=== PATIENT | male | born 1940 | race Caucasian/White ===

== ENCOUNTER 2017-01-16 16:33 | Inpatient (IN) | payer MEDICARE ==
[~2017-01-16] VITALS: Ht 182.9 cm; Wt 123.0 kg
[~2017-01-16 16:33] MED LIST: AMIO200T PO; ATOR20TA PO; Aspirin PO; CLOP75TA57 PO; DRON400T PO; GABA-586 PO; GABA800T2 PO; HYDR12.58 PO; HYDR25TA9 PO; LISI5TAB PO; METF-620 PO; Metoprolol Tartrate PO; NITR0.4T SL; RAMI10CA PO; RAMI5CAP PO; TICA90TA PO; TRAM-48 PO
[2017-01-16] MEDS ORDERED: IV NORMAL SALINE 500ML BAG 500 ML IV PRN (17:00)
[2017-01-16] MEDS ORDERED: IV NORMAL SALINE 1000ML BAG 1,000 ML IV SCH (17:00)
--- NOTE | 2017-01-16 17:25 | RAD ---
INDICATION: soa COMPARISON: 02/08/2016 FINDINGS: Single view of chest obtained. Enlarged cardiac silhouette with calcific atherosclerosis. Pacemaker is seen. Degenerative changes of left shoulder. No definite edema. Mild linear opacity left lung base. IMPRESSION: Mild linear opacity left lung base could be atelectasis. No definite lobar infiltrate. Enlarged cardiac silhouette.
[2017-01-16 17:55] LABS: HEMATOCRIT 27.8 % (39.0-53.0); HEMOGLOBIN 8.8 g/dL (13.0-17.5); MEAN CORPUSCULAR HEMOGLOBIN 29 pg (25-35); MEAN CORPUSCULAR HGB CONC 32 g/dL (31-37); MEAN CORPUSCULAR VOLUME 91 fL (79-100); PLATELET COUNT 784 x10^3/uL (140-400); RED BLOOD COUNT 3.05 x10^6/uL (4.30-5.70); RED CELL DISTRIBUTION WIDTH 17.6 % (11.5-14.5)
[2017-01-16 18:00] LABS: INR 1.2 (0.8-1.1)
[2017-01-16 18:02] LABS: WHITE BLOOD COUNT 308.5 x10^3/uL (4.0-11.0)
[2017-01-16 18:07] LABS: CALCIUM 9.3 mg/dL (8.5-10.1); CREATININE 1.5 mg/dL (0.7-1.3); GFR 45.6; POTASSIUM 4.3 mmol/L (3.5-5.1)
[2017-01-16 18:12] LABS: ALBUMIN 3.6 g/dL (3.4-5.0); TOTAL BILIRUBIN 0.3 mg/dL (0.2-1.0); TOTAL PROTEIN 7.3 g/dL (6.4-8.2)
[2017-01-16 18:33] LABS: ANISOCYTOSIS SLIGHT; PLT ESTIMATE INCREASED (ADEQUATE)
[2017-01-16 18:36] LABS: % BASOS 3 % (0-3); % EOS 2 % (0-5); POLYCHROMASIA SLIGHT
[2017-01-16 18:46] LABS: % BLASTS 2 % (0-0)
[2017-01-16] MEDS ORDERED: NITROGLYCERIN SUBLINGUAL 0.4 MG BOTTLE OF 25. SL PRN (19:00)
[2017-01-16] MEDS ORDERED: DEXTROSE 50% 25 GM / 50ML DISP.SYRIN. IV PRN ×2 (19:00→21:00)
[2017-01-16] MEDS ORDERED: PROCHLORPERAZINE 10 MG/2 ML VIAL. IV PRN (19:00)
[2017-01-16] MEDS ORDERED: traMADol 50 MG TABLET PO PRN (19:00)
[2017-01-16] MEDS ORDERED: ACETAMINOPHEN 325 MG TABLET. PO PRN (19:00)
[2017-01-16] MEDS ORDERED: PROCHLORPERAZINE 25 MG SUPP.RECT. PR PRN (19:00)
[2017-01-16] MEDS ORDERED: MAGNESIUM HYDROXIDE 2,400 MG/30 ML ORAL.SUSP. PO PRN (19:00)
[2017-01-16] MEDS ORDERED: IBUPROFEN 400 MG TABLET. PO PRN (19:00)
[2017-01-16] MEDS ORDERED: ONDANSETRON PF 4 MG/2 ML VIAL. IV PRN ×2 (19:00→19:45)
[2017-01-16] MEDS ORDERED: BISACODYL 10 MG SUPP.RECT. PR PRN (19:00)
--- NOTE | 2017-01-16 19:00 | PDOC1 ---
History and Physical Date of Admission Date of Admission DATE: 01/16/17 TIME: 18:53 Identification/Chief Complaint Chief Complaint sent by PCP Dr. Negrete bec of AbN labs (high WBC) Problems: Source Source: Caregiver, Chart review, Patient History of Present Illness History of Present Illness Very pleasant and very compliant 76 y.o male, sent by HIs PCP of 15 yrs bec of abN WBC. LAst labs was 3 mos ago (regularly monitoring) and was all normal,. Today, routine labs, routine check up, denies any sxs of weakness, fatigability, NONE of that, WBC high. At ER, recheck WBC 308,500, platelets 784 , hgb 8.8. NEWS to pt. All his past medical hx is mostly cardiac follows good with Demetris Thayer and includes HTN, arrhythmia, CHF, CAD, indwelling defibrillator and is in Plavix and ASA. JUst actually saw Shweta of cards in the office and ramipirl was stopped to transition to ENTRESTO - which is a new valsartan/diuretic? drug, Due echo this at 1.:45 pM. Past Medical History Cardiovascular: CAD, CHF, HTN Musculoskeletal: low back pain Renal/: Other Endocrine: Diabetes Past Surgical History Past Surgical History: Other Family History Family History: No Significant Social History Smoke: No ALCOHOL: none Drugs: None Current Medications Current Medications Current Medications Sodium Chloride 1,000 ml @ 3,780 mls/hr Q16M IV Last administered on t 17:47; Start 01/16/17 at 17:00; Stop 01/16/17 at 18:00; Status Cancel Sodium Chloride 500 ml @ 1,000 mls/hr PRN Q30MIN PRN IV SEE COMMENTS; Start at 17:00; Status Cancel Active Scripts Active Ultram (Tramadol Hcl) 50 Mg Tablet 1 Tab PO Q6HRS PRN Nitrostat (Nitroglycerin) 0.4 Mg Tab.subl 0.4 Mg SL PRN Q5MIN PRN [Metoprolol Tartrate] 25 MG Tablet 12.5 Mg PO BID [Aspirin] 81 MG Tablet. 81 Mg PO DAILYWBKFT Reported Multaq (Dronedarone Hcl) 400 Mg Tablet 400 Mg PO DAILY16 Plavix (Clopidogrel Bisulfate) 75 Mg Tablet 75 Mg PO DAILY Gabapentin 800 Mg Tablet 800 Mg PO QID Ramipril 10 Mg Capsule 10 Mg PO DAILY Hydrochlorothiazide Tablet (Hydrochlorothiazide) 25 Mg Tablet 25 Mg PO DAILY Metformin Hcl 1,000 Mg Tablet 1 Tab PO BID Do not resume until 10/07/15 evening dose Allergies Allergies: Coded Allergies: hydrocodone (Verified Allergy, Intermediate, altered mental status, hallucinations, 02/07/16) ROS Review of System denies ALL, 14 pt reviewed Physical Exam General: Alert, Oriented X3, Cooperative, No acute distress HEENT: Atraumatic, PERRLA, EOMI, Mucous membr. moist/pink Lungs: Clear to auscultation Heart: S1S2, RRR, no thrills, no rubs, no gallops, no murmurs Cardiovascular: S1, S2 Abdomen: Normal bowel sounds, Soft, No tenderness, No hepatosplenomegaly, No masses Male Genitals Exam: normal genitalia, normal prostate Extremities: No clubbing, No cyanosis, No edema, Normal pulses, No tenderness/ swelling Skin: No rashes, No breakdown, No significant lesion Neuro: Normal gait, Normal speech, Strength at 5/5 X4 ext, Normal tone, Sensation intact, Cranial nerves 3-12 NL, Reflexes 2+ Psych/Mental Status: Mental status NL, Mood NL Vitals Vitals Vital Signs Date Time Temp Pulse Resp B/P (MAP) Pulse Ox O2 Delivery O2 Flow Rate FiO2 01/16/17 16:46 99.1 77 22 161/74 (103) 94 Room Air 99.1 Labs Labs Laboratory Tests Test 01/16/17 17:35 White Blood Count 308.5 x10^3/uL (4.0-11.0) Red Blood Count 3.05 x10^6/uL (4.30-5.70) Hemoglobin 8.8 g/dL (13.0-17.5) Hematocrit 27.8 % (39.0-53.0) Mean Corpuscular Volume 91 fL (79-100) Mean Corpuscular Hemoglobin 29 pg (25-35) Mean Corpuscular Hemoglobin Concent 32 g/dL (31-37) Red Cell Distribution Width 17.6 % (11.5-14.5) Platelet Count 784 x10^3/uL (140-400) Neutrophils (%) (Auto) % (31-73) Lymphocytes (%) (Auto) % (24-48) Monocytes (%) (Auto) % (0-9) Eosinophils (%) (Auto) % (0-3) Basophils (%) (Auto) % (0-3) Neutrophils # (Auto) x10^3uL (1.8-7.7) Lymphocytes # (Auto) x10^3/uL (1.0-4.8) Monocytes # (Auto) x10^3/uL (0.0-1.1) Eosinophils # (Auto) x10^3/uL (0.0-0.7) Basophils # (Auto) x10^3/uL (0.0-0.2) Segmented Neutrophils % 33 % (35-66) Band Neutrophils % 26 % (0-9) Lymphocytes % 3 % (24-48) Monocytes % 1 % (0-10) Eosinophils % 2 % (0-5) Basophils % 3 % (0-3) Metamyelocytes % 6 % (0-0) Myelocytes % 20 % (0-0) Promyelocytes % 4 % (0-0) Blast Cells % (Manual) 2 % (0-0) Platelet Estimate Increased (ADEQUATE) Polychromasia Slight Anisocytosis Slight Prothrombin Time 14.0 SEC (11.7-14.0) Prothromb Time International Ratio 1.2 (0.8-1.1) Activated Partial Thromboplast Time 33 SEC (24-38) Sodium Level 139 mmol/L (136-145) Potassium Level 4.3 mmol/L (3.5-5.1) Chloride Level 103 mmol/L (98-107) Carbon Dioxide Level 26 mmol/L (21-32) Anion Gap 10 (6-14) Blood Urea Nitrogen 23 mg/dL (8-26) Creatinine 1.5 mg/dL (0.7-1.3) Estimated GFR (Cockcroft-Gault) 45.6 BUN/Creatinine Ratio 15 (6-20) Glucose Level 155 mg/dL (70-99) Lactic Acid Level 1.5 mmol/L (0.4-2.0) Calcium Level 9.3 mg/dL (8.5-10.1) Total Bilirubin 0.3 mg/dL (0.2-1.0) Aspartate Amino Transf (AST/SGOT) 37 U/L (15-37) Alanine Aminotransferase (ALT/SGPT) 20 U/L (16-63) Alkaline Phosphatase 128 U/L (46-116) Troponin I Quantitative < 0.017 ng/mL (0.000-0.055) RQ-Jpe-G-Type Natriuretic Peptide 1195 pg/mL (0-449) Total Protein 7.3 g/dL (6.4-8.2) Albumin 3.6 g/dL (3.4-5.0) Albumin/Globulin Ratio 1.0 (1.0-1.7) Lipase 138 U/L (73-393) Laboratory Tests Test 01/16/17 17:35 White Blood Count 308.5 x10^3/uL (4.0-11.0) Red Blood Count 3.05 x10^6/uL (4.30-5.70) Hemoglobin 8.8 g/dL (13.0-17.5) Hematocrit 27.8 % (39.0-53.0) Mean Corpuscular Volume 91 fL (79-100) Mean Corpuscular Hemoglobin 29 pg (25-35) Mean Corpuscular Hemoglobin Concent 32 g/dL (31-37) Red Cell Distribution Width 17.6 % (11.5-14.5) Platelet Count 784 x10^3/uL (140-400) Neutrophils (%) (Auto) % (31-73) Lymphocytes (%) (Auto) % (24-48) Monocytes (%) (Auto) % (0-9) Eosinophils (%) (Auto) % (0-3) Basophils (%) (Auto) % (0-3) Neutrophils # (Auto) x10^3uL (1.8-7.7) Lymphocytes # (Auto) x10^3/uL (1.0-4.8) Monocytes # (Auto) x10^3/uL (0.0-1.1) Eosinophils # (Auto) x10^3/uL (0.0-0.7) Basophils # (Auto) x10^3/uL (0.0-0.2) Segmented Neutrophils % 33 % (35-66) Band Neutrophils % 26 % (0-9) Lymphocytes % 3 % (24-48) Monocytes % 1 % (0-10) Eosinophils % 2 % (0-5) Basophils % 3 % (0-3) Metamyelocytes % 6 % (0-0) Myelocytes % 20 % (0-0) Promyelocytes % 4 % (0-0) Blast Cells % (Manual) 2 % (0-0) Platelet Estimate Increased (ADEQUATE) Polychromasia Slight Anisocytosis Slight Prothrombin Time 14.0 SEC (11.7-14.0) Prothromb Time International Ratio 1.2 (0.8-1.1) Activated Partial Thromboplast Time 33 SEC (24-38) Sodium Level 139 mmol/L (136-145) Potassium Level 4.3 mmol/L (3.5-5.1) Chloride Level 103 mmol/L (98-107) Carbon Dioxide Level 26 mmol/L (21-32) Anion Gap 10 (6-14) Blood Urea Nitrogen 23 mg/dL (8-26) Creatinine 1.5 mg/dL (0.7-1.3) Estimated GFR (Cockcroft-Gault) 45.6 BUN/Creatinine Ratio 15 (6-20) Glucose Level 155 mg/dL (70-99) Lactic Acid Level 1.5 mmol/L (0.4-2.0) Calcium Level 9.3 mg/dL (8.5-10.1) Total Bilirubin 0.3 mg/dL (0.2-1.0) Aspartate Amino Transf (AST/SGOT) 37 U/L (15-37) Alanine Aminotransferase (ALT/SGPT) 20 U/L (16-63) Alkaline Phosphatase 128 U/L (46-116) Troponin I Quantitative < 0.017 ng/mL (0.000-0.055) HW-Vje-K-Type Natriuretic Peptide 1195 pg/mL (0-449) Total Protein 7.3 g/dL (6.4-8.2) Albumin 3.6 g/dL (3.4-5.0) Albumin/Globulin Ratio 1.0 (1.0-1.7) Lipase 138 U/L (73-393) VTE Prophylaxis Ordered VTE Prophylaxis Devices: Yes VTE Pharmacological Prophylaxi: Yes Assessment/Plan Assessment/Plan 1. MARKD leukocytosis, in my opinion leukemia until proven otherwise 2. CAD, CHF, HTN, Indwelling defibrillator - all chronic stable 3. Obesity BMI 37 4. DM 2, good control PLAN: Admit, ADA now but NPO post MN for BM biopsy SSI HEme onc consult Cards consult as shweta stopped ramipril yesterday and claims was going to start entresto? on , pt wanted to ff up on that Also due echo , will do while here if ok with cards Seen at ER Labs and plan of care discussed in detail with pt and Agreeable. Dw Midlevel ER provider MAMTA Lomas MD Jan 16, 2017 19:00
[2017-01-16] MEDS ORDERED: fentaNYL PF VIAL 100 MCG/2 ML VIAL IV PRN (19:45)
--- NOTE | 2017-01-16 19:57 | PHYS DOC ---
Past Medical History Past Medical History: CAD, Diabetes-Type II, Hypertension, Kidney Stone, SC, Other Additional Past Medical Histor: NEUROPATHY Past Surgical History: Pacemaker, Other Additional Past Surgical Histo: lap band, cardiac stents,PACEMAKER/DEFIB Alcohol Use: None Drug Use: None Adult General Chief Complaint Chief Complaint: ABNORMAL LABS HPI HPI Patient is a 76 year old male with history of hypertension, CAD, SC, CHF, diabetes type 2, who presents today stating he was seen by the PCP and they tita routine labs his white count was extremely elevated "at Leukemia levels" and the PCP sent him to the ED to have his labs redrawn. Patient states he has had intermittent episodes of shortness of breath for the last 1 month. Patient denies any chest pain or fever or nausea vomiting. Denies any history of alcohol or drug abuse or smoking. PCP Dr. Obdulio Craroll Cardiology Dr. Murdock Review of Systems Review of Systems Constitutional: Elevated WBC Eyes: Denies change in visual acuity, redness, or eye pain [] HENT: Denies nasal congestion or sore throat [] Respiratory: shortness of breath [] Cardiovascular: No additional information not addressed in HPI [] GI: Denies abdominal pain, nausea, vomiting, bloody stools or diarrhea [] : Denies dysuria or hematuria [] Musculoskeletal: Denies back pain or joint pain [] Integument: Denies rash or skin lesions [] Neurologic: Denies headache, focal weakness or sensory changes [] Endocrine: Denies polyuria or polydipsia [] Current Medications Current Medications Current Medications Medications (Trade) Dose Ordered Sig/Rose Start Time Stop Time Status Last Admin Dose Admin Acetaminophen (Tylenol) 650 mg PRN Q6HRS PRN 01/16/17 19:00 Bisacodyl (Dulcolax Supp) 10 mg PRN DAILY PRN 01/16/17 19:00 Dextrose (Dextrose 50%-Water Syringe) 12.5 gm PRN Q15MIN PRN 01/16/17 19:00 Ibuprofen (Motrin) 400 mg PRN Q6HRS PRN 01/16/17 19:00 Magnesium Hydroxide (Milk Of Magnesia) 2,400 mg PRN Q12HR PRN 01/16/17 19:00 Nitroglycerin (Nitrostat) 0.4 mg PRN Q5MIN PRN 01/16/17 19:00 Ondansetron HCl (Zofran) 4 mg PRN Q6HRS PRN 01/16/17 19:00 Prochlorperazine (Compazine) 25 mg PRN Q12HR PRN 01/16/17 19:00 Prochlorperazine Edisylate (Compazine) 10 mg PRN Q6HRS PRN 01/16/17 19:00 Sodium Chloride 500 ml @ 1,000 mls/hr PRN Q30MIN PRN 01/16/17 17:00 Cancel Tramadol HCl (Ultram) 50 mg PRN QID PRN 01/16/17 19:00 Allergies Allergies Allergies Coded Allergies Type Severity Reaction Last Updated Verified hydrocodone Allergy Intermediate altered mental status, hallucinations 02/07/16 Yes Physical Exam Physical Exam Constitutional: Well developed, well nourished, no acute distress, non-toxic appearance. [] HENT: Normocephalic, atraumatic, bilateral external ears normal, oropharynx moist, no oral exudates, nose normal. [] Eyes: PERRLA, EOMI, conjunctiva normal, no discharge. [] Neck: Normal range of motion, no tenderness, supple, no stridor. [] Cardiovascular:Left upper chest with defibrillator with pacemaker. Heart rate regular rhythm, no murmur [] Lungs & Thorax: Bilateral breath sounds clear to auscultation [] Abdomen: Bowel sounds normal, soft, no tenderness, no masses, no pulsatile masses. [] Skin: Warm, dry, no erythema, no rash. [] Back: No tenderness, no CVA tenderness. [] Extremities: No tenderness, no cyanosis, no clubbing, ROM intact, no edema. [] Neurologic: Alert and oriented X 3, normal motor function, normal sensory function, no focal deficits noted. [] Psychologic: Affect normal, judgement normal, mood normal. [] Current Patient Data Vital Signs Vital Signs Date Time Temp Pulse Resp B/P (MAP) Pulse Ox O2 Delivery O2 Flow Rate FiO2 01/16/17 18:50 74 20 129/61 (83) 95 Room Air 01/16/17 16:46 99.1 99.1 Lab Values Laboratory Tests Test 01/16/17 17:35 White Blood Count 308.5 x10^3/uL (4.0-11.0) *H Red Blood Count 3.05 x10^6/uL (4.30-5.70) L Hemoglobin 8.8 g/dL (13.0-17.5) L Hematocrit 27.8 % (39.0-53.0) L Mean Corpuscular Volume 91 fL (79-100) Mean Corpuscular Hemoglobin 29 pg (25-35) Mean Corpuscular Hemoglobin Concent 32 g/dL (31-37) Red Cell Distribution Width 17.6 % (11.5-14.5) H Platelet Count 784 x10^3/uL (140-400) #H Neutrophils (%) (Auto) % (31-73) Lymphocytes (%) (Auto) % (24-48) Monocytes (%) (Auto) % (0-9) Eosinophils (%) (Auto) % (0-3) Basophils (%) (Auto) % (0-3) Neutrophils # (Auto) x10^3uL (1.8-7.7) Lymphocytes # (Auto) x10^3/uL (1.0-4.8) Monocytes # (Auto) x10^3/uL (0.0-1.1) Eosinophils # (Auto) x10^3/uL (0.0-0.7) Basophils # (Auto) x10^3/uL (0.0-0.2) Segmented Neutrophils % 33 % (35-66) L Band Neutrophils % 26 % (0-9) H Lymphocytes % 3 % (24-48) L Monocytes % 1 % (0-10) Eosinophils % 2 % (0-5) Basophils % 3 % (0-3) Metamyelocytes % 6 % (0-0) H Myelocytes % 20 % (0-0) H Promyelocytes % 4 % (0-0) H Blast Cells % (Manual) 2 % (0-0) H Platelet Estimate Increased (ADEQUATE) Polychromasia Slight Anisocytosis Slight Prothrombin Time 14.0 SEC (11.7-14.0) Prothrombin Time INR 1.2 (0.8-1.1) H PTT 33 SEC (24-38) Sodium Level 139 mmol/L (136-145) Potassium Level 4.3 mmol/L (3.5-5.1) Chloride Level 103 mmol/L (98-107) Carbon Dioxide Level 26 mmol/L (21-32) Anion Gap 10 (6-14) Blood Urea Nitrogen 23 mg/dL (8-26) Creatinine 1.5 mg/dL (0.7-1.3) H Estimated GFR (Cockcroft-Gault) 45.6 BUN/Creatinine Ratio 15 (6-20) Glucose Level 155 mg/dL (70-99) H Lactic Acid Level 1.5 mmol/L (0.4-2.0) Calcium Level 9.3 mg/dL (8.5-10.1) Total Bilirubin 0.3 mg/dL (0.2-1.0) Aspartate Amino Transferase (AST) 37 U/L (15-37) Alanine Aminotransferase (ALT) 20 U/L (16-63) Alkaline Phosphatase 128 U/L (46-116) H Troponin I Quantitative < 0.017 ng/mL (0.000-0.055) BK-Tjd-C-Type Natriuretic Peptide 1195 pg/mL (0-449) H Total Protein 7.3 g/dL (6.4-8.2) Albumin 3.6 g/dL (3.4-5.0) Albumin/Globulin Ratio 1.0 (1.0-1.7) Lipase 138 U/L (73-393) Procalcitonin 0.26 ng/mL (0.00-0.10) H Laboratory Tests 01/16/17 17:35 Laboratory Tests 01/16/17 17:35 EKG EKG [] Radiology/Procedures Radiology/Procedures [] Course & Med Decision Making Course & Med Decision Making Pertinent Labs and Imaging studies reviewed. (See chart for details) This is a very pleasant male patient who presents to the ED for blood draw. Patient was seen by the PCP is office and routine labs obtain. His white count was noted to be elevated suspicious of leukemia. CBC in the ED is 308.5. Hemoglobin 8.8, platelets 784. Consulted with Dr. West who accepted patient for admission Consulted with Dr. August who requested we wait for patient's labs to be completed especially bands and blasts. If labs show this is chronic leukemia he can be admitted if it is acute he needs to be transferred to Lab states it will be awhile before all the labs are ready infact they will wait until Dr. Rodriguez Pathologist look sat them before they post everything. Consulted with Dr. Johnson who stated we can admit patient and admitting doctor and Dr. August can follow up with the labs as inpatient and decide if patient will stay at [facility] or go to . Aureliano Disclaimer Dragon Disclaimer This electronic medical record was generated, in whole or in part, using a voice recognition dictation system. Departure Departure Impression: Primary Impression: Elevated WBC count Additional Impression: Leukemia Disposition: ADMITTED INPATIENT Admitting Physician: Leilani West Condition: STABLE Referrals: OBDULIO CARROLL Jr, MD (PCP) Problem Qualifiers Primary Impression: Elevated WBC count Leukocytosis type: unspecified Qualified Codes: D72.829 - Elevated white blood cell count, unspecified Additional Impression: Leukemia Leukemia type: other type Leukemia Active/Remission status: without remission Qualified Codes: C94.80 - Other specified leukemias not having achieved remission ARETHA YAO ADULT BASIC EDUCATION MANAGER Jan 16, 2017 19:57
[2017-01-16 20:36] VITALS: BP 138/44
[2017-01-16 21:24] LABS: BILIRUBIN,URINE NEGATIVE (NEG); GLUCOSE,URINE NEGATIVE (NEG); NITRITE,URINE NEGATIVE (NEG); PROTEIN,URINE NEGATIVE (NEG-TRACE); UROBILINOGEN,URINE 0.2 mg/dL (0.2 mg/dL)
[2017-01-16 21:30] LABS: BACTERIA,URINE FEW /HPF (0-FEW); RBC,URINE 0 /HPF (0-2); SQUAMOUS EPITHELIAL CELL,UR OCC /LPF
[2017-01-16] MEDS ORDERED: ALLO300T PO (21:31)
[2017-01-16] MEDS ORDERED: POTA20TA4 PO (21:31)
[2017-01-16] MEDS ORDERED: SACU1TAB7 PO (21:31)
[2017-01-16] MEDS ORDERED: FURO-69 PO (21:31)
[2017-01-16] MEDS: GABAPENTIN 400 MG CAPSULE. PO SCH (21:46)
[2017-01-16] MEDS: METOPROLOL TART IMMED RELEASE 25 MG TABLET. PO SCH (21:50)
[2017-01-16 22:43] VITALS: BP 126/61
[2017-01-17] VITALS (16 sets, daily range): BP systolic 108–136; BP diastolic 58–74
[2017-01-17] MEDS: INSULIN ASPART 300 UNITS/3 ML INSULN.PEN SQ SCH ×2 (08:00→12:00)
[2017-01-17 08:37] LABS: BASO # 8.6 x10^3/uL (0.0-0.2); BASO % 3 % (0-3); EOS % 2 % (0-3); HEMATOCRIT 26.3 % (39.0-53.0); HEMOGLOBIN 8.6 g/dL (13.0-17.5); LYMPH # 21.4 x10^3/uL (1.0-4.8); LYMPH % 7 % (24-48); MEAN CORPUSCULAR HEMOGLOBIN 29 pg (25-35); MEAN CORPUSCULAR HGB CONC 33 g/dL (31-37); MEAN CORPUSCULAR VOLUME 90 fL (79-100); MONO % 0 % (0-9); NEUT % 87 % (31-73); PLATELET COUNT 786 x10^3/uL (140-400); RED BLOOD COUNT 2.93 x10^6/uL (4.30-5.70); RED CELL DISTRIBUTION WIDTH 18.5 % (11.5-14.5)
--- NOTE | 2017-01-17 08:41 | RAD ---
INDICATION: Leukocytosis COMPARISON: 01/21/2016 TECHNIQUE: Grayscale and color ultrasound images obtained through the abdomen. FINDINGS: Aorta/IVC: Poorly seen Pancreas: Visualized portions unremarkable. Liver: Echogenic and appears enlarged. Gallbladder: Gallstones are visualized Common Bile Duct: Not dilated. Right Kidney: No hydronephrosis. Echogenic structure within, could be nonobstructive stone. 7 mm. Left Kidney: No hydronephrosis. 25 x 21 mm cyst Spleen: 17 cm IMPRESSION: Liver and spleen appear enlarged. Liver is also mildly echogenic. Nonspecific but can be seen with fatty infiltration. Gallstones. Nonobstructive right renal stone and left renal cyst.
[2017-01-17 08:42] LABS: WHITE BLOOD COUNT 289.3 x10^3/uL (4.0-11.0)
--- NOTE | 2017-01-17 08:46 | PDOC2 ---
CONSULT Date of Consult Date of Consult DATE: 01/17/17 TIME: 08:36 Reason for Consult Reason for Consult: Elevated WBC, plt Referring Physician Referring Physician: Dr. Samaria Clements PCP: Dr. Obdulio Salcido History of Present Illness Reason for Visit: Pt presented to PCP for routine labs. WBC noted to be very elevated. Review of [facility] labs show WBC ~ 30 in 2016, plt and hgb normal. Now WBC 309 with mix of increased neutrophils, bands, meta, myelo, promyelo, 20% blasts on diff. Plt elevated as well at 784. Pt with no change in sx with exception of intermittent SOB x 3 weeks. Denies fevers, chills, unintentional wt loss (trying to lose weight, 20 lb in last year), sweating, chest pain, abd pain, rashes. fatigued chronically since pacemaker 1 yr ago. Past Medical History Past Medical History CAD s/p [place] 2 yr ago, still does cardiac rehab 3x wk, DM, HTN, Neuropathy b/l feet, multiple kidney stones, JADE on CPAP Cardiovascular: CAD, CHF, HTN Musculoskeletal: low back pain Renal/: Other Endocrine: Diabetes Past Surgical History Past Surgical History PM/ defib 02/14, lab band, PCI, multiple kidney stones Past Surgical History: Other Family History Family History Mom- CAD, Dad- Lung ca (smoker), Brother- CAD age 80, Sis- obesity Family History: No Significant Social History Social History , inactive, no tob/ etoh/ drugs No ALCOHOL: none Drugs: None Current Medications Current Medications Current Medications Sodium Chloride 1,000 ml @ 3,780 mls/hr Q16M IV Last administered on t 17:47; Start 01/16/17 at 17:00; Stop 01/16/17 at 18:00; Status Cancel Sodium Chloride 500 ml @ 1,000 mls/hr PRN Q30MIN PRN IV SEE COMMENTS; Start at 17:00; Status Cancel Ondansetron HCl (Zofran) 4 mg PRN Q6HRS PRN IV NAUSEA/VOMITING; Start 01/16/17 at 19:00 Prochlorperazine Edisylate (Compazine) 10 mg PRN Q6HRS PRN IV NAUSEA/VOMITING; Start 01/16/17 at 19:00 Prochlorperazine (Compazine) 25 mg PRN Q12HR PRN NE NAUSEA/VOMITING; Start at 19:00 Acetaminophen (Tylenol) 650 mg PRN Q6HRS PRN PO Headaches, Temp > 101.5F Last administered on 01/16/17 21:53; Start 01/16/17 at 19:00 Ibuprofen (Motrin) 400 mg PRN Q6HRS PRN PO MILD PAIN; Start 01/16/17 at 19:00 Magnesium Hydroxide (Milk Of Magnesia) 2,400 mg PRN Q12HR PRN PO CONSTIPATION; Start 01/16/17 at 19:00 Bisacodyl (Dulcolax Supp) 10 mg PRN DAILY PRN NE CONSTIPATION; Start 01/16/17 at 19:00 Tramadol HCl (Ultram) 50 mg PRN QID PRN PO pain; Start 01/16/17 at 19:00 Dronedarone (Multaq) 400 mg DAILY16 PO ; Start 01/17/17 at 16:00 Hydrochlorothiazide (Hydrodiuril) 25 mg DAILY PO ; Start 01/17/17 at 09:00 Metformin HCl (Glucophage) 1,000 mg BIDWMEALS PO ; Start 01/17/17 at 08:00 Nitroglycerin (Nitrostat) 0.4 mg PRN Q5MIN PRN SL CHEST PAIN; Start 01/16/17 at 19:00 Gabapentin (Neurontin) 800 mg QID PO Last administered on 01/16/17 21:46; Start 01/16/17 at 21:00 Metoprolol Tartrate (Lopressor) 12.5 mg BID PO Last administered on 01/16/17 21:50; Start 01/16/17 at 21:00 Dextrose (Dextrose 50%-Water Syringe) 12.5 gm PRN Q15MIN PRN IV SEE COMMENTS; Start 01/16/17 at 19:00 Ondansetron HCl (Zofran) 4 mg PRN Q8HRS PRN IV NAUSEA/VOMITING; Start 01/16/17 at 19:45; Stop 01/16/17 at 19:45; Status DC Fentanyl Citrate (Fentanyl 2ml Vial) 50 mcg PRN Q2HR PRN IV PAIN; Start at 19:45; Stop 01/17/17 at 19:44 Insulin Aspart (NovoLOG) 0-7 UNITS TIDWMEALS SQ ; Start 01/17/17 at 08:00 Dextrose (Dextrose 50%-Water Syringe) 12.5 gm PRN Q15MIN PRN IV SEE COMMENTS; Start 01/16/17 at 21:00 Allopurinol (Zyloprim) 300 mg DAILY PO ; Start 01/17/17 at 09:00 Active Scripts Active Ultram (Tramadol Hcl) 50 Mg Tablet 1 Tab PO Q6HRS PRN Nitrostat (Nitroglycerin) 0.4 Mg Tab.subl 0.4 Mg SL PRN Q5MIN PRN [Metoprolol Tartrate] 25 MG Tablet 12.5 Mg PO BID [Aspirin] 81 MG Tablet.dr 81 Mg PO DAILYWBKFT Reported Klor-Con M20 (Potassium Chloride) 20 Meq Tab.er.prt 1 Tab PO DAILY Lasix (Furosemide) 20 Mg Tablet 1 Tab PO DAILY Entresto 49 mg-51 mg Tablet (Sacubitril/Valsartan) 1 Each Tablet 1 Each PO BID Allopurinol 300 Mg Tablet 1 Tab PO DAILY Multaq (Dronedarone Hcl) 400 Mg Tablet 400 Mg PO DAILY16 Plavix (Clopidogrel Bisulfate) 75 Mg Tablet 75 Mg PO DAILY Gabapentin 800 Mg Tablet 800 Mg PO QID Metformin Hcl 1,000 Mg Tablet 1 Tab PO BID Do not resume until 10/07/15 evening dose Allergies Allergies: Coded Allergies: hydrocodone (Verified Allergy, Intermediate, altered mental status, hallucinations, 02/07/16) morphine (Verified Allergy, Unknown, 01/16/17) pt states it makes him feel outbody ROS Review of System 12 point ROS completed, + only for fatigue, SOB as above Physical Exam General: Alert, Oriented X3, Cooperative, No acute distress HEENT: Other (right exotropia) Lungs: Clear to auscultation, Normal air movement Heart: Regular rate Abdomen: No tenderness, Other (obese, cannot assess for organomegaly) Extremities: No edema Skin: No rashes Neuro: Cranial nerves 3-12 NL Psych/Mental Status: Mental status NL, Mood NL Vitals VITALS Vital Signs Date Time Temp Pulse Resp B/P (MAP) Pulse Ox O2 Delivery O2 Flow Rate FiO2 01/17/17 07:00 98.1 68 18 126/60 (82) 95 Nasal Cannula 2.0 98.1 Labs Labs Laboratory Tests Test 01/16/17 17:35 01/16/17 17:45 01/16/17 20:20 White Blood Count 308.5 x10^3/uL (4.0-11.0) Red Blood Count 3.05 x10^6/uL (4.30-5.70) Hemoglobin 8.8 g/dL (13.0-17.5) Hematocrit 27.8 % (39.0-53.0) Mean Corpuscular Volume 91 fL (79-100) Mean Corpuscular Hemoglobin 29 pg (25-35) Mean Corpuscular Hemoglobin Concent 32 g/dL (31-37) Red Cell Distribution Width 17.6 % (11.5-14.5) Platelet Count 784 x10^3/uL (140-400) Neutrophils (%) (Auto) % (31-73) Lymphocytes (%) (Auto) % (24-48) Monocytes (%) (Auto) % (0-9) Eosinophils (%) (Auto) % (0-3) Basophils (%) (Auto) % (0-3) Neutrophils # (Auto) x10^3uL (1.8-7.7) Lymphocytes # (Auto) x10^3/uL (1.0-4.8) Monocytes # (Auto) x10^3/uL (0.0-1.1) Eosinophils # (Auto) x10^3/uL (0.0-0.7) Basophils # (Auto) x10^3/uL (0.0-0.2) Segmented Neutrophils % 33 % (35-66) Band Neutrophils % 26 % (0-9) Lymphocytes % 3 % (24-48) Monocytes % 1 % (0-10) Eosinophils % 2 % (0-5) Basophils % 3 % (0-3) Metamyelocytes % 6 % (0-0) Myelocytes % 20 % (0-0) Promyelocytes % 4 % (0-0) Blast Cells % (Manual) 2 % (0-0) Platelet Estimate Increased (ADEQUATE) Polychromasia Slight Anisocytosis Slight Prothrombin Time 14.0 SEC (11.7-14.0) Prothromb Time International Ratio 1.2 (0.8-1.1) Activated Partial Thromboplast Time 33 SEC (24-38) Sodium Level 139 mmol/L (136-145) Potassium Level 4.3 mmol/L (3.5-5.1) Chloride Level 103 mmol/L (98-107) Carbon Dioxide Level 26 mmol/L (21-32) Anion Gap 10 (6-14) Blood Urea Nitrogen 23 mg/dL (8-26) Creatinine 1.5 mg/dL (0.7-1.3) Estimated GFR (Cockcroft-Gault) 45.6 BUN/Creatinine Ratio 15 (6-20) Glucose Level 155 mg/dL (70-99) Lactic Acid Level 1.5 mmol/L (0.4-2.0) Calcium Level 9.3 mg/dL (8.5-10.1) Total Bilirubin 0.3 mg/dL (0.2-1.0) Aspartate Amino Transf (AST/SGOT) 37 U/L (15-37) Alanine Aminotransferase (ALT/SGPT) 20 U/L (16-63) Alkaline Phosphatase 128 U/L (46-116) Troponin I Quantitative < 0.017 ng/mL (0.000-0.055) RO-Lly-X-Type Natriuretic Peptide 1195 pg/mL (0-449) Total Protein 7.3 g/dL (6.4-8.2) Albumin 3.6 g/dL (3.4-5.0) Albumin/Globulin Ratio 1.0 (1.0-1.7) Lipase 138 U/L (73-393) Procalcitonin 0.26 ng/mL (0.00-0.10) Urine Collection Type Unknown Urine Color Yellow Urine Clarity Clear Urine pH 5.0 Urine Specific [place] 1.015 Urine Protein Negative mg/dL (NEG-TRACE) Urine Glucose (UA) Negative mg/dL (NEG) Urine Ketones (Stick) Negative mg/dL (NEG) Urine Blood Negative (NEG) Urine Nitrite Negative (NEG) Urine Bilirubin Negative (NEG) Urine Urobilinogen Dipstick 0.2 mg/dL (0.2 mg/dL) Urine Leukocyte Esterase Negative (NEG) Urine RBC 0 /HPF (0-2) Urine WBC 1-4 /HPF (0-4) Urine Squamous Epithelial Cells Occ /LPF Urine Amorphous Sediment Present /HPF Urine Bacteria Few /HPF (0-FEW) Urine Hyaline Casts Few /HPF Urine Mucus Mod /LPF Glucose (Fingerstick) 169 mg/dL (70-99) Laboratory Tests Test 01/16/17 17:35 01/16/17 17:45 01/16/17 20:20 White Blood Count 308.5 x10^3/uL (4.0-11.0) Red Blood Count 3.05 x10^6/uL (4.30-5.70) Hemoglobin 8.8 g/dL (13.0-17.5) Hematocrit 27.8 % (39.0-53.0) Mean Corpuscular Volume 91 fL (79-100) Mean Corpuscular Hemoglobin 29 pg (25-35) Mean Corpuscular Hemoglobin Concent 32 g/dL (31-37) Red Cell Distribution Width 17.6 % (11.5-14.5) Platelet Count 784 x10^3/uL (140-400) Neutrophils (%) (Auto) % (31-73) Lymphocytes (%) (Auto) % (24-48) Monocytes (%) (Auto) % (0-9) Eosinophils (%) (Auto) % (0-3) Basophils (%) (Auto) % (0-3) Neutrophils # (Auto) x10^3uL (1.8-7.7) Lymphocytes # (Auto) x10^3/uL (1.0-4.8) Monocytes # (Auto) x10^3/uL (0.0-1.1) Eosinophils # (Auto) x10^3/uL (0.0-0.7) Basophils # (Auto) x10^3/uL (0.0-0.2) Segmented Neutrophils % 33 % (35-66) Band Neutrophils % 26 % (0-9) Lymphocytes % 3 % (24-48) Monocytes % 1 % (0-10) Eosinophils % 2 % (0-5) Basophils % 3 % (0-3) Metamyelocytes % 6 % (0-0) Myelocytes % 20 % (0-0) Promyelocytes % 4 % (0-0) Blast Cells % (Manual) 2 % (0-0) Platelet Estimate Increased (ADEQUATE) Polychromasia Slight Anisocytosis Slight Prothrombin Time 14.0 SEC (11.7-14.0) Prothromb Time International Ratio 1.2 (0.8-1.1) Activated Partial Thromboplast Time 33 SEC (24-38) Sodium Level 139 mmol/L (136-145) Potassium Level 4.3 mmol/L (3.5-5.1) Chloride Level 103 mmol/L (98-107) Carbon Dioxide Level 26 mmol/L (21-32) Anion Gap 10 (6-14) Blood Urea Nitrogen 23 mg/dL (8-26) Creatinine 1.5 mg/dL (0.7-1.3) Estimated GFR (Cockcroft-Gault) 45.6 BUN/Creatinine Ratio 15 (6-20) Glucose Level 155 mg/dL (70-99) Lactic Acid Level 1.5 mmol/L (0.4-2.0) Calcium Level 9.3 mg/dL (8.5-10.1) Total Bilirubin 0.3 mg/dL (0.2-1.0) Aspartate Amino Transf (AST/SGOT) 37 U/L (15-37) Alanine Aminotransferase (ALT/SGPT) 20 U/L (16-63) Alkaline Phosphatase 128 U/L (46-116) Troponin I Quantitative < 0.017 ng/mL (0.000-0.055) XX-Ugw-W-Type Natriuretic Peptide 1195 pg/mL (0-449) Total Protein 7.3 g/dL (6.4-8.2) Albumin 3.6 g/dL (3.4-5.0) Albumin/Globulin Ratio 1.0 (1.0-1.7) Lipase 138 U/L (73-393) Procalcitonin 0.26 ng/mL (0.00-0.10) Urine Collection Type Unknown Urine Color Yellow Urine Clarity Clear Urine pH 5.0 Urine Specific [place] 1.015 Urine Protein Negative mg/dL (NEG-TRACE) Urine Glucose (UA) Negative mg/dL (NEG) Urine Ketones (Stick) Negative mg/dL (NEG) Urine Blood Negative (NEG) Urine Nitrite Negative (NEG) Urine Bilirubin Negative (NEG) Urine Urobilinogen Dipstick 0.2 mg/dL (0.2 mg/dL) Urine Leukocyte Esterase Negative (NEG) Urine RBC 0 /HPF (0-2) Urine WBC 1-4 /HPF (0-4) Urine Squamous Epithelial Cells Occ /LPF Urine Amorphous Sediment Present /HPF Urine Bacteria Few /HPF (0-FEW) Urine Hyaline Casts Few /HPF Urine Mucus Mod /LPF Glucose (Fingerstick) 169 mg/dL (70-99) Images Images CT A/O 01/14- no organomegaly Assessment/Plan Assessment/Plan 1. Progressive leukocytosis since 2016 with increased neutrophils, myelocytes, metamyelocytes, promyelocytes, thrombocytosis. Only 2 % blasts. Suggestive of CML. Clinically stable. Plan: - Bmbx ordered today, check BCR-ABL - U/S abd to eval for splenomegaly - Ordered uric acid level as baseline. Ordered allopurinol 300 mg daily until seen in clinic (was on 100 mg at home) - ok to DC from heme standpoint as seems stable. I need bmbx/ BCR-ABL back to confirm CML, then can start imatinib as outpt. My clinic will call to schedule f /u early next week. Will alert pathology as well. RENE MACKAY DO Jan 17, 2017 08:46
[2017-01-17 08:51] LABS: ALBUMIN 3.3 g/dL (3.4-5.0); ALBUMIN/GLOBULIN RATIO 0.9 (1.0-1.7); CREATININE 1.3 mg/dL (0.7-1.3); GFR 53.8; TOTAL BILIRUBIN 0.3 mg/dL (0.2-1.0); TOTAL PROTEIN 6.9 g/dL (6.4-8.2); URIC ACID 8.4 mg/dL (3.5-7.2)
[2017-01-17] MEDS ORDERED: ALLOPURINOL 300 MG TABLET. PO SCH (09:00)
[2017-01-17] MEDS ORDERED: hydroCHLOROthiazide 25 MG TABLET PO SCH (09:00)
[2017-01-17] MEDS ORDERED: MIDAZOLAM HCL/PF 5 MG/5 ML VIAL. ONE (09:01)
[2017-01-17] MEDS ORDERED: fentaNYL PF VIAL 100 MCG/2 ML VIAL IV ONE (09:15)
[2017-01-17] MEDS ORDERED: MIDAZOLAM HCL/PF 5 MG/5 ML VIAL. IV ONE (09:30)
[2017-01-17] MEDS ORDERED: LIDOCAINE 1% / SOD BICARB 8.4% 20 ML VIAL. IJ ONE (09:30)
--- NOTE | 2017-01-17 10:05 | EKG ---
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
[2017-01-17] MEDS: GABAPENTIN 400 MG CAPSULE. PO SCH (10:10)
[2017-01-17] MEDS: METOPROLOL TART IMMED RELEASE 25 MG TABLET. PO SCH (10:10)
--- NOTE | 2017-01-17 11:07 | RAD ---
Procedure: CT-guided bone marrow aspiration and biopsy 01/17/2017 Sedation: Conscious sedation was administered for 30 minutes. The patient was monitored by a qualified independent observer throughout the time of sedation. Please refer to the medical record for exact doses of medications utilized to achieve moderate sedation. Sterility: The procedure was performed in its entirety using appropriate elements of sterile technique. Consent: The procedure was explained in its entirety to the patient or the patients designated ambulatory service representative by a member of the treatment team, including a discussion of the risks, benefits and commonly accepted alternatives to the procedure, as well as the expected consequences of no therapy whatsoever. Discussion of the risks included, but was not limited to, those that are most frequent and those that are rare but possibly severe or life-threatening, as well as the possibility of unforeseen complications. Technique and Findings: Following informed consent, the patient was prepped and draped in the usual sterile fashion. 1% Lidocaine was used to achieve local anesthesia over the posterior superior iliac spine on the left. A small dermatotomy was made. Under periodic CT surveillance, a needle was advanced through the cortex, and 2 aspirate samples were obtained. A core biopsy was then obtained through the same needle. Samples were prepared by the on-site speech language pathology assistant. The needle was then removed and hemostasis was achieved with manual compression. Complications: No immediate Impression: Successful CT-guided bone marrow biopsy. PQRS Compliance Statement: One or more of the following individualized dose reduction techniques were utilized for this examination: 1. Automated exposure control 2. Adjustment of the mA and/or kV according to patient size 3. Use of iterative reconstruction technique
[2017-01-17 11:29] LABS: % BASOS 2 % (0-3); % BLASTS 3 % (0-0); % EOS 6 % (0-5)
[2017-01-17 11:30] LABS: ANISOCYTOSIS PRESENT; PLT ESTIMATE INCREASED (ADEQUATE)
[2017-01-17] MEDS ORDERED: SULFUR HEXAFLUORIDE MICROSPHR 25 MG VIAL. IVP ONE ×2 (13:15→13:23)
--- NOTE | 2017-01-17 13:45 | PDOC3 ---
Discharge Summary [facility] Date of Admission: Jan 16, 2017 Discharge Date: Jan 17, 2017 Admitting Diagnosis 1. 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 CAD, CHF, HTN, Indwelling defibrillator - all chronic stable 3. Obesity BMI 37 4. DM 2, good control Problems: CONSULTS onco Brief Hospital Course Mr. Telles is a 76 old M, h/o CAD, CHF, htn, dm2, PPM, ICD, all stable, was sent by PCP who found his WBC 300. Pt has had a chronic leukocytosis with WBC at 30s. WBC showed + blasts indicating acute leukemia. He got BM bx today. he has no fever, cough or any other infection indication. talked to onco and card, ok to dc today, fu with card tmr with new meds for CHF. dc time 35min General: Alert, Oriented X3, Cooperative, No acute distress HEENT: Atraumatic, PERRLA, EOMI, Mucous membr. moist/pink Lungs: Clear to auscultation Heart: S1S2, RRR, no thrills, no rubs, no gallops, no murmurs Cardiovascular: S1, S2 Abdomen: Normal bowel sounds, Soft, No tenderness, No hepatosplenomegaly, No masses Male Genitals Exam: normal genitalia, normal prostate Extremities: No clubbing, No cyanosis, No edema, Normal pulses, No tenderness/ swelling Skin: No rashes, No breakdown, No significant lesion Neuro: Normal gait, Normal speech, Strength at 5/5 X4 ext, Normal tone, Sensation intact, Cranial nerves 3-12 NL, Reflexes 2+ Psych/Mental Status: Mental status NL, Mood NL Patient History: FH: lung cancer 33 FATHER Patient's father is Problems: Disposition home CONDITION AT DISCHARGE: Stable Diet cardiac , ada Scheduled Allopurinol (Allopurinol), 1 TAB PO DAILY, (Reported) Clopidogrel Bisulfate (Plavix), 75 MG PO DAILY, (Reported) Dronedarone Hcl (Multaq), 400 MG PO DAILY16, (Reported) Furosemide (Lasix), 1 TAB PO DAILY, (Reported) Gabapentin (Gabapentin), 800 MG PO QID, (Reported) Metformin Hcl (Metformin Hcl), 1 TAB PO BID, (Reported) Potassium Chloride (Klor-Con M20), 1 TAB PO DAILY, (Reported) Sacubitril/Valsartan (Entresto 49 mg-51 mg Tablet), 1 EACH PO BID, (Reported) [Aspirin], 81 MG PO DAILYWBKFT [Metoprolol Tartrate], 12.5 MG PO BID Scheduled PRN Nitroglycerin (Nitrostat), 0.4 MG SL PRN Q5MIN PRN for CHEST PAIN Tramadol Hcl (Ultram), 1 TAB PO Q6HRS PRN for PAIN Follow Up onco and card in 1 week SERENA POSADAS MD Jan 17, 2017 13:45
[2017-01-17] MEDS ORDERED: DRONEDARONE HCL 400 MG TABLET PO SCH (16:00)
--- NOTE | 2017-01-18 10:15 | CARD ---
APPROVED REPORT EXAM: Two-dimensional echocardiogram with contrast. Other Information HR: 66bpm Rhythm : Pacemaker INDICATION Cardiac Disease: CAD Echo Enhancing Agent Indication: Rule out thrombus Agent/Amount Used: Lumason 5mL Surgery/Intervention ICD/Pacemaker: 2D DIMENSIONS Left Atrium(2D)4.7 (1.6-4.0cm)IVSd1.4 (0.7-1.1cm) Aortic Root(2D)3.7 (2.0-3.7cm)LVDd4.6 (3.9-5.9cm) LVOT Diameter2.3 (1.8-2.4cm)PWd0.9 (0.7-1.1cm) LVDs4.0 (2.5-4.0cm)FS (%) 9.9 % SV20.9 mlLVEF(%)35.0 (>50%) Aortic Valve AoV Peak Carlton.144.8cm/sAoV VTI27.4cm AO Peak GR.8.4mmHgLVOT VTI 22.34cm AO Mean GR.4mmHgAI P 1/2 [id number] Mitral Valve MV E Tldnawcb27.2cm/sMV DECEL [id number] MV A Kxjtaysn48.2cm/sE/A Ratio1.6 MV A [id number] TDI Lateral E' P. V7.99cm/sMedial E' P. V7.89cm/s E/Lateral E'11.7E/Medial E'11.8 Tricuspid Valve TR P. Mtepaypf675va/sRAP [id number] TR Peak Gr.29mmHg LEFT VENTRICLE The left ventricle is normal size. Proximal septal thickening is noted. Left ventricle systolic funct ion is moderately impaired. The Ejection Fraction is 30-35%. There is moderate diffuse global hypokin esis with predominance in the septum and lateral sethi. RIGHT VENTRICLE The right ventricle is normal size. There is normal right ventricular wall thickness. The right ventr icular systolic function is normal. There is a pacemaker lead in the right ventricle. ATRIA The left atrium is moderately dilated. The right atrium size is normal. The interatrial septum is int act with no evidence for an atrial septal defect or patent foramen ovale as noted on 2-D or Doppler i maging. AORTIC VALVE The aortic valve is normal in structure and function. Doppler and Color Flow revealed mild aortic reg urgitation. There is no significant aortic valvular stenosis. MITRAL VALVE The mitral valve is normal in structure and function. There is no mitral valve stenosis. Doppler and Color-flow revealed mild mitral regurgitation. TRICUSPID VALVE The tricuspid valve is normal in structure and function. Doppler and Color Flow revealed mild tricusp id regurgitation. The PA pressure was estimated at 37 mmHg. There is no tricuspid valve stenosis. PULMONIC VALVE The pulmonic valve is not well visualized. Doppler and Color Flow revealed trace to mild pulmonic omar vular regurgitation. There is no pulmonic valvular stenosis. GREAT VESSELS The aortic root is normal in size. Normal pulmonary venous flow (Doppler). The IVC is dilated and col lapses >50% with inspiration. PERICARDIAL EFFUSION There is no evidence of significant pericardial effusion. Critical Notification Critical Value: No <Conclusion> Left ventricle systolic function is moderately impaired. The Ejection Fraction is 30-35%. There is moderate diffuse global hypokinesis with predominance in the septum and lateral sethi. There is a pacemaker lead in the right ventricle.
--- NOTE | 2017-01-22 17:34 | PATHOLOGY ---
PATHOLOGY REPORT * * * * * * * * FINAL DIAGNOSIS: Peripheral smear: - Marked neutrophilic leukocytosis with myelocyte bulge, leukoerythroblastic reaction, and absolute eosinophilia and basophilia. - Normocytic normochromic anemia, moderate, with a mildly increased RDW. - Marked thrombocytosis with large and occasional giant platelets. 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 See description and comment. - Markedly decreased iron stores. COMMENT: The peripheral smear shows a marked neutrophilic leukocytosis with myelocyte bulge, leukoerythroblastic reaction and absolute eosinophilia and basophilia. There is also a normocytic normochromic anemia and marked thrombocytosis. The bone marrow is markedly hypercellular for age and shows a marked granulocytic hyperplasia with left shift and myelocyte bulge. There are less than 3% myeloblasts by morphology and flow cytometry. There is megakaryocytic hyperplasia. A reticulin stain of the biopsy shows mild to moderate reticulin fibrosis. Bone marrow submitted for FISH analysis reveals BCR/ABL1 fusion or (9;22) translocation. The morphologic, flow cytometric, and cytogenetic studies are supportive of the diagnosis of chronic myelogenous leukemia, chronic phase. (JPM:/[place]; 01/19/2017) Special Stains Performed: Iron stain (aspirate smear, B1); Reticulin stain (A1). REPORT ELECTRONICALLY SIGNED BY: Dilip Dang M.D. DATE/TIME: 01/22/2017 17:33 * * * * * * * * MICROSCOPIC DESCRIPTION: Laboratory Data: The WBC count is 308.5 K/CMM, and the WBC differential reveals 33% segmented neutrophils, 26% bands, 3% lymphs, 1% monos, 2% eos, 3% baso, 6% metamyelocytes, 20% myelocytes, 4% promyelocytes, and 2% blasts. The RBC count is 3.05 M/CMM, hemoglobin 27.8 G/DL, MCV 91 FL, MCH 29 PG, MCHC 32 G/DL, and the RDW is 17.6%. The platelet count is 784 K/CMM. The uric acid is 8.4 MG/DL. Peripheral Smear: The peripheral smear is reviewed. The WBC count is markedly increased. There is a marked neutrophilic leukocytosis with leukoerythroblastic reaction. There is a predominance of segmented and band neutrophils. There is a neutrophilic left shift with several metamyelocytes and a bulge in the proportion of myelocytes. There are a few blasts present. There are less than 3% blasts. The blasts have a high N/C ratio and possess rounded to ovoid nuclei containing one or more nucleoli. No Benjamin rods are identified. Occasional nucleated red blood cells are noted. There is a mild absolute eosinophilia and basophilia. Red blood cells predominantly appear normochromic and normocytic. Red blood cells show mild anisocytosis and no significant poikilocytosis. Platelets are markedly increased. There are a few large and occasional giant platelets noted. Aspirate Smears and Touch Imprints: Two Ovalle's-stained and one iron-stained aspirate smears, and one Ovalle's-stained touch imprint are examined. The smears contain multiple marrow particles which are obviously hypercellular for age. There is a granulocytic hyperplasia with a maturation pattern similar to that of the peripheral blood. The M/E ratio is greater than 15:1. Erythroid maturation appears normoblastic. There are no megaloblastic or overt dysplastic changes. There is a left shift of granulopoiesis with a myelocyte bulge. There are less than 3% myeloblasts. The myeloblasts have a high N/C ratio, and possess rounded to ovoid nuclei containing one or nucleoli. No Benjamin rods are identified. There is a mild increase of eosinophils and basophils. Megakaryocytes are focally increased. The megakaryocytes are of variable ploidy. Many of the megakaryocytes appear smaller than normal and have hypolobated nuclei. There is no increase of lymphocytes or plasma cells. There are no cells foreign to the marrow. The Ovalle's-stained biopsy touch imprint shows similar findings. The iron stain of the aspirate smear shows absent stainable iron. Bone Marrow Biopsy and Clot Sections: Sections of the bone marrow biopsy reveal a markedly hypercellular marrow which is between 95% and 100% cellular. The clot section contains multiple marrow particles which are essentially 100% cellular. There is a marked granulocytic hyperplasia. Granulocytes are present in all stages of maturation. Maturing granulocytes are readily demonstrated. Immature granulocytes are frequently concentrated about the bony trabeculae. There is no apparent increase of blasts. Erythroid precursors are obviously reduced. There is a modest increase of eosinophils. Megakaryocytes are focally increased in number. The megakaryocytes are of variable ploidy. Many of the megakaryocytes are smaller than normal and have hypolobated nuclei. There are no cells foreign to the marrow. The iron stain of the clot section shows markedly decreased iron stores. A reticulin stain obtained on the biopsy shows mild to moderate reticulin fibrosis. Special Studies: Bone marrow submitted for cytogenetic analysis has a viability of 98.3%. Granulocytes comprise 92.5% of total cells and show left-shifted maturation and dyssynchronous CD10/CD13/CD16 expression. Monocytes comprise 0.5% of total cells and co-express CD14 and CD64. CD45 dim, CD34 positive cells comprise 2.2% of total cells. Lymphocytes comprise 3.4% of total cells. T-cells comprise 13% of lymphoid cells and show a CD4/CD8 ratio of 2.8. NK-cells comprise 17% of lymphoid cells. Mature B-cells comprise 5% of lymphoid cells and are polyclonal with a kappa:lambda ratio of 3.2. Bone marrow submitted for FISH analysis using a tricolor, dual fusion BCR/ABL1 probe set reveals dual fusion signals in 98% of analyzed nuclei, indicative of the BCR/ABL1 fusion or (9;22) translocation. GROSS PATHOLOGY: A. Received in formalin labeled "Alex Telles," is a single needle core of mendoza bone, measuring 1.8 cm in length and 0.2 cm in diameter. The specimen is submitted entirely in cassette A1, following decalcification. B. Received in formalin labeled "Alex Telles," is blood coagulum, measuring 1.9 x 1.7 x 0.3 cm in aggregate dimensions. The specimen is submitted entirely in cassette B1. (JPM; 01/17/17) INITIAL CPT CODE(S): 30950, 08830, 33084(2), 48836, 58389(3) Professional services performed by [facility] at [address] [address] Technical services performed by [facility] at [address] [place] [address], [address], [place] [address]. SPECIMEN(S) RECEIVED: A.Bone marrow, biopsy B.Bone marrow, clot and/or particle prep C.Bone marrow, aspirate smears D.Peripheral smear CLINICAL HISTORY: Elevated white count PATIENT: ALEX TELLES /AGE: 11 1940 (Age: 76) PATIENT #: [id number] ALT CASE #: SPECIMEN COLLECTION DATE: 01/17/2017 SPECIMEN RECEIVED DATE: 01/17/2017 [facility] - [address] [place] [address] - PHONE: [phone] * * * END OF REPORT * * *
== END 2017-01-17 13:40 | disposition home or self-care (01) | DRG 836 ==
LOC: ER 16:33 → 2 SOUTH 19:00
PROVIDERS: ADMIT Internal Medicine; ATTEND Internal Medicine
PROC: 07DR3ZX Extraction of Iliac Bone Marrow, Percutaneous Approach, Diagnostic (ICD-10-PCS; principal; 2017-01-17)
DX: C95.00 Acute leukemia of unspecified cell type not having achieved remission (principal); E11.40 Type 2 diabetes mellitus with diabetic neuropathy, unspecified; E66.9 Obesity, unspecified; G47.33 Obstructive sleep apnea (adult) (pediatric); I11.0 Hypertensive heart disease with heart failure; I25.10 Atherosclerotic heart disease of native coronary artery without angina pectoris; D75.89 Other specified diseases of blood and blood-forming organs; I50.9 Heart failure, unspecified; M54.5 Low back pain; Z68.37 Body mass index [BMI] 37.0-37.9, adult; Z80.1 Family history of malignant neoplasm of trachea, bronchus and lung; Z82.49 Family history of ischemic heart disease and other diseases of the circulatory system; Z85.118 Personal history of other malignant neoplasm of bronchus and lung; Z87.442 Personal history of urinary calculi; Z95.5 Presence of coronary angioplasty implant and graft; I25.2 Old myocardial infarction; Z88.5 Allergy status to narcotic agent
CPT/HCPCS: 36415; 38221; 71010; 76700; 77012; 80053; 81001; 82962; 83605; 83690; 83880; 84145; 84484; 84550; 85007; 85027; 85610; 85730; 87040; 88184; 88185; 88237; 88305; 88311; 88313; 88374; 93005; 96360; 99152; 99153; C1887; C1892; C8929; G0364; J1815; J2250; J3010; J7030; 99285-25; Q9950

== ENCOUNTER → 2017-01-22 | Outpatient (CLI) | payer MEDICARE ==
[2017-01-17 11:45] VITALS: BP 129/61
[~2017-01-22] MED LIST changes: +ALLO300T PO; +FURO-69 PO; +POTA20TA4 PO; +SACU1TAB7 PO
--- NOTE | 2017-01-22 17:57 | RAD ---
Chest, 2 views, 01/22/2017: History: Shortness of breath, heart failure Comparison is made to a study from 01/16/2017. A left-sided transvenous pacemaker remains in place with multiple leads extending into the heart. The heart size and pulmonary vascularity are normal. There is calcific plaquing of the aorta. No pulmonary infiltrate is seen. There is no evidence of pleural fluid. Mild spurring is present in the spine. IMPRESSION: No acute cardiopulmonary abnormality is detected.
== END | disposition home or self-care (01) ==
LOC: RAD 14:10
PROVIDERS: ATTEND Nurse Practitioner
DX: I50.43 Acute on chronic combined systolic (congestive) and diastolic (congestive) heart failure (principal)
CPT/HCPCS: 71020

== ENCOUNTER → 2017-01-29 | Outpatient (CLI) | payer MEDICARE ==
[2017-01-17 11:45] VITALS: BP 129/61
[~2017-01-29] MED LIST changes: +IOHEXOL 300 MG/ML 75 ML VIAL IV ONE
--- NOTE | 2017-01-29 16:03 | RAD ---
CT angiography chest 01/29/2017 Clinical indication: Dyspnea on exertion. PE protocol. Comparison: Chest radiograph 01/22/2017. Technique: Multiple CT axial images were obtained of the chest without dilatation of the pulmonary arteries. Coronal and sagittal reformations were obtained. MIPS were obtained. PQRS Compliance Statement: One or more of the following individualized dose reduction techniques were utilized for this examination: 1. Automated exposure control 2. Adjustment of the mA and/or kV according to patient size 3. Use of iterative reconstruction technique Findings: CTA chest: Heart size is normal without significant pericardial effusion. There are three-vessel coronary artery calcifications. Left chest wall cardiac conduction device with 3 transvenous pacers. No central or major segmental pulmonary artery filling defect to suggest pulmonary embolism. The thoracic aorta is normal in caliber with mild scattered calcified atheromatous disease. There are mildly enlarged mediastinal and hilar lymph nodes with authorization representative lower right paratracheal lymph node measuring 2 cm (series 3/image 52). The central airways are patent. There is mild mosaic attenuation. There is a 4 mm subpleural noncalcified nodule in the right lower lobe (series 3/image 78). No pleural effusion or pneumothorax. There are no destructive osseous lesions. Limited images of the upper abdomen: Cholelithiasis. Partial visualization of a gastric lap band. Impression: 1. No central or major segmental pulmonary artery filling defect to suggest pulmonary embolism. 2. Mild mediastinal and hilar lymphadenopathy, indeterminate between benign reactive lymph nodes or metastatic disease from an unknown primary or lymphoma. 3. Small, 4 mm, right lower lobe noncalcified pulmonary nodule. Pulmonary nodule and thoracic lymphadenopathy should be followed in [address] chest to assess for stability.
== END | disposition home or self-care (01) ==
LOC: CT 14:36
PROVIDERS: ATTEND Nurse Practitioner
DX: R06.09 Other forms of dyspnea (principal)
CPT/HCPCS: 71275

== ENCOUNTER 2017-03-02 11:34 | Inpatient (IN) | payer MEDICARE ==
[~2017-03-02] VITALS: Ht 180.3 cm; Wt 114.4 kg
[~2017-03-02 11:34] MED LIST changes: -IOHEXOL 300 MG/ML 75 ML VIAL IV ONE
[2017-03-02] MEDS ORDERED: IPRATRPIUM/ALBUTEROL 0.5/2.5MG 3 ML NEBU. NEB ONE (12:00)
[2017-03-02 12:22] LABS: BASO % 0 % (0-3); EOS % 0 % (0-3); HEMOGLOBIN 8.2 g/dL (13.0-17.5); LYMPH # 0.5 x10^3/uL (1.0-4.8); LYMPH % 3 % (24-48); MEAN CORPUSCULAR HEMOGLOBIN 29 pg (25-35); MEAN CORPUSCULAR HGB CONC 33 g/dL (31-37); MEAN CORPUSCULAR VOLUME 89 fL (79-100); MONO % 6 % (0-9); NEUT % 91 % (31-73); PLATELET COUNT 485 x10^3/uL (140-400); RED CELL DISTRIBUTION WIDTH 17.9 % (11.5-14.5)
--- NOTE | 2017-03-02 12:24 | RAD ---
AP portable chest radiograph 03/02/2017 Clinical History: Shortness of breath. An AP portable erect digital radiograph of the chest was obtained. Comparison study is dated 01/22/2017. A pacemaker/defibrillator is unchanged position. The cardiac silhouette is mildly enlarged. The thoracic aorta is tortuous. Atherosclerotic calcification of the thoracic aorta is seen. The thoracic aorta is mildly tortuous. No acute pulmonary infiltrate is seen. No pleural effusion or pneumothorax is noted. Degenerative changes are seen involving the thoracic spine and both shoulders. Impression: No acute abnormality is seen.
[2017-03-02 12:49] LABS: CALCIUM 8.1 mg/dL (8.5-10.1); CREATININE 1.9 mg/dL (0.7-1.3); GFR 34.7; POTASSIUM 4.5 mmol/L (3.5-5.1)
[2017-03-02 12:51] LABS: % BASOS 1 % (0-3); % EOS 1 % (0-5)
[2017-03-02 12:53] LABS: ALBUMIN 3.2 g/dL (3.4-5.0); DIRECT BILIRUBIN 0.1 mg/dL (0.0-0.2); TOTAL BILIRUBIN 0.3 mg/dL (0.2-1.0); TOTAL PROTEIN 6.4 g/dL (6.4-8.2)
[2017-03-02 12:54] LABS: ANISOCYTOSIS MOD; PLT ESTIMATE INCREASED (ADEQUATE); POIKILOCYTOSIS SLIGHT
[2017-03-02] MEDS ORDERED: ONDANSETRON PF 4 MG/2 ML VIAL. IV PRN ×2 (13:15→14:15)
[2017-03-02] MEDS ORDERED: MORPHINE SULFATE 2 MG/ML DISP.SYRIN. IV PRN (14:15)
[2017-03-02] MEDS ORDERED: FUROSEMIDE 40 MG TABLET. PO ONE (14:15)
[2017-03-02] MEDS ORDERED: traMADol 50 MG TABLET PO PRN (14:15)
[2017-03-02] MEDS ORDERED: hydrALAZINE 20 MG/ML VIAL. IVP PRN (14:15)
[2017-03-02] MEDS ORDERED: DOCUSATE SODIUM 100 MG CAPSULE. PO PRN (14:15)
[2017-03-02] MEDS ORDERED: NITROGLYCERIN SUBLINGUAL 0.4 MG BOTTLE OF 25. SL PRN (14:15)
--- NOTE | 2017-03-02 14:22 | PDOC1 ---
History and Physical Date of Admission Date of Admission 03/02/17 Identification/Chief Complaint Chief Complaint sob Problems: Source Source: Chart review, Patient History of Present Illness History of Present Illness 76 yo M, CML on chemo currently with dr. Alatorre, CHF with ppm/icd,came for sob. Pt has been feeling sob for the past 5months, no home o2. Sob is exertional, worse with just moving from room to another room. mild cough with clear mucus. no fever, chills, no chest pain, N/V, diarrhea. Pt saw a pulm last week, said did some test and was told normal , also passed 6min walk. Pt saw dr. Herrera yesterday, was told to do cath next Sunday. had 2 stents 2 years ago. EF recently in 12/2016 was 30-35%, with global hypokinesis. Pt was found sat 70% oN RA, now on NC 3L. Past Medical History Cardiovascular: CAD, CHF, HTN Renal/: Other Endocrine: Diabetes Past Surgical History Past Surgical History: Other Family History Family History: No Significant Social History Smoke: No ALCOHOL: none Drugs: None Current Medications Current Medications Current Medications Medications (Trade) Dose Ordered Sig/Rose Start Time Stop Time Status Last Admin Dose Admin Albuterol/ Ipratropium (Duoneb) 3 ml RTQID 03/02/17 16:00 03/03/17 15:59 Ondansetron HCl (Zofran) 4 mg PRN Q8HRS PRN 03/02/17 13:15 03/03/17 13:14 Allergies Allergies Allergies Coded Allergies Type Severity Reaction Last Updated Verified hydrocodone Adverse Reaction Intermediate altered mental status, hallucinations 03/02/17 Yes morphine Adverse Reaction Unknown 03/02/17 Yes ROS Review of System CONSTITUTIONAL: No fever or chills EYES: No recent changes SKIN: No rash or itching CARDIOVASCULAR: No chest pain, syncope, palpitations, or edema RESPIRATORY: + SOB or cough GASTROINTESTINAL: No nausea, vomiting or abdominal pain NEUROLOGICAL: No headaches or weakness ENDOCRINE: No cold or heat intolerance GENITOURINARY: No urgency or frequency of urination MUSCULOSKELETAL: No back pain or joint pain LYMPHATICS: No enlarged lymph nodes PSYCHIATRIC: No anxiety or depression Physical Exam Physical Exam GEN.: No apparent distress. Alert and oriented. HEENT: Head is normocephalic, atraumatic NECK: Supple. LUNGS: Clear to auscultation. HEART: RRR, S1, S2 present. Peripheral pulses intact ABDOMEN: Soft, nontender. Positive bowel sounds. EXTREMITIES: Without any cyanosis. NEUROLOGIC: Normal speech, normal tone PSYCHIATRIC: Normal affect, normal mood. SKIN: No ulcerations Vitals Vitals Vital Signs Date Time Temp Pulse Resp B/P (MAP) Pulse Ox O2 Delivery O2 Flow Rate FiO2 03/02/17 12:23 96 Nasal Cannula 3.0 03/02/17 11:45 98.1 75 24 109/55 (73) 98.1 Labs Labs Laboratory Tests Test 03/02/17 12:00 03/02/17 12:26 White Blood Count 15.0 x10^3/uL (4.0-11.0) Red Blood Count 2.80 x10^6/uL (4.30-5.70) Hemoglobin 8.2 g/dL (13.0-17.5) Hematocrit 25.0 % (39.0-53.0) Mean Corpuscular Volume 89 fL (79-100) Mean Corpuscular Hemoglobin 29 pg (25-35) Mean Corpuscular Hemoglobin Concent 33 g/dL (31-37) Red Cell Distribution Width 17.9 % (11.5-14.5) Platelet Count 485 x10^3/uL (140-400) Neutrophils (%) (Auto) 91 % (31-73) Lymphocytes (%) (Auto) 3 % (24-48) Monocytes (%) (Auto) 6 % (0-9) Eosinophils (%) (Auto) 0 % (0-3) Basophils (%) (Auto) 0 % (0-3) Neutrophils # (Auto) 13.7 x10^3uL (1.8-7.7) Lymphocytes # (Auto) 0.5 x10^3/uL (1.0-4.8) Monocytes # (Auto) 0.8 x10^3/uL (0.0-1.1) Eosinophils # (Auto) 0.0 x10^3/uL (0.0-0.7) Basophils # (Auto) 0.0 x10^3/uL (0.0-0.2) Segmented Neutrophils % 89 % (35-66) Lymphocytes % 4 % (24-48) Monocytes % 5 % (0-10) Eosinophils % 1 % (0-5) Basophils % 1 % (0-3) Platelet Estimate Increased (ADEQUATE) Poikilocytosis Slight Basophilic Stippling Present Anisocytosis Mod Sodium Level 140 mmol/L (136-145) Potassium Level 4.5 mmol/L (3.5-5.1) Chloride Level 106 mmol/L (98-107) Carbon Dioxide Level 20 mmol/L (21-32) Anion Gap 14 (6-14) Blood Urea Nitrogen 35 mg/dL (8-26) Creatinine 1.9 mg/dL (0.7-1.3) Estimated GFR (Cockcroft-Gault) 34.7 Glucose Level 138 mg/dL (70-99) Calcium Level 8.1 mg/dL (8.5-10.1) Total Bilirubin 0.3 mg/dL (0.2-1.0) Direct Bilirubin 0.1 mg/dL (0.0-0.2) Aspartate Amino Transf (AST/SGOT) 25 U/L (15-37) Alanine Aminotransferase (ALT/SGPT) 19 U/L (16-63) Alkaline Phosphatase 75 U/L (46-116) Troponin I Quantitative < 0.017 ng/mL (0.000-0.055) FS-Qdh-Y-Type Natriuretic Peptide 1735 pg/mL (0-449) Total Protein 6.4 g/dL (6.4-8.2) Albumin 3.2 g/dL (3.4-5.0) Lipase 170 U/L (73-393) Glucose (Fingerstick) 119 mg/dL (70-99) Laboratory Tests Test 03/02/17 12:00 03/02/17 12:26 White Blood Count 15.0 x10^3/uL (4.0-11.0) Red Blood Count 2.80 x10^6/uL (4.30-5.70) Hemoglobin 8.2 g/dL (13.0-17.5) Hematocrit 25.0 % (39.0-53.0) Mean Corpuscular Volume 89 fL (79-100) Mean Corpuscular Hemoglobin 29 pg (25-35) Mean Corpuscular Hemoglobin Concent 33 g/dL (31-37) Red Cell Distribution Width 17.9 % (11.5-14.5) Platelet Count 485 x10^3/uL (140-400) Neutrophils (%) (Auto) 91 % (31-73) Lymphocytes (%) (Auto) 3 % (24-48) Monocytes (%) (Auto) 6 % (0-9) Eosinophils (%) (Auto) 0 % (0-3) Basophils (%) (Auto) 0 % (0-3) Neutrophils # (Auto) 13.7 x10^3uL (1.8-7.7) Lymphocytes # (Auto) 0.5 x10^3/uL (1.0-4.8) Monocytes # (Auto) 0.8 x10^3/uL (0.0-1.1) Eosinophils # (Auto) 0.0 x10^3/uL (0.0-0.7) Basophils # (Auto) 0.0 x10^3/uL (0.0-0.2) Segmented Neutrophils % 89 % (35-66) Lymphocytes % 4 % (24-48) Monocytes % 5 % (0-10) Eosinophils % 1 % (0-5) Basophils % 1 % (0-3) Platelet Estimate Increased (ADEQUATE) Poikilocytosis Slight Basophilic Stippling Present Anisocytosis Mod Sodium Level 140 mmol/L (136-145) Potassium Level 4.5 mmol/L (3.5-5.1) Chloride Level 106 mmol/L (98-107) Carbon Dioxide Level 20 mmol/L (21-32) Anion Gap 14 (6-14) Blood Urea Nitrogen 35 mg/dL (8-26) Creatinine 1.9 mg/dL (0.7-1.3) Estimated GFR (Cockcroft-Gault) 34.7 Glucose Level 138 mg/dL (70-99) Calcium Level 8.1 mg/dL (8.5-10.1) Total Bilirubin 0.3 mg/dL (0.2-1.0) Direct Bilirubin 0.1 mg/dL (0.0-0.2) Aspartate Amino Transf (AST/SGOT) 25 U/L (15-37) Alanine Aminotransferase (ALT/SGPT) 19 U/L (16-63) Alkaline Phosphatase 75 U/L (46-116) Troponin I Quantitative < 0.017 ng/mL (0.000-0.055) RF-Ugq-M-Type Natriuretic Peptide 1735 pg/mL (0-449) Total Protein 6.4 g/dL (6.4-8.2) Albumin 3.2 g/dL (3.4-5.0) Lipase 170 U/L (73-393) Glucose (Fingerstick) 119 mg/dL (70-99) VTE Prophylaxis Ordered VTE Prophylaxis Devices: Yes VTE Pharmacological Prophylaxi: Yes Assessment/Plan Assessment/Plan sob, acute hypoxic resp failure with systolic CHF exacerbation Systolic CHF EF 30% with ppm, icd h/o CAD with pci htn morbid obesity dm2 DEO on CKD3, vasomotor CML on Chemo normacytic anemia mild malnutrition plan; card, pulm consult lasix 20mg iv x1 cont lasix 40mg daily tmr cont home meds, hold metformin ,SSI dvt ppx keep NC, keep Sat >92% VQ scan pending labs tmr SERENA POSADAS MD Mar 02, 2017 14:22
[2017-03-02] MEDS ORDERED: DEXTROSE 50% 25 GM / 50ML DISP.SYRIN. IV PRN (14:30)
--- NOTE | 2017-03-02 14:44 | PHYS DOC ---
Past Medical History Past Medical History: CAD, Cancer, Diabetes-Type II, Hypertension, Kidney Stone , PA, Other Additional Past Medical Histor: NEUROPATHY, LUKEMIA Past Surgical History: Pacemaker, Other Additional Past Surgical Histo: lap band, cardiac stents,PACEMAKER/DEFIB Alcohol Use: None Drug Use: None Adult General Chief Complaint Chief Complaint: SHORTNESS OF BREATH HPI HPI 76-year-old male presenting to the emergency department today with shortness of breath. He was seen at the cancer center where they found the patient to be hypoxic. He reports having symptomatic shortness of breath for the past 5 months worse with exertion and improved with rest. He has seen a workers compensation examiner and a access control officer which have not identified the cause at this point. Location lungs. Duration intermittent. Review of systems is negative for unilateral leg swelling or hemoptysis. He denies chest pain or pressure currently but has had chest pain intermittently for the past month. He denies headache. He denies fevers or chills. All other review of systems is negative unless otherwise noted in history of present illness. ED course: 76-year-old male presenting to the emergency department today with shortness of breath found to be hypoxic in clinic. Upon arrival the patient was given a nebulizer therapy. Chest x-ray obtained which was unremarkable. Blood work obtained which shows mild leukocytosis and anemia. Chemistry panel shows mild elevation in BUN and creatinine. ProBNP mildly elevated as well. EKG shows a paced rhythm with a regular rate. ST segments congruent. Rindge is leftward. Not consistent with ACS. Patient was unable to be weaned off oxygen in the emergency department and subsequently admitted for further evaluation workup and care. Consulted Dr. Garcia our access control officer. Review of Systems Review of Systems SEE ABOVE. Current Medications Current Medications Current Medications Medications (Trade) Dose Ordered Sig/Rose Start Time Stop Time Status Last Admin Dose Admin Acetaminophen (Tylenol) 650 mg PRN Q6HRS PRN 03/02/17 14:15 UNV Albuterol/ Ipratropium (Duoneb) 3 ml RTQID 03/02/17 16:00 03/03/17 15:59 Allopurinol (Zyloprim) 300 mg DAILY 03/03/17 09:00 UNV Clopidogrel Bisulfate (Plavix) 75 mg DAILY 03/03/17 09:00 UNV Dextrose (Dextrose 50%-Water Syringe) 12.5 gm PRN Q15MIN PRN 03/02/17 14:30 UNV Docusate Sodium (Colace) 100 mg PRN DAILY PRN 03/02/17 14:15 UNV Dronedarone (Multaq) 400 mg DAILY16 03/02/17 16:00 UNV Furosemide (Lasix) 20 mg 1X ONCE 03/02/17 14:30 03/02/17 14:31 UNV Heparin Sodium (Porcine) (Heparin Sq) 5,000 unit Q8HRS 03/02/17 22:00 UNV Hydralazine HCl (Apresoline) 10 mg PRN Q4HRS PRN 03/02/17 14:15 UNV Insulin Aspart (NovoLOG) 0-9 UNITS TIDWMEALS 03/02/17 17:00 UNV Morphine Sulfate 2 mg PRN Q2HR PRN 03/02/17 14:15 UNV Nitroglycerin (Nitrostat) 0.4 mg PRN Q5MIN PRN 03/02/17 14:15 UNV Non-Formulary Medication 12.5 mg BID 03/02/17 21:00 UNV Ondansetron HCl (Zofran) 4 mg PRN Q6HRS PRN 03/02/17 14:15 UNV Potassium Chloride (Klor-Con) 20 meq DAILY 03/03/17 09:00 UNV Sacubitril/ Valsartan (Entresto 49 Mg-51 Mg) 1 tab BID 03/02/17 21:00 UNV Tramadol HCl (Ultram) 50 mg PRN Q6HRS PRN 03/02/17 14:15 UNV Allergies Allergies Allergies Coded Allergies Type Severity Reaction Last Updated Verified hydrocodone Adverse Reaction Intermediate altered mental status, hallucinations 03/02/17 Yes morphine Adverse Reaction Unknown 03/02/17 Yes Physical Exam Physical Exam SEE ABOVE Constitutional: Well developed, well nourished, no acute distress, non-toxic appearance. Pleasant elderly male currently on nasal cannula. HENT: Normocephalic, atraumatic, bilateral external ears normal, oropharynx moist, no oral exudates, nose normal. [] Eyes: PERRLA, EOMI, conjunctiva normal, no discharge. [] Neck: Normal range of motion, no tenderness, supple, no stridor. [] Cardiovascular:Heart rate regular rhythm, no murmur [] Lungs & Thorax: Minimal wheezing on the right more than left. Abdomen: Bowel sounds normal, soft, no tenderness, no masses, no pulsatile masses. [] Skin: Warm, dry, no erythema, no rash. [] Back: No tenderness, no CVA tenderness. [] Extremities: No tenderness, no cyanosis, no clubbing, ROM intact, no edema. [] Neurologic: Alert and oriented X 3, normal motor function, normal sensory function, no focal deficits noted. [] Psychologic: Affect normal, judgement normal, mood normal. [] Current Patient Data Vital Signs Vital Signs Date Time Temp Pulse Resp B/P (MAP) Pulse Ox O2 Delivery O2 Flow Rate FiO2 03/02/17 12:23 96 Nasal Cannula 3.0 03/02/17 11:45 98.1 75 24 109/55 (73) 98.1 Lab Values Laboratory Tests Test 03/02/17 12:00 03/02/17 12:26 White Blood Count 15.0 x10^3/uL (4.0-11.0) H Red Blood Count 2.80 x10^6/uL (4.30-5.70) L Hemoglobin 8.2 g/dL (13.0-17.5) L Hematocrit 25.0 % (39.0-53.0) L Mean Corpuscular Volume 89 fL (79-100) Mean Corpuscular Hemoglobin 29 pg (25-35) Mean Corpuscular Hemoglobin Concent 33 g/dL (31-37) Red Cell Distribution Width 17.9 % (11.5-14.5) H Platelet Count 485 x10^3/uL (140-400) H Neutrophils (%) (Auto) 91 % (31-73) H Lymphocytes (%) (Auto) 3 % (24-48) L Monocytes (%) (Auto) 6 % (0-9) Eosinophils (%) (Auto) 0 % (0-3) Basophils (%) (Auto) 0 % (0-3) Neutrophils # (Auto) 13.7 x10^3uL (1.8-7.7) H Lymphocytes # (Auto) 0.5 x10^3/uL (1.0-4.8) L Monocytes # (Auto) 0.8 x10^3/uL (0.0-1.1) Eosinophils # (Auto) 0.0 x10^3/uL (0.0-0.7) Basophils # (Auto) 0.0 x10^3/uL (0.0-0.2) Segmented Neutrophils % 89 % (35-66) H Lymphocytes % 4 % (24-48) L Monocytes % 5 % (0-10) Eosinophils % 1 % (0-5) Basophils % 1 % (0-3) Platelet Estimate Increased (ADEQUATE) Poikilocytosis Slight Basophilic Stippling Present Anisocytosis Mod Sodium Level 140 mmol/L (136-145) Potassium Level 4.5 mmol/L (3.5-5.1) Chloride Level 106 mmol/L (98-107) Carbon Dioxide Level 20 mmol/L (21-32) L Anion Gap 14 (6-14) Blood Urea Nitrogen 35 mg/dL (8-26) H Creatinine 1.9 mg/dL (0.7-1.3) H Estimated GFR (Cockcroft-Gault) 34.7 Glucose Level 138 mg/dL (70-99) H Calcium Level 8.1 mg/dL (8.5-10.1) L Total Bilirubin 0.3 mg/dL (0.2-1.0) Direct Bilirubin 0.1 mg/dL (0.0-0.2) Aspartate Amino Transferase (AST) 25 U/L (15-37) Alanine Aminotransferase (ALT) 19 U/L (16-63) Alkaline Phosphatase 75 U/L (46-116) Troponin I Quantitative < 0.017 ng/mL (0.000-0.055) PZ-Akm-B-Type Natriuretic Peptide 1735 pg/mL (0-449) H Total Protein 6.4 g/dL (6.4-8.2) Albumin 3.2 g/dL (3.4-5.0) L Lipase 170 U/L (73-393) Glucose (Fingerstick) 119 mg/dL (70-99) H Laboratory Tests 03/02/17 12:00 Laboratory Tests 03/02/17 12:00 EKG EKG [] Radiology/Procedures Radiology/Procedures [] Course & Med Decision Making Course & Med Decision Making Pertinent Labs and Imaging studies reviewed. (See chart for details) [] Dragon Disclaimer Dragon Disclaimer This electronic medical record was generated, in whole or in part, using a voice recognition dictation system. Departure Departure Impression: Primary Impression: Hypoxia Additional Impressions: Shortness of breath CHF (congestive heart failure) Disposition: 09 ADMITTED INPATIENT Admitting Physician: Baljit Loera Condition: IMPROVED Referrals: EKATERINA CARROLL Jr, MD (PCP) Problem Qualifiers SONJA HONEYCUTT MD Mar 02, 2017 14:44
[2017-03-02] MEDS ORDERED: FUROSEMIDE 20 MG/2 ML VIAL. IVP ONE (15:30)
--- NOTE | 2017-03-02 15:51 | RAD ---
Lung scan 03/02/2017 Clinical history: Shortness of breath and cough for one week. Technique: After the administration of 16.0 mCi of xenon-133 gas, ventilation images of both lungs were obtained using the gamma camera. After the intravenous administration of 5.5 mCi of technetium 99m MAA, perfusion images of both lungs were obtained using the gamma camera. Findings: Comparison is made to a portable chest radiograph dated 03/02/2017. This demonstrates mild cardiomegaly. No acute pulmonary infiltrate is seen. Slightly heterogeneous ventilation and perfusion of both lungs is seen. No unmatched perfusion defect is noted. These findings are consistent with a low probability study for pulmonary embolism. Impression: Low probability study.
--- NOTE | 2017-03-02 15:52 | PDOC ---
[facility] 03/02/17 1552: CARDIO Progress Notes Date and Time Date of Service 03/02/2017 Time of Evaluation 1600 Subjective Subjective: No Chest Pain, No Palpitations, No Dizziness, Other (complains of tremors but no fever) Vitals Vitals Vital Signs Date Time Temp Pulse Resp B/P (MAP) Pulse Ox O2 Delivery O2 Flow Rate FiO2 03/02/17 12:23 96 Nasal Cannula 3.0 03/02/17 11:45 98.1 75 24 109/55 (73) 98.1 Weight Weight [ ] Laboratory Labs Laboratory Tests Test 03/02/17 12:00 03/02/17 12:26 White Blood Count 15.0 x10^3/uL (4.0-11.0) Red Blood Count 2.80 x10^6/uL (4.30-5.70) Hemoglobin 8.2 g/dL (13.0-17.5) Hematocrit 25.0 % (39.0-53.0) Mean Corpuscular Volume 89 fL (79-100) Mean Corpuscular Hemoglobin 29 pg (25-35) Mean Corpuscular Hemoglobin Concent 33 g/dL (31-37) Red Cell Distribution Width 17.9 % (11.5-14.5) Platelet Count 485 x10^3/uL (140-400) Neutrophils (%) (Auto) 91 % (31-73) Lymphocytes (%) (Auto) 3 % (24-48) Monocytes (%) (Auto) 6 % (0-9) Eosinophils (%) (Auto) 0 % (0-3) Basophils (%) (Auto) 0 % (0-3) Neutrophils # (Auto) 13.7 x10^3uL (1.8-7.7) Lymphocytes # (Auto) 0.5 x10^3/uL (1.0-4.8) Monocytes # (Auto) 0.8 x10^3/uL (0.0-1.1) Eosinophils # (Auto) 0.0 x10^3/uL (0.0-0.7) Basophils # (Auto) 0.0 x10^3/uL (0.0-0.2) Segmented Neutrophils % 89 % (35-66) Lymphocytes % 4 % (24-48) Monocytes % 5 % (0-10) Eosinophils % 1 % (0-5) Basophils % 1 % (0-3) Platelet Estimate Increased (ADEQUATE) Poikilocytosis Slight Basophilic Stippling Present Anisocytosis Mod Sodium Level 140 mmol/L (136-145) Potassium Level 4.5 mmol/L (3.5-5.1) Chloride Level 106 mmol/L (98-107) Carbon Dioxide Level 20 mmol/L (21-32) Anion Gap 14 (6-14) Blood Urea Nitrogen 35 mg/dL (8-26) Creatinine 1.9 mg/dL (0.7-1.3) Estimated GFR (Cockcroft-Gault) 34.7 Glucose Level 138 mg/dL (70-99) Calcium Level 8.1 mg/dL (8.5-10.1) Total Bilirubin 0.3 mg/dL (0.2-1.0) Direct Bilirubin 0.1 mg/dL (0.0-0.2) Aspartate Amino Transf (AST/SGOT) 25 U/L (15-37) Alanine Aminotransferase (ALT/SGPT) 19 U/L (16-63) Alkaline Phosphatase 75 U/L (46-116) Troponin I Quantitative < 0.017 ng/mL (0.000-0.055) NA-Xfw-J-Type Natriuretic Peptide 1735 pg/mL (0-449) Total Protein 6.4 g/dL (6.4-8.2) Albumin 3.2 g/dL (3.4-5.0) Lipase 170 U/L (73-393) Glucose (Fingerstick) 119 mg/dL (70-99) Physical Exam HEENT: Neck Supple W Full Motion Chest: Symmetric LUNGS: Other (basilar crackles) Heart: S1S2, RRR (Biv paced) Abdomen: Soft N/T Extremities: Other (2+ bilateral LE pitting edema) Neurology: alert, oriented, follow commands Assessment Assessment Conclusion: [facility] 1. Nonobstructive coronary disease with widely patent previously placed stent in the distal segment of the right coronary artery. 50% stenosis of mid to distal segment of right coronary artery with FFR 0.90 and 50% stenosis of mid segment of left anterior descending artery with FFR 0.83. 2. 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 3. No significant mitral regurgitation or aortic stenosis. Recommendations Optimization of medical therapy. Repeat 2-D echo in 3-6 months to evaluate the need for pacemaker upgrade to AICD for primary prevention of sudden cardiac . DATE: 10/05/15 0902 CONCLUSION Successful upgrade of Biotronik permanent pacemaker to biventricular ICD/AUTOMATION QTP TESTER-D for primary prevention of sudden cardiac and cardiac resynchronization therapy. Defibrillation thresholds were measured at the time of implantation. DATE: 02/07/16 1545 <Conclusion> TTE Left ventricle systolic function is moderately impaired. The Ejection Fraction is 30-35%. There is moderate diffuse global hypokinesis with predominance in the septum and lateral sethi. There is a pacemaker lead in the right ventricle. DATE: 01/18/17 1014 Impression: CTA 1. No central or major segmental pulmonary artery filling defect to suggest pulmonary embolism. 2. Mild mediastinal and hilar lymphadenopathy, indeterminate between benign reactive lymph nodes or metastatic disease from an unknown primary or lymphoma. 3. Small, 4 mm, right lower lobe noncalcified pulmonary nodule. Pulmonary nodule and thoracic lymphadenopathy should be followed in [address] chest to assess for stability. DATE: 01/29/17 1549 HPI: This is a pleasant 76 yo male admitted for complains of SOA. He was recently seen in our office for follow up () and noted with exertional SOA. He was also seen previously by pulmonary and no clear etiology was defined in regards to his dyspnea. 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 Today he was at the cancer center and was noted to be SOA. He was noted at RA with 70% O2 sat as he reported. He uses CPAP at bedtime but does noted use any O2 supplementation otherwise. To date in the last few months this has been persistent with no consistent resolution and is gradually getting worse. Positive for orthopnea and leg swelling. Denies CP, palpitations. n/v.Attached hard copy of cardiology H & P in chart. 1. Hypoxia/Persistent dyspnea: No PE. V/Q low probability and recent CTA negative 2. Acute on chronic systolic CHF 3. Anemia of chronic disease: Hgb 8.2 4. CML: notable for chemotherapy treatment 5. AICD/BiV in situ: 100% BiV pacing recent device check 02/28/2017 with normal functioning and no treatment 6. ICM: Recent EF 30-35%. NYHA 2-3. Pt is intolerant to entresto. 7. PAFIB/SSS: was on PPM in the past and upgraded to BiV 8. CAD: PCI/CHARLI to RCA with patency from [facility] 10/2015 with noted moderate lesion to distal RCA and mid LAD 9. HTN: controlled 10. DM2/HLP/DPN Recommendations 1. Continue with IV diuretic therapy 2. Continue secondary prevention per home meds. 3. DAPT 4. TSH, lipids, Mg, ABGs 5. Will plan for RHC/LHC on . 6. O2 supplement maintain above >90% MARISSA CABRERA MD 03/03/17 1335: CARDIO Progress Notes Assessment Assessment Patient seen and examined 03/02/17. Agree with [employer]'s assessment and plan. Please see recent office notes. Agree with intravenous diuretics for acute on chronic systolic heart failure VQ scan low probability for PE Recent pulmonary evaluation negative Patient originally scheduled for right and left heart catheterization for persistent dyspnea on mild exertion, on Sunday. We will try to schedule this over the weekend. Thank you for your consultation. [facility] APRN Mar 02, 2017 15:52 MARISSA CABRERA MD Mar 03, 2017 13:35
[2017-03-02] MEDS ORDERED: DRONEDARONE HCL 400 MG TABLET PO SCH ×2 (16:00→21:00)
[2017-03-02] MEDS: IPRATRPIUM/ALBUTEROL 0.5/2.5MG 3 ML NEBU. NEB SCH ×2 (16:00→20:00)
--- NOTE | 2017-03-02 16:09 | EKG ---
[facility] [address] [place] [address] Test Date: 2017-03-02 Test Time: 11:48:04 Pat Name: ANDREW SANTOS Department: Room: 648 1 Gender: M Director Of Operations Support: : 1940 Requested By: SONJA HONEYCUTT Order Number: [id number] Reading MD: Alexy Pickering Measurements Intervals [place] Rate: 75 P: 55 AR: 134 QRS: -52 QRSD: 124 T: 103 QT: 420 QTc: 472 Interpretive Statements SINUS RHYTHM SUSPECT BI-V PACED Electronically Signed On 03-06-2017 9:50:27 CDT by Alexy Pickering
[2017-03-02 16:16] VITALS: BP 126/55
[2017-03-02] MEDS ORDERED: DRON400T PO ×2 (16:53→18:17)
[2017-03-02] MEDS ORDERED: RAMI2.5C PO (16:59)
[2017-03-02] MEDS ORDERED: GLEEVEC400 MG PO (17:00)
[2017-03-02] MEDS: INSULIN ASPART 300 UNITS/3 ML INSULN.PEN SQ SCH (17:00)
--- NOTE | 2017-03-02 17:29 | PDOC ---
PULMONARY PROGRESS NOTES Vitals Vital Signs Date Time Temp Pulse Resp B/P (MAP) Pulse Ox O2 Delivery O2 Flow Rate FiO2 03/02/17 16:16 98.2 75 20 126/55 (78) 93 Nasal Cannula 3.0 98.2 Cardiovascular: S1, S2 Labs Laboratory Tests Test 03/02/17 12:00 03/02/17 12:26 03/02/17 17:02 White Blood Count 15.0 x10^3/uL (4.0-11.0) Red Blood Count 2.80 x10^6/uL (4.30-5.70) Hemoglobin 8.2 g/dL (13.0-17.5) Hematocrit 25.0 % (39.0-53.0) Mean Corpuscular Volume 89 fL (79-100) Mean Corpuscular Hemoglobin 29 pg (25-35) Mean Corpuscular Hemoglobin Concent 33 g/dL (31-37) Red Cell Distribution Width 17.9 % (11.5-14.5) Platelet Count 485 x10^3/uL (140-400) Neutrophils (%) (Auto) 91 % (31-73) Lymphocytes (%) (Auto) 3 % (24-48) Monocytes (%) (Auto) 6 % (0-9) Eosinophils (%) (Auto) 0 % (0-3) Basophils (%) (Auto) 0 % (0-3) Neutrophils # (Auto) 13.7 x10^3uL (1.8-7.7) Lymphocytes # (Auto) 0.5 x10^3/uL (1.0-4.8) Monocytes # (Auto) 0.8 x10^3/uL (0.0-1.1) Eosinophils # (Auto) 0.0 x10^3/uL (0.0-0.7) Basophils # (Auto) 0.0 x10^3/uL (0.0-0.2) Segmented Neutrophils % 89 % (35-66) Lymphocytes % 4 % (24-48) Monocytes % 5 % (0-10) Eosinophils % 1 % (0-5) Basophils % 1 % (0-3) Platelet Estimate Increased (ADEQUATE) Poikilocytosis Slight Basophilic Stippling Present Anisocytosis Mod Sodium Level 140 mmol/L (136-145) Potassium Level 4.5 mmol/L (3.5-5.1) Chloride Level 106 mmol/L (98-107) Carbon Dioxide Level 20 mmol/L (21-32) Anion Gap 14 (6-14) Blood Urea Nitrogen 35 mg/dL (8-26) Creatinine 1.9 mg/dL (0.7-1.3) Estimated GFR (Cockcroft-Gault) 34.7 Glucose Level 138 mg/dL (70-99) Calcium Level 8.1 mg/dL (8.5-10.1) Magnesium Level 2.0 mg/dL (1.8-2.4) Total Bilirubin 0.3 mg/dL (0.2-1.0) Direct Bilirubin 0.1 mg/dL (0.0-0.2) Aspartate Amino Transf (AST/SGOT) 25 U/L (15-37) Alanine Aminotransferase (ALT/SGPT) 19 U/L (16-63) Alkaline Phosphatase 75 U/L (46-116) Troponin I Quantitative < 0.017 ng/mL (0.000-0.055) NA-Kmh-K-Type Natriuretic Peptide 1735 pg/mL (0-449) Total Protein 6.4 g/dL (6.4-8.2) Albumin 3.2 g/dL (3.4-5.0) Triglycerides Level 177 mg/dL (0-150) Cholesterol Level 175 mg/dL (0-200) LDL Cholesterol, Calculated 111 mg/dL (0-100) VLDL Cholesterol, Calculated 35 mg/dL (0-40) Non-HDL Cholesterol Calculated 146 mg/dL (0-129) HDL Cholesterol 29 mg/dL (40-60) Cholesterol/HDL Ratio 6.0 Lipase 170 U/L (73-393) Thyroid Stimulating Hormone (TSH) 2.174 uIU/mL (0.358-3.74) Glucose (Fingerstick) 119 mg/dL (70-99) 138 mg/dL (70-99) Laboratory Tests Test 03/02/17 12:00 03/02/17 12:26 03/02/17 17:02 White Blood Count 15.0 x10^3/uL (4.0-11.0) Red Blood Count 2.80 x10^6/uL (4.30-5.70) Hemoglobin 8.2 g/dL (13.0-17.5) Hematocrit 25.0 % (39.0-53.0) Mean Corpuscular Volume 89 fL (79-100) Mean Corpuscular Hemoglobin 29 pg (25-35) Mean Corpuscular Hemoglobin Concent 33 g/dL (31-37) Red Cell Distribution Width 17.9 % (11.5-14.5) Platelet Count 485 x10^3/uL (140-400) Neutrophils (%) (Auto) 91 % (31-73) Lymphocytes (%) (Auto) 3 % (24-48) Monocytes (%) (Auto) 6 % (0-9) Eosinophils (%) (Auto) 0 % (0-3) Basophils (%) (Auto) 0 % (0-3) Neutrophils # (Auto) 13.7 x10^3uL (1.8-7.7) Lymphocytes # (Auto) 0.5 x10^3/uL (1.0-4.8) Monocytes # (Auto) 0.8 x10^3/uL (0.0-1.1) Eosinophils # (Auto) 0.0 x10^3/uL (0.0-0.7) Basophils # (Auto) 0.0 x10^3/uL (0.0-0.2) Segmented Neutrophils % 89 % (35-66) Lymphocytes % 4 % (24-48) Monocytes % 5 % (0-10) Eosinophils % 1 % (0-5) Basophils % 1 % (0-3) Platelet Estimate Increased (ADEQUATE) Poikilocytosis Slight Basophilic Stippling Present Anisocytosis Mod Sodium Level 140 mmol/L (136-145) Potassium Level 4.5 mmol/L (3.5-5.1) Chloride Level 106 mmol/L (98-107) Carbon Dioxide Level 20 mmol/L (21-32) Anion Gap 14 (6-14) Blood Urea Nitrogen 35 mg/dL (8-26) Creatinine 1.9 mg/dL (0.7-1.3) Estimated GFR (Cockcroft-Gault) 34.7 Glucose Level 138 mg/dL (70-99) Calcium Level 8.1 mg/dL (8.5-10.1) Magnesium Level 2.0 mg/dL (1.8-2.4) Total Bilirubin 0.3 mg/dL (0.2-1.0) Direct Bilirubin 0.1 mg/dL (0.0-0.2) Aspartate Amino Transf (AST/SGOT) 25 U/L (15-37) Alanine Aminotransferase (ALT/SGPT) 19 U/L (16-63) Alkaline Phosphatase 75 U/L (46-116) Troponin I Quantitative < 0.017 ng/mL (0.000-0.055) XF-Hyb-D-Type Natriuretic Peptide 1735 pg/mL (0-449) Total Protein 6.4 g/dL (6.4-8.2) Albumin 3.2 g/dL (3.4-5.0) Triglycerides Level 177 mg/dL (0-150) Cholesterol Level 175 mg/dL (0-200) LDL Cholesterol, Calculated 111 mg/dL (0-100) VLDL Cholesterol, Calculated 35 mg/dL (0-40) Non-HDL Cholesterol Calculated 146 mg/dL (0-129) HDL Cholesterol 29 mg/dL (40-60) Cholesterol/HDL Ratio 6.0 Lipase 170 U/L (73-393) Thyroid Stimulating Hormone (TSH) 2.174 uIU/mL (0.358-3.74) Glucose (Fingerstick) 119 mg/dL (70-99) 138 mg/dL (70-99) Medications Active Scripts Medications Dose Route/Sig Max Daily Dose Days Date Category Dose Instructions Gleevec (Imatinib Mesylate) 400 Mg Tablet 400 Mg PO DAILY 03/02/17 Reported Ramipril 2.5 Mg Capsule 20 Mg PO DAILY 03/02/17 Reported Multaq (Dronedarone Hcl) 400 Mg Tablet 200 Mg PO BID 03/02/17 Reported Klor-Con M20 (Potassium Chloride) 20 Meq Tab.er.prt 1 Tab PO DAILY 01/16/17 Reported Lasix (Furosemide) 20 Mg Tablet 1 Tab PO DAILY 01/16/17 Reported Allopurinol 300 Mg Tablet 1 Tab PO DAILY 01/16/17 Reported Plavix (Clopidogrel Bisulfate) 75 Mg Tablet 75 Mg PO DAILY 10/05/15 Reported Gabapentin 800 Mg Tablet 800 Mg PO QID 01/19/15 Reported Nitrostat (Nitroglycerin) 0.4 Mg Tab.subl 0.4 Mg SL PRN Q5MIN PRN 09/09/14 Rx [Metoprolol Tartrate] 25 MG Tablet 12.5 Mg PO BID 09/09/14 Rx [Aspirin] 81 MG Tablet. 81 Mg PO [id number] 09/09/14 Rx Metformin Hcl 1,000 Mg Tablet 1 Tab PO BID 09/07/14 Reported Do not resume until 10/07/15 evening dose Impression . FULL NOTE DICTATED, RULE OUT PE SEE ORDERS PT SEEN IN NUCLEAR MED DEPT, UNDERGOING A V/Q/ SCAN THANKS KHRIS BAUER MD Mar 02, 2017 17:29
[2017-03-02 19:57] VITALS: BP 114/63
[2017-03-02] MEDS ORDERED: SACUBITRIL/VALSARTAN 49/51MG TABLET. PO SCH (21:00)
[2017-03-02 21:03] LABS: HCO3 ABG 19 mmol/L (21-28); PCO2 ABG 30 mmHg (35-46); PO2 ABG 57 mmHg (65-108); SAT O2 ABG 89 % (92-99)
[2017-03-02 21:04] LABS: FIO2 ABG 36; PH ABG 7.42 (7.35-7.45)
[2017-03-02] MEDS: METOPROLOL TART IMMED RELEASE 25 MG TABLET. PO SCH (22:08)
[2017-03-02] MEDS: HEPARIN PF for SUB-Q USE 5,000 UNIT/0.5 ML VIAL. SQ SCH (22:13)
[2017-03-02 23:28] VITALS: BP 108/43
--- NOTE | 2017-03-03 00:49 | CONS ---
DATE OF CONSULTATION: 03/02/2017 ATTENDING PHYSICIAN: Cheyenne Loera MD. REASON FOR CONSULTATION: The patient is seen in pulmonary consultation at the request of Dr. Loera for acute respiratory distress. HISTORY OF PRESENT ILLNESS: The patient is a 76-year-old that went to see Dr. ____ followup. He ____ was found to be hypoxic in the office with O2 saturation on room air of 70%, was placed on 3 liters. The patient was severely short of breath with minimal exertion. He was unable to tolerate activities of daily living. He was admitted. I was asked to see him in consultation. He was seen in the office last week by my associate, Dr. Woodward, we will obtain the office records. According to the patient, he did not require oxygen. Denies fever, chills or night sweats. He had an ejection fraction of 30-35% with global hypokinesis on recent echocardiogram of 12/2016. PAST MEDICAL HISTORY: Coronary artery disease, CHF, hypertension, diabetes. PAST SURGICAL HISTORY: None. ALLERGIES: MORPHINE AND HYDROCODONE. SOCIAL HISTORY: No tobacco use or alcoholism. REVIEW OF SYSTEMS: As indicated above. Otherwise, a 10-point system was reviewed and negative. CURRENT MEDICATION: List was reviewed. Please see the MRAD. PHYSICAL EXAMINATION: VITAL SIGNS: The patient was seen in the Nuclear Medicine Department undergoing the beginning of V/Q scan. He was in no respiratory distress, on 3 liters of oxygen supplementation. Since admission, he has been afebrile. HEENT: Eyes: The sclerae were nonicteric. NECK: Jugular venous distention was not elevated. No lymphadenopathy. CHEST: Full expansion. LUNGS: Adequate airway flow with no wheezes. CARDIOVASCULAR: Regular rate and rhythm with S1 and S2, no S3. ABDOMEN: Soft, nontender, nondistended. EXTREMITIES: No clubbing, cyanosis or pitting edema. NEUROLOGIC: The patient was awake, alert, following commands. A detailed neuro exam was not performed. LABORATORY DATA: Reviewed. White count was elevated. Hemoglobin and hematocrit were noted. Electrolytes were noted. BNP was elevated. BUN is elevated. Creatinine is elevated. Albumin was low. IMPRESSION: 1. Acute hypoxemic respiratory failure, etiology unclear, rule out possibility of pulmonary embolism. 2. Progressive dyspnea, suspect secondary to underlying cardiomyopathy with ejection fraction of 30-35%, possible pulmonary embolism. 3. Chronic kidney disease. 4. Elevated BNP. 5. Coronary artery disease. 6. Leukocytosis, suspect reactive, doubt infectious. Chest x-ray appears to be clear. PLAN: 1. The patient is currently scheduled to undergo V/Q scan. We will await V/Q scan results. 2. Continue oxygen supplementation. 3. Consult Cardiology already performed. 4. Repeat 6-minute walk prior to discharge. I do appreciate the privilege in sharing the patient's care. KHRIS BAUER MD DR: EVAN/mikayla JOB#: [id number] / [id number]
[2017-03-03 02:56] LABS: BASO # 0.1 x10^3/uL (0.0-0.2); BASO % 1 % (0-3); EOS % 0 % (0-3); HEMATOCRIT 25.2 % (39.0-53.0); HEMOGLOBIN 8.1 g/dL (13.0-17.5); LYMPH # 0.5 x10^3/uL (1.0-4.8); LYMPH % 3 % (24-48); MEAN CORPUSCULAR HEMOGLOBIN 29 pg (25-35); MEAN CORPUSCULAR HGB CONC 32 g/dL (31-37); MEAN CORPUSCULAR VOLUME 90 fL (79-100); MONO % 7 % (0-9); NEUT % 90 % (31-73); PLATELET COUNT 454 x10^3/uL (140-400); RED BLOOD COUNT 2.79 x10^6/uL (4.30-5.70); RED CELL DISTRIBUTION WIDTH 18.4 % (11.5-14.5); WHITE BLOOD COUNT 15.3 x10^3/uL (4.0-11.0)
[2017-03-03] MEDS: ACETAMINOPHEN 325 MG TABLET. PO PRN (03:02)
[2017-03-03 03:35] LABS: CALCIUM 8.7 mg/dL (8.5-10.1); CREATININE 1.7 mg/dL (0.7-1.3); GFR 39.5; POTASSIUM 4.4 mmol/L (3.5-5.1)
[2017-03-03 03:53] VITALS: BP 121/51
[2017-03-03] MEDS: HEPARIN PF for SUB-Q USE 5,000 UNIT/0.5 ML VIAL. SQ SCH ×3 (06:30→21:27)
[2017-03-03 07:00] VITALS: BP 114/54
[2017-03-03] MEDS: INSULIN ASPART 300 UNITS/3 ML INSULN.PEN SQ SCH ×3 (08:00→17:00)
[2017-03-03] MEDS: IPRATRPIUM/ALBUTEROL 0.5/2.5MG 3 ML NEBU. NEB SCH ×2 (08:00→13:51)
[2017-03-03] MEDS: NON FORMULARY ITEM (Imatinib Mesylate (Gleevec) 400 MG) PO SCH (08:17)
[2017-03-03] MEDS: LISINOPRIL 40 MG TABLET. PO SCH (08:19)
[2017-03-03] MEDS: ASPIRIN ENTERIC COATED 81 MG TABLET.DR. PO SCH (08:20)
[2017-03-03] MEDS: CLOPIDOGREL BISULFATE 75 MG TABLET PO SCH (08:20)
[2017-03-03] MEDS: ALLOPURINOL 300 MG TABLET. PO SCH (08:20)
[2017-03-03] MEDS: DRONEDARONE HCL 400 MG TABLET PO SCH (08:21)
[2017-03-03] MEDS: METOPROLOL TART IMMED RELEASE 25 MG TABLET. PO SCH ×2 (08:21→21:23)
[2017-03-03] MEDS: FUROSEMIDE 20 MG/2 ML VIAL. IVP SCH (08:22)
[2017-03-03] MEDS: POTASSIUM CHLORIDE 20 MEQ TABLET.ER. PO SCH (08:22)
[2017-03-03] MEDS ORDERED: FUROSEMIDE 40 MG TABLET. PO SCH (09:00)
[2017-03-03] MEDS: GABAPENTIN 400 MG CAPSULE. PO SCH ×4 (10:00→21:22)
[2017-03-03] MEDS: ACETAMINOPHEN 325 MG TABLET. PO SCH ×4 (10:01→21:22)
--- NOTE | 2017-03-03 10:51 | PDOC ---
PROGRESS NOTES Subjective Subjective Dyspnea slightly improved. Diuresing well with intravenous Lasix. Denied any chest pain. Objective Objective Vital Signs Date Time Temp Pulse Resp B/P (MAP) Pulse Ox O2 Delivery O2 Flow Rate FiO2 03/03/17 08:21 74 114/54 03/03/17 08:00 Nasal Cannula 5.0 03/03/17 07:00 98.2 18 97 98.2 Intake and Output 03/04/17 06:59 Intake Total 150 ml Output Total 550 ml Balance -400 ml Intake Oral 150 ml Output Urine Total 550 ml Physical Exam Abdomen: Soft, No tenderness Heart: Regular rate Extremities: Other (2+ pitting pedal edema) General: Alert, No acute distress HEENT: Atraumatic, PERRLA Lungs: Other (bilateral basal crepitations) Neck: Supple Psych/Mental Status: Mood NL Assessment Assessment 1. Hypoxia/Persistent dyspnea: Most probably due to acute on chronic systolic heart failure. No PE. V/Q low probability and recent CTA negative. Diuresing well with Lasix. Possible right and left heart catheterization tomorrow. 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 AICD/BiV in situ: 100% BiV pacing recent device check 02/28/2017 with normal functioning and no treatment 4. ICM: Recent EF 30-35%. NYHA 2-3. Pt is intolerant to entresto. 5. PAFIB/SSS: was on PPM in the past and upgraded to BiV 6. CAD: PCI/CHARLI to RCA with patent stent [facility] 10/2015 and moderate lesion to distal RCA and mid LAD. His dyspnea on exertion could be anginal equivalent. Plan for coronary angiography as stated above. 7. HTN: controlled 8. DM2/HLP - per IM Plan Plan of Care Problems Medical Problems: (1) CHF (congestive heart failure) Status: Acute (2) Hypoxia Status: Acute (3) Shortness of breath Status: Acute Comment Review of Relevant I have reviewed the following items ce (where applicable) has been applied. Labs Laboratory Tests Test 03/02/17 12:00 03/02/17 12:26 03/02/17 17:02 03/02/17 19:45 White Blood Count 15.0 x10^3/uL (4.0-11.0) Red Blood Count 2.80 x10^6/uL (4.30-5.70) Hemoglobin 8.2 g/dL (13.0-17.5) Hematocrit 25.0 % (39.0-53.0) Mean Corpuscular Volume 89 fL (79-100) Mean Corpuscular Hemoglobin 29 pg (25-35) Mean Corpuscular Hemoglobin Concent 33 g/dL (31-37) Red Cell Distribution Width 17.9 % (11.5-14.5) Platelet Count 485 x10^3/uL (140-400) Neutrophils (%) (Auto) 91 % (31-73) Lymphocytes (%) (Auto) 3 % (24-48) Monocytes (%) (Auto) 6 % (0-9) Eosinophils (%) (Auto) 0 % (0-3) Basophils (%) (Auto) 0 % (0-3) Neutrophils # (Auto) 13.7 x10^3uL (1.8-7.7) Lymphocytes # (Auto) 0.5 x10^3/uL (1.0-4.8) Monocytes # (Auto) 0.8 x10^3/uL (0.0-1.1) Eosinophils # (Auto) 0.0 x10^3/uL (0.0-0.7) Basophils # (Auto) 0.0 x10^3/uL (0.0-0.2) Segmented Neutrophils % 89 % (35-66) Lymphocytes % 4 % (24-48) Monocytes % 5 % (0-10) Eosinophils % 1 % (0-5) Basophils % 1 % (0-3) Platelet Estimate Increased (ADEQUATE) Poikilocytosis Slight Basophilic Stippling Present Anisocytosis Mod Sodium Level 140 mmol/L (136-145) Potassium Level 4.5 mmol/L (3.5-5.1) Chloride Level 106 mmol/L (98-107) Carbon Dioxide Level 20 mmol/L (21-32) Anion Gap 14 (6-14) Blood Urea Nitrogen 35 mg/dL (8-26) Creatinine 1.9 mg/dL (0.7-1.3) Estimated GFR (Cockcroft-Gault) 34.7 Glucose Level 138 mg/dL (70-99) Calcium Level 8.1 mg/dL (8.5-10.1) Magnesium Level 2.0 mg/dL (1.8-2.4) Total Bilirubin 0.3 mg/dL (0.2-1.0) Direct Bilirubin 0.1 mg/dL (0.0-0.2) Aspartate Amino Transf (AST/SGOT) 25 U/L (15-37) Alanine Aminotransferase (ALT/SGPT) 19 U/L (16-63) Alkaline Phosphatase 75 U/L (46-116) Troponin I Quantitative < 0.017 ng/mL (0.000-0.055) < 0.017 ng/mL (0.000-0.055) MB-Uvg-C-Type Natriuretic Peptide 1735 pg/mL (0-449) Total Protein 6.4 g/dL (6.4-8.2) Albumin 3.2 g/dL (3.4-5.0) Triglycerides Level 177 mg/dL (0-150) Cholesterol Level 175 mg/dL (0-200) LDL Cholesterol, Calculated 111 mg/dL (0-100) VLDL Cholesterol, Calculated 35 mg/dL (0-40) Non-HDL Cholesterol Calculated 146 mg/dL (0-129) HDL Cholesterol 29 mg/dL (40-60) Cholesterol/HDL Ratio 6.0 Lipase 170 U/L (73-393) Thyroid Stimulating Hormone (TSH) 2.174 uIU/mL (0.358-3.74) Glucose (Fingerstick) 119 mg/dL (70-99) 138 mg/dL (70-99) Test 03/02/17 20:32 03/02/17 20:57 03/03/17 02:00 03/03/17 07:15 Glucose (Fingerstick) 175 mg/dL (70-99) 145 mg/dL (70-99) O2 Saturation 89 % (92-99) Arterial Blood pH 7.42 (7.35-7.45) Arterial Blood pCO2 at Patient Temp 30 mmHg (35-46) Arterial Blood pO2 at Patient Temp 57 mmHg (65-108) Arterial Blood HCO3 19 mmol/L (21-28) Arterial Blood Base Excess -5 mmol/L (-3-3) FiO2 36 White Blood Count 15.3 x10^3/uL (4.0-11.0) Red Blood Count 2.79 x10^6/uL (4.30-5.70) Hemoglobin 8.1 g/dL (13.0-17.5) Hematocrit 25.2 % (39.0-53.0) Mean Corpuscular Volume 90 fL (79-100) Mean Corpuscular Hemoglobin 29 pg (25-35) Mean Corpuscular Hemoglobin Concent 32 g/dL (31-37) Red Cell Distribution Width 18.4 % (11.5-14.5) Platelet Count 454 x10^3/uL (140-400) Neutrophils (%) (Auto) 90 % (31-73) Lymphocytes (%) (Auto) 3 % (24-48) Monocytes (%) (Auto) 7 % (0-9) Eosinophils (%) (Auto) 0 % (0-3) Basophils (%) (Auto) 1 % (0-3) Neutrophils # (Auto) 13.7 x10^3uL (1.8-7.7) Lymphocytes # (Auto) 0.5 x10^3/uL (1.0-4.8) Monocytes # (Auto) 1.0 x10^3/uL (0.0-1.1) Eosinophils # (Auto) 0.0 x10^3/uL (0.0-0.7) Basophils # (Auto) 0.1 x10^3/uL (0.0-0.2) Sodium Level 141 mmol/L (136-145) Potassium Level 4.4 mmol/L (3.5-5.1) Chloride Level 105 mmol/L (98-107) Carbon Dioxide Level 24 mmol/L (21-32) Anion Gap 12 (6-14) Blood Urea Nitrogen 35 mg/dL (8-26) Creatinine 1.7 mg/dL (0.7-1.3) Estimated GFR (Cockcroft-Gault) 39.5 Glucose Level 141 mg/dL (70-99) Calcium Level 8.7 mg/dL (8.5-10.1) Troponin I Quantitative 0.027 ng/mL (0.000-0.055) Medications Current Medications Acetaminophen (Tylenol) 325 mg QID PO Last administered on 03/03/17 10:01; Start 03/03/17 at 09:45 Acetaminophen (Tylenol) 650 mg PRN Q6HRS PRN PO FEVER Last administered on 03:02; Start 03/02/17 at 14:15 Albuterol/ Ipratropium (Duoneb) 3 ml 1X ONCE NEB Last administered on 12:21; Start 03/02/17 at 12:00; Stop 03/02/17 at 12:01; Status DC Albuterol/ Ipratropium (Duoneb) 3 ml RTQID NEB ; Start 03/02/17 at 16:00; Stop at 15:59 Allopurinol (Zyloprim) 300 mg DAILY PO Last administered on 03/03/17 08:20; Start 03/03/17 at 09:00 Aspirin (Ecotrin) 81 mg DAILYWBKFT PO Last administered on 03/03/17 08:20; Start 03/03/17 at 08:00 Clopidogrel Bisulfate (Plavix) 75 mg DAILY PO Last administered on 03/03/17 08: 20; Start 03/03/17 at 09:00 Dextrose (Dextrose 50%-Water Syringe) 12.5 gm PRN Q15MIN PRN IV SEE COMMENTS; Start 03/02/17 at 14:30 Docusate Sodium (Colace) 100 mg PRN DAILY PRN PO CONSTIPATION; Start 03/02/17 at 14:15 Dronedarone (Multaq) 200 mg BID PO ; Start 03/02/17 at 21:00; Status Cancel Dronedarone (Multaq) 400 mg DAILY PO Last administered on 03/03/17 08:21; Start 03/03/17 at 09:00 Dronedarone (Multaq) 400 mg DAILY16 PO ; Start 03/02/17 at 16:00; Status Cancel Furosemide (Lasix) 20 mg 1X ONCE IVP Last administered on 03/02/17 16:43; Start 03/02/17 at 15:30; Stop 03/02/17 at 15:31; Status DC Furosemide (Lasix) 20 mg DAILY IVP Last administered on 03/03/17 08:22; Start 03/03/17 at 09:00 Furosemide (Lasix) 40 mg 1X ONCE PO ; Start 03/02/17 at 14:15; Stop 03/02/17 at 14:18; Status DC Furosemide (Lasix) 40 mg DAILY PO ; Start 03/03/17 at 09:00; Stop 03/03/17 at 09: 00; Status DC Gabapentin (Neurontin) 800 mg QID PO Last administered on 03/03/17 10:00; Start 03/03/17 at 10:00 Heparin Sodium (Porcine) (Heparin Sq) 5,000 unit Q8HRS SQ Last administered on 03/03/17 06:30; Start 03/02/17 at 22:00 Hydralazine HCl (Apresoline) 10 mg PRN Q4HRS PRN IVP ELEVATED BP, SEE COMMENTS ; Start 03/02/17 at 14:15 Insulin Aspart (NovoLOG) 0-9 UNITS TIDWMEALS SQ ; Start 03/02/17 at 17:00 Lisinopril (Prinivil) 40 mg DAILY PO ; Start 03/03/17 at 09:00 Metoprolol Tartrate (Lopressor) 12.5 mg BID PO Last administered on 03/03/17 08 :21; Start 03/02/17 at 21:00 Morphine Sulfate 2 mg PRN Q2HR PRN IV PAIN; Start 03/02/17 at 14:15; Stop at 17:04; Status DC Nitroglycerin (Nitrostat) 0.4 mg PRN Q5MIN PRN SL CHEST PAIN; Start 03/02/17 at 14:15 Non-Formulary Medication 400 mg DAILY PO ; Start 03/03/17 at 09:00; Status UNV Ondansetron HCl (Zofran) 4 mg PRN Q6HRS PRN IV NAUSEA/VOMITING; Start 03/02/17 at 14:15 Ondansetron HCl (Zofran) 4 mg PRN Q8HRS PRN IV NAUSEA/VOMITING; Start 03/02/17 at 13:15; Stop 03/03/17 at 13:14 Potassium Chloride (Klor-Con) 20 meq DAILY PO Last administered on 03/03/17 08: 22; Start 03/03/17 at 09:00 Sacubitril/ Valsartan (Entresto 49 Mg-51 Mg) 1 tab BID PO ; Start 03/02/17 at 21: 00; Stop 03/02/17 at 21:00; Status DC Tramadol HCl (Ultram) 50 mg PRN Q6HRS PRN PO PAIN; Start 03/02/17 at 14:15 Vitals/I & O Vital Sign - Last 24 Hours 03/02/17 03/02/17 03/02/17 03/02/17 11:45 12:18 12:23 12:48 Temp 98.1 98.1 Pulse 75 77 75 Resp 24 26 26 B/P (MAP) 109/55 (73) 97/51 (66) 114/55 (74) Pulse Ox 94 96 99 O2 Delivery Nasal Cannula Nasal Cannula Nasal Cannula Nasal Cannula O2 Flow Rate 88.0 3.0 3.0 3.0 03/02/17 03/02/17 03/02/17 03/02/17 13:48 14:18 14:48 16:16 Temp 98.2 98.2 Pulse 73 69 72 75 Resp 32 24 23 20 B/P (MAP) 112/53 (72) 106/53 (70) 106/53 (70) 126/55 (78) Pulse Ox 96 96 96 93 O2 Delivery Nasal Cannula Nasal Cannula Nasal Cannula Nasal Cannula O2 Flow Rate 3.0 3.0 3.0 3.0 03/02/17 03/02/17 03/02/17 03/02/17 16:16 17:25 19:57 20:00 Temp 98.2 98.6 98.2 98.6 Pulse 75 77 Resp 20 18 B/P (MAP) 126/55 (78) 114/63 (80) Pulse Ox 93 94 O2 Delivery Nasal Cannula Nasal Cannula Nasal Cannula Nasal Cannula O2 Flow Rate 3.0 3.0 3.0 5.0 03/02/17 03/02/17 03/02/17 03/03/17 20:50 22:08 23:28 03:53 Temp 98.5 98.2 98.5 98.2 Pulse 77 74 77 Resp 18 18 B/P (MAP) 114/63 108/43 (64) 121/51 (74) Pulse Ox 94 93 O2 Delivery Nasal Cannula Nasal Cannula Nasal Cannula O2 Flow Rate 4.0 5.0 5.0 03/03/17 03/03/17 03/03/17 03/03/17 07:00 08:00 08:21 08:21 Temp 98.2 98.2 Pulse 74 74 74 Resp 18 B/P (MAP) 114/54 (74) 114/54 114/54 Pulse Ox 97 O2 Delivery Room Air Nasal Cannula O2 Flow Rate 3.0 5.0 Intake and Output 03/03/17 03/03/17 03/04/17 14:59 22:59 06:59 Intake Total 150 ml Output Total 550 ml Balance -400 ml MARISSA CABRERA MD Mar 03, 2017 10:51
[2017-03-03 11:00] VITALS: BP 112/71
--- NOTE | 2017-03-03 13:19 | PDOC ---
PROGRESS NOTES Chief Complaint Chief Complaint sob, acute hypoxic resp failure with systolic CHF exacerbation Systolic CHF EF 30% with ppm, icd h/o CAD with pci htn morbid obesity dm2 DEO on CKD3, vasomotor CML on Chemo normacytic anemia mild malnutrition NEG PE plan; card, pulm consulted lasix 20mg iv daily cont home meds, hold metformin ,SSI dvt ppx keep NC, keep Sat >92% VQ scan neg labs tmr pt takes Gleevec for CML chemo, WHICH may contribute to CHF exacerbation. talked to card transfer pt to [facility] for CHF, need 6min walk when dc plan cath on Sun as per card History of Present Illness History of Present Illness ros" NO FEVER, chills, chest pain, + sob on NC 5L now hypoxia at ABG Vitals Vitals Vital Signs Date Time Temp Pulse Resp B/P (MAP) Pulse Ox O2 Delivery O2 Flow Rate FiO2 03/03/17 11:00 97.6 68 18 112/71 (85) 95 Room Air 3.0 97.6 Physical Exam General: Alert, Oriented X3, Cooperative Heart: Regular rate Lungs: Other (bl coarse BS, no wheezing or crackles) Abdomen: Normal bowel sounds, Soft Extremities: No clubbing, No cyanosis, Other (bl leg 1+ edema) Skin: No rashes Labs LABS Laboratory Tests Test 03/02/17 17:02 03/02/17 19:45 03/02/17 20:32 03/02/17 20:57 Glucose (Fingerstick) 138 mg/dL (70-99) 175 mg/dL (70-99) Troponin I Quantitative < 0.017 ng/mL (0.000-0.055) O2 Saturation 89 % (92-99) Arterial Blood pH 7.42 (7.35-7.45) Arterial Blood pCO2 at Patient Temp 30 mmHg (35-46) Arterial Blood pO2 at Patient Temp 57 mmHg (65-108) Arterial Blood HCO3 19 mmol/L (21-28) Arterial Blood Base Excess -5 mmol/L (-3-3) FiO2 36 Test 03/03/17 02:00 03/03/17 07:15 03/03/17 11:35 White Blood Count 15.3 x10^3/uL (4.0-11.0) Red Blood Count 2.79 x10^6/uL (4.30-5.70) Hemoglobin 8.1 g/dL (13.0-17.5) Hematocrit 25.2 % (39.0-53.0) Mean Corpuscular Volume 90 fL (79-100) Mean Corpuscular Hemoglobin 29 pg (25-35) Mean Corpuscular Hemoglobin Concent 32 g/dL (31-37) Red Cell Distribution Width 18.4 % (11.5-14.5) Platelet Count 454 x10^3/uL (140-400) Neutrophils (%) (Auto) 90 % (31-73) Lymphocytes (%) (Auto) 3 % (24-48) Monocytes (%) (Auto) 7 % (0-9) Eosinophils (%) (Auto) 0 % (0-3) Basophils (%) (Auto) 1 % (0-3) Neutrophils # (Auto) 13.7 x10^3uL (1.8-7.7) Lymphocytes # (Auto) 0.5 x10^3/uL (1.0-4.8) Monocytes # (Auto) 1.0 x10^3/uL (0.0-1.1) Eosinophils # (Auto) 0.0 x10^3/uL (0.0-0.7) Basophils # (Auto) 0.1 x10^3/uL (0.0-0.2) Sodium Level 141 mmol/L (136-145) Potassium Level 4.4 mmol/L (3.5-5.1) Chloride Level 105 mmol/L (98-107) Carbon Dioxide Level 24 mmol/L (21-32) Anion Gap 12 (6-14) Blood Urea Nitrogen 35 mg/dL (8-26) Creatinine 1.7 mg/dL (0.7-1.3) Estimated GFR (Cockcroft-Gault) 39.5 Glucose Level 141 mg/dL (70-99) Calcium Level 8.7 mg/dL (8.5-10.1) Troponin I Quantitative 0.027 ng/mL (0.000-0.055) Glucose (Fingerstick) 145 mg/dL (70-99) 133 mg/dL (70-99) Assessment and Plan Assessmemt and Plan Problems Medical Problems: (1) CHF (congestive heart failure) Status: Acute (2) Hypoxia Status: Acute (3) Shortness of breath Status: Acute Problems: Comment Review of Relevant I have reviewed the following items ce (where applicable) has been applied. Labs Laboratory Tests Test 03/02/17 12:00 03/02/17 12:26 03/02/17 17:02 03/02/17 19:45 White Blood Count 15.0 x10^3/uL (4.0-11.0) Red Blood Count 2.80 x10^6/uL (4.30-5.70) Hemoglobin 8.2 g/dL (13.0-17.5) Hematocrit 25.0 % (39.0-53.0) Mean Corpuscular Volume 89 fL (79-100) Mean Corpuscular Hemoglobin 29 pg (25-35) Mean Corpuscular Hemoglobin Concent 33 g/dL (31-37) Red Cell Distribution Width 17.9 % (11.5-14.5) Platelet Count 485 x10^3/uL (140-400) Neutrophils (%) (Auto) 91 % (31-73) Lymphocytes (%) (Auto) 3 % (24-48) Monocytes (%) (Auto) 6 % (0-9) Eosinophils (%) (Auto) 0 % (0-3) Basophils (%) (Auto) 0 % (0-3) Neutrophils # (Auto) 13.7 x10^3uL (1.8-7.7) Lymphocytes # (Auto) 0.5 x10^3/uL (1.0-4.8) Monocytes # (Auto) 0.8 x10^3/uL (0.0-1.1) Eosinophils # (Auto) 0.0 x10^3/uL (0.0-0.7) Basophils # (Auto) 0.0 x10^3/uL (0.0-0.2) Segmented Neutrophils % 89 % (35-66) Lymphocytes % 4 % (24-48) Monocytes % 5 % (0-10) Eosinophils % 1 % (0-5) Basophils % 1 % (0-3) Platelet Estimate Increased (ADEQUATE) Poikilocytosis Slight Basophilic Stippling Present Anisocytosis Mod Sodium Level 140 mmol/L (136-145) Potassium Level 4.5 mmol/L (3.5-5.1) Chloride Level 106 mmol/L (98-107) Carbon Dioxide Level 20 mmol/L (21-32) Anion Gap 14 (6-14) Blood Urea Nitrogen 35 mg/dL (8-26) Creatinine 1.9 mg/dL (0.7-1.3) Estimated GFR (Cockcroft-Gault) 34.7 Glucose Level 138 mg/dL (70-99) Calcium Level 8.1 mg/dL (8.5-10.1) Magnesium Level 2.0 mg/dL (1.8-2.4) Total Bilirubin 0.3 mg/dL (0.2-1.0) Direct Bilirubin 0.1 mg/dL (0.0-0.2) Aspartate Amino Transf (AST/SGOT) 25 U/L (15-37) Alanine Aminotransferase (ALT/SGPT) 19 U/L (16-63) Alkaline Phosphatase 75 U/L (46-116) Troponin I Quantitative < 0.017 ng/mL (0.000-0.055) < 0.017 ng/mL (0.000-0.055) [id number]-[id number]-Type Natriuretic Peptide 1735 pg/mL (0-449) Total Protein 6.4 g/dL (6.4-8.2) Albumin 3.2 g/dL (3.4-5.0) Triglycerides Level 177 mg/dL (0-150) Cholesterol Level 175 mg/dL (0-200) LDL Cholesterol, Calculated 111 mg/dL (0-100) VLDL Cholesterol, Calculated 35 mg/dL (0-40) Non-HDL Cholesterol Calculated 146 mg/dL (0-129) HDL Cholesterol 29 mg/dL (40-60) Cholesterol/HDL Ratio 6.0 Lipase 170 U/L (73-393) Thyroid Stimulating Hormone (TSH) 2.174 uIU/mL (0.358-3.74) Glucose (Fingerstick) 119 mg/dL (70-99) 138 mg/dL (70-99) Test 03/02/17 20:32 03/02/17 20:57 03/03/17 02:00 03/03/17 07:15 Glucose (Fingerstick) 175 mg/dL (70-99) 145 mg/dL (70-99) O2 Saturation 89 % (92-99) Arterial Blood pH 7.42 (7.35-7.45) Arterial Blood pCO2 at Patient Temp 30 mmHg (35-46) Arterial Blood pO2 at Patient Temp 57 mmHg (65-108) Arterial Blood HCO3 19 mmol/L (21-28) Arterial Blood Base Excess -5 mmol/L (-3-3) FiO2 36 White Blood Count 15.3 x10^3/uL (4.0-11.0) Red Blood Count 2.79 x10^6/uL (4.30-5.70) Hemoglobin 8.1 g/dL (13.0-17.5) Hematocrit 25.2 % (39.0-53.0) Mean Corpuscular Volume 90 fL (79-100) Mean Corpuscular Hemoglobin 29 pg (25-35) Mean Corpuscular Hemoglobin Concent 32 g/dL (31-37) Red Cell Distribution Width 18.4 % (11.5-14.5) Platelet Count 454 x10^3/uL (140-400) Neutrophils (%) (Auto) 90 % (31-73) Lymphocytes (%) (Auto) 3 % (24-48) Monocytes (%) (Auto) 7 % (0-9) Eosinophils (%) (Auto) 0 % (0-3) Basophils (%) (Auto) 1 % (0-3) Neutrophils # (Auto) 13.7 x10^3uL (1.8-7.7) Lymphocytes # (Auto) 0.5 x10^3/uL (1.0-4.8) Monocytes # (Auto) 1.0 x10^3/uL (0.0-1.1) Eosinophils # (Auto) 0.0 x10^3/uL (0.0-0.7) Basophils # (Auto) 0.1 x10^3/uL (0.0-0.2) Sodium Level 141 mmol/L (136-145) Potassium Level 4.4 mmol/L (3.5-5.1) Chloride Level 105 mmol/L (98-107) Carbon Dioxide Level 24 mmol/L (21-32) Anion Gap 12 (6-14) Blood Urea Nitrogen 35 mg/dL (8-26) Creatinine 1.7 mg/dL (0.7-1.3) Estimated GFR (Cockcroft-Gault) 39.5 Glucose Level 141 mg/dL (70-99) Calcium Level 8.7 mg/dL (8.5-10.1) Troponin I Quantitative 0.027 ng/mL (0.000-0.055) Test 03/03/17 11:35 Glucose (Fingerstick) 133 mg/dL (70-99) Laboratory Tests Test 03/02/17 17:02 03/02/17 19:45 03/02/17 20:32 03/02/17 20:57 Glucose (Fingerstick) 138 mg/dL (70-99) 175 mg/dL (70-99) Troponin I Quantitative < 0.017 ng/mL (0.000-0.055) O2 Saturation 89 % (92-99) Arterial Blood pH 7.42 (7.35-7.45) Arterial Blood pCO2 at Patient Temp 30 mmHg (35-46) Arterial Blood pO2 at Patient Temp 57 mmHg (65-108) Arterial Blood HCO3 19 mmol/L (21-28) Arterial Blood Base Excess -5 mmol/L (-3-3) FiO2 36 Test 03/03/17 02:00 03/03/17 07:15 03/03/17 11:35 White Blood Count 15.3 x10^3/uL (4.0-11.0) Red Blood Count 2.79 x10^6/uL (4.30-5.70) Hemoglobin 8.1 g/dL (13.0-17.5) Hematocrit 25.2 % (39.0-53.0) Mean Corpuscular Volume 90 fL (79-100) Mean Corpuscular Hemoglobin 29 pg (25-35) Mean Corpuscular Hemoglobin Concent 32 g/dL (31-37) Red Cell Distribution Width 18.4 % (11.5-14.5) Platelet Count 454 x10^3/uL (140-400) Neutrophils (%) (Auto) 90 % (31-73) Lymphocytes (%) (Auto) 3 % (24-48) Monocytes (%) (Auto) 7 % (0-9) Eosinophils (%) (Auto) 0 % (0-3) Basophils (%) (Auto) 1 % (0-3) Neutrophils # (Auto) 13.7 x10^3uL (1.8-7.7) Lymphocytes # (Auto) 0.5 x10^3/uL (1.0-4.8) Monocytes # (Auto) 1.0 x10^3/uL (0.0-1.1) Eosinophils # (Auto) 0.0 x10^3/uL (0.0-0.7) Basophils # (Auto) 0.1 x10^3/uL (0.0-0.2) Sodium Level 141 mmol/L (136-145) Potassium Level 4.4 mmol/L (3.5-5.1) Chloride Level 105 mmol/L (98-107) Carbon Dioxide Level 24 mmol/L (21-32) Anion Gap 12 (6-14) Blood Urea Nitrogen 35 mg/dL (8-26) Creatinine 1.7 mg/dL (0.7-1.3) Estimated GFR (Cockcroft-Gault) 39.5 Glucose Level 141 mg/dL (70-99) Calcium Level 8.7 mg/dL (8.5-10.1) Troponin I Quantitative 0.027 ng/mL (0.000-0.055) Glucose (Fingerstick) 145 mg/dL (70-99) 133 mg/dL (70-99) Medications Current Medications Albuterol/ Ipratropium (Duoneb) 3 ml 1X ONCE NEB Last administered on 12:21; Start 03/02/17 at 12:00; Stop 03/02/17 at 12:01; Status DC Ondansetron HCl (Zofran) 4 mg PRN Q8HRS PRN IV NAUSEA/VOMITING; Start 03/02/17 at 13:15; Stop 03/03/17 at 13:14; Status DC Albuterol/ Ipratropium (Duoneb) 3 ml RTQID NEB ; Start 03/02/17 at 16:00; Stop at 15:59 Acetaminophen (Tylenol) 650 mg PRN Q6HRS PRN PO FEVER Last administered on 03:02; Start 03/02/17 at 14:15 Ondansetron HCl (Zofran) 4 mg PRN Q6HRS PRN IV NAUSEA/VOMITING; Start 03/02/17 at 14:15 Morphine Sulfate 2 mg PRN Q2HR PRN IV PAIN; Start 03/02/17 at 14:15; Stop at 17:04; Status DC Tramadol HCl (Ultram) 50 mg PRN Q6HRS PRN PO PAIN; Start 03/02/17 at 14:15 Hydralazine HCl (Apresoline) 10 mg PRN Q4HRS PRN IVP ELEVATED BP, SEE COMMENTS ; Start 03/02/17 at 14:15 Docusate Sodium (Colace) 100 mg PRN DAILY PRN PO CONSTIPATION; Start 03/02/17 at 14:15 Furosemide (Lasix) 40 mg 1X ONCE PO ; Start 03/02/17 at 14:15; Stop 03/02/17 at 14:18; Status DC Allopurinol (Zyloprim) 300 mg DAILY PO Last administered on 03/03/17 08:20; Start 03/03/17 at 09:00 Clopidogrel Bisulfate (Plavix) 75 mg DAILY PO Last administered on 03/03/17 08: 20; Start 03/03/17 at 09:00 Dronedarone (Multaq) 400 mg DAILY16 PO ; Start 03/02/17 at 16:00; Status Cancel Nitroglycerin (Nitrostat) 0.4 mg PRN Q5MIN PRN SL CHEST PAIN; Start 03/02/17 at 14:15 Potassium Chloride (Klor-Con) 20 meq DAILY PO Last administered on 03/03/17 08: 22; Start 03/03/17 at 09:00 Sacubitril/ Valsartan (Entresto 49 Mg-51 Mg) 1 tab BID PO ; Start 03/02/17 at 21: 00; Stop 03/02/17 at 21:00; Status DC Metoprolol Tartrate (Lopressor) 12.5 mg BID PO Last administered on 03/03/17 08 :21; Start 03/02/17 at 21:00 Furosemide (Lasix) 40 mg DAILY PO ; Start 03/03/17 at 09:00; Stop 03/03/17 at 09: 00; Status DC Furosemide (Lasix) 20 mg 1X ONCE IVP Last administered on 03/02/17 16:43; Start 03/02/17 at 15:30; Stop 03/02/17 at 15:31; Status DC Heparin Sodium (Porcine) (Heparin Sq) 5,000 unit Q8HRS SQ Last administered on 03/03/17 06:30; Start 03/02/17 at 22:00 Insulin Aspart (NovoLOG) 0-9 UNITS TIDWMEALS SQ ; Start 03/02/17 at 17:00 Dextrose (Dextrose 50%-Water Syringe) 12.5 gm PRN Q15MIN PRN IV SEE COMMENTS; Start 03/02/17 at 14:30 Furosemide (Lasix) 20 mg DAILY IVP Last administered on 03/03/17 08:22; Start 03/03/17 at 09:00 Aspirin (Ecotrin) 81 mg DAILYWBKFT PO Last administered on 03/03/17 08:20; Start 03/03/17 at 08:00 Dronedarone (Multaq) 200 mg BID PO ; Start 03/02/17 at 21:00; Status Cancel Lisinopril (Prinivil) 40 mg DAILY PO ; Start 03/03/17 at 09:00 Non-Formulary Medication 400 mg DAILY PO ; Start 03/03/17 at 09:00; Status UNV Dronedarone (Multaq) 400 mg DAILY PO Last administered on 03/03/17 08:21; Start 03/03/17 at 09:00 Gabapentin (Neurontin) 800 mg QID PO Last administered on 03/03/17 10:00; Start 03/03/17 at 10:00 Acetaminophen (Tylenol) 325 mg QID PO Last administered on 03/03/17 10:01; Start 03/03/17 at 09:45 Active Scripts Active Nitrostat (Nitroglycerin) 0.4 Mg Tab.subl 0.4 Mg SL PRN Q5MIN PRN [Metoprolol Tartrate] 25 MG Tablet 12.5 Mg PO BID [Aspirin] 81 MG Tablet.dr 81 Mg PO DAILYWBK Reported Multaq (Dronedarone Hcl) 400 Mg Tablet 400 Mg PO Gleevec (Imatinib Mesylate) 400 Mg Tablet 400 Mg PO DAILY Ramipril 2.5 Mg Capsule 20 Mg PO DAILY Klor-Con M20 (Potassium Chloride) 20 Meq Tab.er.prt 1 Tab PO DAILY Lasix (Furosemide) 20 Mg Tablet 1 Tab PO DAILY Allopurinol 300 Mg Tablet 1 Tab PO DAILY Plavix (Clopidogrel Bisulfate) 75 Mg Tablet 75 Mg PO DAILY Gabapentin 800 Mg Tablet 800 Mg PO QID Metformin Hcl 1,000 Mg Tablet 1 Tab PO BID Do not resume until 10/07/15 evening dose Vitals/I & O Vital Sign - Last 24 Hours 03/02/17 03/02/17 03/02/17 03/02/17 13:48 14:18 14:48 16:16 Temp 98.2 98.2 Pulse 73 69 72 75 Resp 32 24 23 20 B/P (MAP) 112/53 (72) 106/53 (70) 106/53 (70) 126/55 (78) Pulse Ox 96 96 96 93 O2 Delivery Nasal Cannula Nasal Cannula Nasal Cannula Nasal Cannula O2 Flow Rate 3.0 3.0 3.0 3.0 03/02/17 03/02/17 03/02/17 03/02/17 16:16 17:25 19:57 20:00 Temp 98.2 98.6 98.2 98.6 Pulse 75 77 Resp 20 18 B/P (MAP) 126/55 (78) 114/63 (80) Pulse Ox 93 94 O2 Delivery Nasal Cannula Nasal Cannula Nasal Cannula Nasal Cannula O2 Flow Rate 3.0 3.0 3.0 5.0 03/02/17 03/02/17 03/02/17 03/03/17 20:50 22:08 23:28 03:53 Temp 98.5 98.2 98.5 98.2 Pulse 77 74 77 Resp 18 18 B/P (MAP) 114/63 108/43 (64) 121/51 (74) Pulse Ox 94 93 O2 Delivery Nasal Cannula Nasal Cannula Nasal Cannula O2 Flow Rate 4.0 5.0 5.0 03/03/17 03/03/17 03/03/17 03/03/17 07:00 08:00 08:21 08:21 Temp 98.2 98.2 Pulse 74 74 74 Resp 18 B/P (MAP) 114/54 (74) 114/54 114/54 Pulse Ox 97 O2 Delivery Room Air Nasal Cannula O2 Flow Rate 3.0 5.0 03/03/17 11:00 Temp 97.6 97.6 Pulse 68 Resp 18 B/P (MAP) 112/71 (85) Pulse Ox 95 O2 Delivery Room Air O2 Flow Rate 3.0 Intake and Output 03/03/17 03/03/17 03/04/17 15:00 23:00 07:00 Intake Total 150 ml Output Total 550 ml Balance -400 ml SERENA POSADAS MD Mar 03, 2017 13:19
[2017-03-03 15:00] VITALS: BP 113/53
--- NOTE | 2017-03-03 17:06 | PDOC ---
PULMONARY PROGRESS NOTES Subjective PT STILL SOA WITH EXERTION NO INCREASE COUGH Vitals Vital Signs Date Time Temp Pulse Resp B/P (MAP) Pulse Ox O2 Delivery O2 Flow Rate FiO2 03/03/17 16:18 96 Nasal Cannula 4.0 03/03/17 15:00 97.4 78 20 113/53 (73) 97.4 ROS: No Nausea, No Chest Pain, No Abdominal Pain, No Increase Cough Lungs: Clear Cardiovascular: S1, S2 Abdomen: Soft Neuro Exam: Alert Skin: Warm Labs Laboratory Tests Test 03/02/17 12:00 03/02/17 12:26 03/02/17 17:02 03/02/17 19:45 White Blood Count 15.0 x10^3/uL (4.0-11.0) Red Blood Count 2.80 x10^6/uL (4.30-5.70) Hemoglobin 8.2 g/dL (13.0-17.5) Hematocrit 25.0 % (39.0-53.0) Mean Corpuscular Volume 89 fL (79-100) Mean Corpuscular Hemoglobin 29 pg (25-35) Mean Corpuscular Hemoglobin Concent 33 g/dL (31-37) Red Cell Distribution Width 17.9 % (11.5-14.5) Platelet Count 485 x10^3/uL (140-400) Neutrophils (%) (Auto) 91 % (31-73) Lymphocytes (%) (Auto) 3 % (24-48) Monocytes (%) (Auto) 6 % (0-9) Eosinophils (%) (Auto) 0 % (0-3) Basophils (%) (Auto) 0 % (0-3) Neutrophils # (Auto) 13.7 x10^3uL (1.8-7.7) Lymphocytes # (Auto) 0.5 x10^3/uL (1.0-4.8) Monocytes # (Auto) 0.8 x10^3/uL (0.0-1.1) Eosinophils # (Auto) 0.0 x10^3/uL (0.0-0.7) Basophils # (Auto) 0.0 x10^3/uL (0.0-0.2) Segmented Neutrophils % 89 % (35-66) Lymphocytes % 4 % (24-48) Monocytes % 5 % (0-10) Eosinophils % 1 % (0-5) Basophils % 1 % (0-3) Platelet Estimate Increased (ADEQUATE) Poikilocytosis Slight Basophilic Stippling Present Anisocytosis Mod Sodium Level 140 mmol/L (136-145) Potassium Level 4.5 mmol/L (3.5-5.1) Chloride Level 106 mmol/L (98-107) Carbon Dioxide Level 20 mmol/L (21-32) Anion Gap 14 (6-14) Blood Urea Nitrogen 35 mg/dL (8-26) Creatinine 1.9 mg/dL (0.7-1.3) Estimated GFR (Cockcroft-Gault) 34.7 Glucose Level 138 mg/dL (70-99) Calcium Level 8.1 mg/dL (8.5-10.1) Magnesium Level 2.0 mg/dL (1.8-2.4) Total Bilirubin 0.3 mg/dL (0.2-1.0) Direct Bilirubin 0.1 mg/dL (0.0-0.2) Aspartate Amino Transf (AST/SGOT) 25 U/L (15-37) Alanine Aminotransferase (ALT/SGPT) 19 U/L (16-63) Alkaline Phosphatase 75 U/L (46-116) Troponin I Quantitative < 0.017 ng/mL (0.000-0.055) < 0.017 ng/mL (0.000-0.055) HR-Kav-F-Type Natriuretic Peptide 1735 pg/mL (0-449) Total Protein 6.4 g/dL (6.4-8.2) Albumin 3.2 g/dL (3.4-5.0) Triglycerides Level 177 mg/dL (0-150) Cholesterol Level 175 mg/dL (0-200) LDL Cholesterol, Calculated 111 mg/dL (0-100) VLDL Cholesterol, Calculated 35 mg/dL (0-40) Non-HDL Cholesterol Calculated 146 mg/dL (0-129) HDL Cholesterol 29 mg/dL (40-60) Cholesterol/HDL Ratio 6.0 Lipase 170 U/L (73-393) Thyroid Stimulating Hormone (TSH) 2.174 uIU/mL (0.358-3.74) Glucose (Fingerstick) 119 mg/dL (70-99) 138 mg/dL (70-99) Test 03/02/17 20:32 03/02/17 20:57 03/03/17 02:00 03/03/17 07:15 Glucose (Fingerstick) 175 mg/dL (70-99) 145 mg/dL (70-99) O2 Saturation 89 % (92-99) Arterial Blood pH 7.42 (7.35-7.45) Arterial Blood pCO2 at Patient Temp 30 mmHg (35-46) Arterial Blood pO2 at Patient Temp 57 mmHg (65-108) Arterial Blood HCO3 19 mmol/L (21-28) Arterial Blood Base Excess -5 mmol/L (-3-3) FiO2 36 White Blood Count 15.3 x10^3/uL (4.0-11.0) Red Blood Count 2.79 x10^6/uL (4.30-5.70) Hemoglobin 8.1 g/dL (13.0-17.5) Hematocrit 25.2 % (39.0-53.0) Mean Corpuscular Volume 90 fL (79-100) Mean Corpuscular Hemoglobin 29 pg (25-35) Mean Corpuscular Hemoglobin Concent 32 g/dL (31-37) Red Cell Distribution Width 18.4 % (11.5-14.5) Platelet Count 454 x10^3/uL (140-400) Neutrophils (%) (Auto) 90 % (31-73) Lymphocytes (%) (Auto) 3 % (24-48) Monocytes (%) (Auto) 7 % (0-9) Eosinophils (%) (Auto) 0 % (0-3) Basophils (%) (Auto) 1 % (0-3) Neutrophils # (Auto) 13.7 x10^3uL (1.8-7.7) Lymphocytes # (Auto) 0.5 x10^3/uL (1.0-4.8) Monocytes # (Auto) 1.0 x10^3/uL (0.0-1.1) Eosinophils # (Auto) 0.0 x10^3/uL (0.0-0.7) Basophils # (Auto) 0.1 x10^3/uL (0.0-0.2) Sodium Level 141 mmol/L (136-145) Potassium Level 4.4 mmol/L (3.5-5.1) Chloride Level 105 mmol/L (98-107) Carbon Dioxide Level 24 mmol/L (21-32) Anion Gap 12 (6-14) Blood Urea Nitrogen 35 mg/dL (8-26) Creatinine 1.7 mg/dL (0.7-1.3) Estimated GFR (Cockcroft-Gault) 39.5 Glucose Level 141 mg/dL (70-99) Calcium Level 8.7 mg/dL (8.5-10.1) Troponin I Quantitative 0.027 ng/mL (0.000-0.055) Test 03/03/17 11:35 Glucose (Fingerstick) 133 mg/dL (70-99) Laboratory Tests Test 03/02/17 19:45 03/02/17 20:32 03/02/17 20:57 03/03/17 02:00 Troponin I Quantitative < 0.017 ng/mL (0.000-0.055) 0.027 ng/mL (0.000-0.055) Glucose (Fingerstick) 175 mg/dL (70-99) O2 Saturation 89 % (92-99) Arterial Blood pH 7.42 (7.35-7.45) Arterial Blood pCO2 at Patient Temp 30 mmHg (35-46) Arterial Blood pO2 at Patient Temp 57 mmHg (65-108) Arterial Blood HCO3 19 mmol/L (21-28) Arterial Blood Base Excess -5 mmol/L (-3-3) FiO2 36 White Blood Count 15.3 x10^3/uL (4.0-11.0) Red Blood Count 2.79 x10^6/uL (4.30-5.70) Hemoglobin 8.1 g/dL (13.0-17.5) Hematocrit 25.2 % (39.0-53.0) Mean Corpuscular Volume 90 fL (79-100) Mean Corpuscular Hemoglobin 29 pg (25-35) Mean Corpuscular Hemoglobin Concent 32 g/dL (31-37) Red Cell Distribution Width 18.4 % (11.5-14.5) Platelet Count 454 x10^3/uL (140-400) Neutrophils (%) (Auto) 90 % (31-73) Lymphocytes (%) (Auto) 3 % (24-48) Monocytes (%) (Auto) 7 % (0-9) Eosinophils (%) (Auto) 0 % (0-3) Basophils (%) (Auto) 1 % (0-3) Neutrophils # (Auto) 13.7 x10^3uL (1.8-7.7) Lymphocytes # (Auto) 0.5 x10^3/uL (1.0-4.8) Monocytes # (Auto) 1.0 x10^3/uL (0.0-1.1) Eosinophils # (Auto) 0.0 x10^3/uL (0.0-0.7) Basophils # (Auto) 0.1 x10^3/uL (0.0-0.2) Sodium Level 141 mmol/L (136-145) Potassium Level 4.4 mmol/L (3.5-5.1) Chloride Level 105 mmol/L (98-107) Carbon Dioxide Level 24 mmol/L (21-32) Anion Gap 12 (6-14) Blood Urea Nitrogen 35 mg/dL (8-26) Creatinine 1.7 mg/dL (0.7-1.3) Estimated GFR (Cockcroft-Gault) 39.5 Glucose Level 141 mg/dL (70-99) Calcium Level 8.7 mg/dL (8.5-10.1) Test 03/03/17 07:15 03/03/17 11:35 Glucose (Fingerstick) 145 mg/dL (70-99) 133 mg/dL (70-99) Medications Active Scripts Medications Dose Route/Sig Max Daily Dose Days Date Category Dose Instructions Gleevec (Imatinib Mesylate) 400 Mg Tablet 400 Mg PO DAILY 03/02/17 Reported Ramipril 2.5 Mg Capsule 20 Mg PO DAILY 03/02/17 Reported Multaq (Dronedarone Hcl) 400 Mg Tablet 200 Mg PO BID 03/02/17 Reported Klor-Con M20 (Potassium Chloride) 20 Meq Tab.er.prt 1 Tab PO DAILY 01/16/17 Reported Lasix (Furosemide) 20 Mg Tablet 1 Tab PO DAILY 01/16/17 Reported Allopurinol 300 Mg Tablet 1 Tab PO DAILY 01/16/17 Reported Plavix (Clopidogrel Bisulfate) 75 Mg Tablet 75 Mg PO DAILY 10/05/15 Reported Gabapentin 800 Mg Tablet 800 Mg PO QID 01/19/15 Reported Nitrostat (Nitroglycerin) 0.4 Mg Tab.subl 0.4 Mg SL PRN Q5MIN PRN 09/09/14 Rx [Metoprolol Tartrate] 25 MG Tablet 12.5 Mg PO BID 09/09/14 Rx [Aspirin] 81 MG Tablet.dr 81 Mg PO [id number] 09/09/14 Rx Metformin Hcl 1,000 Mg Tablet 1 Tab PO BID 09/07/14 Reported Do not resume until 10/07/15 evening dose Impression . 1. Acute hypoxemic respiratory failure 2. Progressive dyspnea, suspect secondary to underlying cardiomyopathy with ejection fraction of 30-35%, 3. Chronic kidney disease. 4. Elevated BNP. 5. Coronary artery disease. 6. Leukocytosis, suspect reactive, doubt infectious. Chest x-ray appears to be clear. Plan . V/Q SCAN REVIEWED NO PE SUSPECT DYSPNEA RELATED TO CARDIAC CATH IN FUTURE CONTINUE 02 FOLLOW CARD INPUT 6 MIN WALK PRIOR TO D/C KHRIS BAUER MD Mar 03, 2017 17:06
[2017-03-03 19:07] VITALS: BP 125/55
[2017-03-03 22:59] VITALS: BP 105/49
[2017-03-04] VITALS (15 sets, daily range): BP systolic 102–128; BP diastolic 52–75
[2017-03-04] MEDS: ACETAMINOPHEN 325 MG TABLET. PO PRN (00:53)
[2017-03-04 05:56] LABS: BASO # 0.2 x10^3/uL (0.0-0.2); BASO % 2 % (0-3); EOS % 1 % (0-3); HEMATOCRIT 23.6 % (39.0-53.0); HEMOGLOBIN 8.1 g/dL (13.0-17.5); LYMPH # 0.5 x10^3/uL (1.0-4.8); LYMPH % 4 % (24-48); MEAN CORPUSCULAR HEMOGLOBIN 30 pg (25-35); MEAN CORPUSCULAR HGB CONC 34 g/dL (31-37); MEAN CORPUSCULAR VOLUME 87 fL (79-100); MONO % 8 % (0-9); NEUT % 85 % (31-73); PLATELET COUNT 506 x10^3/uL (140-400); RED BLOOD COUNT 2.72 x10^6/uL (4.30-5.70); RED CELL DISTRIBUTION WIDTH 17.6 % (11.5-14.5); WHITE BLOOD COUNT 11.8 x10^3/uL (4.0-11.0)
[2017-03-04 06:06] LABS: CALCIUM 8.2 mg/dL (8.5-10.1); CREATININE 1.3 mg/dL (0.7-1.3); GFR 53.8; POTASSIUM 4.5 mmol/L (3.5-5.1)
[2017-03-04] MEDS: HEPARIN PF for SUB-Q USE 5,000 UNIT/0.5 ML VIAL. SQ SCH ×3 (06:22→22:00)
[2017-03-04] MEDS: INSULIN ASPART 300 UNITS/3 ML INSULN.PEN SQ SCH ×3 (08:00→17:40)
[2017-03-04] MEDS ORDERED: ALBUTEROL SULFATE 2.5 MG/3 ML NEBU. NEB PRN (08:00)
[2017-03-04] MEDS ORDERED: ALBUTEROL SULFATE 2.5 MG/3 ML NEBU. NEB SCH (08:00)
[2017-03-04] MEDS: LISINOPRIL 40 MG TABLET. PO SCH (09:00)
[2017-03-04] MEDS: GABAPENTIN 400 MG CAPSULE. PO SCH ×4 (09:00→20:41)
[2017-03-04] MEDS: ACETAMINOPHEN 325 MG TABLET. PO SCH ×4 (09:00→20:41)
[2017-03-04] MEDS: NON FORMULARY ITEM (Imatinib Mesylate (Gleevec) 400 MG) PO SCH (09:00)
[2017-03-04] MEDS: METOPROLOL TART IMMED RELEASE 25 MG TABLET. PO SCH ×2 (09:00→20:41)
--- NOTE | 2017-03-04 09:45 | PDOC ---
MODERATE SEDATION ASSESSMENT RISKS/ALTERNATIVES Risks/Alternatives Risks and alternatives of this type of sedation and procedure discussed with: RISK/ALTERNATIVES: Patient H & P ON CHART H & P H & P on chart and reviewed for co-morbid conditions and appropriate labs. H&P ON CHART: Yes STATUS PREG STATUS ASSESSED: N/A MEDS/ALLERGIES REVIEWED Meds/Allergies Reviewed Medications and Allergies including time and route of recently administered narcotics and sedatives. MEDS/ALLERGIES REVIEWED: Yes ASA RATING ASA RATING: II AIRWAY ASSESSMENT Airway Assessment Airway patency, oral function limitations, presence of caps, crowns, dentures, partials, and ability to extend neck assessed. AIRWAY ASSESSMENT: Yes MALLAMPATI SCORE MALLAMPATI SCORE: II PRE-SEDATION ASSESSMENT PRE-SEDATION ASSESSMENT: Yes MARISSA CABRERA MD Mar 04, 2017 09:45
[2017-03-04] MEDS ORDERED: LIDOCAINE 2% 20 ML VIAL. ONE (10:05)
[2017-03-04] MEDS ORDERED: IOHEXOL 300 MG/ML 100ML VIAL. ONE (10:05)
[2017-03-04] MEDS ORDERED: IOHEXOL 300 MG/ML 100ML VIAL. IART ONE (10:45)
[2017-03-04] MEDS ORDERED: MIDAZOLAM HCL/PF 2 MG/2 ML VIAL. IV ONE (10:45)
[2017-03-04] MEDS ORDERED: fentaNYL PF VIAL 100 MCG/2 ML VIAL IV ONE (10:45)
[2017-03-04] MEDS ORDERED: LIDOCAINE 2% 20 ML VIAL. IJ ONE (10:45)
[2017-03-04] MEDS ORDERED: HEPARIN for IV BOLUS 10,000 UNIT/10 ML VIAL. IV ONE (11:14)
[2017-03-04] MEDS ORDERED: ADENOSINE 90 MG in IV NORMAL SALINE 50ML 90 ML IV ONE (11:29)
[2017-03-04] MEDS ORDERED: ADENOSINE IV ONE ×2 (12:00)
[2017-03-04] MEDS ORDERED: NORMAL SALINE IV ONE ×2 (12:00)
[2017-03-04] MEDS: IPRATRPIUM/ALBUTEROL 0.5/2.5MG 3 ML NEBU. NEB SCH ×3 (12:24→20:05)
[2017-03-04] MEDS ORDERED: NITROGLYCERIN SUBLINGUAL 0.4 MG BOTTLE OF 25. SL PRN (13:00)
[2017-03-04] MEDS: ALLOPURINOL 300 MG TABLET. PO SCH (14:38)
[2017-03-04] MEDS: CLOPIDOGREL BISULFATE 75 MG TABLET PO SCH (14:39)
[2017-03-04] MEDS: DRONEDARONE HCL 400 MG TABLET PO SCH (14:39)
[2017-03-04] MEDS: ASPIRIN ENTERIC COATED 81 MG TABLET.DR. PO SCH (14:39)
[2017-03-04] MEDS: DOXYCYCLINE HYCLATE 100 MG TABLET PO SCH ×2 (14:39→20:40)
[2017-03-04] MEDS: POTASSIUM CHLORIDE 20 MEQ TABLET.ER. PO SCH (14:39)
[2017-03-04] MEDS: FUROSEMIDE 20 MG/2 ML VIAL. IVP SCH (14:40)
--- NOTE | 2017-03-04 15:51 | CARD ---
APPROVED REPORT Procedure(s) performed: 1. Right and left heart catheterization, selective coronary angiography and left ventriculography 2. Instant wave free ratio (IFR) and Fractional flow reserve (FFR) measurement of right coronary art mac Moderate sedation: 86 minutes INDICATION The indication(s) include : Unstable angina, acute on chronic systolic heart failure. PROCEDURE NARRATIVE After explaining the risks, benefits and alternative options, informed consent was obtained from luna ent. Patient was brought to the cardiac Bead[facility] and his right groin was prepped and draped in the us ual fashion. 20 mL of 2% lidocaine was infiltrated into the skin and subcutaneous tissues for local a nesthesia. Arterial and venous accesses were obtained in the right common femoral artery and vein res pectively and 6 and 8 [place] sheaths were inserted. A 7.5 [place]-David catheter was then advanced under fluoroscopy guidance and intracardiac pressures, oxygen saturations and cardiac output by ther modilution method obtained. Subsequently, 6 [place] JL4 and 6 [place] JR4 catheters were used to perfor m selective angiography of the left and right coronary arteries. 6 [place] pigtail catheter was used t o perform left ventriculography. Since patient was found to have angiographically borderline significant stenosis involving the mid to distal segment of the right coronary artery, a decision was made to perform physiologic assessment o f this stenosis. This was then crossed with a [place] PressureWire and Instant wave free rati o (IFR) was measured that came back borderline significant at 0.89. Patient was then administered int ravenous adenosine per protocol to obtain fractional flow reserve measurement. FFR came back not sign ificant at 0.90 and hence no intervention was performed. Patient tolerated the procedure well. Hemost asis was achieved using Mynx closure device and manual compression. There were no immediate complicat ions. A. RIGHT HEART CATHETERIZATION: 1. Intracardiac pressures: Mean right atrial pressure 9 mmHg, right ventricular pressure 54/6 mmHg , primary capillary wedge pressure 15 mmHg, pulmonary artery pressure 47/15 mmHg with mean PA pressur e 31 mmHg. Mild pulmonary hypertension. 2. Oxygen saturations: Right atrium 70.8%, pulmonary artery 66.5%, femoral arterial sheath 92.6%. N o evidence of intracardiac shunt. 3. Cardiac output by thermodilution method 9.4 L/m. B. LEFT HEART CATHETERIZATION 1. Hemodynamics: Left ventricular end-diastolic pressure 17 mmHg. No pullback gradient across the a ortic valve. 2. Left ventriculography: Akinetic posterobasal and diaphragmatic sethi with ejection fraction charis mated at 40%. No significant mitral regurgitation seen. 3. Coronary angiography: a. The left main coronary artery arose from the left sinus of Valsalva, gave rise to the left anterio r descending and left circumflex arteries and did not show any significant stenosis. b. The left anterior descending artery showed 40-50% stenosis in the midsegment. c. The left circumflex artery did not show any significant stenosis. d. The right coronary arteries a large and dominant vessel arising from the right sinus of Valsalva that showed a widely patent stent in the distal segment. The mid to distal segment showed 50-60% sten osis was found to be physiologically not significant based on FFR measurement of 0.90. Conclusion 1. Nonobstructive coronary artery disease with widely patent previously placed stent in the right co ronary artery. 2. Akinetic posterobasal and diaphragmatic sethi with ejection fraction estimated at 40%. 3. Mild pulmonary hypertension. 4. No evidence of intracardiac shunt. Recommendations Medical Therapy
--- NOTE | 2017-03-04 16:03 | PDOC ---
PULMONARY PROGRESS NOTES Subjective NO NEW SYMPTOMS SOA Vitals Vital Signs Date Time Temp Pulse Resp B/P (MAP) Pulse Ox O2 Delivery O2 Flow Rate FiO2 03/04/17 15:00 98.1 93 22 112/57 (75) 100 Nasal Cannula 4.0 98.1 ROS: No Nausea, No Chest Pain, No Abdominal Pain, No Increase Cough Lungs: Crackles Cardiovascular: S1, S2 Abdomen: Soft Neuro Exam: Alert Skin: Warm Labs Laboratory Tests Test 03/02/17 17:02 03/02/17 19:45 03/02/17 20:32 03/02/17 20:57 Glucose (Fingerstick) 138 mg/dL (70-99) 175 mg/dL (70-99) Troponin I Quantitative < 0.017 ng/mL (0.000-0.055) O2 Saturation 89 % (92-99) Arterial Blood pH 7.42 (7.35-7.45) Arterial Blood pCO2 at Patient Temp 30 mmHg (35-46) Arterial Blood pO2 at Patient Temp 57 mmHg (65-108) Arterial Blood HCO3 19 mmol/L (21-28) Arterial Blood Base Excess -5 mmol/L (-3-3) FiO2 36 Test 03/03/17 02:00 03/03/17 07:15 03/03/17 11:35 03/03/17 16:38 White Blood Count 15.3 x10^3/uL (4.0-11.0) Red Blood Count 2.79 x10^6/uL (4.30-5.70) Hemoglobin 8.1 g/dL (13.0-17.5) Hematocrit 25.2 % (39.0-53.0) Mean Corpuscular Volume 90 fL (79-100) Mean Corpuscular Hemoglobin 29 pg (25-35) Mean Corpuscular Hemoglobin Concent 32 g/dL (31-37) Red Cell Distribution Width 18.4 % (11.5-14.5) Platelet Count 454 x10^3/uL (140-400) Neutrophils (%) (Auto) 90 % (31-73) Lymphocytes (%) (Auto) 3 % (24-48) Monocytes (%) (Auto) 7 % (0-9) Eosinophils (%) (Auto) 0 % (0-3) Basophils (%) (Auto) 1 % (0-3) Neutrophils # (Auto) 13.7 x10^3uL (1.8-7.7) Lymphocytes # (Auto) 0.5 x10^3/uL (1.0-4.8) Monocytes # (Auto) 1.0 x10^3/uL (0.0-1.1) Eosinophils # (Auto) 0.0 x10^3/uL (0.0-0.7) Basophils # (Auto) 0.1 x10^3/uL (0.0-0.2) Sodium Level 141 mmol/L (136-145) Potassium Level 4.4 mmol/L (3.5-5.1) Chloride Level 105 mmol/L (98-107) Carbon Dioxide Level 24 mmol/L (21-32) Anion Gap 12 (6-14) Blood Urea Nitrogen 35 mg/dL (8-26) Creatinine 1.7 mg/dL (0.7-1.3) Estimated GFR (Cockcroft-Gault) 39.5 Glucose Level 141 mg/dL (70-99) Calcium Level 8.7 mg/dL (8.5-10.1) Troponin I Quantitative 0.027 ng/mL (0.000-0.055) Glucose (Fingerstick) 145 mg/dL (70-99) 133 mg/dL (70-99) 175 mg/dL (70-99) Test 03/04/17 04:30 03/04/17 07:14 03/04/17 12:15 White Blood Count 11.8 x10^3/uL (4.0-11.0) Red Blood Count 2.72 x10^6/uL (4.30-5.70) Hemoglobin 8.1 g/dL (13.0-17.5) Hematocrit 23.6 % (39.0-53.0) Mean Corpuscular Volume 87 fL (79-100) Mean Corpuscular Hemoglobin 30 pg (25-35) Mean Corpuscular Hemoglobin Concent 34 g/dL (31-37) Red Cell Distribution Width 17.6 % (11.5-14.5) Platelet Count 506 x10^3/uL (140-400) Neutrophils (%) (Auto) 85 % (31-73) Lymphocytes (%) (Auto) 4 % (24-48) Monocytes (%) (Auto) 8 % (0-9) Eosinophils (%) (Auto) 1 % (0-3) Basophils (%) (Auto) 2 % (0-3) Neutrophils # (Auto) 10.0 x10^3uL (1.8-7.7) Lymphocytes # (Auto) 0.5 x10^3/uL (1.0-4.8) Monocytes # (Auto) 0.9 x10^3/uL (0.0-1.1) Eosinophils # (Auto) 0.1 x10^3/uL (0.0-0.7) Basophils # (Auto) 0.2 x10^3/uL (0.0-0.2) Sodium Level 138 mmol/L (136-145) Potassium Level 4.5 mmol/L (3.5-5.1) Chloride Level 104 mmol/L (98-107) Carbon Dioxide Level 24 mmol/L (21-32) Anion Gap 10 (6-14) Blood Urea Nitrogen 23 mg/dL (8-26) Creatinine 1.3 mg/dL (0.7-1.3) Estimated GFR (Cockcroft-Gault) 53.8 Glucose Level 134 mg/dL (70-99) Calcium Level 8.2 mg/dL (8.5-10.1) Glucose (Fingerstick) 133 mg/dL (70-99) 111 mg/dL (70-99) Laboratory Tests Test 03/03/17 16:38 03/04/17 04:30 03/04/17 07:14 03/04/17 12:15 Glucose (Fingerstick) 175 mg/dL (70-99) 133 mg/dL (70-99) 111 mg/dL (70-99) White Blood Count 11.8 x10^3/uL (4.0-11.0) Red Blood Count 2.72 x10^6/uL (4.30-5.70) Hemoglobin 8.1 g/dL (13.0-17.5) Hematocrit 23.6 % (39.0-53.0) Mean Corpuscular Volume 87 fL (79-100) Mean Corpuscular Hemoglobin 30 pg (25-35) Mean Corpuscular Hemoglobin Concent 34 g/dL (31-37) Red Cell Distribution Width 17.6 % (11.5-14.5) Platelet Count 506 x10^3/uL (140-400) Neutrophils (%) (Auto) 85 % (31-73) Lymphocytes (%) (Auto) 4 % (24-48) Monocytes (%) (Auto) 8 % (0-9) Eosinophils (%) (Auto) 1 % (0-3) Basophils (%) (Auto) 2 % (0-3) Neutrophils # (Auto) 10.0 x10^3uL (1.8-7.7) Lymphocytes # (Auto) 0.5 x10^3/uL (1.0-4.8) Monocytes # (Auto) 0.9 x10^3/uL (0.0-1.1) Eosinophils # (Auto) 0.1 x10^3/uL (0.0-0.7) Basophils # (Auto) 0.2 x10^3/uL (0.0-0.2) Sodium Level 138 mmol/L (136-145) Potassium Level 4.5 mmol/L (3.5-5.1) Chloride Level 104 mmol/L (98-107) Carbon Dioxide Level 24 mmol/L (21-32) Anion Gap 10 (6-14) Blood Urea Nitrogen 23 mg/dL (8-26) Creatinine 1.3 mg/dL (0.7-1.3) Estimated GFR (Cockcroft-Gault) 53.8 Glucose Level 134 mg/dL (70-99) Calcium Level 8.2 mg/dL (8.5-10.1) Medications Active Scripts Medications Dose Route/Sig Max Daily Dose Days Date Category Dose Instructions Gleevec (Imatinib Mesylate) 400 Mg Tablet 400 Mg PO DAILY 03/02/17 Reported Ramipril 2.5 Mg Capsule 20 Mg PO DAILY 03/02/17 Reported Multaq (Dronedarone Hcl) 400 Mg Tablet 200 Mg PO BID 03/02/17 Reported Klor-Con M20 (Potassium Chloride) 20 Meq Tab.er.prt 1 Tab PO DAILY 01/16/17 Reported Lasix (Furosemide) 20 Mg Tablet 1 Tab PO DAILY 01/16/17 Reported Allopurinol 300 Mg Tablet 1 Tab PO DAILY 01/16/17 Reported Plavix (Clopidogrel Bisulfate) 75 Mg Tablet 75 Mg PO DAILY 10/05/15 Reported Gabapentin 800 Mg Tablet 800 Mg PO QID 01/19/15 Reported Nitrostat (Nitroglycerin) 0.4 Mg Tab.subl 0.4 Mg SL PRN Q5MIN PRN 09/09/14 Rx [Metoprolol Tartrate] 25 MG Tablet 12.5 Mg PO BID 09/09/14 Rx [Aspirin] 81 MG Tablet. 81 Mg PO [id number] 09/09/14 Rx Metformin Hcl 1,000 Mg Tablet 1 Tab PO BID 09/07/14 Reported Do not resume until 10/07/15 evening dose Impression . 1. Acute hypoxemic respiratory failure 2. Progressive dyspnea, suspect secondary to underlying cardiomyopathy with ejection fraction of 30-35%, 3. Chronic kidney disease. 4. Elevated BNP. 5. Coronary artery disease. Recent Cath 03/04 no significant blockages 6. Leukocytosis, suspect reactive, doubt infectious. Chest x-ray appears to be clear. Plan . V/Q SCAN REVIEWED NO PE/ D/W DR ESPINOSA WILL PROCEED WITH CT OF CHEST FOR PE PROTOCOL IN AM, PT RECEIVED CONSTRAST TODAY CRACKLES ON EXAM IN BASES I WONDER IF HE HAS MILD PULMONARY FIBROSIS/ILD SUSPECT DYSPNEA MULTIFACTORIAL IN NARTURE CONTINUE 02 FOLLOW CARD INPUT 6 MIN WALK PRIOR TO D/C KHRIS BAUER MD Mar 04, 2017 16:03
--- NOTE | 2017-03-04 16:28 | PDOC ---
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 Reports can only take 5 steps. Continues to have retrosternal discomfort when he inhales EF 30-35%, V/Q scan - neg Discussed emotional health, pt denies stress, says his thinks he should be on something, he tried an antidepressant before and "sat on the sofa for 3 days " and stopped taking them. Was agreeable to try an SSRI for a couple weeks to see if helps, concerned about taking another medication as he has CML and currently undergoing treatment. Will consult Dr. August to help manage CML. Spoke with Dr. Willson, no indication of cardiac cause of dyspnea on cath, feels he may benefit from ECP in the outpatient setting; family expressed some concern about poss depression and pt's lack of motivation. Spoke with Dr. Garcia, will order LE doppler to r/o DVT, CT of chest - will wait for CT until tomorrow as pt had contrast today Spoke with RN, pt placed on NC 5l during cath, has had increased cough and green sputum Vitals Vitals Vital Signs Date Time Temp Pulse Resp B/P (MAP) Pulse Ox O2 Delivery O2 Flow Rate FiO2 03/04/17 15:00 98.1 93 22 112/57 (75) 100 Nasal Cannula 4.0 98.1 Physical Exam General: Alert, No acute distress Heart: Regular rate Lungs: Clear Abdomen: Soft, No tenderness Extremities: Other (2+ pitting pedal edema) Skin: No rashes Labs LABS Laboratory Tests Test 03/03/17 16:38 03/04/17 04:30 03/04/17 07:14 03/04/17 12:15 Glucose (Fingerstick) 175 mg/dL (70-99) 133 mg/dL (70-99) 111 mg/dL (70-99) White Blood Count 11.8 x10^3/uL (4.0-11.0) Red Blood Count 2.72 x10^6/uL (4.30-5.70) Hemoglobin 8.1 g/dL (13.0-17.5) Hematocrit 23.6 % (39.0-53.0) Mean Corpuscular Volume 87 fL (79-100) Mean Corpuscular Hemoglobin 30 pg (25-35) Mean Corpuscular Hemoglobin Concent 34 g/dL (31-37) Red Cell Distribution Width 17.6 % (11.5-14.5) Platelet Count 506 x10^3/uL (140-400) Neutrophils (%) (Auto) 85 % (31-73) Lymphocytes (%) (Auto) 4 % (24-48) Monocytes (%) (Auto) 8 % (0-9) Eosinophils (%) (Auto) 1 % (0-3) Basophils (%) (Auto) 2 % (0-3) Neutrophils # (Auto) 10.0 x10^3uL (1.8-7.7) Lymphocytes # (Auto) 0.5 x10^3/uL (1.0-4.8) Monocytes # (Auto) 0.9 x10^3/uL (0.0-1.1) Eosinophils # (Auto) 0.1 x10^3/uL (0.0-0.7) Basophils # (Auto) 0.2 x10^3/uL (0.0-0.2) Sodium Level 138 mmol/L (136-145) Potassium Level 4.5 mmol/L (3.5-5.1) Chloride Level 104 mmol/L (98-107) Carbon Dioxide Level 24 mmol/L (21-32) Anion Gap 10 (6-14) Blood Urea Nitrogen 23 mg/dL (8-26) Creatinine 1.3 mg/dL (0.7-1.3) Estimated GFR (Cockcroft-Gault) 53.8 Glucose Level 134 mg/dL (70-99) Calcium Level 8.2 mg/dL (8.5-10.1) Review of Systems Review of Systems SOB no fever Assessment and Plan Assessmemt and Plan Problems Medical Problems: (1) CHF (congestive heart failure) Status: Acute (2) Hypoxia Status: Acute (3) Shortness of breath Status: Acute Hypoxia/persistent dyspnea Acute on chronic systolic heart failure CML PAFIB/SSS: 100% BiV pacing HTN - controlled DM2 1. Duplex LE b/l to r/o DVT 2. CT chest - wait until tomorrow am, as contrast given today w/ cardiac cath 3. Consult [facility] for CML management 4. Start Fluoxetine 20 mg PO qd 5. Recheck labs in am 6. PT/OT 7. continue home meds, hold metformin, SSI 8. DVT ppx 9. keep NC, keep Sat > 92% Total time 31 minutes Problems: Comment Review of Relevant I have reviewed the following items ce (where applicable) has been applied. Labs Laboratory Tests Test 03/02/17 17:02 03/02/17 19:45 03/02/17 20:32 03/02/17 20:57 Glucose (Fingerstick) 138 mg/dL (70-99) 175 mg/dL (70-99) Troponin I Quantitative < 0.017 ng/mL (0.000-0.055) O2 Saturation 89 % (92-99) Arterial Blood pH 7.42 (7.35-7.45) Arterial Blood pCO2 at Patient Temp 30 mmHg (35-46) Arterial Blood pO2 at Patient Temp 57 mmHg (65-108) Arterial Blood HCO3 19 mmol/L (21-28) Arterial Blood Base Excess -5 mmol/L (-3-3) FiO2 36 Test 03/03/17 02:00 03/03/17 07:15 03/03/17 11:35 03/03/17 16:38 White Blood Count 15.3 x10^3/uL (4.0-11.0) Red Blood Count 2.79 x10^6/uL (4.30-5.70) Hemoglobin 8.1 g/dL (13.0-17.5) Hematocrit 25.2 % (39.0-53.0) Mean Corpuscular Volume 90 fL (79-100) Mean Corpuscular Hemoglobin 29 pg (25-35) Mean Corpuscular Hemoglobin Concent 32 g/dL (31-37) Red Cell Distribution Width 18.4 % (11.5-14.5) Platelet Count 454 x10^3/uL (140-400) Neutrophils (%) (Auto) 90 % (31-73) Lymphocytes (%) (Auto) 3 % (24-48) Monocytes (%) (Auto) 7 % (0-9) Eosinophils (%) (Auto) 0 % (0-3) Basophils (%) (Auto) 1 % (0-3) Neutrophils # (Auto) 13.7 x10^3uL (1.8-7.7) Lymphocytes # (Auto) 0.5 x10^3/uL (1.0-4.8) Monocytes # (Auto) 1.0 x10^3/uL (0.0-1.1) Eosinophils # (Auto) 0.0 x10^3/uL (0.0-0.7) Basophils # (Auto) 0.1 x10^3/uL (0.0-0.2) Sodium Level 141 mmol/L (136-145) Potassium Level 4.4 mmol/L (3.5-5.1) Chloride Level 105 mmol/L (98-107) Carbon Dioxide Level 24 mmol/L (21-32) Anion Gap 12 (6-14) Blood Urea Nitrogen 35 mg/dL (8-26) Creatinine 1.7 mg/dL (0.7-1.3) Estimated GFR (Cockcroft-Gault) 39.5 Glucose Level 141 mg/dL (70-99) Calcium Level 8.7 mg/dL (8.5-10.1) Troponin I Quantitative 0.027 ng/mL (0.000-0.055) Glucose (Fingerstick) 145 mg/dL (70-99) 133 mg/dL (70-99) 175 mg/dL (70-99) Test 03/04/17 04:30 03/04/17 07:14 03/04/17 12:15 White Blood Count 11.8 x10^3/uL (4.0-11.0) Red Blood Count 2.72 x10^6/uL (4.30-5.70) Hemoglobin 8.1 g/dL (13.0-17.5) Hematocrit 23.6 % (39.0-53.0) Mean Corpuscular Volume 87 fL (79-100) Mean Corpuscular Hemoglobin 30 pg (25-35) Mean Corpuscular Hemoglobin Concent 34 g/dL (31-37) Red Cell Distribution Width 17.6 % (11.5-14.5) Platelet Count 506 x10^3/uL (140-400) Neutrophils (%) (Auto) 85 % (31-73) Lymphocytes (%) (Auto) 4 % (24-48) Monocytes (%) (Auto) 8 % (0-9) Eosinophils (%) (Auto) 1 % (0-3) Basophils (%) (Auto) 2 % (0-3) Neutrophils # (Auto) 10.0 x10^3uL (1.8-7.7) Lymphocytes # (Auto) 0.5 x10^3/uL (1.0-4.8) Monocytes # (Auto) 0.9 x10^3/uL (0.0-1.1) Eosinophils # (Auto) 0.1 x10^3/uL (0.0-0.7) Basophils # (Auto) 0.2 x10^3/uL (0.0-0.2) Sodium Level 138 mmol/L (136-145) Potassium Level 4.5 mmol/L (3.5-5.1) Chloride Level 104 mmol/L (98-107) Carbon Dioxide Level 24 mmol/L (21-32) Anion Gap 10 (6-14) Blood Urea Nitrogen 23 mg/dL (8-26) Creatinine 1.3 mg/dL (0.7-1.3) Estimated GFR (Cockcroft-Gault) 53.8 Glucose Level 134 mg/dL (70-99) Calcium Level 8.2 mg/dL (8.5-10.1) Glucose (Fingerstick) 133 mg/dL (70-99) 111 mg/dL (70-99) Laboratory Tests Test 03/03/17 16:38 03/04/17 04:30 03/04/17 07:14 03/04/17 12:15 Glucose (Fingerstick) 175 mg/dL (70-99) 133 mg/dL (70-99) 111 mg/dL (70-99) White Blood Count 11.8 x10^3/uL (4.0-11.0) Red Blood Count 2.72 x10^6/uL (4.30-5.70) Hemoglobin 8.1 g/dL (13.0-17.5) Hematocrit 23.6 % (39.0-53.0) Mean Corpuscular Volume 87 fL (79-100) Mean Corpuscular Hemoglobin 30 pg (25-35) Mean Corpuscular Hemoglobin Concent 34 g/dL (31-37) Red Cell Distribution Width 17.6 % (11.5-14.5) Platelet Count 506 x10^3/uL (140-400) Neutrophils (%) (Auto) 85 % (31-73) Lymphocytes (%) (Auto) 4 % (24-48) Monocytes (%) (Auto) 8 % (0-9) Eosinophils (%) (Auto) 1 % (0-3) Basophils (%) (Auto) 2 % (0-3) Neutrophils # (Auto) 10.0 x10^3uL (1.8-7.7) Lymphocytes # (Auto) 0.5 x10^3/uL (1.0-4.8) Monocytes # (Auto) 0.9 x10^3/uL (0.0-1.1) Eosinophils # (Auto) 0.1 x10^3/uL (0.0-0.7) Basophils # (Auto) 0.2 x10^3/uL (0.0-0.2) Sodium Level 138 mmol/L (136-145) Potassium Level 4.5 mmol/L (3.5-5.1) Chloride Level 104 mmol/L (98-107) Carbon Dioxide Level 24 mmol/L (21-32) Anion Gap 10 (6-14) Blood Urea Nitrogen 23 mg/dL (8-26) Creatinine 1.3 mg/dL (0.7-1.3) Estimated GFR (Cockcroft-Gault) 53.8 Glucose Level 134 mg/dL (70-99) Calcium Level 8.2 mg/dL (8.5-10.1) Medications Current Medications Albuterol/ Ipratropium (Duoneb) 3 ml 1X ONCE NEB Last administered on 12:21; Start 03/02/17 at 12:00; Stop 03/02/17 at 12:01; Status DC Ondansetron HCl (Zofran) 4 mg PRN Q8HRS PRN IV NAUSEA/VOMITING; Start 03/02/17 at 13:15; Stop 03/03/17 at 13:14; Status DC Albuterol/ Ipratropium (Duoneb) 3 ml RTQID NEB Last administered on 03/03/17 13 :51; Start 03/02/17 at 16:00; Stop 03/03/17 at 15:59; Status DC Acetaminophen (Tylenol) 650 mg PRN Q6HRS PRN PO FEVER Last administered on 00:53; Start 03/02/17 at 14:15 Ondansetron HCl (Zofran) 4 mg PRN Q6HRS PRN IV NAUSEA/VOMITING; Start 03/02/17 at 14:15 Morphine Sulfate 2 mg PRN Q2HR PRN IV PAIN; Start 03/02/17 at 14:15; Stop at 17:04; Status DC Tramadol HCl (Ultram) 50 mg PRN Q6HRS PRN PO PAIN; Start 03/02/17 at 14:15 Hydralazine HCl (Apresoline) 10 mg PRN Q4HRS PRN IVP ELEVATED BP, SEE COMMENTS ; Start 03/02/17 at 14:15 Docusate Sodium (Colace) 100 mg PRN DAILY PRN PO CONSTIPATION; Start 03/02/17 at 14:15 Furosemide (Lasix) 40 mg 1X ONCE PO ; Start 03/02/17 at 14:15; Stop 03/02/17 at 14:18; Status DC Allopurinol (Zyloprim) 300 mg DAILY PO Last administered on 03/04/17 14:38; Start 03/03/17 at 09:00 Clopidogrel Bisulfate (Plavix) 75 mg DAILY PO Last administered on 03/04/17 14: 39; Start 03/03/17 at 09:00 Dronedarone (Multaq) 400 mg DAILY16 PO ; Start 03/02/17 at 16:00; Status Cancel Nitroglycerin (Nitrostat) 0.4 mg PRN Q5MIN PRN SL CHEST PAIN; Start 03/02/17 at 14:15; Stop 03/04/17 at 13:07; Status DC Potassium Chloride (Klor-Con) 20 meq DAILY PO Last administered on 03/04/17 14: 39; Start 03/03/17 at 09:00 Sacubitril/ Valsartan (Entresto 49 Mg-51 Mg) 1 tab BID PO ; Start 03/02/17 at 21: 00; Stop 03/02/17 at 21:00; Status DC Metoprolol Tartrate (Lopressor) 12.5 mg BID PO Last administered on 03/03/17 21 :23; Start 03/02/17 at 21:00 Furosemide (Lasix) 40 mg DAILY PO ; Start 03/03/17 at 09:00; Stop 03/03/17 at 09: 00; Status DC Furosemide (Lasix) 20 mg 1X ONCE IVP Last administered on 03/02/17 16:43; Start 03/02/17 at 15:30; Stop 03/02/17 at 15:31; Status DC Heparin Sodium (Porcine) (Heparin Sq) 5,000 unit Q8HRS SQ Last administered on 03/04/17 14:44; Start 03/02/17 at 22:00 Insulin Aspart (NovoLOG) 0-9 UNITS TIDWMEALS SQ ; Start 03/02/17 at 17:00 Dextrose (Dextrose 50%-Water Syringe) 12.5 gm PRN Q15MIN PRN IV SEE COMMENTS; Start 03/02/17 at 14:30 Furosemide (Lasix) 20 mg DAILY IVP Last administered on 03/04/17 14:40; Start 03/03/17 at 09:00 Aspirin (Ecotrin) 81 mg DAILYWBKFT PO Last administered on 03/04/17 14:39; Start 03/03/17 at 08:00 Dronedarone (Multaq) 200 mg BID PO ; Start 03/02/17 at 21:00; Status Cancel Lisinopril (Prinivil) 40 mg DAILY PO ; Start 03/03/17 at 09:00 Non-Formulary Medication 400 mg DAILY PO ; Start 03/03/17 at 09:00; Status UNV Dronedarone (Multaq) 400 mg DAILY PO Last administered on 03/04/17 14:39; Start 03/03/17 at 09:00 Gabapentin (Neurontin) 800 mg QID PO Last administered on 03/04/17 14:39; Start 03/03/17 at 10:00 Acetaminophen (Tylenol) 325 mg QID PO Last administered on 03/04/17 14:38; Start 03/03/17 at 09:45 Albuterol Sulfate (Ventolin Neb Soln) 2.5 mg RTQID NEB Last administered on 03/04 08:11; Start 03/04/17 at 08:00; Stop 03/04/17 at 08:24; Status DC Albuterol Sulfate (Ventolin Neb Soln) 2.5 mg PRN Q2HRS PRN NEB SHORTNESS OF BREATH; Start 03/04/17 at 08:00 Doxycycline Hyclate (Vibra-Tab) 100 mg BID PO Last administered on 03/04/17 14: 39; Start 03/04/17 at 09:00 Albuterol/ Ipratropium (Duoneb) 3 ml RTQID NEB Last administered on 03/04/17 12 :24; Start 03/04/17 at 12:00 Iohexol (Omnipaque 300 Mg/ml) 100 ml STK-MED ONCE .ROUTE ; Start 03/04/17 at 10: 05; Stop 03/04/17 at 10:06; Status DC Heparin Sodium/ Sodium Chloride 500 ml @ As Directed STK-MED ONCE .ROUTE ; Start 03/04/17 at 10:05; Stop 03/04/17 at 10:06; Status DC Lidocaine HCl 20 ml STK-MED ONCE .ROUTE ; Start 03/04/17 at 10:05; Stop 03/04/17 at 10:06; Status DC Heparin Sodium/ Sodium Chloride 1,000 unit 1X ONCE IART Last administered on 11:39; Start 03/04/17 at 10:45; Stop 03/04/17 at 10:58; Status DC Heparin Sodium/ Sodium Chloride 1,000 unit 1X ONCE IART Last administered on 11:39; Start 03/04/17 at 10:45; Stop 03/04/17 at 10:58; Status DC Midazolam HCl (Versed) 2 mg 1X ONCE IV Last administered on 03/04/17 11:40; Start 03/04/17 at 10:45; Stop 03/04/17 at 10:58; Status DC Fentanyl Citrate (Fentanyl 2ml Vial) 100 mcg 1X ONCE IV Last administered on 11:40; Start 03/04/17 at 10:45; Stop 03/04/17 at 10:58; Status DC Iohexol (Omnipaque 300 Mg/ml) 100 ml 1X ONCE IART Last administered on 11:39; Start 03/04/17 at 10:45; Stop 03/04/17 at 10:58; Status DC Lidocaine HCl 20 ml 1X ONCE IJ Last administered on 03/04/17 11:39; Start 03/04 at 10:45; Stop 03/04/17 at 10:58; Status DC Heparin Sodium (Porcine) (Heparin Sodium) 5,000 unit 1X ONCE IV Last administered on 03/04/17 11:54; Start 03/04/17 at 11:14; Stop 03/04/17 at 11:41; Status DC Adenosine 90 mg/ Sodium Chloride 120 ml @ 504 mls/hr 1X ONCE IV ; Start at 11:29; Stop 03/04/17 at 11:43; Status Cancel Adenosine 180 mg/ Sodium Chloride 90 ml @ 1,080 mls/hr 1X ONCE IV ; Start 03/04 at 12:00; Stop 03/04/17 at 12:04; Status Cancel Adenosine 180 mg/ Sodium Chloride 150 ml @ 504 mls/hr 1X ONCE IV Last administered on 03/04/17 11:53; Start 03/04/17 at 12:00; Stop 03/04/17 at 12:17; Status DC Nitroglycerin (Nitrostat) 0.4 mg PRN Q5MIN PRN SL CHEST PAIN; Start 03/04/17 at 13:00 Active Scripts Active Nitrostat (Nitroglycerin) 0.4 Mg Tab.subl 0.4 Mg SL PRN Q5MIN PRN [Metoprolol Tartrate] 25 MG Tablet 12.5 Mg PO BID [Aspirin] 81 MG Tablet.dr 81 Mg PO DAILYWBKFT Reported Multaq (Dronedarone Hcl) 400 Mg Tablet 400 Mg PO Gleevec (Imatinib Mesylate) 400 Mg Tablet 400 Mg PO DAILY Ramipril 2.5 Mg Capsule 20 Mg PO DAILY Klor-Con M20 (Potassium Chloride) 20 Meq Tab.er.prt 1 Tab PO DAILY Lasix (Furosemide) 20 Mg Tablet 1 Tab PO DAILY Allopurinol 300 Mg Tablet 1 Tab PO DAILY Plavix (Clopidogrel Bisulfate) 75 Mg Tablet 75 Mg PO DAILY Gabapentin 800 Mg Tablet 800 Mg PO QID Metformin Hcl 1,000 Mg Tablet 1 Tab PO BID Do not resume until 10/07/15 evening dose Vitals/I & O Vital Sign - Last 24 Hours 03/03/17 03/03/17 03/03/17 03/03/17 16:18 19:07 19:49 21:23 Temp 98.9 98.9 Pulse 83 83 Resp 24 B/P (MAP) 125/55 (78) 125/55 Pulse Ox 96 96 O2 Delivery Nasal Cannula Room Air Nasal Cannula O2 Flow Rate 4.0 4.0 03/03/17 03/04/17 03/04/17 03/04/17 22:59 02:41 07:00 08:00 Temp 98.7 98.6 98.0 98.7 98.6 98.0 Pulse 60 68 70 Resp 18 20 20 B/P (MAP) 105/49 (67) 113/75 (88) 114/53 (73) Pulse Ox 98 99 100 O2 Delivery Nasal Cannula Nasal Cannula Nasal Cannula Nasal Cannula O2 Flow Rate 3.0 3.0 3.0 3.0 03/04/17 03/04/17 03/04/17 03/04/17 08:11 11:40 11:51 12:24 Pulse 74 Resp 21 22 Pulse Ox 95 97 97 98 O2 Delivery Nasal Cannula Nasal Cannula Nasal Cannula Nasal Cannula O2 Flow Rate 4.0 4.0 4.0 3.0 03/04/17 03/04/17 14:39 15:00 Temp 98.1 98.1 Pulse 91 93 Resp 22 B/P (MAP) 128/69 112/57 (75) Pulse Ox 100 O2 Delivery Nasal Cannula O2 Flow Rate 4.0 Intake and Output 03/04/17 03/04/17 03/05/17 15:00 23:00 07:00 Intake Total 1000 ml Balance 1000 ml JESÚSNIAL K III DO Mar 04, 2017 16:27
[2017-03-04] MEDS: FLUoxetine HCL 20 MG CAPSULE PO SCH ×2 (17:00→18:30)
[2017-03-05 03:45] VITALS: BP 117/56
[2017-03-05 04:50] LABS: BASO # 0.2 x10^3/uL (0.0-0.2); BASO % 2 % (0-3); EOS % 1 % (0-3); HEMATOCRIT 22.2 % (39.0-53.0); HEMOGLOBIN 7.4 g/dL (13.0-17.5); LYMPH # 0.3 x10^3/uL (1.0-4.8); LYMPH % 3 % (24-48); MEAN CORPUSCULAR HEMOGLOBIN 30 pg (25-35); MEAN CORPUSCULAR HGB CONC 33 g/dL (31-37); MEAN CORPUSCULAR VOLUME 89 fL (79-100); MONO % 10 % (0-9); NEUT % 85 % (31-73); PLATELET COUNT 459 x10^3/uL (140-400); RED CELL DISTRIBUTION WIDTH 17.7 % (11.5-14.5); WHITE BLOOD COUNT 10.8 x10^3/uL (4.0-11.0)
[2017-03-05 05:10] LABS: CALCIUM 8.2 mg/dL (8.5-10.1); CREATININE 1.1 mg/dL (0.7-1.3); GFR 65.3; POTASSIUM 4.9 mmol/L (3.5-5.1)
[2017-03-05] MEDS ORDERED: CONTRAST GIVEN MC PRN (05:15)
[2017-03-05] MEDS: HEPARIN PF for SUB-Q USE 5,000 UNIT/0.5 ML VIAL. SQ SCH ×3 (05:29→21:32)
[2017-03-05] MEDS ORDERED: IOHEXOL 300 MG/ML 75 ML VIAL IV ONE (05:30)
[2017-03-05 07:50] VITALS: BP 117/55
[2017-03-05] MEDS: INSULIN ASPART 300 UNITS/3 ML INSULN.PEN SQ SCH ×3 (08:00→17:00)
[2017-03-05] MEDS: FLUoxetine HCL 20 MG CAPSULE PO SCH ×2 (09:00→10:47)
[2017-03-05] MEDS: NON FORMULARY ITEM (Imatinib Mesylate (Gleevec) 400 MG) PO SCH (09:00)
[2017-03-05] MEDS: LISINOPRIL 40 MG TABLET. PO SCH (09:00)
[2017-03-05] MEDS: ASPIRIN ENTERIC COATED 81 MG TABLET.DR. PO SCH (09:39)
[2017-03-05] MEDS: ALLOPURINOL 300 MG TABLET. PO SCH (09:39)
[2017-03-05] MEDS: ACETAMINOPHEN 325 MG TABLET. PO SCH ×4 (09:40→21:24)
[2017-03-05] MEDS: GABAPENTIN 400 MG CAPSULE. PO SCH ×4 (09:40→21:25)
[2017-03-05] MEDS: METOPROLOL TART IMMED RELEASE 25 MG TABLET. PO SCH ×2 (09:40→21:25)
[2017-03-05] MEDS: POTASSIUM CHLORIDE 20 MEQ TABLET.ER. PO SCH (09:40)
[2017-03-05] MEDS: DOXYCYCLINE HYCLATE 100 MG TABLET PO SCH ×2 (09:41→21:24)
[2017-03-05] MEDS: DRONEDARONE HCL 400 MG TABLET PO SCH (09:41)
[2017-03-05] MEDS: CLOPIDOGREL BISULFATE 75 MG TABLET PO SCH (09:41)
[2017-03-05] MEDS: FUROSEMIDE 20 MG/2 ML VIAL. IVP SCH (09:41)
--- NOTE | 2017-03-05 09:55 | RAD ---
Examination: Ultrasound bilateral lower extremity venous system History: history shortness of breath, DVT Comparison: None available Technique: Grayscale, color Doppler 2-D, spectral waveform analysis of the bilateral lower extremity venous system were performed Findings: The visualized common femoral vein, superficial femoral vein and popliteal vein demonstrate normal compression augmentation of flow. The visualized calf veins are patent. Impression: No evidence of deep venous thrombosis bilateral lower extremity venous system.
[2017-03-05 10:16] VITALS: BP 123/59
--- NOTE | 2017-03-05 10:30 | RAD ---
Examination: CT chest with IV contrast History: History of dyspnea for 3 months Comparison: 01/29/2017 Technique: Axial CT images of the chest were performed with IV contrast. Coronal and sagittal reformats are performed. PQRS Compliance Statement: One or more of the following individualized dose reduction techniques were utilized for this examination: 1. Automated exposure control 2. Adjustment of the mA and/or kV according to patient size 3. Use of iterative reconstruction technique Findings: The visualized thyroid gland grossly appears unremarkable. The central airways are patent. Mild cardiomegaly. Moderate aortic atherosclerosis. Diffuse coronary artery calcifications identified. Left-sided cardiac pacer ICD is identified. Multiple enlarged mediastinal lymph nodes are again identified with the largest measuring 2.2 cm in the pretracheal region. Few prominent bilateral hilar lymph nodes identified. Faint patchy groundglass opacities identified in the bilateral upper lobes and in the right lower lobe likely minimal infiltrates or atelectasis. There is a 4 mm nodule identified in the right lower lobe of the lung. There is an 6 mm nodule identified in the right lower lobe lung abutting the pleura. No evidence of pleural effusion or pneumothorax. Minimal bronchiectasis identified in the bilateral lungs. Gastric lap band is identified. The visualized liver, spleen grossly appears unremarkable. Multiple gallstones identified within the gallbladder. Moderate degenerative changes thoracic spine. Impression: 1. Mild mediastinal and bilateral hilar lymphadenopathy similar to prior exam. 2. Diffuse coronary artery calcifications. 3. Faint groundglass airspace opacities identified in the bilateral lungs with groundglass infiltrates or mild edema. 4. Mild bilateral bronchiectasis. 4. 6 mm pulmonary nodule identified in the right lower lobe of the lung. Follow-up CT in 3 months is recommended. 5. Few gallstones again identified.
--- NOTE | 2017-03-05 11:33 | PDOC2 ---
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 Has known baseline ischemic CM with EF 30-35% and prior stents in place. Sent in for evaluation due to hypoxemic respiratory failure noted in office. Had extensive evaluation for VTE that was negative. LHC without new coronary disease. Elevated pulmonary pressures noted on RHC. EF is similar to prior. Today feeling despondent. Has not been up much, so unclear is dyspnea improved. Not short of breath at rest. Has some chest discomfort after Gleevec administration. Heartburn like symptoms. Otherwise without nausea, vomiting or diarrhea. Past Medical History Cardiovascular: CAD, CHF, HTN Musculoskeletal: low back pain Renal/: Other Endocrine: Diabetes Past Surgical History Past Surgical History: Other Family History Family History: No Significant Social History No ALCOHOL: none Drugs: None Current Problem List Problem List Problems Medical Problems: (1) CHF (congestive heart failure) Status: Acute (2) Hypoxia Status: Acute (3) Shortness of breath Status: Acute Current Medications Current Medications Current Medications Albuterol/ Ipratropium (Duoneb) 3 ml 1X ONCE NEB Last administered on 12:21; Start 03/02/17 at 12:00; Stop 03/02/17 at 12:01; Status DC Ondansetron HCl (Zofran) 4 mg PRN Q8HRS PRN IV NAUSEA/VOMITING; Start 03/02/17 at 13:15; Stop 03/03/17 at 13:14; Status DC Albuterol/ Ipratropium (Duoneb) 3 ml RTQID NEB Last administered on 03/03/17 13 :51; Start 03/02/17 at 16:00; Stop 03/03/17 at 15:59; Status DC Acetaminophen (Tylenol) 650 mg PRN Q6HRS PRN PO FEVER Last administered on 00:53; Start 03/02/17 at 14:15 Ondansetron HCl (Zofran) 4 mg PRN Q6HRS PRN IV NAUSEA/VOMITING; Start 03/02/17 at 14:15 Morphine Sulfate 2 mg PRN Q2HR PRN IV PAIN; Start 03/02/17 at 14:15; Stop at 17:04; Status DC Tramadol HCl (Ultram) 50 mg PRN Q6HRS PRN PO PAIN; Start 03/02/17 at 14:15 Hydralazine HCl (Apresoline) 10 mg PRN Q4HRS PRN IVP ELEVATED BP, SEE COMMENTS ; Start 03/02/17 at 14:15 Docusate Sodium (Colace) 100 mg PRN DAILY PRN PO CONSTIPATION; Start 03/02/17 at 14:15 Furosemide (Lasix) 40 mg 1X ONCE PO ; Start 03/02/17 at 14:15; Stop 03/02/17 at 14:18; Status DC Allopurinol (Zyloprim) 300 mg DAILY PO Last administered on 03/05/17 09:39; Start 03/03/17 at 09:00 Clopidogrel Bisulfate (Plavix) 75 mg DAILY PO Last administered on 03/05/17 09: 41; Start 03/03/17 at 09:00 Dronedarone (Multaq) 400 mg DAILY16 PO ; Start 03/02/17 at 16:00; Status Cancel Nitroglycerin (Nitrostat) 0.4 mg PRN Q5MIN PRN SL CHEST PAIN; Start 03/02/17 at 14:15; Stop 03/04/17 at 13:07; Status DC Potassium Chloride (Klor-Con) 20 meq DAILY PO Last administered on 03/05/17 09: 40; Start 03/03/17 at 09:00 Sacubitril/ Valsartan (Entresto 49 Mg-51 Mg) 1 tab BID PO ; Start 03/02/17 at 21: 00; Stop 03/02/17 at 21:00; Status DC Metoprolol Tartrate (Lopressor) 12.5 mg BID PO Last administered on 03/05/17 09 :40; Start 03/02/17 at 21:00 Furosemide (Lasix) 40 mg DAILY PO ; Start 03/03/17 at 09:00; Stop 03/03/17 at 09: 00; Status DC Furosemide (Lasix) 20 mg 1X ONCE IVP Last administered on 03/02/17 16:43; Start 03/02/17 at 15:30; Stop 03/02/17 at 15:31; Status DC Heparin Sodium (Porcine) (Heparin Sq) 5,000 unit Q8HRS SQ Last administered on 03/05/17 05:29; Start 03/02/17 at 22:00 Insulin Aspart (NovoLOG) 0-9 UNITS TIDWMEALS SQ Last administered on 03/04/17 17:40; Start 03/02/17 at 17:00 Dextrose (Dextrose 50%-Water Syringe) 12.5 gm PRN Q15MIN PRN IV SEE COMMENTS; Start 03/02/17 at 14:30 Furosemide (Lasix) 20 mg DAILY IVP Last administered on 03/05/17 09:41; Start 03/03/17 at 09:00 Aspirin (Ecotrin) 81 mg DAILYWBKFT PO Last administered on 03/05/17 09:39; Start 03/03/17 at 08:00 Dronedarone (Multaq) 200 mg BID PO ; Start 03/02/17 at 21:00; Status Cancel Lisinopril (Prinivil) 40 mg DAILY PO ; Start 03/03/17 at 09:00 Non-Formulary Medication 400 mg DAILY PO ; Start 03/03/17 at 09:00; Status UNV Dronedarone (Multaq) 400 mg DAILY PO Last administered on 03/05/17 09:41; Start 03/03/17 at 09:00 Gabapentin (Neurontin) 800 mg QID PO Last administered on 03/05/17 09:40; Start 03/03/17 at 10:00 Acetaminophen (Tylenol) 325 mg QID PO Last administered on 03/05/17 09:40; Start 03/03/17 at 09:45 Albuterol Sulfate (Ventolin Neb Soln) 2.5 mg RTQID NEB Last administered on 03/04 08:11; Start 03/04/17 at 08:00; Stop 03/04/17 at 08:24; Status DC Albuterol Sulfate (Ventolin Neb Soln) 2.5 mg PRN Q2HRS PRN NEB SHORTNESS OF BREATH; Start 03/04/17 at 08:00 Doxycycline Hyclate (Vibra-Tab) 100 mg BID PO Last administered on 03/05/17 09: 41; Start 03/04/17 at 09:00 Albuterol/ Ipratropium (Duoneb) 3 ml RTQID NEB Last administered on 03/04/17 20 :05; Start 03/04/17 at 12:00 Iohexol (Omnipaque 300 Mg/ml) 100 ml STK-MED ONCE .ROUTE ; Start 03/04/17 at 10: 05; Stop 03/04/17 at 10:06; Status DC Heparin Sodium/ Sodium Chloride 500 ml @ As Directed STK-MED ONCE .ROUTE ; Start 03/04/17 at 10:05; Stop 03/04/17 at 10:06; Status DC Lidocaine HCl 20 ml STK-MED ONCE .ROUTE ; Start 03/04/17 at 10:05; Stop 03/04/17 at 10:06; Status DC Heparin Sodium/ Sodium Chloride 1,000 unit 1X ONCE IART Last administered on 11:39; Start 03/04/17 at 10:45; Stop 03/04/17 at 10:58; Status DC Heparin Sodium/ Sodium Chloride 1,000 unit 1X ONCE IART Last administered on 11:39; Start 03/04/17 at 10:45; Stop 03/04/17 at 10:58; Status DC Midazolam HCl (Versed) 2 mg 1X ONCE IV Last administered on 03/04/17 11:40; Start 03/04/17 at 10:45; Stop 03/04/17 at 10:58; Status DC Fentanyl Citrate (Fentanyl 2ml Vial) 100 mcg 1X ONCE IV Last administered on 11:40; Start 03/04/17 at 10:45; Stop 03/04/17 at 10:58; Status DC Iohexol (Omnipaque 300 Mg/ml) 100 ml 1X ONCE IART Last administered on 11:39; Start 03/04/17 at 10:45; Stop 03/04/17 at 10:58; Status DC Lidocaine HCl 20 ml 1X ONCE IJ Last administered on 03/04/17 11:39; Start 03/04 at 10:45; Stop 03/04/17 at 10:58; Status DC Heparin Sodium (Porcine) (Heparin Sodium) 5,000 unit 1X ONCE IV Last administered on 03/04/17 11:54; Start 03/04/17 at 11:14; Stop 03/04/17 at 11:41; Status DC Adenosine 90 mg/ Sodium Chloride 120 ml @ 504 mls/hr 1X ONCE IV ; Start at 11:29; Stop 03/04/17 at 11:43; Status Cancel Adenosine 180 mg/ Sodium Chloride 90 ml @ 1,080 mls/hr 1X ONCE IV ; Start 03/04 at 12:00; Stop 03/04/17 at 12:04; Status Cancel Adenosine 180 mg/ Sodium Chloride 150 ml @ 504 mls/hr 1X ONCE IV Last administered on 03/04/17 11:53; Start 03/04/17 at 12:00; Stop 03/04/17 at 12:17; Status DC Nitroglycerin (Nitrostat) 0.4 mg PRN Q5MIN PRN SL CHEST PAIN; Start 03/04/17 at 13:00 Fluoxetine HCl (PROzac) 20 mg DAILY PO Last administered on 03/05/17 10:47; Start 03/04/17 at 17:00 Iohexol (Omnipaque 300 Mg/ml) 60 ml 1X ONCE IV Last administered on 03/05/17 08:00; Start 03/05/17 at 05:30; Stop 03/05/17 at 05:31; Status DC Info (Do NOT chart on this entry -- for MONITORING) 1 each PRN DAILY PRN MC SEE COMMENTS; Start 03/05/17 at 05:15; Stop 03/07/17 at 05:14 Active Scripts Active Nitrostat (Nitroglycerin) 0.4 Mg Tab.subl 0.4 Mg SL PRN Q5MIN PRN [Metoprolol Tartrate] 25 MG Tablet 12.5 Mg PO BID [Aspirin] 81 MG Tablet. 81 Mg PO DAILYWBKFT Reported Multaq (Dronedarone Hcl) 400 Mg Tablet 400 Mg PO Gleevec (Imatinib Mesylate) 400 Mg Tablet 400 Mg PO DAILY Ramipril 2.5 Mg Capsule 20 Mg PO DAILY Klor-Con M20 (Potassium Chloride) 20 Meq Tab.er.prt 1 Tab PO DAILY Lasix (Furosemide) 20 Mg Tablet 1 Tab PO DAILY Allopurinol 300 Mg Tablet 1 Tab PO DAILY Plavix (Clopidogrel Bisulfate) 75 Mg Tablet 75 Mg PO DAILY Gabapentin 800 Mg Tablet 800 Mg PO QID Metformin Hcl 1,000 Mg Tablet 1 Tab PO BID Do not resume until 10/07/15 evening dose Allergies Allergies: Coded Allergies: hydrocodone (Verified Adverse Reaction, Intermediate, altered mental status, hallucinations, 03/02/17) morphine (Verified Adverse Reaction, Intermediate, 03/02/17) pt states it makes him feel out of body ROS General: No: Chills PSYCHOLOGICAL ROS: YES: Anxiety, Depression Eyes: No Blurry vision HEENT: No: Heacaches ALLERGY AND IMMUNOLOGY: No: Hives Hematological and Lymphatic: No: Bleeding Problems ENDOCRINE: No: Palpitations Respiratory: YES: Shortness of breath, SOB with excertion, No: Cough Cardiovascular: No Chest Pain Gastrointestinal: No Nausea Genitourinary: No Dysuria Musculoskeletal: No Joint Pain Neurological: No Numbness/Tingling Skin: No Rash Physical Exam General: Alert, Oriented X3 HEENT: Atraumatic Lungs: Other (Crackles at bilateral bases) Heart: Regular rate, Other (2+ bilateral pitting LE edema) Abdomen: Soft Extremities: No clubbing Skin: No rashes Neuro: Normal speech Psych/Mental Status: Mental status NL MUSCULOSKELETAL: No joint tenderness Vitals VITALS Vital Signs Date Time Temp Pulse Resp B/P (MAP) Pulse Ox O2 Delivery O2 Flow Rate FiO2 03/05/17 10:16 98.6 76 22 123/59 (80) 95 Nasal Cannula 4.0 98.6 Labs Labs Laboratory Tests Test 03/03/17 11:35 03/03/17 16:38 03/04/17 04:30 03/04/17 07:14 Glucose (Fingerstick) 133 mg/dL (70-99) 175 mg/dL (70-99) 133 mg/dL (70-99) White Blood Count 11.8 x10^3/uL (4.0-11.0) Red Blood Count 2.72 x10^6/uL (4.30-5.70) Hemoglobin 8.1 g/dL (13.0-17.5) Hematocrit 23.6 % (39.0-53.0) Mean Corpuscular Volume 87 fL (79-100) Mean Corpuscular Hemoglobin 30 pg (25-35) Mean Corpuscular Hemoglobin Concent 34 g/dL (31-37) Red Cell Distribution Width 17.6 % (11.5-14.5) Platelet Count 506 x10^3/uL (140-400) Neutrophils (%) (Auto) 85 % (31-73) Lymphocytes (%) (Auto) 4 % (24-48) Monocytes (%) (Auto) 8 % (0-9) Eosinophils (%) (Auto) 1 % (0-3) Basophils (%) (Auto) 2 % (0-3) Neutrophils # (Auto) 10.0 x10^3uL (1.8-7.7) Lymphocytes # (Auto) 0.5 x10^3/uL (1.0-4.8) Monocytes # (Auto) 0.9 x10^3/uL (0.0-1.1) Eosinophils # (Auto) 0.1 x10^3/uL (0.0-0.7) Basophils # (Auto) 0.2 x10^3/uL (0.0-0.2) Sodium Level 138 mmol/L (136-145) Potassium Level 4.5 mmol/L (3.5-5.1) Chloride Level 104 mmol/L (98-107) Carbon Dioxide Level 24 mmol/L (21-32) Anion Gap 10 (6-14) Blood Urea Nitrogen 23 mg/dL (8-26) Creatinine 1.3 mg/dL (0.7-1.3) Estimated GFR (Cockcroft-Gault) 53.8 Glucose Level 134 mg/dL (70-99) Calcium Level 8.2 mg/dL (8.5-10.1) Test 03/04/17 12:15 03/04/17 17:17 03/04/17 20:44 03/05/17 04:05 Glucose (Fingerstick) 111 mg/dL (70-99) 184 mg/dL (70-99) 132 mg/dL (70-99) White Blood Count 10.8 x10^3/uL (4.0-11.0) Red Blood Count 2.50 x10^6/uL (4.30-5.70) Hemoglobin 7.4 g/dL (13.0-17.5) Hematocrit 22.2 % (39.0-53.0) Mean Corpuscular Volume 89 fL (79-100) Mean Corpuscular Hemoglobin 30 pg (25-35) Mean Corpuscular Hemoglobin Concent 33 g/dL (31-37) Red Cell Distribution Width 17.7 % (11.5-14.5) Platelet Count 459 x10^3/uL (140-400) Neutrophils (%) (Auto) 85 % (31-73) Lymphocytes (%) (Auto) 3 % (24-48) Monocytes (%) (Auto) 10 % (0-9) Eosinophils (%) (Auto) 1 % (0-3) Basophils (%) (Auto) 2 % (0-3) Neutrophils # (Auto) 9.2 x10^3uL (1.8-7.7) Lymphocytes # (Auto) 0.3 x10^3/uL (1.0-4.8) Monocytes # (Auto) 1.1 x10^3/uL (0.0-1.1) Eosinophils # (Auto) 0.1 x10^3/uL (0.0-0.7) Basophils # (Auto) 0.2 x10^3/uL (0.0-0.2) Sodium Level 140 mmol/L (136-145) Potassium Level 4.9 mmol/L (3.5-5.1) Chloride Level 106 mmol/L (98-107) Carbon Dioxide Level 26 mmol/L (21-32) Anion Gap 8 (6-14) Blood Urea Nitrogen 21 mg/dL (8-26) Creatinine 1.1 mg/dL (0.7-1.3) Estimated GFR (Cockcroft-Gault) 65.3 Glucose Level 134 mg/dL (70-99) Calcium Level 8.2 mg/dL (8.5-10.1) Test 03/05/17 08:11 Glucose (Fingerstick) 120 mg/dL (70-99) Laboratory Tests Test 03/04/17 12:15 03/04/17 17:17 03/04/17 20:44 03/05/17 04:05 Glucose (Fingerstick) 111 mg/dL (70-99) 184 mg/dL (70-99) 132 mg/dL (70-99) White Blood Count 10.8 x10^3/uL (4.0-11.0) Red Blood Count 2.50 x10^6/uL (4.30-5.70) Hemoglobin 7.4 g/dL (13.0-17.5) Hematocrit 22.2 % (39.0-53.0) Mean Corpuscular Volume 89 fL (79-100) Mean Corpuscular Hemoglobin 30 pg (25-35) Mean Corpuscular Hemoglobin Concent 33 g/dL (31-37) Red Cell Distribution Width 17.7 % (11.5-14.5) Platelet Count 459 x10^3/uL (140-400) Neutrophils (%) (Auto) 85 % (31-73) Lymphocytes (%) (Auto) 3 % (24-48) Monocytes (%) (Auto) 10 % (0-9) Eosinophils (%) (Auto) 1 % (0-3) Basophils (%) (Auto) 2 % (0-3) Neutrophils # (Auto) 9.2 x10^3uL (1.8-7.7) Lymphocytes # (Auto) 0.3 x10^3/uL (1.0-4.8) Monocytes # (Auto) 1.1 x10^3/uL (0.0-1.1) Eosinophils # (Auto) 0.1 x10^3/uL (0.0-0.7) Basophils # (Auto) 0.2 x10^3/uL (0.0-0.2) Sodium Level 140 mmol/L (136-145) Potassium Level 4.9 mmol/L (3.5-5.1) Chloride Level 106 mmol/L (98-107) Carbon Dioxide Level 26 mmol/L (21-32) Anion Gap 8 (6-14) Blood Urea Nitrogen 21 mg/dL (8-26) Creatinine 1.1 mg/dL (0.7-1.3) Estimated GFR (Cockcroft-Gault) 65.3 Glucose Level 134 mg/dL (70-99) Calcium Level 8.2 mg/dL (8.5-10.1) Test 03/05/17 08:11 Glucose (Fingerstick) 120 mg/dL (70-99) Assessment/Plan Assessment/Plan Impression: Chronic phase CML repsonding to imatinib Multifoactorial anemia RUL pulmonary nodule Hypoxic respiratory failure Ischemic CM Plan: Imatinib is associated with increased fluid retention and this may be contributing to current process. Unfortunately, the other medications used in CML are either worse or associated with more significant cardiovascular risk and imatinib likely best choice for him. To the extent that volume overload and his elevated pulmonary pressures are contributing to his hypoxia, more aggressive diuresis may be necessary while on therapy. Transfusion may also assist with his symptoms. I do not feel strongly unless hemoglobin drops below 7, but one could consider as his anemia likely also contributing to dyspnea. Recommend: - Start PPI. - His bringing in his imatinib. I recommend re-starting at 400mg PO daily once it arrives. - Follow up CT Chest in 3 months to monitor pulmonary nodule - Agree with empiric pneumonia therapy - Remainder of hypoxia work-up per pulmonary and cardiology. Dr August to resume service tomorrow and will follow. Please call with questions or concerns. KO COLIN MD Mar 05, 2017 11:33
--- NOTE | 2017-03-05 11:56 | PDOC ---
PROGRESS NOTES Subjective Subjective Dyspnea slightly improved. Denied any chest pain. Objective Objective Vital Signs Date Time Temp Pulse Resp B/P (MAP) Pulse Ox O2 Delivery O2 Flow Rate FiO2 03/05/17 10:16 98.6 76 22 123/59 (80) 95 Nasal Cannula 4.0 98.6 Intake and Output 03/06/17 07:00 Intake Total 180 ml Balance 180 ml Intake Oral 180 ml # Voids 1 # Bowel Movements 1 Physical Exam Abdomen: Soft Heart: Regular rate, Other (2+ bilateral pitting LE edema) Extremities: No clubbing, Other (1+ pitting pedal edema) General: Alert, Oriented X3 HEENT: Atraumatic Lungs: Other (Crackles at bilateral bases) MUSCULOSKELETAL: No joint tenderness Neck: Supple Neuro: Normal speech Psych/Mental Status: Mental status NL Skin: No rashes Assessment Assessment 1. Hypoxia/Persistent dyspnea: Most probably due to mild acute on chronic systolic heart failure. No PE. V/Q low probability and recent CTA negative. Diuresing well with Lasix. Right and left heart catheterization yesterday showed orally mild pulmonary hypertension, normal pulmonary capillary wedge pressure, no evidence of intracardiac shunt, nonobstructive RCA stenosis with patent previously placed stent. Cannot rule out deconditioning and an element of depression as a cause of longstanding persistent dyspnea. Prozac initiated yesterday. We will consider outpatient referral to [facility]. 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 AICD/BiV in situ: 100% BiV pacing recent device check 02/28/2017 with normal functioning and no treatment 4. ICM: Recent EF 30-35%. NYHA 2-3. Pt is intolerant to entresto. 5. PAFIB/SSS: was on PPM in the past and upgraded to BiV 6. CAD: PCI/CHARLI to RCA with patent stent on cardiac cath yesterday 7. HTN: controlled 8. DM2/HLP - per IM Plan Plan of Care Problems Medical Problems: (1) CHF (congestive heart failure) Status: Acute (2) Hypoxia Status: Acute (3) Shortness of breath Status: Acute Comment Review of Relevant I have reviewed the following items ce (where applicable) has been applied. Labs Laboratory Tests Test 03/04/17 12:15 03/04/17 17:17 03/04/17 20:44 03/05/17 04:05 Glucose (Fingerstick) 111 mg/dL (70-99) 184 mg/dL (70-99) 132 mg/dL (70-99) White Blood Count 10.8 x10^3/uL (4.0-11.0) Red Blood Count 2.50 x10^6/uL (4.30-5.70) Hemoglobin 7.4 g/dL (13.0-17.5) Hematocrit 22.2 % (39.0-53.0) Mean Corpuscular Volume 89 fL (79-100) Mean Corpuscular Hemoglobin 30 pg (25-35) Mean Corpuscular Hemoglobin Concent 33 g/dL (31-37) Red Cell Distribution Width 17.7 % (11.5-14.5) Platelet Count 459 x10^3/uL (140-400) Neutrophils (%) (Auto) 85 % (31-73) Lymphocytes (%) (Auto) 3 % (24-48) Monocytes (%) (Auto) 10 % (0-9) Eosinophils (%) (Auto) 1 % (0-3) Basophils (%) (Auto) 2 % (0-3) Neutrophils # (Auto) 9.2 x10^3uL (1.8-7.7) Lymphocytes # (Auto) 0.3 x10^3/uL (1.0-4.8) Monocytes # (Auto) 1.1 x10^3/uL (0.0-1.1) Eosinophils # (Auto) 0.1 x10^3/uL (0.0-0.7) Basophils # (Auto) 0.2 x10^3/uL (0.0-0.2) Sodium Level 140 mmol/L (136-145) Potassium Level 4.9 mmol/L (3.5-5.1) Chloride Level 106 mmol/L (98-107) Carbon Dioxide Level 26 mmol/L (21-32) Anion Gap 8 (6-14) Blood Urea Nitrogen 21 mg/dL (8-26) Creatinine 1.1 mg/dL (0.7-1.3) Estimated GFR (Cockcroft-Gault) 65.3 Glucose Level 134 mg/dL (70-99) Calcium Level 8.2 mg/dL (8.5-10.1) Test 03/05/17 08:11 Glucose (Fingerstick) 120 mg/dL (70-99) Medications Current Medications Adenosine 180 mg/ Sodium Chloride 90 ml @ 1,080 mls/hr 1X ONCE IV ; Start 03/04 at 12:00; Stop 03/04/17 at 12:04; Status Cancel Adenosine 180 mg/ Sodium Chloride 150 ml @ 504 mls/hr 1X ONCE IV Last administered on 03/04/17 11:53; Start 03/04/17 at 12:00; Stop 03/04/17 at 12:17; Status DC Albuterol/ Ipratropium (Duoneb) 3 ml RTQID NEB Last administered on 03/04/17 20 :05; Start 03/04/17 at 12:00 Fluoxetine HCl (PROzac) 20 mg DAILY PO Last administered on 03/05/17 10:47; Start 03/04/17 at 17:00 Info (Do NOT chart on this entry -- for MONITORING) 1 each PRN DAILY PRN MC SEE COMMENTS; Start 03/05/17 at 05:15; Stop 03/07/17 at 05:14 Iohexol (Omnipaque 300 Mg/ml) 60 ml 1X ONCE IV Last administered on 03/05/17 08:00; Start 03/05/17 at 05:30; Stop 03/05/17 at 05:31; Status DC Nitroglycerin (Nitrostat) 0.4 mg PRN Q5MIN PRN SL CHEST PAIN; Start 03/04/17 at 13:00 Vitals/I & O Vital Sign - Last 24 Hours 03/04/17 03/04/17 03/04/17 03/04/17 12:15 12:24 12:30 12:45 Temp 98.0 98.0 Pulse 78 76 82 Resp 22 B/P (MAP) 117/59 (78) 107/53 (71) 102/52 (69) Pulse Ox 96 98 100 98 O2 Delivery Nasal Cannula Nasal Cannula Nasal Cannula Nasal Cannula O2 Flow Rate 3.0 3.0 3.0 3.0 03/04/17 03/04/17 03/04/17 03/04/17 13:00 13:15 13:30 14:00 Pulse 78 82 80 78 Resp 22 22 B/P (MAP) 108/55 (72) 115/57 (76) 112/55 (74) 109/54 (72) Pulse Ox 99 99 98 99 O2 Delivery Nasal Cannula Nasal Cannula Nasal Cannula Nasal Cannula O2 Flow Rate 3.0 3.0 3.0 3.0 03/04/17 03/04/17 03/04/17 03/04/17 14:30 14:39 15:00 15:30 Temp 98.1 98.1 Pulse 90 91 93 90 Resp 22 B/P (MAP) 128/69 (88) 128/69 112/57 (75) 112/57 (75) Pulse Ox 91 100 99 O2 Delivery Nasal Cannula Nasal Cannula Nasal Cannula O2 Flow Rate 3.0 4.0 3.0 03/04/17 03/04/17 03/04/17 03/04/17 16:19 19:40 20:00 20:05 Temp 97.8 97.8 Pulse 79 Resp 22 B/P (MAP) 112/53 (72) Pulse Ox 98 97 99 O2 Delivery Nasal Cannula Nasal Cannula Nasal Cannula Nasal Cannula O2 Flow Rate 3.0 4.0 4.0 3.0 03/04/17 03/04/17 03/05/17 03/05/17 20:41 23:20 03:45 07:50 Temp 97.6 97.6 97.9 97.6 97.6 97.9 Pulse 79 74 68 63 Resp 23 B/P (MAP) 112/53 121/60 (80) 117/56 (76) 117/55 (75) Pulse Ox 100 100 96 O2 Delivery Nasal Cannula Nasal Cannula Nasal Cannula O2 Flow Rate 4.0 4.0 4.0 03/05/17 03/05/17 03/05/17 03/05/17 08:00 09:40 09:41 10:16 Temp 98.6 98.6 Pulse 78 78 76 Resp 22 B/P (MAP) 117/55 117/55 123/59 (80) Pulse Ox 95 O2 Delivery Nasal Cannula Nasal Cannula O2 Flow Rate 4.0 4.0 Intake and Output 03/05/17 03/05/17 03/06/17 15:00 23:00 07:00 Intake Total 180 ml Balance 180 ml MARISSA CABRERA MD Mar 05, 2017 11:56
[2017-03-05] MEDS: IPRATRPIUM/ALBUTEROL 0.5/2.5MG 3 ML NEBU. NEB SCH ×3 (12:12→19:26)
[2017-03-05] MEDS ORDERED: PROMETH/CODEINE 6.25/10MG 5 ML SYRUP. PO SCH (13:00)
--- NOTE | 2017-03-05 13:02 | PDOC ---
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 Boss I Reviewed literature with them, Imatinib should not cause hypoxic respi fialure that often (only in 9% of the cases) Never smoker Started on doxy PO [address] scan noted - ground glass opacities VEnous doppler neg Neg PE in CTA PLAN: STart phenergan with codeine to help pleuritic CP (clear to yellowish cough) 6 MW [facility] him and Time room 30 mins alone linda Joseph Vitals Vitals Vital Signs Date Time Temp Pulse Resp B/P (MAP) Pulse Ox O2 Delivery O2 Flow Rate FiO2 03/05/17 12:13 99 Nasal Cannula 3.0 03/05/17 10:16 98.6 76 22 123/59 (80) 98.6 Physical Exam General: Alert, Oriented X3 Heart: Regular rate, Other (2+ bilateral pitting LE edema) Lungs: Crackles Abdomen: Soft Extremities: No clubbing Skin: No rashes Labs LABS Laboratory Tests Test 03/04/17 17:17 03/04/17 20:44 03/05/17 04:05 03/05/17 08:11 Glucose (Fingerstick) 184 mg/dL (70-99) 132 mg/dL (70-99) 120 mg/dL (70-99) White Blood Count 10.8 x10^3/uL (4.0-11.0) Red Blood Count 2.50 x10^6/uL (4.30-5.70) Hemoglobin 7.4 g/dL (13.0-17.5) Hematocrit 22.2 % (39.0-53.0) Mean Corpuscular Volume 89 fL (79-100) Mean Corpuscular Hemoglobin 30 pg (25-35) Mean Corpuscular Hemoglobin Concent 33 g/dL (31-37) Red Cell Distribution Width 17.7 % (11.5-14.5) Platelet Count 459 x10^3/uL (140-400) Neutrophils (%) (Auto) 85 % (31-73) Lymphocytes (%) (Auto) 3 % (24-48) Monocytes (%) (Auto) 10 % (0-9) Eosinophils (%) (Auto) 1 % (0-3) Basophils (%) (Auto) 2 % (0-3) Neutrophils # (Auto) 9.2 x10^3uL (1.8-7.7) Lymphocytes # (Auto) 0.3 x10^3/uL (1.0-4.8) Monocytes # (Auto) 1.1 x10^3/uL (0.0-1.1) Eosinophils # (Auto) 0.1 x10^3/uL (0.0-0.7) Basophils # (Auto) 0.2 x10^3/uL (0.0-0.2) Sodium Level 140 mmol/L (136-145) Potassium Level 4.9 mmol/L (3.5-5.1) Chloride Level 106 mmol/L (98-107) Carbon Dioxide Level 26 mmol/L (21-32) Anion Gap 8 (6-14) Blood Urea Nitrogen 21 mg/dL (8-26) Creatinine 1.1 mg/dL (0.7-1.3) Estimated GFR (Cockcroft-Gault) 65.3 Glucose Level 134 mg/dL (70-99) Calcium Level 8.2 mg/dL (8.5-10.1) Test 03/05/17 11:55 Glucose (Fingerstick) 116 mg/dL (70-99) Review of Systems Review of Systems pleuritic CP, shakes from albuterol [facility] Assessment and Plan Assessmemt and Plan Problems Medical Problems: (1) CHF (congestive heart failure) Status: Acute (2) Hypoxia Status: Acute (3) Shortness of breath Status: Acute Problems: Comment Review of Relevant I have reviewed the following items ce (where applicable) has been applied. Labs Laboratory Tests Test 03/03/17 16:38 03/04/17 04:30 03/04/17 07:14 03/04/17 12:15 Glucose (Fingerstick) 175 mg/dL (70-99) 133 mg/dL (70-99) 111 mg/dL (70-99) White Blood Count 11.8 x10^3/uL (4.0-11.0) Red Blood Count 2.72 x10^6/uL (4.30-5.70) Hemoglobin 8.1 g/dL (13.0-17.5) Hematocrit 23.6 % (39.0-53.0) Mean Corpuscular Volume 87 fL (79-100) Mean Corpuscular Hemoglobin 30 pg (25-35) Mean Corpuscular Hemoglobin Concent 34 g/dL (31-37) Red Cell Distribution Width 17.6 % (11.5-14.5) Platelet Count 506 x10^3/uL (140-400) Neutrophils (%) (Auto) 85 % (31-73) Lymphocytes (%) (Auto) 4 % (24-48) Monocytes (%) (Auto) 8 % (0-9) Eosinophils (%) (Auto) 1 % (0-3) Basophils (%) (Auto) 2 % (0-3) Neutrophils # (Auto) 10.0 x10^3uL (1.8-7.7) Lymphocytes # (Auto) 0.5 x10^3/uL (1.0-4.8) Monocytes # (Auto) 0.9 x10^3/uL (0.0-1.1) Eosinophils # (Auto) 0.1 x10^3/uL (0.0-0.7) Basophils # (Auto) 0.2 x10^3/uL (0.0-0.2) Sodium Level 138 mmol/L (136-145) Potassium Level 4.5 mmol/L (3.5-5.1) Chloride Level 104 mmol/L (98-107) Carbon Dioxide Level 24 mmol/L (21-32) Anion Gap 10 (6-14) Blood Urea Nitrogen 23 mg/dL (8-26) Creatinine 1.3 mg/dL (0.7-1.3) Estimated GFR (Cockcroft-Gault) 53.8 Glucose Level 134 mg/dL (70-99) Calcium Level 8.2 mg/dL (8.5-10.1) Test 03/04/17 17:17 03/04/17 20:44 03/05/17 04:05 03/05/17 08:11 Glucose (Fingerstick) 184 mg/dL (70-99) 132 mg/dL (70-99) 120 mg/dL (70-99) White Blood Count 10.8 x10^3/uL (4.0-11.0) Red Blood Count 2.50 x10^6/uL (4.30-5.70) Hemoglobin 7.4 g/dL (13.0-17.5) Hematocrit 22.2 % (39.0-53.0) Mean Corpuscular Volume 89 fL (79-100) Mean Corpuscular Hemoglobin 30 pg (25-35) Mean Corpuscular Hemoglobin Concent 33 g/dL (31-37) Red Cell Distribution Width 17.7 % (11.5-14.5) Platelet Count 459 x10^3/uL (140-400) Neutrophils (%) (Auto) 85 % (31-73) Lymphocytes (%) (Auto) 3 % (24-48) Monocytes (%) (Auto) 10 % (0-9) Eosinophils (%) (Auto) 1 % (0-3) Basophils (%) (Auto) 2 % (0-3) Neutrophils # (Auto) 9.2 x10^3uL (1.8-7.7) Lymphocytes # (Auto) 0.3 x10^3/uL (1.0-4.8) Monocytes # (Auto) 1.1 x10^3/uL (0.0-1.1) Eosinophils # (Auto) 0.1 x10^3/uL (0.0-0.7) Basophils # (Auto) 0.2 x10^3/uL (0.0-0.2) Sodium Level 140 mmol/L (136-145) Potassium Level 4.9 mmol/L (3.5-5.1) Chloride Level 106 mmol/L (98-107) Carbon Dioxide Level 26 mmol/L (21-32) Anion Gap 8 (6-14) Blood Urea Nitrogen 21 mg/dL (8-26) Creatinine 1.1 mg/dL (0.7-1.3) Estimated GFR (Cockcroft-Gault) 65.3 Glucose Level 134 mg/dL (70-99) Calcium Level 8.2 mg/dL (8.5-10.1) Test 03/05/17 11:55 Glucose (Fingerstick) 116 mg/dL (70-99) Laboratory Tests Test 03/04/17 17:17 03/04/17 20:44 03/05/17 04:05 03/05/17 08:11 Glucose (Fingerstick) 184 mg/dL (70-99) 132 mg/dL (70-99) 120 mg/dL (70-99) White Blood Count 10.8 x10^3/uL (4.0-11.0) Red Blood Count 2.50 x10^6/uL (4.30-5.70) Hemoglobin 7.4 g/dL (13.0-17.5) Hematocrit 22.2 % (39.0-53.0) Mean Corpuscular Volume 89 fL (79-100) Mean Corpuscular Hemoglobin 30 pg (25-35) Mean Corpuscular Hemoglobin Concent 33 g/dL (31-37) Red Cell Distribution Width 17.7 % (11.5-14.5) Platelet Count 459 x10^3/uL (140-400) Neutrophils (%) (Auto) 85 % (31-73) Lymphocytes (%) (Auto) 3 % (24-48) Monocytes (%) (Auto) 10 % (0-9) Eosinophils (%) (Auto) 1 % (0-3) Basophils (%) (Auto) 2 % (0-3) Neutrophils # (Auto) 9.2 x10^3uL (1.8-7.7) Lymphocytes # (Auto) 0.3 x10^3/uL (1.0-4.8) Monocytes # (Auto) 1.1 x10^3/uL (0.0-1.1) Eosinophils # (Auto) 0.1 x10^3/uL (0.0-0.7) Basophils # (Auto) 0.2 x10^3/uL (0.0-0.2) Sodium Level 140 mmol/L (136-145) Potassium Level 4.9 mmol/L (3.5-5.1) Chloride Level 106 mmol/L (98-107) Carbon Dioxide Level 26 mmol/L (21-32) Anion Gap 8 (6-14) Blood Urea Nitrogen 21 mg/dL (8-26) Creatinine 1.1 mg/dL (0.7-1.3) Estimated GFR (Cockcroft-Gault) 65.3 Glucose Level 134 mg/dL (70-99) Calcium Level 8.2 mg/dL (8.5-10.1) Test 03/05/17 11:55 Glucose (Fingerstick) 116 mg/dL (70-99) Medications Current Medications Albuterol/ Ipratropium (Duoneb) 3 ml 1X ONCE NEB Last administered on 12:21; Start 03/02/17 at 12:00; Stop 03/02/17 at 12:01; Status DC Ondansetron HCl (Zofran) 4 mg PRN Q8HRS PRN IV NAUSEA/VOMITING; Start 03/02/17 at 13:15; Stop 03/03/17 at 13:14; Status DC Albuterol/ Ipratropium (Duoneb) 3 ml RTQID NEB Last administered on 03/03/17 13 :51; Start 03/02/17 at 16:00; Stop 03/03/17 at 15:59; Status DC Acetaminophen (Tylenol) 650 mg PRN Q6HRS PRN PO FEVER Last administered on 00:53; Start 03/02/17 at 14:15 Ondansetron HCl (Zofran) 4 mg PRN Q6HRS PRN IV NAUSEA/VOMITING; Start 03/02/17 at 14:15 Morphine Sulfate 2 mg PRN Q2HR PRN IV PAIN; Start 03/02/17 at 14:15; Stop at 17:04; Status DC Tramadol HCl (Ultram) 50 mg PRN Q6HRS PRN PO PAIN; Start 03/02/17 at 14:15 Hydralazine HCl (Apresoline) 10 mg PRN Q4HRS PRN IVP ELEVATED BP, SEE COMMENTS ; Start 03/02/17 at 14:15 Docusate Sodium (Colace) 100 mg PRN DAILY PRN PO CONSTIPATION; Start 03/02/17 at 14:15 Furosemide (Lasix) 40 mg 1X ONCE PO ; Start 03/02/17 at 14:15; Stop 03/02/17 at 14:18; Status DC Allopurinol (Zyloprim) 300 mg DAILY PO Last administered on 03/05/17 09:39; Start 03/03/17 at 09:00 Clopidogrel Bisulfate (Plavix) 75 mg DAILY PO Last administered on 03/05/17 09: 41; Start 03/03/17 at 09:00 Dronedarone (Multaq) 400 mg DAILY16 PO ; Start 03/02/17 at 16:00; Status Cancel Nitroglycerin (Nitrostat) 0.4 mg PRN Q5MIN PRN SL CHEST PAIN; Start 03/02/17 at 14:15; Stop 03/04/17 at 13:07; Status DC Potassium Chloride (Klor-Con) 20 meq DAILY PO Last administered on 03/05/17 09: 40; Start 03/03/17 at 09:00 Sacubitril/ Valsartan (Entresto 49 Mg-51 Mg) 1 tab BID PO ; Start 03/02/17 at 21: 00; Stop 03/02/17 at 21:00; Status DC Metoprolol Tartrate (Lopressor) 12.5 mg BID PO Last administered on 03/05/17 09 :40; Start 03/02/17 at 21:00 Furosemide (Lasix) 40 mg DAILY PO ; Start 03/03/17 at 09:00; Stop 03/03/17 at 09: 00; Status DC Furosemide (Lasix) 20 mg 1X ONCE IVP Last administered on 03/02/17 16:43; Start 03/02/17 at 15:30; Stop 03/02/17 at 15:31; Status DC Heparin Sodium (Porcine) (Heparin Sq) 5,000 unit Q8HRS SQ Last administered on 03/05/17 05:29; Start 03/02/17 at 22:00 Insulin Aspart (NovoLOG) 0-9 UNITS TIDWMEALS SQ Last administered on 03/04/17 17:40; Start 03/02/17 at 17:00 Dextrose (Dextrose 50%-Water Syringe) 12.5 gm PRN Q15MIN PRN IV SEE COMMENTS; Start 03/02/17 at 14:30 Furosemide (Lasix) 20 mg DAILY IVP Last administered on 03/05/17 09:41; Start 03/03/17 at 09:00 Aspirin (Ecotrin) 81 mg DAILYWBKFT PO Last administered on 03/05/17 09:39; Start 03/03/17 at 08:00 Dronedarone (Multaq) 200 mg BID PO ; Start 03/02/17 at 21:00; Status Cancel Lisinopril (Prinivil) 40 mg DAILY PO ; Start 03/03/17 at 09:00 Non-Formulary Medication 400 mg DAILY PO ; Start 03/03/17 at 09:00; Status UNV Dronedarone (Multaq) 400 mg DAILY PO Last administered on 03/05/17 09:41; Start 03/03/17 at 09:00 Gabapentin (Neurontin) 800 mg QID PO Last administered on 03/05/17 09:40; Start 03/03/17 at 10:00 Acetaminophen (Tylenol) 325 mg QID PO Last administered on 03/05/17 09:40; Start 03/03/17 at 09:45 Albuterol Sulfate (Ventolin Neb Soln) 2.5 mg RTQID NEB Last administered on 03/04 08:11; Start 03/04/17 at 08:00; Stop 03/04/17 at 08:24; Status DC Albuterol Sulfate (Ventolin Neb Soln) 2.5 mg PRN Q2HRS PRN NEB SHORTNESS OF BREATH; Start 03/04/17 at 08:00 Doxycycline Hyclate (Vibra-Tab) 100 mg BID PO Last administered on 03/05/17 09: 41; Start 03/04/17 at 09:00 Albuterol/ Ipratropium (Duoneb) 3 ml RTQID NEB Last administered on 03/05/17 12 :12; Start 03/04/17 at 12:00 Iohexol (Omnipaque 300 Mg/ml) 100 ml STK-MED ONCE .ROUTE ; Start 03/04/17 at 10: 05; Stop 03/04/17 at 10:06; Status DC Heparin Sodium/ Sodium Chloride 500 ml @ As Directed STK-MED ONCE .ROUTE ; Start 03/04/17 at 10:05; Stop 03/04/17 at 10:06; Status DC Lidocaine HCl 20 ml STK-MED ONCE .ROUTE ; Start 03/04/17 at 10:05; Stop 03/04/17 at 10:06; Status DC Heparin Sodium/ Sodium Chloride 1,000 unit 1X ONCE IART Last administered on 11:39; Start 03/04/17 at 10:45; Stop 03/04/17 at 10:58; Status DC Heparin Sodium/ Sodium Chloride 1,000 unit 1X ONCE IART Last administered on 11:39; Start 03/04/17 at 10:45; Stop 03/04/17 at 10:58; Status DC Midazolam HCl (Versed) 2 mg 1X ONCE IV Last administered on 03/04/17 11:40; Start 03/04/17 at 10:45; Stop 03/04/17 at 10:58; Status DC Fentanyl Citrate (Fentanyl 2ml Vial) 100 mcg 1X ONCE IV Last administered on 11:40; Start 03/04/17 at 10:45; Stop 03/04/17 at 10:58; Status DC Iohexol (Omnipaque 300 Mg/ml) 100 ml 1X ONCE IART Last administered on 11:39; Start 03/04/17 at 10:45; Stop 03/04/17 at 10:58; Status DC Lidocaine HCl 20 ml 1X ONCE IJ Last administered on 03/04/17 11:39; Start 03/04 at 10:45; Stop 03/04/17 at 10:58; Status DC Heparin Sodium (Porcine) (Heparin Sodium) 5,000 unit 1X ONCE IV Last administered on 03/04/17 11:54; Start 03/04/17 at 11:14; Stop 03/04/17 at 11:41; Status DC Adenosine 90 mg/ Sodium Chloride 120 ml @ 504 mls/hr 1X ONCE IV ; Start at 11:29; Stop 03/04/17 at 11:43; Status Cancel Adenosine 180 mg/ Sodium Chloride 90 ml @ 1,080 mls/hr 1X ONCE IV ; Start 03/04 at 12:00; Stop 03/04/17 at 12:04; Status Cancel Adenosine 180 mg/ Sodium Chloride 150 ml @ 504 mls/hr 1X ONCE IV Last administered on 03/04/17 11:53; Start 03/04/17 at 12:00; Stop 03/04/17 at 12:17; Status DC Nitroglycerin (Nitrostat) 0.4 mg PRN Q5MIN PRN SL CHEST PAIN; Start 03/04/17 at 13:00 Fluoxetine HCl (PROzac) 20 mg DAILY PO Last administered on 03/05/17 10:47; Start 03/04/17 at 17:00 Iohexol (Omnipaque 300 Mg/ml) 60 ml 1X ONCE IV Last administered on 03/05/17 08:00; Start 03/05/17 at 05:30; Stop 03/05/17 at 05:31; Status DC Info (Do NOT chart on this entry -- for MONITORING) 1 each PRN DAILY PRN MC SEE COMMENTS; Start 03/05/17 at 05:15; Stop 03/07/17 at 05:14 Active Scripts Active Nitrostat (Nitroglycerin) 0.4 Mg Tab.subl 0.4 Mg SL PRN Q5MIN PRN [Metoprolol Tartrate] 25 MG Tablet 12.5 Mg PO BID [Aspirin] 81 MG Tablet. 81 Mg PO DAILYWBKFT Reported Multaq (Dronedarone Hcl) 400 Mg Tablet 400 Mg PO Gleevec (Imatinib Mesylate) 400 Mg Tablet 400 Mg PO DAILY Ramipril 2.5 Mg Capsule 20 Mg PO DAILY Klor-Con M20 (Potassium Chloride) 20 Meq Tab.er.prt 1 Tab PO DAILY Lasix (Furosemide) 20 Mg Tablet 1 Tab PO DAILY Allopurinol 300 Mg Tablet 1 Tab PO DAILY Plavix (Clopidogrel Bisulfate) 75 Mg Tablet 75 Mg PO DAILY Gabapentin 800 Mg Tablet 800 Mg PO QID Metformin Hcl 1,000 Mg Tablet 1 Tab PO BID Do not resume until 10/07/15 evening dose Vitals/I & O Vital Sign - Last 24 Hours 03/04/17 03/04/17 03/04/17 03/04/17 13:00 13:15 13:30 14:00 Pulse 78 82 80 78 Resp 22 22 22 B/P (MAP) 108/55 (72) 115/57 (76) 112/55 (74) 109/54 (72) Pulse Ox 99 99 98 99 O2 Delivery Nasal Cannula Nasal Cannula Nasal Cannula Nasal Cannula O2 Flow Rate 3.0 3.0 3.0 3.0 03/04/17 03/04/17 03/04/17 03/04/17 14:30 14:39 15:00 15:30 Temp 98.1 98.1 Pulse 90 91 93 90 Resp 22 22 22 B/P (MAP) 128/69 (88) 128/69 112/57 (75) 112/57 (75) Pulse Ox 91 100 99 O2 Delivery Nasal Cannula Nasal Cannula Nasal Cannula O2 Flow Rate 3.0 4.0 3.0 03/04/17 03/04/17 03/04/17 03/04/17 16:19 19:40 20:00 20:05 Temp 97.8 97.8 Pulse 79 B/P (MAP) 112/53 (72) Pulse Ox 98 97 99 O2 Delivery Nasal Cannula Nasal Cannula Nasal Cannula Nasal Cannula O2 Flow Rate 3.0 4.0 4.0 3.0 03/04/17 03/04/17 03/05/17 03/05/17 20:41 23:20 03:45 07:50 Temp 97.6 97.6 97.9 97.6 97.6 97.9 Pulse 79 74 68 63 B/P (MAP) 112/53 121/60 (80) 117/56 (76) 117/55 (75) Pulse Ox 100 100 96 O2 Delivery Nasal Cannula Nasal Cannula Nasal Cannula O2 Flow Rate 4.0 4.0 4.0 03/05/17 03/05/17 03/05/17 03/05/17 08:00 09:40 09:41 10:16 Temp 98.6 98.6 Pulse 78 78 76 B/P (MAP) 117/55 117/55 123/59 (80) Pulse Ox 95 O2 Delivery Nasal Cannula Nasal Cannula O2 Flow Rate 4.0 4.0 03/05/17 12:13 Pulse Ox 99 O2 Delivery Nasal Cannula O2 Flow Rate 3.0 Intake and Output 03/05/17 03/05/17 03/06/17 15:00 23:00 07:00 Intake Total 180 ml Output Total 400 ml Balance -220 ml MAMTA SULLIVAN MD Mar 05, 2017 13:02
[2017-03-05 14:50] VITALS: BP 102/57
--- NOTE | 2017-03-05 17:38 | PDOC ---
PULMONARY PROGRESS NOTES Subjective PT STILL [place] Vitals Vital Signs Date Time Temp Pulse Resp B/P (MAP) Pulse Ox O2 Delivery O2 Flow Rate FiO2 03/05/17 17:15 97 Nasal Cannula 3.0 03/05/17 14:50 98.3 83 22 102/57 (72) 98.3 ROS: No Nausea, No Chest Pain, No Abdominal Pain, No Increase Cough Lungs: Crackles Cardiovascular: S1, S2 Abdomen: Soft Neuro Exam: Alert Skin: Warm Labs Laboratory Tests Test 03/04/17 04:30 03/04/17 07:14 03/04/17 12:15 03/04/17 17:17 White Blood Count 11.8 x10^3/uL (4.0-11.0) Red Blood Count 2.72 x10^6/uL (4.30-5.70) Hemoglobin 8.1 g/dL (13.0-17.5) Hematocrit 23.6 % (39.0-53.0) Mean Corpuscular Volume 87 fL (79-100) Mean Corpuscular Hemoglobin 30 pg (25-35) Mean Corpuscular Hemoglobin Concent 34 g/dL (31-37) Red Cell Distribution Width 17.6 % (11.5-14.5) Platelet Count 506 x10^3/uL (140-400) Neutrophils (%) (Auto) 85 % (31-73) Lymphocytes (%) (Auto) 4 % (24-48) Monocytes (%) (Auto) 8 % (0-9) Eosinophils (%) (Auto) 1 % (0-3) Basophils (%) (Auto) 2 % (0-3) Neutrophils # (Auto) 10.0 x10^3uL (1.8-7.7) Lymphocytes # (Auto) 0.5 x10^3/uL (1.0-4.8) Monocytes # (Auto) 0.9 x10^3/uL (0.0-1.1) Eosinophils # (Auto) 0.1 x10^3/uL (0.0-0.7) Basophils # (Auto) 0.2 x10^3/uL (0.0-0.2) Sodium Level 138 mmol/L (136-145) Potassium Level 4.5 mmol/L (3.5-5.1) Chloride Level 104 mmol/L (98-107) Carbon Dioxide Level 24 mmol/L (21-32) Anion Gap 10 (6-14) Blood Urea Nitrogen 23 mg/dL (8-26) Creatinine 1.3 mg/dL (0.7-1.3) Estimated GFR (Cockcroft-Gault) 53.8 Glucose Level 134 mg/dL (70-99) Calcium Level 8.2 mg/dL (8.5-10.1) Glucose (Fingerstick) 133 mg/dL (70-99) 111 mg/dL (70-99) 184 mg/dL (70-99) Test 03/04/17 20:44 03/05/17 04:05 03/05/17 08:11 03/05/17 11:55 Glucose (Fingerstick) 132 mg/dL (70-99) 120 mg/dL (70-99) 116 mg/dL (70-99) White Blood Count 10.8 x10^3/uL (4.0-11.0) Red Blood Count 2.50 x10^6/uL (4.30-5.70) Hemoglobin 7.4 g/dL (13.0-17.5) Hematocrit 22.2 % (39.0-53.0) Mean Corpuscular Volume 89 fL (79-100) Mean Corpuscular Hemoglobin 30 pg (25-35) Mean Corpuscular Hemoglobin Concent 33 g/dL (31-37) Red Cell Distribution Width 17.7 % (11.5-14.5) Platelet Count 459 x10^3/uL (140-400) Neutrophils (%) (Auto) 85 % (31-73) Lymphocytes (%) (Auto) 3 % (24-48) Monocytes (%) (Auto) 10 % (0-9) Eosinophils (%) (Auto) 1 % (0-3) Basophils (%) (Auto) 2 % (0-3) Neutrophils # (Auto) 9.2 x10^3uL (1.8-7.7) Lymphocytes # (Auto) 0.3 x10^3/uL (1.0-4.8) Monocytes # (Auto) 1.1 x10^3/uL (0.0-1.1) Eosinophils # (Auto) 0.1 x10^3/uL (0.0-0.7) Basophils # (Auto) 0.2 x10^3/uL (0.0-0.2) Sodium Level 140 mmol/L (136-145) Potassium Level 4.9 mmol/L (3.5-5.1) Chloride Level 106 mmol/L (98-107) Carbon Dioxide Level 26 mmol/L (21-32) Anion Gap 8 (6-14) Blood Urea Nitrogen 21 mg/dL (8-26) Creatinine 1.1 mg/dL (0.7-1.3) Estimated GFR (Cockcroft-Gault) 65.3 Glucose Level 134 mg/dL (70-99) Calcium Level 8.2 mg/dL (8.5-10.1) Test 03/05/17 17:12 Glucose (Fingerstick) 121 mg/dL (70-99) Laboratory Tests Test 03/04/17 20:44 03/05/17 04:05 03/05/17 08:11 03/05/17 11:55 Glucose (Fingerstick) 132 mg/dL (70-99) 120 mg/dL (70-99) 116 mg/dL (70-99) White Blood Count 10.8 x10^3/uL (4.0-11.0) Red Blood Count 2.50 x10^6/uL (4.30-5.70) Hemoglobin 7.4 g/dL (13.0-17.5) Hematocrit 22.2 % (39.0-53.0) Mean Corpuscular Volume 89 fL (79-100) Mean Corpuscular Hemoglobin 30 pg (25-35) Mean Corpuscular Hemoglobin Concent 33 g/dL (31-37) Red Cell Distribution Width 17.7 % (11.5-14.5) Platelet Count 459 x10^3/uL (140-400) Neutrophils (%) (Auto) 85 % (31-73) Lymphocytes (%) (Auto) 3 % (24-48) Monocytes (%) (Auto) 10 % (0-9) Eosinophils (%) (Auto) 1 % (0-3) Basophils (%) (Auto) 2 % (0-3) Neutrophils # (Auto) 9.2 x10^3uL (1.8-7.7) Lymphocytes # (Auto) 0.3 x10^3/uL (1.0-4.8) Monocytes # (Auto) 1.1 x10^3/uL (0.0-1.1) Eosinophils # (Auto) 0.1 x10^3/uL (0.0-0.7) Basophils # (Auto) 0.2 x10^3/uL (0.0-0.2) Sodium Level 140 mmol/L (136-145) Potassium Level 4.9 mmol/L (3.5-5.1) Chloride Level 106 mmol/L (98-107) Carbon Dioxide Level 26 mmol/L (21-32) Anion Gap 8 (6-14) Blood Urea Nitrogen 21 mg/dL (8-26) Creatinine 1.1 mg/dL (0.7-1.3) Estimated GFR (Cockcroft-Gault) 65.3 Glucose Level 134 mg/dL (70-99) Calcium Level 8.2 mg/dL (8.5-10.1) Test 03/05/17 17:12 Glucose (Fingerstick) 121 mg/dL (70-99) Medications Active Scripts Medications Dose Route/Sig Max Daily Dose Days Date Category Dose Instructions Gleevec (Imatinib Mesylate) 400 Mg Tablet 400 Mg PO DAILY 03/02/17 Reported Ramipril 2.5 Mg Capsule 20 Mg PO DAILY 03/02/17 Reported Multaq (Dronedarone Hcl) 400 Mg Tablet 200 Mg PO BID 03/02/17 Reported Klor-Con M20 (Potassium Chloride) 20 Meq Tab.er.prt 1 Tab PO DAILY 01/16/17 Reported Lasix (Furosemide) 20 Mg Tablet 1 Tab PO DAILY 01/16/17 Reported Allopurinol 300 Mg Tablet 1 Tab PO DAILY 01/16/17 Reported Plavix (Clopidogrel Bisulfate) 75 Mg Tablet 75 Mg PO DAILY 10/05/15 Reported Gabapentin 800 Mg Tablet 800 Mg PO QID 01/19/15 Reported Nitrostat (Nitroglycerin) 0.4 Mg Tab.subl 0.4 Mg SL PRN Q5MIN PRN 09/09/14 Rx [Metoprolol Tartrate] 25 MG Tablet 12.5 Mg PO BID 09/09/14 Rx [Aspirin] 81 MG Tablet.dr 81 Mg PO DAILYWBKFT 09/09/14 Rx Metformin Hcl 1,000 Mg Tablet 1 Tab PO BID 09/07/14 Reported Do not resume until 10/07/15 evening dose Impression . 1. Acute hypoxemic respiratory failure 2. Progressive dyspnea, suspect secondary to underlying cardiomyopathy with ejection fraction of 30-35%, 3. Chronic kidney disease. 4. Elevated BNP. 5. Coronary artery disease. Recent Cath 03/04 no significant blockages 6. Leukocytosis, suspect reactive, doubt infectious. CARDIAC CATH . Right and left heart catheterization yesterday showed orally mild pulmonary hypertension, normal pulmonary capillary wedge pressure, no evidence of intracardiac shunt, nonobstructive RCA stenosis with patent previously placed stent. CT CHEST 1. Mild mediastinal and bilateral hilar lymphadenopathy similar to prior exam. 2. Diffuse coronary artery calcifications. 3. Faint groundglass airspace opacities identified in the bilateral lungs with groundglass infiltrates or mild edema. 4. Mild bilateral bronchiectasis. 4. 6 mm pulmonary nodule identified in the right lower lobe of the lung. Follow-up CT in 3 months is recommended. 5. Few gallstones again identified. Plan . V/Q SCAN REVIEWED NO PE/ CT CHEST REVIEWED NEEDS REPEAT CT IN 3-4 MONTHS CRACKLES ON EXAM SEC TO EDEMA SUSPECT DYSPNEA MULTIFACTORIAL IN NATURE CONTINUE 02 FOLLOW CARD INPUT 6 MIN WALK PRIOR TO D/C KHRIS BAUER MD Mar 05, 2017 17:38
[2017-03-05 19:25] VITALS: BP 112/56
[2017-03-05 23:00] VITALS: BP 108/52
[2017-03-06] VITALS (16 sets, daily range): BP systolic 105–149; BP diastolic 46–68
[2017-03-06 05:30] LABS: BASO # 0.2 x10^3/uL (0.0-0.2); BASO % 2 % (0-3); EOS % 1 % (0-3); HEMATOCRIT 21.4 % (39.0-53.0); HEMOGLOBIN 7.4 g/dL (13.0-17.5); LYMPH # 0.3 x10^3/uL (1.0-4.8); LYMPH % 3 % (24-48); MEAN CORPUSCULAR HEMOGLOBIN 30 pg (25-35); MEAN CORPUSCULAR HGB CONC 35 g/dL (31-37); MEAN CORPUSCULAR VOLUME 87 fL (79-100); MONO % 11 % (0-9); NEUT % 83 % (31-73); PLATELET COUNT 484 x10^3/uL (140-400); RED BLOOD COUNT 2.46 x10^6/uL (4.30-5.70); RED CELL DISTRIBUTION WIDTH 17.7 % (11.5-14.5); WHITE BLOOD COUNT 9.8 x10^3/uL (4.0-11.0)
[2017-03-06] MEDS: HEPARIN PF for SUB-Q USE 5,000 UNIT/0.5 ML VIAL. SQ SCH ×3 (06:00→23:18)
[2017-03-06 06:01] LABS: CALCIUM 8.3 mg/dL (8.5-10.1); CREATININE 1.1 mg/dL (0.7-1.3); GFR 65.3; POTASSIUM 4.5 mmol/L (3.5-5.1)
[2017-03-06] MEDS: INSULIN ASPART 300 UNITS/3 ML INSULN.PEN SQ SCH ×3 (08:00→17:00)
[2017-03-06] MEDS: IPRATRPIUM/ALBUTEROL 0.5/2.5MG 3 ML NEBU. NEB SCH ×4 (08:10→19:37)
[2017-03-06] MEDS: POTASSIUM CHLORIDE 20 MEQ TABLET.ER. PO SCH (08:44)
[2017-03-06] MEDS: DRONEDARONE HCL 400 MG TABLET PO SCH (08:44)
[2017-03-06] MEDS: ASPIRIN ENTERIC COATED 81 MG TABLET.DR. PO SCH (08:44)
[2017-03-06] MEDS: ALLOPURINOL 300 MG TABLET. PO SCH (08:44)
[2017-03-06] MEDS: METOPROLOL TART IMMED RELEASE 25 MG TABLET. PO SCH ×2 (08:45→21:31)
[2017-03-06] MEDS: FLUoxetine HCL 20 MG CAPSULE PO SCH (08:45)
[2017-03-06] MEDS: DOXYCYCLINE HYCLATE 100 MG TABLET PO SCH ×2 (08:45→21:29)
[2017-03-06] MEDS: LISINOPRIL 40 MG TABLET. PO SCH (08:47)
[2017-03-06] MEDS: FUROSEMIDE 20 MG/2 ML VIAL. IVP SCH (08:48)
[2017-03-06] MEDS: GABAPENTIN 400 MG CAPSULE. PO SCH ×5 (08:48→21:29)
[2017-03-06] MEDS: CLOPIDOGREL BISULFATE 75 MG TABLET PO SCH (08:48)
[2017-03-06] MEDS: NON FORMULARY ITEM (Imatinib Mesylate (Gleevec) 400 MG) PO SCH (09:00)
[2017-03-06] MEDS: ACETAMINOPHEN 325 MG TABLET. PO SCH ×4 (09:00→21:00)
--- NOTE | 2017-03-06 09:12 | PDOC ---
PROGRESS NOTES Subjective Subjective c/c - f/u of CML ROS - still has dyspnea Objective Objective Vital Signs Date Time Temp Pulse Resp B/P (MAP) Pulse Ox O2 Delivery O2 Flow Rate FiO2 03/06/17 08:47 77 115/52 03/06/17 08:12 96 Nasal Cannula 3.0 03/06/17 07:50 98.2 21 98.2 Intake and Output 03/07/17 07:00 Intake Total 240 ml Balance 240 ml Intake Oral 240 ml Physical Exam Heart: Normal S1, Normal S2 General: Alert, Oriented X3 Neuro: Normal speech Psych/Mental Status: Mental status NL Assessment Assessment Problems Medical Problems: (1) CHF (congestive heart failure) Status: Acute (2) Hypoxia Status: Acute (3) Shortness of breath Status: Acute Assessment/Plan Impression/Plan: 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 If needed will switch to tasigna in future if CHF continues to be an ongoing issue. Multifactorial anemia - Hb worse at 7.3, in view of CHF transfuse 1 unit PRBC and give lasix 20 mg after PRBC. RUL pulmonary nodule CHF - Hypoxic respiratory failure - appreciate cardiology input. Ischemic CM I d/w RN Comment Review of Relevant I have reviewed the following items ce (where applicable) has been applied. Labs Laboratory Tests Test 03/04/17 12:15 03/04/17 17:17 03/04/17 20:44 03/05/17 04:05 Glucose (Fingerstick) 111 mg/dL (70-99) 184 mg/dL (70-99) 132 mg/dL (70-99) White Blood Count 10.8 x10^3/uL (4.0-11.0) Red Blood Count 2.50 x10^6/uL (4.30-5.70) Hemoglobin 7.4 g/dL (13.0-17.5) Hematocrit 22.2 % (39.0-53.0) Mean Corpuscular Volume 89 fL (79-100) Mean Corpuscular Hemoglobin 30 pg (25-35) Mean Corpuscular Hemoglobin Concent 33 g/dL (31-37) Red Cell Distribution Width 17.7 % (11.5-14.5) Platelet Count 459 x10^3/uL (140-400) Neutrophils (%) (Auto) 85 % (31-73) Lymphocytes (%) (Auto) 3 % (24-48) Monocytes (%) (Auto) 10 % (0-9) Eosinophils (%) (Auto) 1 % (0-3) Basophils (%) (Auto) 2 % (0-3) Neutrophils # (Auto) 9.2 x10^3uL (1.8-7.7) Lymphocytes # (Auto) 0.3 x10^3/uL (1.0-4.8) Monocytes # (Auto) 1.1 x10^3/uL (0.0-1.1) Eosinophils # (Auto) 0.1 x10^3/uL (0.0-0.7) Basophils # (Auto) 0.2 x10^3/uL (0.0-0.2) Sodium Level 140 mmol/L (136-145) Potassium Level 4.9 mmol/L (3.5-5.1) Chloride Level 106 mmol/L (98-107) Carbon Dioxide Level 26 mmol/L (21-32) Anion Gap 8 (6-14) Blood Urea Nitrogen 21 mg/dL (8-26) Creatinine 1.1 mg/dL (0.7-1.3) Estimated GFR (Cockcroft-Gault) 65.3 Glucose Level 134 mg/dL (70-99) Calcium Level 8.2 mg/dL (8.5-10.1) Test 03/05/17 08:11 03/05/17 11:55 03/05/17 17:12 03/05/17 20:52 Glucose (Fingerstick) 120 mg/dL (70-99) 116 mg/dL (70-99) 121 mg/dL (70-99) 158 mg/dL (70-99) Test 03/06/17 04:30 03/06/17 07:50 White Blood Count 9.8 x10^3/uL (4.0-11.0) Red Blood Count 2.46 x10^6/uL (4.30-5.70) Hemoglobin 7.4 g/dL (13.0-17.5) Hematocrit 21.4 % (39.0-53.0) Mean Corpuscular Volume 87 fL (79-100) Mean Corpuscular Hemoglobin 30 pg (25-35) Mean Corpuscular Hemoglobin Concent 35 g/dL (31-37) Red Cell Distribution Width 17.7 % (11.5-14.5) Platelet Count 484 x10^3/uL (140-400) Neutrophils (%) (Auto) 83 % (31-73) Lymphocytes (%) (Auto) 3 % (24-48) Monocytes (%) (Auto) 11 % (0-9) Eosinophils (%) (Auto) 1 % (0-3) Basophils (%) (Auto) 2 % (0-3) Neutrophils # (Auto) 8.1 x10^3uL (1.8-7.7) Lymphocytes # (Auto) 0.3 x10^3/uL (1.0-4.8) Monocytes # (Auto) 1.1 x10^3/uL (0.0-1.1) Eosinophils # (Auto) 0.1 x10^3/uL (0.0-0.7) Basophils # (Auto) 0.2 x10^3/uL (0.0-0.2) Sodium Level 139 mmol/L (136-145) Potassium Level 4.5 mmol/L (3.5-5.1) Chloride Level 105 mmol/L (98-107) Carbon Dioxide Level 27 mmol/L (21-32) Anion Gap 7 (6-14) Blood Urea Nitrogen 22 mg/dL (8-26) Creatinine 1.1 mg/dL (0.7-1.3) Estimated GFR (Cockcroft-Gault) 65.3 Glucose Level 135 mg/dL (70-99) Calcium Level 8.3 mg/dL (8.5-10.1) Glucose (Fingerstick) 129 mg/dL (70-99) Laboratory Tests Test 03/05/17 11:55 03/05/17 17:12 03/05/17 20:52 03/06/17 04:30 Glucose (Fingerstick) 116 mg/dL (70-99) 121 mg/dL (70-99) 158 mg/dL (70-99) White Blood Count 9.8 x10^3/uL (4.0-11.0) Red Blood Count 2.46 x10^6/uL (4.30-5.70) Hemoglobin 7.4 g/dL (13.0-17.5) Hematocrit 21.4 % (39.0-53.0) Mean Corpuscular Volume 87 fL (79-100) Mean Corpuscular Hemoglobin 30 pg (25-35) Mean Corpuscular Hemoglobin Concent 35 g/dL (31-37) Red Cell Distribution Width 17.7 % (11.5-14.5) Platelet Count 484 x10^3/uL (140-400) Neutrophils (%) (Auto) 83 % (31-73) Lymphocytes (%) (Auto) 3 % (24-48) Monocytes (%) (Auto) 11 % (0-9) Eosinophils (%) (Auto) 1 % (0-3) Basophils (%) (Auto) 2 % (0-3) Neutrophils # (Auto) 8.1 x10^3uL (1.8-7.7) Lymphocytes # (Auto) 0.3 x10^3/uL (1.0-4.8) Monocytes # (Auto) 1.1 x10^3/uL (0.0-1.1) Eosinophils # (Auto) 0.1 x10^3/uL (0.0-0.7) Basophils # (Auto) 0.2 x10^3/uL (0.0-0.2) Sodium Level 139 mmol/L (136-145) Potassium Level 4.5 mmol/L (3.5-5.1) Chloride Level 105 mmol/L (98-107) Carbon Dioxide Level 27 mmol/L (21-32) Anion Gap 7 (6-14) Blood Urea Nitrogen 22 mg/dL (8-26) Creatinine 1.1 mg/dL (0.7-1.3) Estimated GFR (Cockcroft-Gault) 65.3 Glucose Level 135 mg/dL (70-99) Calcium Level 8.3 mg/dL (8.5-10.1) Test 03/06/17 07:50 Glucose (Fingerstick) 129 mg/dL (70-99) Medications Current Medications Albuterol/ Ipratropium (Duoneb) 3 ml 1X ONCE NEB Last administered on t 12:21; Start 03/02/17 at 12:00; Stop 03/02/17 at 12:01; Status DC Ondansetron HCl (Zofran) 4 mg PRN Q8HRS PRN IV NAUSEA/VOMITING; Start 03/02/17 at 13:15; Stop 03/03/17 at 13:14; Status DC Albuterol/ Ipratropium (Duoneb) 3 ml RTQID NEB Last administered on 03/03/17 13 :51; Start 03/02/17 at 16:00; Stop 03/03/17 at 15:59; Status DC Acetaminophen (Tylenol) 650 mg PRN Q6HRS PRN PO FEVER Last administered on 00:53; Start 03/02/17 at 14:15 Ondansetron HCl (Zofran) 4 mg PRN Q6HRS PRN IV NAUSEA/VOMITING; Start 03/02/17 at 14:15 Morphine Sulfate 2 mg PRN Q2HR PRN IV PAIN; Start 03/02/17 at 14:15; Stop at 17:04; Status DC Tramadol HCl (Ultram) 50 mg PRN Q6HRS PRN PO PAIN; Start 03/02/17 at 14:15 Hydralazine HCl (Apresoline) 10 mg PRN Q4HRS PRN IVP ELEVATED BP, SEE COMMENTS ; Start 03/02/17 at 14:15 Docusate Sodium (Colace) 100 mg PRN DAILY PRN PO CONSTIPATION; Start 03/02/17 at 14:15 Furosemide (Lasix) 40 mg 1X ONCE PO ; Start 03/02/17 at 14:15; Stop 03/02/17 at 14:18; Status DC Allopurinol (Zyloprim) 300 mg DAILY PO Last administered on 03/06/17 08:44; Start 03/03/17 at 09:00 Clopidogrel Bisulfate (Plavix) 75 mg DAILY PO Last administered on 03/06/17 08: 48; Start 03/03/17 at 09:00 Dronedarone (Multaq) 400 mg DAILY16 PO ; Start 03/02/17 at 16:00; Status Cancel Nitroglycerin (Nitrostat) 0.4 mg PRN Q5MIN PRN SL CHEST PAIN; Start 03/02/17 at 14:15; Stop 03/04/17 at 13:07; Status DC Potassium Chloride (Klor-Con) 20 meq DAILY PO Last administered on 03/06/17 08: 44; Start 03/03/17 at 09:00 Sacubitril/ Valsartan (Entresto 49 Mg-51 Mg) 1 tab BID PO ; Start 03/02/17 at 21: 00; Stop 03/02/17 at 21:00; Status DC Metoprolol Tartrate (Lopressor) 12.5 mg BID PO Last administered on 03/06/17 08 :45; Start 03/02/17 at 21:00 Furosemide (Lasix) 40 mg DAILY PO ; Start 03/03/17 at 09:00; Stop 03/03/17 at 09: 00; Status DC Furosemide (Lasix) 20 mg 1X ONCE IVP Last administered on 03/02/17 16:43; Start 03/02/17 at 15:30; Stop 03/02/17 at 15:31; Status DC Heparin Sodium (Porcine) (Heparin Sq) 5,000 unit Q8HRS SQ Last administered on 03/06/17 06:00; Start 03/02/17 at 22:00 Insulin Aspart (NovoLOG) 0-9 UNITS TIDWMEALS SQ Last administered on 03/04/17 17:40; Start 03/02/17 at 17:00 Dextrose (Dextrose 50%-Water Syringe) 12.5 gm PRN Q15MIN PRN IV SEE COMMENTS; Start 03/02/17 at 14:30 Furosemide (Lasix) 20 mg DAILY IVP Last administered on 03/06/17 08:48; Start 03/03/17 at 09:00 Aspirin (Ecotrin) 81 mg DAILYWBKFT PO Last administered on 03/06/17 08:44; Start 03/03/17 at 08:00 Dronedarone (Multaq) 200 mg BID PO ; Start 03/02/17 at 21:00; Status Cancel Lisinopril (Prinivil) 40 mg DAILY PO Last administered on 03/06/17 08:47; Start 03/03/17 at 09:00 Non-Formulary Medication 400 mg DAILY PO ; Start 03/03/17 at 09:00; Status UNV Dronedarone (Multaq) 400 mg DAILY PO Last administered on 03/06/17 08:44; Start 03/03/17 at 09:00 Gabapentin (Neurontin) 800 mg QID PO Last administered on 03/06/17 08:48; Start 03/03/17 at 10:00 Acetaminophen (Tylenol) 325 mg QID PO Last administered on 03/05/17 21:24; Start 03/03/17 at 09:45 Albuterol Sulfate (Ventolin Neb Soln) 2.5 mg RTQID NEB Last administered on 03/04 08:11; Start 03/04/17 at 08:00; Stop 03/04/17 at 08:24; Status DC Albuterol Sulfate (Ventolin Neb Soln) 2.5 mg PRN Q2HRS PRN NEB SHORTNESS OF BREATH; Start 03/04/17 at 08:00 Doxycycline Hyclate (Vibra-Tab) 100 mg BID PO Last administered on 03/06/17 08: 45; Start 03/04/17 at 09:00 Albuterol/ Ipratropium (Duoneb) 3 ml RTQID NEB Last administered on 03/06/17 08 :10; Start 03/04/17 at 12:00 Iohexol (Omnipaque 300 Mg/ml) 100 ml STK-MED ONCE .ROUTE ; Start 03/04/17 at 10: 05; Stop 03/04/17 at 10:06; Status DC Heparin Sodium/ Sodium Chloride 500 ml @ As Directed STK-MED ONCE .ROUTE ; Start 03/04/17 at 10:05; Stop 03/04/17 at 10:06; Status DC Lidocaine HCl 20 ml STK-MED ONCE .ROUTE ; Start 03/04/17 at 10:05; Stop 03/04/17 at 10:06; Status DC Heparin Sodium/ Sodium Chloride 1,000 unit 1X ONCE IART Last administered on 11:39; Start 03/04/17 at 10:45; Stop 03/04/17 at 10:58; Status DC Heparin Sodium/ Sodium Chloride 1,000 unit 1X ONCE IART Last administered on 11:39; Start 03/04/17 at 10:45; Stop 03/04/17 at 10:58; Status DC Midazolam HCl (Versed) 2 mg 1X ONCE IV Last administered on 03/04/17 11:40; Start 03/04/17 at 10:45; Stop 03/04/17 at 10:58; Status DC Fentanyl Citrate (Fentanyl 2ml Vial) 100 mcg 1X ONCE IV Last administered on 11:40; Start 03/04/17 at 10:45; Stop 03/04/17 at 10:58; Status DC Iohexol (Omnipaque 300 Mg/ml) 100 ml 1X ONCE IART Last administered on 11:39; Start 03/04/17 at 10:45; Stop 03/04/17 at 10:58; Status DC Lidocaine HCl 20 ml 1X ONCE IJ Last administered on 03/04/17 11:39; Start 03/04 at 10:45; Stop 03/04/17 at 10:58; Status DC Heparin Sodium (Porcine) (Heparin Sodium) 5,000 unit 1X ONCE IV Last administered on 03/04/17 11:54; Start 03/04/17 at 11:14; Stop 03/04/17 at 11:41; Status DC Adenosine 90 mg/ Sodium Chloride 120 ml @ 504 mls/hr 1X ONCE IV ; Start at 11:29; Stop 03/04/17 at 11:43; Status Cancel Adenosine 180 mg/ Sodium Chloride 90 ml @ 1,080 mls/hr 1X ONCE IV ; Start 03/04 at 12:00; Stop 03/04/17 at 12:04; Status Cancel Adenosine 180 mg/ Sodium Chloride 150 ml @ 504 mls/hr 1X ONCE IV Last administered on 03/04/17 11:53; Start 03/04/17 at 12:00; Stop 03/04/17 at 12:17; Status DC Nitroglycerin (Nitrostat) 0.4 mg PRN Q5MIN PRN SL CHEST PAIN; Start 03/04/17 at 13:00 Fluoxetine HCl (PROzac) 20 mg DAILY PO Last administered on 03/06/17 08:45; Start 03/04/17 at 17:00 Iohexol (Omnipaque 300 Mg/ml) 60 ml 1X ONCE IV Last administered on 03/05/17 08:00; Start 03/05/17 at 05:30; Stop 03/05/17 at 05:31; Status DC Info (Do NOT chart on this entry -- for MONITORING) 1 each PRN DAILY PRN MC SEE COMMENTS; Start 03/05/17 at 05:15; Stop 03/07/17 at 05:14 Promethazine HCl/ Codeine (Phenergan With Codeine) 10 ml QID PO Last administered on 03/05/17t 13:49; Start 03/05/17 at 13:00; Stop 03/05/17 at 16:09; Status DC Promethazine HCl/ Codeine (Phenergan With Codeine) 10 ml PRN Q8HRS PRN PO COUGH ; Start 03/06/17 at 13:00 Furosemide (Lasix) 20 mg 1X ONCE IVP ; Start 03/06/17 at 09:15; Stop 03/06/17 at 09:16; Status UNV Active Scripts Active Nitrostat (Nitroglycerin) 0.4 Mg Tab.subl 0.4 Mg SL PRN Q5MIN PRN [Metoprolol Tartrate] 25 MG Tablet 12.5 Mg PO BID [Aspirin] 81 MG Tablet.dr 81 Mg PO DAILYWBKFT Reported Multaq (Dronedarone Hcl) 400 Mg Tablet 400 Mg PO Gleevec (Imatinib Mesylate) 400 Mg Tablet 400 Mg PO DAILY Ramipril 2.5 Mg Capsule 20 Mg PO DAILY Klor-Con M20 (Potassium Chloride) 20 Meq Tab.er.prt 1 Tab PO DAILY Lasix (Furosemide) 20 Mg Tablet 1 Tab PO DAILY Allopurinol 300 Mg Tablet 1 Tab PO DAILY Plavix (Clopidogrel Bisulfate) 75 Mg Tablet 75 Mg PO DAILY Gabapentin 800 Mg Tablet 800 Mg PO QID Metformin Hcl 1,000 Mg Tablet 1 Tab PO BID Do not resume until 10/07/15 evening dose Vitals/I & O Vital Sign - Last 24 Hours 03/05/17 03/05/17 03/05/17 03/05/17 09:40 09:41 10:16 12:13 Temp 98.6 98.6 Pulse 78 78 76 Resp 22 B/P (MAP) 117/55 117/55 123/59 (80) Pulse Ox 95 99 O2 Delivery Nasal Cannula Nasal Cannula O2 Flow Rate 4.0 3.0 03/05/17 03/05/17 03/05/17 03/05/17 14:50 17:15 19:25 19:27 Temp 98.3 98.8 98.3 98.8 Pulse 83 80 Resp 22 20 B/P (MAP) 102/57 (72) 112/56 (74) Pulse Ox 98 97 95 93 O2 Delivery Nasal Cannula Nasal Cannula Nasal Cannula Nasal Cannula O2 Flow Rate 4.0 3.0 4.0 3.0 03/05/17 03/05/17 03/05/17 03/06/17 20:00 21:25 23:00 03:07 Temp 98.5 98.6 98.5 98.6 Pulse 80 73 75 Resp 20 22 B/P (MAP) 112/56 108/52 (70) 122/57 (78) Pulse Ox 20 92 O2 Delivery Nasal Cannula Room Air Nasal Cannula O2 Flow Rate 4.0 2.0 03/06/17 03/06/17 03/06/17 03/06/17 07:50 08:12 08:44 08:45 Temp 98.2 98.2 Pulse 77 77 77 Resp 21 B/P (MAP) 115/52 (73) 115/52 115/52 Pulse Ox 96 96 O2 Delivery Nasal Cannula Nasal Cannula O2 Flow Rate 3.0 3.0 03/06/17 08:47 Pulse 77 B/P (MAP) 115/52 Intake and Output 03/06/17 03/06/17 03/07/17 15:00 23:00 07:00 Intake Total 240 ml Balance 240 ml OSCAR WILKERSON MD Mar 06, 2017 09:12
[2017-03-06] MEDS ORDERED: FUROSEMIDE 20 MG/2 ML VIAL. IVP ONE (09:15)
--- NOTE | 2017-03-06 11:14 | PDOC ---
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 could be ILD ve infiltrates Ground glass opacities NO fevers NO doxy 100 PO BID NOT on steroids yet Hgb 7.4 today x 2 days from 8 plus To get blood per heme onc Was on lasix 20 IV apparently Dw pulmo diurese, see if improves. If no then possibly steroids and ILD w/up as OP PLAN: LAsix 40 IV daily x few days - can give today after 1 pRBC Transfuse 1 pRBC Rpt CBC prince See if improvement, possible interval CXR If not, steroids/ILD in contemplation Dw Dr. Lynch Vitals Vitals Vital Signs Date Time Temp Pulse Resp B/P (MAP) Pulse Ox O2 Delivery O2 Flow Rate FiO2 03/06/17 08:47 77 115/52 03/06/17 08:12 96 Nasal Cannula 3.0 03/06/17 07:50 98.2 21 98.2 Physical Exam General: Alert, Oriented X3 Heart: Normal S1, Normal S2 Lungs: Crackles Abdomen: Soft Extremities: No clubbing, Other (1+ pitting pedal edema) Skin: No rashes Labs LABS Laboratory Tests Test 03/05/17 11:55 03/05/17 17:12 03/05/17 20:52 03/06/17 04:30 Glucose (Fingerstick) 116 mg/dL (70-99) 121 mg/dL (70-99) 158 mg/dL (70-99) White Blood Count 9.8 x10^3/uL (4.0-11.0) Red Blood Count 2.46 x10^6/uL (4.30-5.70) Hemoglobin 7.4 g/dL (13.0-17.5) Hematocrit 21.4 % (39.0-53.0) Mean Corpuscular Volume 87 fL (79-100) Mean Corpuscular Hemoglobin 30 pg (25-35) Mean Corpuscular Hemoglobin Concent 35 g/dL (31-37) Red Cell Distribution Width 17.7 % (11.5-14.5) Platelet Count 484 x10^3/uL (140-400) Neutrophils (%) (Auto) 83 % (31-73) Lymphocytes (%) (Auto) 3 % (24-48) Monocytes (%) (Auto) 11 % (0-9) Eosinophils (%) (Auto) 1 % (0-3) Basophils (%) (Auto) 2 % (0-3) Neutrophils # (Auto) 8.1 x10^3uL (1.8-7.7) Lymphocytes # (Auto) 0.3 x10^3/uL (1.0-4.8) Monocytes # (Auto) 1.1 x10^3/uL (0.0-1.1) Eosinophils # (Auto) 0.1 x10^3/uL (0.0-0.7) Basophils # (Auto) 0.2 x10^3/uL (0.0-0.2) Sodium Level 139 mmol/L (136-145) Potassium Level 4.5 mmol/L (3.5-5.1) Chloride Level 105 mmol/L (98-107) Carbon Dioxide Level 27 mmol/L (21-32) Anion Gap 7 (6-14) Blood Urea Nitrogen 22 mg/dL (8-26) Creatinine 1.1 mg/dL (0.7-1.3) Estimated GFR (Cockcroft-Gault) 65.3 Glucose Level 135 mg/dL (70-99) Calcium Level 8.3 mg/dL (8.5-10.1) Test 03/06/17 07:50 Glucose (Fingerstick) 129 mg/dL (70-99) Review of Systems Review of Systems soa, pleuritic CP Assessment and Plan Assessmemt and Plan Problems Medical Problems: (1) CHF (congestive heart failure) Status: Acute (2) Hypoxia Status: Acute (3) Shortness of breath Status: Acute Problems: Comment Review of Relevant I have reviewed the following items ce (where applicable) has been applied. Labs Laboratory Tests Test 03/04/17 12:15 03/04/17 17:17 03/04/17 20:44 03/05/17 04:05 Glucose (Fingerstick) 111 mg/dL (70-99) 184 mg/dL (70-99) 132 mg/dL (70-99) White Blood Count 10.8 x10^3/uL (4.0-11.0) Red Blood Count 2.50 x10^6/uL (4.30-5.70) Hemoglobin 7.4 g/dL (13.0-17.5) Hematocrit 22.2 % (39.0-53.0) Mean Corpuscular Volume 89 fL (79-100) Mean Corpuscular Hemoglobin 30 pg (25-35) Mean Corpuscular Hemoglobin Concent 33 g/dL (31-37) Red Cell Distribution Width 17.7 % (11.5-14.5) Platelet Count 459 x10^3/uL (140-400) Neutrophils (%) (Auto) 85 % (31-73) Lymphocytes (%) (Auto) 3 % (24-48) Monocytes (%) (Auto) 10 % (0-9) Eosinophils (%) (Auto) 1 % (0-3) Basophils (%) (Auto) 2 % (0-3) Neutrophils # (Auto) 9.2 x10^3uL (1.8-7.7) Lymphocytes # (Auto) 0.3 x10^3/uL (1.0-4.8) Monocytes # (Auto) 1.1 x10^3/uL (0.0-1.1) Eosinophils # (Auto) 0.1 x10^3/uL (0.0-0.7) Basophils # (Auto) 0.2 x10^3/uL (0.0-0.2) Sodium Level 140 mmol/L (136-145) Potassium Level 4.9 mmol/L (3.5-5.1) Chloride Level 106 mmol/L (98-107) Carbon Dioxide Level 26 mmol/L (21-32) Anion Gap 8 (6-14) Blood Urea Nitrogen 21 mg/dL (8-26) Creatinine 1.1 mg/dL (0.7-1.3) Estimated GFR (Cockcroft-Gault) 65.3 Glucose Level 134 mg/dL (70-99) Calcium Level 8.2 mg/dL (8.5-10.1) Test 03/05/17 08:11 03/05/17 11:55 03/05/17 17:12 03/05/17 20:52 Glucose (Fingerstick) 120 mg/dL (70-99) 116 mg/dL (70-99) 121 mg/dL (70-99) 158 mg/dL (70-99) Test 03/06/17 04:30 03/06/17 07:50 White Blood Count 9.8 x10^3/uL (4.0-11.0) Red Blood Count 2.46 x10^6/uL (4.30-5.70) Hemoglobin 7.4 g/dL (13.0-17.5) Hematocrit 21.4 % (39.0-53.0) Mean Corpuscular Volume 87 fL (79-100) Mean Corpuscular Hemoglobin 30 pg (25-35) Mean Corpuscular Hemoglobin Concent 35 g/dL (31-37) Red Cell Distribution Width 17.7 % (11.5-14.5) Platelet Count 484 x10^3/uL (140-400) Neutrophils (%) (Auto) 83 % (31-73) Lymphocytes (%) (Auto) 3 % (24-48) Monocytes (%) (Auto) 11 % (0-9) Eosinophils (%) (Auto) 1 % (0-3) Basophils (%) (Auto) 2 % (0-3) Neutrophils # (Auto) 8.1 x10^3uL (1.8-7.7) Lymphocytes # (Auto) 0.3 x10^3/uL (1.0-4.8) Monocytes # (Auto) 1.1 x10^3/uL (0.0-1.1) Eosinophils # (Auto) 0.1 x10^3/uL (0.0-0.7) Basophils # (Auto) 0.2 x10^3/uL (0.0-0.2) Sodium Level 139 mmol/L (136-145) Potassium Level 4.5 mmol/L (3.5-5.1) Chloride Level 105 mmol/L (98-107) Carbon Dioxide Level 27 mmol/L (21-32) Anion Gap 7 (6-14) Blood Urea Nitrogen 22 mg/dL (8-26) Creatinine 1.1 mg/dL (0.7-1.3) Estimated GFR (Cockcroft-Gault) 65.3 Glucose Level 135 mg/dL (70-99) Calcium Level 8.3 mg/dL (8.5-10.1) Glucose (Fingerstick) 129 mg/dL (70-99) Laboratory Tests Test 03/05/17 11:55 03/05/17 17:12 03/05/17 20:52 03/06/17 04:30 Glucose (Fingerstick) 116 mg/dL (70-99) 121 mg/dL (70-99) 158 mg/dL (70-99) White Blood Count 9.8 x10^3/uL (4.0-11.0) Red Blood Count 2.46 x10^6/uL (4.30-5.70) Hemoglobin 7.4 g/dL (13.0-17.5) Hematocrit 21.4 % (39.0-53.0) Mean Corpuscular Volume 87 fL (79-100) Mean Corpuscular Hemoglobin 30 pg (25-35) Mean Corpuscular Hemoglobin Concent 35 g/dL (31-37) Red Cell Distribution Width 17.7 % (11.5-14.5) Platelet Count 484 x10^3/uL (140-400) Neutrophils (%) (Auto) 83 % (31-73) Lymphocytes (%) (Auto) 3 % (24-48) Monocytes (%) (Auto) 11 % (0-9) Eosinophils (%) (Auto) 1 % (0-3) Basophils (%) (Auto) 2 % (0-3) Neutrophils # (Auto) 8.1 x10^3uL (1.8-7.7) Lymphocytes # (Auto) 0.3 x10^3/uL (1.0-4.8) Monocytes # (Auto) 1.1 x10^3/uL (0.0-1.1) Eosinophils # (Auto) 0.1 x10^3/uL (0.0-0.7) Basophils # (Auto) 0.2 x10^3/uL (0.0-0.2) Sodium Level 139 mmol/L (136-145) Potassium Level 4.5 mmol/L (3.5-5.1) Chloride Level 105 mmol/L (98-107) Carbon Dioxide Level 27 mmol/L (21-32) Anion Gap 7 (6-14) Blood Urea Nitrogen 22 mg/dL (8-26) Creatinine 1.1 mg/dL (0.7-1.3) Estimated GFR (Cockcroft-Gault) 65.3 Glucose Level 135 mg/dL (70-99) Calcium Level 8.3 mg/dL (8.5-10.1) Test 03/06/17 07:50 Glucose (Fingerstick) 129 mg/dL (70-99) Medications Current Medications Albuterol/ Ipratropium (Duoneb) 3 ml 1X ONCE NEB Last administered on 12:21; Start 03/02/17 at 12:00; Stop 03/02/17 at 12:01; Status DC Ondansetron HCl (Zofran) 4 mg PRN Q8HRS PRN IV NAUSEA/VOMITING; Start 03/02/17 at 13:15; Stop 03/03/17 at 13:14; Status DC Albuterol/ Ipratropium (Duoneb) 3 ml RTQID NEB Last administered on 03/03/17 13 :51; Start 03/02/17 at 16:00; Stop 03/03/17 at 15:59; Status DC Acetaminophen (Tylenol) 650 mg PRN Q6HRS PRN PO FEVER Last administered on 00:53; Start 03/02/17 at 14:15 Ondansetron HCl (Zofran) 4 mg PRN Q6HRS PRN IV NAUSEA/VOMITING; Start 03/02/17 at 14:15 Morphine Sulfate 2 mg PRN Q2HR PRN IV PAIN; Start 03/02/17 at 14:15; Stop at 17:04; Status DC Tramadol HCl (Ultram) 50 mg PRN Q6HRS PRN PO PAIN; Start 03/02/17 at 14:15 Hydralazine HCl (Apresoline) 10 mg PRN Q4HRS PRN IVP ELEVATED BP, SEE COMMENTS ; Start 03/02/17 at 14:15 Docusate Sodium (Colace) 100 mg PRN DAILY PRN PO CONSTIPATION; Start 03/02/17 at 14:15 Furosemide (Lasix) 40 mg 1X ONCE PO ; Start 03/02/17 at 14:15; Stop 03/02/17 at 14:18; Status DC Allopurinol (Zyloprim) 300 mg DAILY PO Last administered on 03/06/17 08:44; Start 03/03/17 at 09:00 Clopidogrel Bisulfate (Plavix) 75 mg DAILY PO Last administered on 03/06/17 08: 48; Start 03/03/17 at 09:00 Dronedarone (Multaq) 400 mg DAILY16 PO ; Start 03/02/17 at 16:00; Status Cancel Nitroglycerin (Nitrostat) 0.4 mg PRN Q5MIN PRN SL CHEST PAIN; Start 03/02/17 at 14:15; Stop 03/04/17 at 13:07; Status DC Potassium Chloride (Klor-Con) 20 meq DAILY PO Last administered on 03/06/17 08: 44; Start 03/03/17 at 09:00 Sacubitril/ Valsartan (Entresto 49 Mg-51 Mg) 1 tab BID PO ; Start 03/02/17 at 21: 00; Stop 03/02/17 at 21:00; Status DC Metoprolol Tartrate (Lopressor) 12.5 mg BID PO Last administered on 03/06/17 08 :45; Start 03/02/17 at 21:00 Furosemide (Lasix) 40 mg DAILY PO ; Start 03/03/17 at 09:00; Stop 03/03/17 at 09: 00; Status DC Furosemide (Lasix) 20 mg 1X ONCE IVP Last administered on 03/02/17 16:43; Start 03/02/17 at 15:30; Stop 03/02/17 at 15:31; Status DC Heparin Sodium (Porcine) (Heparin Sq) 5,000 unit Q8HRS SQ Last administered on 03/06/17 06:00; Start 03/02/17 at 22:00 Insulin Aspart (NovoLOG) 0-9 UNITS TIDWMEALS SQ Last administered on 03/04/17 17:40; Start 03/02/17 at 17:00 Dextrose (Dextrose 50%-Water Syringe) 12.5 gm PRN Q15MIN PRN IV SEE COMMENTS; Start 03/02/17 at 14:30 Furosemide (Lasix) 20 mg DAILY IVP Last administered on 03/06/17 08:48; Start 03/03/17 at 09:00; Stop 03/06/17 at 10:54; Status DC Aspirin (Ecotrin) 81 mg DAILYWBKFT PO Last administered on 03/06/17 08:44; Start 03/03/17 at 08:00 Dronedarone (Multaq) 200 mg BID PO ; Start 03/02/17 at 21:00; Status Cancel Lisinopril (Prinivil) 40 mg DAILY PO Last administered on 03/06/17 08:47; Start 03/03/17 at 09:00 Non-Formulary Medication 400 mg DAILY PO ; Start 03/03/17 at 09:00; Status UNV Dronedarone (Multaq) 400 mg DAILY PO Last administered on 03/06/17 08:44; Start 03/03/17 at 09:00 Gabapentin (Neurontin) 800 mg QID PO Last administered on 03/06/17 08:48; Start 03/03/17 at 10:00 Acetaminophen (Tylenol) 325 mg QID PO Last administered on 03/05/17 21:24; Start 03/03/17 at 09:45 Albuterol Sulfate (Ventolin Neb Soln) 2.5 mg RTQID NEB Last administered on 03/04 08:11; Start 03/04/17 at 08:00; Stop 03/04/17 at 08:24; Status DC Albuterol Sulfate (Ventolin Neb Soln) 2.5 mg PRN Q2HRS PRN NEB SHORTNESS OF BREATH; Start 03/04/17 at 08:00 Doxycycline Hyclate (Vibra-Tab) 100 mg BID PO Last administered on 03/06/17 08: 45; Start 03/04/17 at 09:00 Albuterol/ Ipratropium (Duoneb) 3 ml RTQID NEB Last administered on 03/06/17 08 :10; Start 03/04/17 at 12:00 Iohexol (Omnipaque 300 Mg/ml) 100 ml STK-MED ONCE .ROUTE ; Start 03/04/17 at 10: 05; Stop 03/04/17 at 10:06; Status DC Heparin Sodium/ Sodium Chloride 500 ml @ As Directed STK-MED ONCE .ROUTE ; Start 03/04/17 at 10:05; Stop 03/04/17 at 10:06; Status DC Lidocaine HCl 20 ml STK-MED ONCE .ROUTE ; Start 03/04/17 at 10:05; Stop 03/04/17 at 10:06; Status DC Heparin Sodium/ Sodium Chloride 1,000 unit 1X ONCE IART Last administered on 11:39; Start 03/04/17 at 10:45; Stop 03/04/17 at 10:58; Status DC Heparin Sodium/ Sodium Chloride 1,000 unit 1X ONCE IART Last administered on 11:39; Start 03/04/17 at 10:45; Stop 03/04/17 at 10:58; Status DC Midazolam HCl (Versed) 2 mg 1X ONCE IV Last administered on 03/04/17 11:40; Start 03/04/17 at 10:45; Stop 03/04/17 at 10:58; Status DC Fentanyl Citrate (Fentanyl 2ml Vial) 100 mcg 1X ONCE IV Last administered on 11:40; Start 03/04/17 at 10:45; Stop 03/04/17 at 10:58; Status DC Iohexol (Omnipaque 300 Mg/ml) 100 ml 1X ONCE IART Last administered on 11:39; Start 03/04/17 at 10:45; Stop 03/04/17 at 10:58; Status DC Lidocaine HCl 20 ml 1X ONCE IJ Last administered on 03/04/17 11:39; Start 03/04 at 10:45; Stop 03/04/17 at 10:58; Status DC Heparin Sodium (Porcine) (Heparin Sodium) 5,000 unit 1X ONCE IV Last administered on 03/04/17 11:54; Start 03/04/17 at 11:14; Stop 03/04/17 at 11:41; Status DC Adenosine 90 mg/ Sodium Chloride 120 ml @ 504 mls/hr 1X ONCE IV ; Start at 11:29; Stop 03/04/17 at 11:43; Status Cancel Adenosine 180 mg/ Sodium Chloride 90 ml @ 1,080 mls/hr 1X ONCE IV ; Start 03/04 at 12:00; Stop 03/04/17 at 12:04; Status Cancel Adenosine 180 mg/ Sodium Chloride 150 ml @ 504 mls/hr 1X ONCE IV Last administered on 03/04/17 11:53; Start 03/04/17 at 12:00; Stop 03/04/17 at 12:17; Status DC Nitroglycerin (Nitrostat) 0.4 mg PRN Q5MIN PRN SL CHEST PAIN; Start 03/04/17 at 13:00 Fluoxetine HCl (PROzac) 20 mg DAILY PO Last administered on 03/06/17 08:45; Start 03/04/17 at 17:00 Iohexol (Omnipaque 300 Mg/ml) 60 ml 1X ONCE IV Last administered on 03/05/17 08:00; Start 03/05/17 at 05:30; Stop 03/05/17 at 05:31; Status DC Info (Do NOT chart on this entry -- for MONITORING) 1 each PRN DAILY PRN MC SEE COMMENTS; Start 03/05/17 at 05:15; Stop 03/07/17 at 05:14 Promethazine HCl/ Codeine (Phenergan With Codeine) 10 ml QID PO Last administered on 03/05/17 13:49; Start 03/05/17 at 13:00; Stop 03/05/17 at 16:09; Status DC Promethazine HCl/ Codeine (Phenergan With Codeine) 10 ml PRN Q8HRS PRN PO COUGH ; Start 03/06/17 at 13:00 Furosemide (Lasix) 20 mg 1X ONCE IVP ; Start 03/06/17 at 09:15; Stop 03/06/17 at 09:16; Status DC Furosemide (Lasix) 40 mg DAILY IVP ; Start 03/06/17 at 11:00; Stop 03/10/17 at 09: 00 Active Scripts Active Nitrostat (Nitroglycerin) 0.4 Mg Tab.subl 0.4 Mg SL PRN Q5MIN PRN [Metoprolol Tartrate] 25 MG Tablet 12.5 Mg PO BID [Aspirin] 81 MG Tablet. 81 Mg PO DAILYWBKFT Reported Multaq (Dronedarone Hcl) 400 Mg Tablet 400 Mg PO Gleevec (Imatinib Mesylate) 400 Mg Tablet 400 Mg PO DAILY Ramipril 2.5 Mg Capsule 20 Mg PO DAILY Klor-Con M20 (Potassium Chloride) 20 Meq Tab.er.prt 1 Tab PO DAILY Lasix (Furosemide) 20 Mg Tablet 1 Tab PO DAILY Allopurinol 300 Mg Tablet 1 Tab PO DAILY Plavix (Clopidogrel Bisulfate) 75 Mg Tablet 75 Mg PO DAILY Gabapentin 800 Mg Tablet 800 Mg PO QID Metformin Hcl 1,000 Mg Tablet 1 Tab PO BID Do not resume until 10/07/15 evening dose Vitals/I & O Vital Sign - Last 24 Hours 03/05/17 03/05/17 03/05/17 03/05/17 12:13 14:50 17:15 19:25 Temp 98.3 98.8 98.3 98.8 Pulse 83 80 Resp 22 20 B/P (MAP) 102/57 (72) 112/56 (74) Pulse Ox 99 98 97 95 O2 Delivery Nasal Cannula Nasal Cannula Nasal Cannula Nasal Cannula O2 Flow Rate 3.0 4.0 3.0 4.0 03/05/17 03/05/17 03/05/17 03/05/17 19:27 20:00 21:25 23:00 Temp 98.5 98.5 Pulse 80 73 Resp 20 B/P (MAP) 112/56 108/52 (70) Pulse Ox 93 20 O2 Delivery Nasal Cannula Nasal Cannula Room Air O2 Flow Rate 3.0 4.0 03/06/17 03/06/17 03/06/17 03/06/17 03:07 07:50 08:12 08:44 Temp 98.6 98.2 98.6 98.2 Pulse 75 77 77 Resp 22 21 B/P (MAP) 122/57 (78) 115/52 (73) 115/52 Pulse Ox 92 96 96 O2 Delivery Nasal Cannula Nasal Cannula Nasal Cannula O2 Flow Rate 2.0 3.0 3.0 03/06/17 03/06/17 08:45 08:47 Pulse 77 77 B/P (MAP) 115/52 115/52 Intake and Output 03/06/17 03/06/17 03/07/17 15:00 23:00 07:00 Intake Total 240 ml Balance 240 ml MAMTA SULLIVAN MD Mar 06, 2017 11:14
--- NOTE | 2017-03-06 11:16 | PDOC ---
PULMONARY PROGRESS NOTES Subjective PT HAS STILL [place] Vitals Vital Signs Date Time Temp Pulse Resp B/P (MAP) Pulse Ox O2 Delivery O2 Flow Rate FiO2 03/06/17 08:47 77 115/52 03/06/17 08:12 96 Nasal Cannula 3.0 03/06/17 07:50 98.2 21 98.2 ROS: No Nausea, No Chest Pain, No Abdominal Pain, No Increase Cough General: Alert Lungs: Crackles (bases) Cardiovascular: S1, S2 Abdomen: Soft Neuro Exam: Alert Extremities: Other (1+edema) Skin: Warm Labs Laboratory Tests Test 03/04/17 12:15 03/04/17 17:17 03/04/17 20:44 03/05/17 04:05 Glucose (Fingerstick) 111 mg/dL (70-99) 184 mg/dL (70-99) 132 mg/dL (70-99) White Blood Count 10.8 x10^3/uL (4.0-11.0) Red Blood Count 2.50 x10^6/uL (4.30-5.70) Hemoglobin 7.4 g/dL (13.0-17.5) Hematocrit 22.2 % (39.0-53.0) Mean Corpuscular Volume 89 fL (79-100) Mean Corpuscular Hemoglobin 30 pg (25-35) Mean Corpuscular Hemoglobin Concent 33 g/dL (31-37) Red Cell Distribution Width 17.7 % (11.5-14.5) Platelet Count 459 x10^3/uL (140-400) Neutrophils (%) (Auto) 85 % (31-73) Lymphocytes (%) (Auto) 3 % (24-48) Monocytes (%) (Auto) 10 % (0-9) Eosinophils (%) (Auto) 1 % (0-3) Basophils (%) (Auto) 2 % (0-3) Neutrophils # (Auto) 9.2 x10^3uL (1.8-7.7) Lymphocytes # (Auto) 0.3 x10^3/uL (1.0-4.8) Monocytes # (Auto) 1.1 x10^3/uL (0.0-1.1) Eosinophils # (Auto) 0.1 x10^3/uL (0.0-0.7) Basophils # (Auto) 0.2 x10^3/uL (0.0-0.2) Sodium Level 140 mmol/L (136-145) Potassium Level 4.9 mmol/L (3.5-5.1) Chloride Level 106 mmol/L (98-107) Carbon Dioxide Level 26 mmol/L (21-32) Anion Gap 8 (6-14) Blood Urea Nitrogen 21 mg/dL (8-26) Creatinine 1.1 mg/dL (0.7-1.3) Estimated GFR (Cockcroft-Gault) 65.3 Glucose Level 134 mg/dL (70-99) Calcium Level 8.2 mg/dL (8.5-10.1) Test 03/05/17 08:11 03/05/17 11:55 03/05/17 17:12 03/05/17 20:52 Glucose (Fingerstick) 120 mg/dL (70-99) 116 mg/dL (70-99) 121 mg/dL (70-99) 158 mg/dL (70-99) Test 03/06/17 04:30 03/06/17 07:50 White Blood Count 9.8 x10^3/uL (4.0-11.0) Red Blood Count 2.46 x10^6/uL (4.30-5.70) Hemoglobin 7.4 g/dL (13.0-17.5) Hematocrit 21.4 % (39.0-53.0) Mean Corpuscular Volume 87 fL (79-100) Mean Corpuscular Hemoglobin 30 pg (25-35) Mean Corpuscular Hemoglobin Concent 35 g/dL (31-37) Red Cell Distribution Width 17.7 % (11.5-14.5) Platelet Count 484 x10^3/uL (140-400) Neutrophils (%) (Auto) 83 % (31-73) Lymphocytes (%) (Auto) 3 % (24-48) Monocytes (%) (Auto) 11 % (0-9) Eosinophils (%) (Auto) 1 % (0-3) Basophils (%) (Auto) 2 % (0-3) Neutrophils # (Auto) 8.1 x10^3uL (1.8-7.7) Lymphocytes # (Auto) 0.3 x10^3/uL (1.0-4.8) Monocytes # (Auto) 1.1 x10^3/uL (0.0-1.1) Eosinophils # (Auto) 0.1 x10^3/uL (0.0-0.7) Basophils # (Auto) 0.2 x10^3/uL (0.0-0.2) Sodium Level 139 mmol/L (136-145) Potassium Level 4.5 mmol/L (3.5-5.1) Chloride Level 105 mmol/L (98-107) Carbon Dioxide Level 27 mmol/L (21-32) Anion Gap 7 (6-14) Blood Urea Nitrogen 22 mg/dL (8-26) Creatinine 1.1 mg/dL (0.7-1.3) Estimated GFR (Cockcroft-Gault) 65.3 Glucose Level 135 mg/dL (70-99) Calcium Level 8.3 mg/dL (8.5-10.1) Glucose (Fingerstick) 129 mg/dL (70-99) Laboratory Tests Test 03/05/17 11:55 03/05/17 17:12 03/05/17 20:52 03/06/17 04:30 Glucose (Fingerstick) 116 mg/dL (70-99) 121 mg/dL (70-99) 158 mg/dL (70-99) White Blood Count 9.8 x10^3/uL (4.0-11.0) Red Blood Count 2.46 x10^6/uL (4.30-5.70) Hemoglobin 7.4 g/dL (13.0-17.5) Hematocrit 21.4 % (39.0-53.0) Mean Corpuscular Volume 87 fL (79-100) Mean Corpuscular Hemoglobin 30 pg (25-35) Mean Corpuscular Hemoglobin Concent 35 g/dL (31-37) Red Cell Distribution Width 17.7 % (11.5-14.5) Platelet Count 484 x10^3/uL (140-400) Neutrophils (%) (Auto) 83 % (31-73) Lymphocytes (%) (Auto) 3 % (24-48) Monocytes (%) (Auto) 11 % (0-9) Eosinophils (%) (Auto) 1 % (0-3) Basophils (%) (Auto) 2 % (0-3) Neutrophils # (Auto) 8.1 x10^3uL (1.8-7.7) Lymphocytes # (Auto) 0.3 x10^3/uL (1.0-4.8) Monocytes # (Auto) 1.1 x10^3/uL (0.0-1.1) Eosinophils # (Auto) 0.1 x10^3/uL (0.0-0.7) Basophils # (Auto) 0.2 x10^3/uL (0.0-0.2) Sodium Level 139 mmol/L (136-145) Potassium Level 4.5 mmol/L (3.5-5.1) Chloride Level 105 mmol/L (98-107) Carbon Dioxide Level 27 mmol/L (21-32) Anion Gap 7 (6-14) Blood Urea Nitrogen 22 mg/dL (8-26) Creatinine 1.1 mg/dL (0.7-1.3) Estimated GFR (Cockcroft-Gault) 65.3 Glucose Level 135 mg/dL (70-99) Calcium Level 8.3 mg/dL (8.5-10.1) Test 03/06/17 07:50 Glucose (Fingerstick) 129 mg/dL (70-99) Medications Active Scripts Medications Dose Route/Sig Max Daily Dose Days Date Category Dose Instructions Gleevec (Imatinib Mesylate) 400 Mg Tablet 400 Mg PO DAILY 03/02/17 Reported Ramipril 2.5 Mg Capsule 20 Mg PO DAILY 03/02/17 Reported Multaq (Dronedarone Hcl) 400 Mg Tablet 200 Mg PO BID 03/02/17 Reported Klor-Con M20 (Potassium Chloride) 20 Meq Tab.er.prt 1 Tab PO DAILY 01/16/17 Reported Lasix (Furosemide) 20 Mg Tablet 1 Tab PO DAILY 01/16/17 Reported Allopurinol 300 Mg Tablet 1 Tab PO DAILY 01/16/17 Reported Plavix (Clopidogrel Bisulfate) 75 Mg Tablet 75 Mg PO DAILY 10/05/15 Reported Gabapentin 800 Mg Tablet 800 Mg PO QID 01/19/15 Reported Nitrostat (Nitroglycerin) 0.4 Mg Tab.subl 0.4 Mg SL PRN Q5MIN PRN 09/09/14 Rx [Metoprolol Tartrate] 25 MG Tablet 12.5 Mg PO BID 09/09/14 Rx [Aspirin] 81 MG Tablet.dr 81 Mg PO [id number] 09/09/14 Rx Metformin Hcl 1,000 Mg Tablet 1 Tab PO BID 09/07/14 Reported Do not resume until 10/07/15 evening dose Impression . 1. Acute hypoxemic respiratory failure 2. 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 Chronic kidney disease. 4. Elevated BNP. 5. Coronary artery disease. Recent Cath 03/04 no significant blockages but mildly elevated LVEDP 6. Leukocytosis, suspect reactive, doubt infectious. 7. No significant tobacco use 8. CML s/p chemo CARDIAC CATH . Right and left heart catheterization yesterday showed orally mild pulmonary hypertension, normal pulmonary capillary wedge pressure, no evidence of intracardiac shunt, nonobstructive RCA stenosis with patent previously placed stent. CT CHEST 1. Mild mediastinal and bilateral hilar lymphadenopathy similar to prior exam. 2. Diffuse coronary artery calcifications. 3. Faint ground-glass airspace opacities identified in the bilateral lungs with groundglass infiltrates or mild edema. 4. Mild bilateral bronchiectasis. 4. 6 mm pulmonary nodule identified in the right lower lobe of the lung. Follow-up CT in 3 months is recommended. 5. Few gallstones again identified. Plan . V/Q SCAN REVIEWED NO PE/ CT CHEST REVIEWED/ MILD GG INFILTRATES AND A SMALL NODULE 6MM RIGHT LUNG. NEEDS REPEAT CT IN 3-4 MONTHS CRACKLES ON EXAM SEC TO ?EDEMA VS ILD (NO SIG. INCREASE PCWP BY CATH BUT LVEDP 17) SUSPECT DYSPNEA MULTIFACTORIAL IN NATURE/ RX FOR GLEEVEC INDUCED CHF FIRST CONTINUE 02 FOLLOW CARD INPUT 6 MIN WALK PRIOR TO D/C WILL ADD TRIAL OF STEROIDS/ CHECK SED RATE D/W MUKUL ORTIZ MD Mar 06, 2017 11:16
--- NOTE | 2017-03-06 12:55 | PDOC ---
MONY WADE ASSISTANT FITNESS MANAGER 03/06/17 1255: CARDIO Progress Notes Date and Time Date of Service 03/06/17 Time of Evaluation 1115 Subjective Subjective: No Chest Pain, No Palpitations, No Dizziness, Other ([place]) Vitals Vitals Vital Signs Date Time Temp Pulse Resp B/P (MAP) Pulse Ox O2 Delivery O2 Flow Rate FiO2 03/06/17 12:02 96 Nasal Cannula 3.0 03/06/17 11:26 98.9 76 16 105/46 (65) 98.9 Weight Weight [ ] Input and Output Intake and Output Intake and Output 03/07/17 07:00 Intake Total 240 ml Balance 240 ml Intake Oral 240 ml Laboratory Labs Laboratory Tests Test 03/05/17 17:12 03/05/17 20:52 03/06/17 04:30 03/06/17 07:50 Glucose (Fingerstick) 121 mg/dL (70-99) 158 mg/dL (70-99) 129 mg/dL (70-99) White Blood Count 9.8 x10^3/uL (4.0-11.0) Red Blood Count 2.46 x10^6/uL (4.30-5.70) Hemoglobin 7.4 g/dL (13.0-17.5) Hematocrit 21.4 % (39.0-53.0) Mean Corpuscular Volume 87 fL (79-100) Mean Corpuscular Hemoglobin 30 pg (25-35) Mean Corpuscular Hemoglobin Concent 35 g/dL (31-37) Red Cell Distribution Width 17.7 % (11.5-14.5) Platelet Count 484 x10^3/uL (140-400) Neutrophils (%) (Auto) 83 % (31-73) Lymphocytes (%) (Auto) 3 % (24-48) Monocytes (%) (Auto) 11 % (0-9) Eosinophils (%) (Auto) 1 % (0-3) Basophils (%) (Auto) 2 % (0-3) Neutrophils # (Auto) 8.1 x10^3uL (1.8-7.7) Lymphocytes # (Auto) 0.3 x10^3/uL (1.0-4.8) Monocytes # (Auto) 1.1 x10^3/uL (0.0-1.1) Eosinophils # (Auto) 0.1 x10^3/uL (0.0-0.7) Basophils # (Auto) 0.2 x10^3/uL (0.0-0.2) Sodium Level 139 mmol/L (136-145) Potassium Level 4.5 mmol/L (3.5-5.1) Chloride Level 105 mmol/L (98-107) Carbon Dioxide Level 27 mmol/L (21-32) Anion Gap 7 (6-14) Blood Urea Nitrogen 22 mg/dL (8-26) Creatinine 1.1 mg/dL (0.7-1.3) Estimated GFR (Cockcroft-Gault) 65.3 Glucose Level 135 mg/dL (70-99) Calcium Level 8.3 mg/dL (8.5-10.1) Test 03/06/17 10:00 03/06/17 11:07 Erythrocyte Sedimentation Rate 38 (0-15) Glucose (Fingerstick) 150 mg/dL (70-99) Physical Exam HEENT: Neck Supple W Full Motion Chest: Symmetric LUNGS: Other (diminished bases) Heart: S1S2, RRR (intermittent paced) Abdomen: Soft N/T Extremities: Other (trace LLE and 1+ RLE pitting edema) Neurology: alert, oriented, follow commands Assessment Assessment 1. Hypoxia/Persistent dyspnea: Multifactorial. No PE. V/Q low probability and recent CTA negative. Cath without obstructive disease. Consider outpatient referral to [facility]. 2. Mild acute on chronic systolic heart failure with ICM; LVEF 30-35%. LVEDP 17 per cath. Continue diuresis. 3. CML: Continue chemotherapy per oncology team 4. AICD/BiV in situ: 100% BiV pacing recent device check 02/28/2017 with normal functioning and no treatment 5. PAFIB/SSS: was on PPM in the past and upgraded to BiV 6. CAD: PCI/CHARLI to RCA - stent patent per cardiac cath yesterday. Continue secondary prevention measures. 7. HTN: controlled 8. DM2/HLP - per MARISSA UNDERWOOD MD 03/06/172038: CARDIO Progress Notes Assessment Assessment Patient seen and examined. Agree with DENTAL APPLIANCE REPAIRER's assessment and plan. Acute on chronic systolic heart failure improving slowly Being transfused for anemia - will give extra Lasix between PRBC units We will try metolazone if diuresis inadequate CAD status stable - patent RCA stent cardiac cath We will consider outpatient referral for MONY SIMPSON APRN Mar 06, 2017 12:55 MARISSA CABRERA MD Mar 06, 2017 20:39
[2017-03-06] MEDS ORDERED: PROMETH/CODEINE 6.25/10MG 5 ML SYRUP. PO PRN (13:00)
[2017-03-06] MEDS: FUROSEMIDE 40 MG/4 ML VIAL. IVP SCH (16:41)
[2017-03-06] MEDS: predniSONE 10 MG TABLET PO SCH (17:34)
[2017-03-06] MEDS ORDERED: metOLazone 2.5 MG TABLET PO ONE (19:30)
[2017-03-06] MEDS ORDERED: FUROSEMIDE 40 MG/4 ML VIAL. IVP ONE (19:30)
--- NOTE | 2017-03-07 01:50 | ACF ---
Admission Forms Criteria HEART FAILURE: COMMON COMPLICATIONS (Place 'X' for any and all applicable criteria): Ongoing inpatient care may be indicated for heart failure with 1 or more of the following (1)(2)(3)(4)(5)(6)(7)(8): [ ]I. New-onset heart failure [ ]II. Acute cardiac ischemia causing or associated with failure [ ]III. Ongoing need for care for primary condition requiring frequent therapy adjustments because of changes in cardiac function (eg, drug dosage changes for drugs that are renally metabolized) [X ]IV. Complications of heart failure, including 1 or more of the following: [ ]a) Hemodynamic instability [ ]b) Pericardial effusion [ ]c) Symptomatic pleural effusion [ ]d) Hypoxemia [ ]e) Tachypnea [X ]f) Dyspnea [ ]g) Syncope [ ]h) Altered mental status [ ]i) Acute renal insufficiency that is severe (reduction of more than 50% in estimated glomerular filtration rate from baseline) or progressive reduction of more than 25% in estimated glomerular filtration rate from baseline, with creatinine continuing to rise) [ ]j) Debilitating anasarca (eg tissue breakdown with infection, inability to void due to edema) (E) [ ]k) Clinically significant metabolic abnormalities due to heart failure (eg, new-onset metabolic acidosis) Extended stay may be needed until ALL of the following are present (1)(3)(18)(41 )(55) [ ]a) Hemodynamic stability [ ]b) Stable and effective diuretic regimen established (or patient on stable dialysis regimen if in chronic renal failure) [ ]c) Volume status acceptable on oral medication [ ]d) Breathing comfortably at rest [ ]e) Saturation of arterial oxygen greater than 90% or at acceptable baseline [ ]f) Pulmonary edema absent or improved [ ]g) Peripheral or sacral edema absent or improved [ ]h) Renal function stable and manageable at a lower level of care [ ]i) Complications (eg, pleural effusion) resolved or manageable at a lower level of care [ ]g) Patient or caregiver has received written discharge instructions or educational material addressing activity level, diet, discharge medications, follow-up appointment, weight monitoring, and what to do if symptoms worsen.(25)(26) The original [facility] [employer] content created by [employer] has been revised. The portions of the content which have been revised are identified through the use of italic text, and [facility] has neither reviewed nor approved the modified material.All other unmodified content is copyright [facility]. Please see references footnoted in the original [facility] edition 2015 Admission Criteria Met?: Yes SUSAN PARKS Mar 07, 2017 01:50
[2017-03-07 04:12] VITALS: BP 121/65
[2017-03-07 05:06] LABS: BASO % 1 % (0-3); EOS % 0 % (0-3); HEMATOCRIT 25.5 % (39.0-53.0); HEMOGLOBIN 8.7 g/dL (13.0-17.5); LYMPH # 0.3 x10^3/uL (1.0-4.8); LYMPH % 3 % (24-48); MEAN CORPUSCULAR HEMOGLOBIN 30 pg (25-35); MEAN CORPUSCULAR HGB CONC 34 g/dL (31-37); MEAN CORPUSCULAR VOLUME 88 fL (79-100); MONO % 2 % (0-9); NEUT % 94 % (31-73); PLATELET COUNT 474 x10^3/uL (140-400); RED BLOOD COUNT 2.89 x10^6/uL (4.30-5.70); RED CELL DISTRIBUTION WIDTH 16.5 % (11.5-14.5); WHITE BLOOD COUNT 8.8 x10^3/uL (4.0-11.0)
[2017-03-07 05:42] LABS: CALCIUM 8.4 mg/dL (8.5-10.1); CREATININE 1.3 mg/dL (0.7-1.3); GFR 53.8
[2017-03-07 05:45] LABS: POTASSIUM 5.3 mmol/L (3.5-5.1)
[2017-03-07] MEDS: HEPARIN PF for SUB-Q USE 5,000 UNIT/0.5 ML VIAL. SQ SCH ×3 (06:36→21:35)
[2017-03-07 07:00] VITALS: BP 118/59
[2017-03-07] MEDS: INSULIN ASPART 300 UNITS/3 ML INSULN.PEN SQ SCH ×3 (08:00→17:00)
--- NOTE | 2017-03-07 08:13 | PDOC ---
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 If needed will switch to tasigna in future if CHF continues to be an ongoing issue. Multifactorial anemia - Hb worse at 7.3 on 03/06/17 s/p 1 unit PRBC and Hb improved to 8.7 on 03/07/17. RUL pulmonary nodule CHF - Hypoxic respiratory failure - appreciate cardiology input. Ischemic CM Comment Review of Relevant I have reviewed the following items ce (where applicable) has been applied. Labs Laboratory Tests Test 03/05/17 11:55 03/05/17 17:12 03/05/17 20:52 03/06/17 04:30 Glucose (Fingerstick) 116 mg/dL (70-99) 121 mg/dL (70-99) 158 mg/dL (70-99) White Blood Count 9.8 x10^3/uL (4.0-11.0) Red Blood Count 2.46 x10^6/uL (4.30-5.70) Hemoglobin 7.4 g/dL (13.0-17.5) Hematocrit 21.4 % (39.0-53.0) Mean Corpuscular Volume 87 fL (79-100) Mean Corpuscular Hemoglobin 30 pg (25-35) Mean Corpuscular Hemoglobin Concent 35 g/dL (31-37) Red Cell Distribution Width 17.7 % (11.5-14.5) Platelet Count 484 x10^3/uL (140-400) Neutrophils (%) (Auto) 83 % (31-73) Lymphocytes (%) (Auto) 3 % (24-48) Monocytes (%) (Auto) 11 % (0-9) Eosinophils (%) (Auto) 1 % (0-3) Basophils (%) (Auto) 2 % (0-3) Neutrophils # (Auto) 8.1 x10^3uL (1.8-7.7) Lymphocytes # (Auto) 0.3 x10^3/uL (1.0-4.8) Monocytes # (Auto) 1.1 x10^3/uL (0.0-1.1) Eosinophils # (Auto) 0.1 x10^3/uL (0.0-0.7) Basophils # (Auto) 0.2 x10^3/uL (0.0-0.2) Sodium Level 139 mmol/L (136-145) Potassium Level 4.5 mmol/L (3.5-5.1) Chloride Level 105 mmol/L (98-107) Carbon Dioxide Level 27 mmol/L (21-32) Anion Gap 7 (6-14) Blood Urea Nitrogen 22 mg/dL (8-26) Creatinine 1.1 mg/dL (0.7-1.3) Estimated GFR (Cockcroft-Gault) 65.3 Glucose Level 135 mg/dL (70-99) Calcium Level 8.3 mg/dL (8.5-10.1) Test 03/06/17 07:50 03/06/17 10:00 03/06/17 11:07 03/06/17 16:37 Glucose (Fingerstick) 129 mg/dL (70-99) 150 mg/dL (70-99) 117 mg/dL (70-99) Erythrocyte Sedimentation Rate 38 (0-15) Test 03/06/17 20:37 03/07/17 03:50 03/07/17 08:01 Glucose (Fingerstick) 200 mg/dL (70-99) 153 mg/dL (70-99) White Blood Count 8.8 x10^3/uL (4.0-11.0) Red Blood Count 2.89 x10^6/uL (4.30-5.70) Hemoglobin 8.7 g/dL (13.0-17.5) Hematocrit 25.5 % (39.0-53.0) Mean Corpuscular Volume 88 fL (79-100) Mean Corpuscular Hemoglobin 30 pg (25-35) Mean Corpuscular Hemoglobin Concent 34 g/dL (31-37) Red Cell Distribution Width 16.5 % (11.5-14.5) Platelet Count 474 x10^3/uL (140-400) Neutrophils (%) (Auto) 94 % (31-73) Lymphocytes (%) (Auto) 3 % (24-48) Monocytes (%) (Auto) 2 % (0-9) Eosinophils (%) (Auto) 0 % (0-3) Basophils (%) (Auto) 1 % (0-3) Neutrophils # (Auto) 8.3 x10^3uL (1.8-7.7) Lymphocytes # (Auto) 0.3 x10^3/uL (1.0-4.8) Monocytes # (Auto) 0.2 x10^3/uL (0.0-1.1) Eosinophils # (Auto) 0.0 x10^3/uL (0.0-0.7) Basophils # (Auto) 0.0 x10^3/uL (0.0-0.2) Sodium Level 138 mmol/L (136-145) Potassium Level 5.3 mmol/L (3.5-5.1) Chloride Level 103 mmol/L (98-107) Carbon Dioxide Level 27 mmol/L (21-32) Anion Gap 8 (6-14) Blood Urea Nitrogen 24 mg/dL (8-26) Creatinine 1.3 mg/dL (0.7-1.3) Estimated GFR (Cockcroft-Gault) 53.8 Glucose Level 187 mg/dL (70-99) Calcium Level 8.4 mg/dL (8.5-10.1) Laboratory Tests Test 03/06/17 10:00 03/06/17 11:07 03/06/17 16:37 03/06/17 20:37 Erythrocyte Sedimentation Rate 38 (0-15) Glucose (Fingerstick) 150 mg/dL (70-99) 117 mg/dL (70-99) 200 mg/dL (70-99) Test 03/07/17 03:50 03/07/17 08:01 White Blood Count 8.8 x10^3/uL (4.0-11.0) Red Blood Count 2.89 x10^6/uL (4.30-5.70) Hemoglobin 8.7 g/dL (13.0-17.5) Hematocrit 25.5 % (39.0-53.0) Mean Corpuscular Volume 88 fL (79-100) Mean Corpuscular Hemoglobin 30 pg (25-35) Mean Corpuscular Hemoglobin Concent 34 g/dL (31-37) Red Cell Distribution Width 16.5 % (11.5-14.5) Platelet Count 474 x10^3/uL (140-400) Neutrophils (%) (Auto) 94 % (31-73) Lymphocytes (%) (Auto) 3 % (24-48) Monocytes (%) (Auto) 2 % (0-9) Eosinophils (%) (Auto) 0 % (0-3) Basophils (%) (Auto) 1 % (0-3) Neutrophils # (Auto) 8.3 x10^3uL (1.8-7.7) Lymphocytes # (Auto) 0.3 x10^3/uL (1.0-4.8) Monocytes # (Auto) 0.2 x10^3/uL (0.0-1.1) Eosinophils # (Auto) 0.0 x10^3/uL (0.0-0.7) Basophils # (Auto) 0.0 x10^3/uL (0.0-0.2) Sodium Level 138 mmol/L (136-145) Potassium Level 5.3 mmol/L (3.5-5.1) Chloride Level 103 mmol/L (98-107) Carbon Dioxide Level 27 mmol/L (21-32) Anion Gap 8 (6-14) Blood Urea Nitrogen 24 mg/dL (8-26) Creatinine 1.3 mg/dL (0.7-1.3) Estimated GFR (Cockcroft-Gault) 53.8 Glucose Level 187 mg/dL (70-99) Calcium Level 8.4 mg/dL (8.5-10.1) Glucose (Fingerstick) 153 mg/dL (70-99) Medications Current Medications Albuterol/ Ipratropium (Duoneb) 3 ml 1X ONCE NEB Last administered on t 12:21; Start 03/02/17 at 12:00; Stop 03/02/17 at 12:01; Status DC Ondansetron HCl (Zofran) 4 mg PRN Q8HRS PRN IV NAUSEA/VOMITING; Start 03/02/17 at 13:15; Stop 03/03/17 at 13:14; Status DC Albuterol/ Ipratropium (Duoneb) 3 ml RTQID NEB Last administered on 03/03/17 13 :51; Start 03/02/17 at 16:00; Stop 03/03/17 at 15:59; Status DC Acetaminophen (Tylenol) 650 mg PRN Q6HRS PRN PO FEVER Last administered on 00:53; Start 03/02/17 at 14:15 Ondansetron HCl (Zofran) 4 mg PRN Q6HRS PRN IV NAUSEA/VOMITING; Start 03/02/17 at 14:15 Morphine Sulfate 2 mg PRN Q2HR PRN IV PAIN; Start 03/02/17 at 14:15; Stop at 17:04; Status DC Tramadol HCl (Ultram) 50 mg PRN Q6HRS PRN PO PAIN; Start 03/02/17 at 14:15 Hydralazine HCl (Apresoline) 10 mg PRN Q4HRS PRN IVP ELEVATED BP, SEE COMMENTS ; Start 03/02/17 at 14:15 Docusate Sodium (Colace) 100 mg PRN DAILY PRN PO CONSTIPATION; Start 03/02/17 at 14:15 Furosemide (Lasix) 40 mg 1X ONCE PO ; Start 03/02/17 at 14:15; Stop 03/02/17 at 14:18; Status DC Allopurinol (Zyloprim) 300 mg DAILY PO Last administered on 03/06/17 08:44; Start 03/03/17 at 09:00 Clopidogrel Bisulfate (Plavix) 75 mg DAILY PO Last administered on 03/06/17 08: 48; Start 03/03/17 at 09:00 Dronedarone (Multaq) 400 mg DAILY16 PO ; Start 03/02/17 at 16:00; Status Cancel Nitroglycerin (Nitrostat) 0.4 mg PRN Q5MIN PRN SL CHEST PAIN; Start 03/02/17 at 14:15; Stop 03/04/17 at 13:07; Status DC Potassium Chloride (Klor-Con) 20 meq DAILY PO Last administered on 03/06/17 08: 44; Start 03/03/17 at 09:00; Stop 03/07/17 at 07:25; Status DC Sacubitril/ Valsartan (Entresto 49 Mg-51 Mg) 1 tab BID PO ; Start 03/02/17 at 21: 00; Stop 03/02/17 at 21:00; Status DC Metoprolol Tartrate (Lopressor) 12.5 mg BID PO Last administered on 03/06/17 21 :31; Start 03/02/17 at 21:00 Furosemide (Lasix) 40 mg DAILY PO ; Start 03/03/17 at 09:00; Stop 03/03/17 at 09: 00; Status DC Furosemide (Lasix) 20 mg 1X ONCE IVP Last administered on 03/02/17 16:43; Start 03/02/17 at 15:30; Stop 03/02/17 at 15:31; Status DC Heparin Sodium (Porcine) (Heparin Sq) 5,000 unit Q8HRS SQ Last administered on 03/07/17 06:36; Start 03/02/17 at 22:00 Insulin Aspart (NovoLOG) 0-9 UNITS TIDWMEALS SQ Last administered on 03/04/17 17:40; Start 03/02/17 at 17:00 Dextrose (Dextrose 50%-Water Syringe) 12.5 gm PRN Q15MIN PRN IV SEE COMMENTS; Start 03/02/17 at 14:30 Furosemide (Lasix) 20 mg DAILY IVP Last administered on 03/06/17 08:48; Start 03/03/17 at 09:00; Stop 03/06/17 at 10:54; Status DC Aspirin (Ecotrin) 81 mg DAILYWBKFT PO Last administered on 03/06/17 08:44; Start 03/03/17 at 08:00 Dronedarone (Multaq) 200 mg BID PO ; Start 03/02/17 at 21:00; Status Cancel Lisinopril (Prinivil) 40 mg DAILY PO Last administered on 03/06/17 08:47; Start 03/03/17 at 09:00 Non-Formulary Medication 400 mg DAILY PO ; Start 03/03/17 at 09:00; Status UNV Dronedarone (Multaq) 400 mg DAILY PO Last administered on 03/06/17 08:44; Start 03/03/17 at 09:00 Gabapentin (Neurontin) 800 mg QID PO Last administered on 03/06/17 21:29; Start 03/03/17 at 10:00 Acetaminophen (Tylenol) 325 mg QID PO Last administered on 03/06/17 17:59; Start 03/03/17 at 09:45 Albuterol Sulfate (Ventolin Neb Soln) 2.5 mg RTQID NEB Last administered on 03/04 08:11; Start 03/04/17 at 08:00; Stop 03/04/17 at 08:24; Status DC Albuterol Sulfate (Ventolin Neb Soln) 2.5 mg PRN Q2HRS PRN NEB SHORTNESS OF BREATH; Start 03/04/17 at 08:00 Doxycycline Hyclate (Vibra-Tab) 100 mg BID PO Last administered on 03/06/17 21: 29; Start 03/04/17 at 09:00 Albuterol/ Ipratropium (Duoneb) 3 ml RTQID NEB Last administered on 03/06/17 19 :37; Start 03/04/17 at 12:00 Iohexol (Omnipaque 300 Mg/ml) 100 ml STK-MED ONCE .ROUTE ; Start 03/04/17 at 10: 05; Stop 03/04/17 at 10:06; Status DC Heparin Sodium/ Sodium Chloride 500 ml @ As Directed STK-MED ONCE .ROUTE ; Start 03/04/17 at 10:05; Stop 03/04/17 at 10:06; Status DC Lidocaine HCl 20 ml STK-MED ONCE .ROUTE ; Start 03/04/17 at 10:05; Stop 03/04/17 at 10:06; Status DC Heparin Sodium/ Sodium Chloride 1,000 unit 1X ONCE IART Last administered on 11:39; Start 03/04/17 at 10:45; Stop 03/04/17 at 10:58; Status DC Heparin Sodium/ Sodium Chloride 1,000 unit 1X ONCE IART Last administered on 11:39; Start 03/04/17 at 10:45; Stop 03/04/17 at 10:58; Status DC Midazolam HCl (Versed) 2 mg 1X ONCE IV Last administered on 03/04/17 11:40; Start 03/04/17 at 10:45; Stop 03/04/17 at 10:58; Status DC Fentanyl Citrate (Fentanyl 2ml Vial) 100 mcg 1X ONCE IV Last administered on 11:40; Start 03/04/17 at 10:45; Stop 03/04/17 at 10:58; Status DC Iohexol (Omnipaque 300 Mg/ml) 100 ml 1X ONCE IART Last administered on 11:39; Start 03/04/17 at 10:45; Stop 03/04/17 at 10:58; Status DC Lidocaine HCl 20 ml 1X ONCE IJ Last administered on 03/04/17 11:39; Start 03/04 at 10:45; Stop 03/04/17 at 10:58; Status DC Heparin Sodium (Porcine) (Heparin Sodium) 5,000 unit 1X ONCE IV Last administered on 03/04/17 11:54; Start 03/04/17 at 11:14; Stop 03/04/17 at 11:41; Status DC Adenosine 90 mg/ Sodium Chloride 120 ml @ 504 mls/hr 1X ONCE IV ; Start at 11:29; Stop 03/04/17 at 11:43; Status Cancel Adenosine 180 mg/ Sodium Chloride 90 ml @ 1,080 mls/hr 1X ONCE IV ; Start 03/04 at 12:00; Stop 03/04/17 at 12:04; Status Cancel Adenosine 180 mg/ Sodium Chloride 150 ml @ 504 mls/hr 1X ONCE IV Last administered on 03/04/17 11:53; Start 03/04/17 at 12:00; Stop 03/04/17 at 12:17; Status DC Nitroglycerin (Nitrostat) 0.4 mg PRN Q5MIN PRN SL CHEST PAIN; Start 03/04/17 at 13:00 Fluoxetine HCl (PROzac) 20 mg DAILY PO Last administered on 03/06/17 08:45; Start 03/04/17 at 17:00 Iohexol (Omnipaque 300 Mg/ml) 60 ml 1X ONCE IV Last administered on 03/05/17 08:00; Start 03/05/17 at 05:30; Stop 03/05/17 at 05:31; Status DC Info (Do NOT chart on this entry -- for MONITORING) 1 each PRN DAILY PRN MC SEE COMMENTS; Start 03/05/17 at 05:15; Stop 03/07/17 at 05:15; Status DC Promethazine HCl/ Codeine (Phenergan With Codeine) 10 ml QID PO Last administered on 03/05/17 13:49; Start 03/05/17 at 13:00; Stop 03/05/17 at 16:09; Status DC Promethazine HCl/ Codeine (Phenergan With Codeine) 10 ml PRN Q8HRS PRN PO COUGH ; Start 03/06/17 at 13:00 Furosemide (Lasix) 20 mg 1X ONCE IVP ; Start 03/06/17 at 09:15; Stop 03/06/17 at 09:16; Status DC Furosemide (Lasix) 40 mg DAILY IVP Last administered on 03/06/17 16:41; Start 03/06/17 at 11:00; Stop 03/10/17 at 09:00 Prednisone (Prednisone) 40 mg DAILY PO Last administered on 03/06/17 17:34; Start 03/06/17 at 12:00 Metolazone (Zaroxolyn) 2.5 mg 1X ONCE PO Last administered on 03/06/17 19:48; Start 03/06/17 at 19:30; Stop 03/06/17 at 19:31; Status DC Furosemide (Lasix) 40 mg 1X ONCE IVP ; Start 03/06/17 at 19:30; Stop 03/06/17 at 19:31; Status DC Active Scripts Active Nitrostat (Nitroglycerin) 0.4 Mg Tab.subl 0.4 Mg SL PRN Q5MIN PRN [Metoprolol Tartrate] 25 MG Tablet 12.5 Mg PO BID [Aspirin] 81 MG Tablet. 81 Mg PO DAILYWBKFT Reported Multaq (Dronedarone Hcl) 400 Mg Tablet 400 Mg PO Gleevec (Imatinib Mesylate) 400 Mg Tablet 400 Mg PO DAILY Ramipril 2.5 Mg Capsule 20 Mg PO DAILY Klor-Con M20 (Potassium Chloride) 20 Meq Tab.er.prt 1 Tab PO DAILY Lasix (Furosemide) 20 Mg Tablet 1 Tab PO DAILY Allopurinol 300 Mg Tablet 1 Tab PO DAILY Plavix (Clopidogrel Bisulfate) 75 Mg Tablet 75 Mg PO DAILY Gabapentin 800 Mg Tablet 800 Mg PO QID Metformin Hcl 1,000 Mg Tablet 1 Tab PO BID Do not resume until 10/07/15 evening dose Vitals/I & O Vital Sign - Last 24 Hours 03/06/17 03/06/17 03/06/17 03/06/17 08:44 08:45 08:47 11:00 Pulse 77 77 77 B/P (MAP) 115/52 115/52 115/52 O2 Delivery Nasal Cannula O2 Flow Rate 3.0 03/06/17 03/06/17 03/06/17 03/06/17 11:00 11:26 12:02 13:16 Temp 98.9 98.6 98.9 98.6 Pulse 76 75 Resp 16 20 B/P (MAP) 105/46 (65) 105/60 Pulse Ox 96 96 O2 Delivery Nasal Cannula Nasal Cannula Nasal Cannula O2 Flow Rate 3.0 3.0 3.0 03/06/17 03/06/17 03/06/17 03/06/17 13:30 14:05 14:30 15:30 Temp 98.8 98.3 98.7 98.9 98.8 98.3 98.7 98.9 Pulse 20 70 75 75 Resp 19 20 20 B/P (MAP) 107/58 106/54 (71) 110/68 109/65 Pulse Ox 96 O2 Delivery Nasal Cannula O2 Flow Rate 3.0 03/06/17 03/06/17 03/06/17 03/06/17 16:30 16:31 16:55 17:15 Temp 98.9 98.8 98.9 98.9 98.8 98.9 Pulse 75 75 78 Resp 22 20 20 B/P (MAP) 128/68 135/60 135/65 Pulse Ox 96 O2 Delivery Nasal Cannula O2 Flow Rate 3.0 03/06/17 03/06/17 03/06/17 03/06/17 18:15 19:15 19:30 19:37 Temp 98.9 98.0 98.2 98.9 98.0 98.2 Pulse 70 77 75 Resp 20 20 20 B/P (MAP) 145/65 145/65 149/68 (95) Pulse Ox 96 97 O2 Delivery Nasal Cannula Nasal Cannula O2 Flow Rate 3.0 3.0 03/06/17 03/06/17 03/06/17 03/06/17 20:00 20:15 21:31 23:00 Temp 98.8 97.8 98.8 97.8 Pulse 80 75 79 Resp 18 20 B/P (MAP) 130/61 (84) 149/68 128/60 (82) Pulse Ox 95 98 O2 Delivery Nasal Cannula Nasal Cannula Nasal Cannula O2 Flow Rate 3.0 2.0 3.0 03/07/17 03/07/17 03:00 04:12 Temp 98.4 98.4 Pulse 66 76 Resp 20 B/P (MAP) 121/65 (83) Pulse Ox 96 O2 Delivery Nasal Cannula O2 Flow Rate 3.0 OSCAR WILKERSON MD Mar 07, 2017 08:13
[2017-03-07] MEDS: METOPROLOL TART IMMED RELEASE 25 MG TABLET. PO SCH ×2 (08:27→21:30)
[2017-03-07] MEDS: FLUoxetine HCL 20 MG CAPSULE PO SCH (08:27)
[2017-03-07] MEDS: DOXYCYCLINE HYCLATE 100 MG TABLET PO SCH ×2 (08:27→21:31)
[2017-03-07] MEDS: ACETAMINOPHEN 325 MG TABLET. PO SCH ×4 (08:28→21:30)
[2017-03-07] MEDS: CLOPIDOGREL BISULFATE 75 MG TABLET PO SCH (08:29)
[2017-03-07] MEDS: DRONEDARONE HCL 400 MG TABLET PO SCH (08:29)
[2017-03-07] MEDS: GABAPENTIN 400 MG CAPSULE. PO SCH ×4 (08:30→21:29)
[2017-03-07] MEDS: ALLOPURINOL 300 MG TABLET. PO SCH (08:30)
[2017-03-07] MEDS: ASPIRIN ENTERIC COATED 81 MG TABLET.DR. PO SCH (08:30)
[2017-03-07] MEDS: predniSONE 10 MG TABLET PO SCH (08:30)
[2017-03-07] MEDS: IPRATRPIUM/ALBUTEROL 0.5/2.5MG 3 ML NEBU. NEB SCH ×4 (08:48→19:43)
[2017-03-07] MEDS: FUROSEMIDE 40 MG/4 ML VIAL. IVP SCH (09:00)
[2017-03-07] MEDS: NON FORMULARY ITEM (Imatinib Mesylate (Gleevec) 400 MG) PO SCH (09:00)
[2017-03-07 11:00] VITALS: BP 103/62
--- NOTE | 2017-03-07 11:25 | PDOC ---
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 Creat 1.3 (1.9 on admit) K high - was taking supplements here PLAN: Dc PO K BMP prince Myers cards 0- lasix vs metolazone - they will discuss with receipt and report clerk Started on steroids by pulmo, on PO doxy MARH likely on dc - plan for prince Myers him 30 mins in room with this pleasant gentleman 6 MW today pls Vitals Vitals Vital Signs Date Time Temp Pulse Resp B/P (MAP) Pulse Ox O2 Delivery O2 Flow Rate FiO2 03/07/17 08:52 98 Nasal Cannula 3.0 03/07/17 08:29 65 118/59 03/07/17 07:00 97.7 20 97.7 Physical Exam General: Alert, Oriented X3 Heart: Normal S1, Normal S2 Lungs: Crackles (bases) Abdomen: Soft Extremities: No clubbing, Other (1+ pitting pedal edema) Skin: No rashes Labs LABS Laboratory Tests Test 03/06/17 16:37 03/06/17 20:37 03/07/17 03:50 03/07/17 08:01 Glucose (Fingerstick) 117 mg/dL (70-99) 200 mg/dL (70-99) 153 mg/dL (70-99) White Blood Count 8.8 x10^3/uL (4.0-11.0) Red Blood Count 2.89 x10^6/uL (4.30-5.70) Hemoglobin 8.7 g/dL (13.0-17.5) Hematocrit 25.5 % (39.0-53.0) Mean Corpuscular Volume 88 fL (79-100) Mean Corpuscular Hemoglobin 30 pg (25-35) Mean Corpuscular Hemoglobin Concent 34 g/dL (31-37) Red Cell Distribution Width 16.5 % (11.5-14.5) Platelet Count 474 x10^3/uL (140-400) Neutrophils (%) (Auto) 94 % (31-73) Lymphocytes (%) (Auto) 3 % (24-48) Monocytes (%) (Auto) 2 % (0-9) Eosinophils (%) (Auto) 0 % (0-3) Basophils (%) (Auto) 1 % (0-3) Neutrophils # (Auto) 8.3 x10^3uL (1.8-7.7) Lymphocytes # (Auto) 0.3 x10^3/uL (1.0-4.8) Monocytes # (Auto) 0.2 x10^3/uL (0.0-1.1) Eosinophils # (Auto) 0.0 x10^3/uL (0.0-0.7) Basophils # (Auto) 0.0 x10^3/uL (0.0-0.2) Sodium Level 138 mmol/L (136-145) Potassium Level 5.3 mmol/L (3.5-5.1) Chloride Level 103 mmol/L (98-107) Carbon Dioxide Level 27 mmol/L (21-32) Anion Gap 8 (6-14) Blood Urea Nitrogen 24 mg/dL (8-26) Creatinine 1.3 mg/dL (0.7-1.3) Estimated GFR (Cockcroft-Gault) 53.8 Glucose Level 187 mg/dL (70-99) Calcium Level 8.4 mg/dL (8.5-10.1) Review of Systems Review of Systems soa, feet pain no cp Assessment and Plan Assessmemt and Plan Problems Medical Problems: (1) CHF (congestive heart failure) Status: Acute (2) Hypoxia Status: Acute (3) Shortness of breath Status: Acute Problems: Comment Review of Relevant I have reviewed the following items ce (where applicable) has been applied. Labs Laboratory Tests Test 03/05/17 11:55 03/05/17 17:12 03/05/17 20:52 03/06/17 04:30 Glucose (Fingerstick) 116 mg/dL (70-99) 121 mg/dL (70-99) 158 mg/dL (70-99) White Blood Count 9.8 x10^3/uL (4.0-11.0) Red Blood Count 2.46 x10^6/uL (4.30-5.70) Hemoglobin 7.4 g/dL (13.0-17.5) Hematocrit 21.4 % (39.0-53.0) Mean Corpuscular Volume 87 fL (79-100) Mean Corpuscular Hemoglobin 30 pg (25-35) Mean Corpuscular Hemoglobin Concent 35 g/dL (31-37) Red Cell Distribution Width 17.7 % (11.5-14.5) Platelet Count 484 x10^3/uL (140-400) Neutrophils (%) (Auto) 83 % (31-73) Lymphocytes (%) (Auto) 3 % (24-48) Monocytes (%) (Auto) 11 % (0-9) Eosinophils (%) (Auto) 1 % (0-3) Basophils (%) (Auto) 2 % (0-3) Neutrophils # (Auto) 8.1 x10^3uL (1.8-7.7) Lymphocytes # (Auto) 0.3 x10^3/uL (1.0-4.8) Monocytes # (Auto) 1.1 x10^3/uL (0.0-1.1) Eosinophils # (Auto) 0.1 x10^3/uL (0.0-0.7) Basophils # (Auto) 0.2 x10^3/uL (0.0-0.2) Sodium Level 139 mmol/L (136-145) Potassium Level 4.5 mmol/L (3.5-5.1) Chloride Level 105 mmol/L (98-107) Carbon Dioxide Level 27 mmol/L (21-32) Anion Gap 7 (6-14) Blood Urea Nitrogen 22 mg/dL (8-26) Creatinine 1.1 mg/dL (0.7-1.3) Estimated GFR (Cockcroft-Gault) 65.3 Glucose Level 135 mg/dL (70-99) Calcium Level 8.3 mg/dL (8.5-10.1) Test 03/06/17 07:50 9/5/17 10:00 03/06/17 11:07 03/06/17 16:37 Glucose (Fingerstick) 129 mg/dL (70-99) 150 mg/dL (70-99) 117 mg/dL (70-99) Erythrocyte Sedimentation Rate 38 (0-15) Test 03/06/17 20:37 03/07/17 03:50 03/07/17 08:01 Glucose (Fingerstick) 200 mg/dL (70-99) 153 mg/dL (70-99) White Blood Count 8.8 x10^3/uL (4.0-11.0) Red Blood Count 2.89 x10^6/uL (4.30-5.70) Hemoglobin 8.7 g/dL (13.0-17.5) Hematocrit 25.5 % (39.0-53.0) Mean Corpuscular Volume 88 fL (79-100) Mean Corpuscular Hemoglobin 30 pg (25-35) Mean Corpuscular Hemoglobin Concent 34 g/dL (31-37) Red Cell Distribution Width 16.5 % (11.5-14.5) Platelet Count 474 x10^3/uL (140-400) Neutrophils (%) (Auto) 94 % (31-73) Lymphocytes (%) (Auto) 3 % (24-48) Monocytes (%) (Auto) 2 % (0-9) Eosinophils (%) (Auto) 0 % (0-3) Basophils (%) (Auto) 1 % (0-3) Neutrophils # (Auto) 8.3 x10^3uL (1.8-7.7) Lymphocytes # (Auto) 0.3 x10^3/uL (1.0-4.8) Monocytes # (Auto) 0.2 x10^3/uL (0.0-1.1) Eosinophils # (Auto) 0.0 x10^3/uL (0.0-0.7) Basophils # (Auto) 0.0 x10^3/uL (0.0-0.2) Sodium Level 138 mmol/L (136-145) Potassium Level 5.3 mmol/L (3.5-5.1) Chloride Level 103 mmol/L (98-107) Carbon Dioxide Level 27 mmol/L (21-32) Anion Gap 8 (6-14) Blood Urea Nitrogen 24 mg/dL (8-26) Creatinine 1.3 mg/dL (0.7-1.3) Estimated GFR (Cockcroft-Gault) 53.8 Glucose Level 187 mg/dL (70-99) Calcium Level 8.4 mg/dL (8.5-10.1) Laboratory Tests Test 03/06/17 16:37 03/06/17 20:37 03/07/17 03:50 03/07/17 08:01 Glucose (Fingerstick) 117 mg/dL (70-99) 200 mg/dL (70-99) 153 mg/dL (70-99) White Blood Count 8.8 x10^3/uL (4.0-11.0) Red Blood Count 2.89 x10^6/uL (4.30-5.70) Hemoglobin 8.7 g/dL (13.0-17.5) Hematocrit 25.5 % (39.0-53.0) Mean Corpuscular Volume 88 fL (79-100) Mean Corpuscular Hemoglobin 30 pg (25-35) Mean Corpuscular Hemoglobin Concent 34 g/dL (31-37) Red Cell Distribution Width 16.5 % (11.5-14.5) Platelet Count 474 x10^3/uL (140-400) Neutrophils (%) (Auto) 94 % (31-73) Lymphocytes (%) (Auto) 3 % (24-48) Monocytes (%) (Auto) 2 % (0-9) Eosinophils (%) (Auto) 0 % (0-3) Basophils (%) (Auto) 1 % (0-3) Neutrophils # (Auto) 8.3 x10^3uL (1.8-7.7) Lymphocytes # (Auto) 0.3 x10^3/uL (1.0-4.8) Monocytes # (Auto) 0.2 x10^3/uL (0.0-1.1) Eosinophils # (Auto) 0.0 x10^3/uL (0.0-0.7) Basophils # (Auto) 0.0 x10^3/uL (0.0-0.2) Sodium Level 138 mmol/L (136-145) Potassium Level 5.3 mmol/L (3.5-5.1) Chloride Level 103 mmol/L (98-107) Carbon Dioxide Level 27 mmol/L (21-32) Anion Gap 8 (6-14) Blood Urea Nitrogen 24 mg/dL (8-26) Creatinine 1.3 mg/dL (0.7-1.3) Estimated GFR (Cockcroft-Gault) 53.8 Glucose Level 187 mg/dL (70-99) Calcium Level 8.4 mg/dL (8.5-10.1) Medications Current Medications Albuterol/ Ipratropium (Duoneb) 3 ml 1X ONCE NEB Last administered on 12:21; Start 03/02/17 at 12:00; Stop 03/02/17 at 12:01; Status DC Ondansetron HCl (Zofran) 4 mg PRN Q8HRS PRN IV NAUSEA/VOMITING; Start 03/02/17 at 13:15; Stop 03/03/17 at 13:14; Status DC Albuterol/ Ipratropium (Duoneb) 3 ml RTQID NEB Last administered on 03/03/17 13 :51; Start 03/02/17 at 16:00; Stop 03/03/17 at 15:59; Status DC Acetaminophen (Tylenol) 650 mg PRN Q6HRS PRN PO FEVER Last administered on 00:53; Start 03/02/17 at 14:15 Ondansetron HCl (Zofran) 4 mg PRN Q6HRS PRN IV NAUSEA/VOMITING; Start 03/02/17 at 14:15 Morphine Sulfate 2 mg PRN Q2HR PRN IV PAIN; Start 03/02/17 at 14:15; Stop at 17:04; Status DC Tramadol HCl (Ultram) 50 mg PRN Q6HRS PRN PO PAIN; Start 03/02/17 at 14:15 Hydralazine HCl (Apresoline) 10 mg PRN Q4HRS PRN IVP ELEVATED BP, SEE COMMENTS ; Start 03/02/17 at 14:15 Docusate Sodium (Colace) 100 mg PRN DAILY PRN PO CONSTIPATION; Start 03/02/17 at 14:15 Furosemide (Lasix) 40 mg 1X ONCE PO ; Start 03/02/17 at 14:15; Stop 03/02/17 at 14:18; Status DC Allopurinol (Zyloprim) 300 mg DAILY PO Last administered on 03/07/17 08:30; Start 03/03/17 at 09:00 Clopidogrel Bisulfate (Plavix) 75 mg DAILY PO Last administered on 03/07/17 08: 29; Start 03/03/17 at 09:00 Dronedarone (Multaq) 400 mg DAILY16 PO ; Start 03/02/17 at 16:00; Status Cancel Nitroglycerin (Nitrostat) 0.4 mg PRN Q5MIN PRN SL CHEST PAIN; Start 03/02/17 at 14:15; Stop 03/04/17 at 13:07; Status DC Potassium Chloride (Klor-Con) 20 meq DAILY PO Last administered on 03/06/17 08: 44; Start 03/03/17 at 09:00; Stop 03/07/17 at 07:25; Status DC Sacubitril/ Valsartan (Entresto 49 Mg-51 Mg) 1 tab BID PO ; Start 03/02/17 at 21: 00; Stop 03/02/17 at 21:00; Status DC Metoprolol Tartrate (Lopressor) 12.5 mg BID PO Last administered on 03/07/17 08 :27; Start 03/02/17 at 21:00 Furosemide (Lasix) 40 mg DAILY PO ; Start 03/03/17 at 09:00; Stop 03/03/17 at 09: 00; Status DC Furosemide (Lasix) 20 mg 1X ONCE IVP Last administered on 03/02/17 16:43; Start 03/02/17 at 15:30; Stop 03/02/17 at 15:31; Status DC Heparin Sodium (Porcine) (Heparin Sq) 5,000 unit Q8HRS SQ Last administered on 03/07/17 06:36; Start 03/02/17 at 22:00 Insulin Aspart (NovoLOG) 0-9 UNITS TIDWMEALS SQ Last administered on 03/04/17 17:40; Start 03/02/17 at 17:00 Dextrose (Dextrose 50%-Water Syringe) 12.5 gm PRN Q15MIN PRN IV SEE COMMENTS; Start 03/02/17 at 14:30 Furosemide (Lasix) 20 mg DAILY IVP Last administered on 03/06/17 08:48; Start 03/03/17 at 09:00; Stop 03/06/17 at 10:54; Status DC Aspirin (Ecotrin) 81 mg DAILYWBKFT PO Last administered on 03/07/17 08:30; Start 03/03/17 at 08:00 Dronedarone (Multaq) 200 mg BID PO ; Start 03/02/17 at 21:00; Status Cancel Lisinopril (Prinivil) 40 mg DAILY PO Last administered on 03/06/17 08:47; Start 03/03/17 at 09:00 Non-Formulary Medication 400 mg DAILY PO ; Start 03/03/17 at 09:00; Status UNV Dronedarone (Multaq) 400 mg DAILY PO Last administered on 03/07/17 08:29; Start 03/03/17 at 09:00 Gabapentin (Neurontin) 800 mg QID PO Last administered on 03/07/17 08:30; Start 03/03/17 at 10:00 Acetaminophen (Tylenol) 325 mg QID PO Last administered on 03/07/17 08:28; Start 03/03/17 at 09:45 Albuterol Sulfate (Ventolin Neb Soln) 2.5 mg RTQID NEB Last administered on 03/04 08:11; Start 03/04/17 at 08:00; Stop 03/04/17 at 08:24; Status DC Albuterol Sulfate (Ventolin Neb Soln) 2.5 mg PRN Q2HRS PRN NEB SHORTNESS OF BREATH; Start 03/04/17 at 08:00 Doxycycline Hyclate (Vibra-Tab) 100 mg BID PO Last administered on 03/07/17 08: 27; Start 03/04/17 at 09:00 Albuterol/ Ipratropium (Duoneb) 3 ml RTQID NEB Last administered on 03/07/17 08 :48; Start 03/04/17 at 12:00 Iohexol (Omnipaque 300 Mg/ml) 100 ml STK-MED ONCE .ROUTE ; Start 03/04/17 at 10: 05; Stop 03/04/17 at 10:06; Status DC Heparin Sodium/ Sodium Chloride 500 ml @ As Directed STK-MED ONCE .ROUTE ; Start 03/04/17 at 10:05; Stop 03/04/17 at 10:06; Status DC Lidocaine HCl 20 ml STK-MED ONCE .ROUTE ; Start 03/04/17 at 10:05; Stop 03/04/17 at 10:06; Status DC Heparin Sodium/ Sodium Chloride 1,000 unit 1X ONCE IART Last administered on 11:39; Start 03/04/17 at 10:45; Stop 03/04/17 at 10:58; Status DC Heparin Sodium/ Sodium Chloride 1,000 unit 1X ONCE IART Last administered on 11:39; Start 03/04/17 at 10:45; Stop 03/04/17 at 10:58; Status DC Midazolam HCl (Versed) 2 mg 1X ONCE IV Last administered on 03/04/17 11:40; Start 03/04/17 at 10:45; Stop 03/04/17 at 10:58; Status DC Fentanyl Citrate (Fentanyl 2ml Vial) 100 mcg 1X ONCE IV Last administered on 11:40; Start 03/04/17 at 10:45; Stop 03/04/17 at 10:58; Status DC Iohexol (Omnipaque 300 Mg/ml) 100 ml 1X ONCE IART Last administered on 11:39; Start 03/04/17 at 10:45; Stop 03/04/17 at 10:58; Status DC Lidocaine HCl 20 ml 1X ONCE IJ Last administered on 03/04/17 11:39; Start 03/04 at 10:45; Stop 03/04/17 at 10:58; Status DC Heparin Sodium (Porcine) (Heparin Sodium) 5,000 unit 1X ONCE IV Last administered on 03/04/17 11:54; Start 03/04/17 at 11:14; Stop 03/04/17 at 11:41; Status DC Adenosine 90 mg/ Sodium Chloride 120 ml @ 504 mls/hr 1X ONCE IV ; Start at 11:29; Stop 03/04/17 at 11:43; Status Cancel Adenosine 180 mg/ Sodium Chloride 90 ml @ 1,080 mls/hr 1X ONCE IV ; Start 03/04 at 12:00; Stop 03/04/17 at 12:04; Status Cancel Adenosine 180 mg/ Sodium Chloride 150 ml @ 504 mls/hr 1X ONCE IV Last administered on 03/04/17 11:53; Start 03/04/17 at 12:00; Stop 03/04/17 at 12:17; Status DC Nitroglycerin (Nitrostat) 0.4 mg PRN Q5MIN PRN SL CHEST PAIN; Start 03/04/17 at 13:00 Fluoxetine HCl (PROzac) 20 mg DAILY PO Last administered on 03/07/17 08:27; Start 03/04/17 at 17:00 Iohexol (Omnipaque 300 Mg/ml) 60 ml 1X ONCE IV Last administered on 03/05/17 08:00; Start 03/05/17 at 05:30; Stop 03/05/17 at 05:31; Status DC Info (Do NOT chart on this entry -- for MONITORING) 1 each PRN DAILY PRN MC SEE COMMENTS; Start 03/05/17 at 05:15; Stop 03/07/17 at 05:15; Status DC Promethazine HCl/ Codeine (Phenergan With Codeine) 10 ml QID PO Last administered on 03/05/17 13:49; Start 03/05/17 at 13:00; Stop 03/05/17 at 16:09; Status DC Promethazine HCl/ Codeine (Phenergan With Codeine) 10 ml PRN Q8HRS PRN PO COUGH ; Start 03/06/17 at 13:00 Furosemide (Lasix) 20 mg 1X ONCE IVP ; Start 03/06/17 at 09:15; Stop 03/06/17 at 09:16; Status DC Furosemide (Lasix) 40 mg DAILY IVP Last administered on 03/06/17 16:41; Start 03/06/17 at 11:00; Stop 03/10/17 at 09:00 Prednisone (Prednisone) 40 mg DAILY PO Last administered on 03/07/17 08:30; Start 03/06/17 at 12:00 Metolazone (Zaroxolyn) 2.5 mg 1X ONCE PO Last administered on 03/06/17 19:48; Start 03/06/17 at 19:30; Stop 03/06/17 at 19:31; Status DC Furosemide (Lasix) 40 mg 1X ONCE IVP ; Start 03/06/17 at 19:30; Stop 03/06/17 at 19:31; Status DC Active Scripts Active Nitrostat (Nitroglycerin) 0.4 Mg Tab.subl 0.4 Mg SL PRN Q5MIN PRN [Metoprolol Tartrate] 25 MG Tablet 12.5 Mg PO BID [Aspirin] 81 MG Tablet. 81 Mg PO DAILYWBKFT Reported Multaq (Dronedarone Hcl) 400 Mg Tablet 400 Mg PO Gleevec (Imatinib Mesylate) 400 Mg Tablet 400 Mg PO DAILY Ramipril 2.5 Mg Capsule 20 Mg PO DAILY Klor-Con M20 (Potassium Chloride) 20 Meq Tab.er.prt 1 Tab PO DAILY Lasix (Furosemide) 20 Mg Tablet 1 Tab PO DAILY Allopurinol 300 Mg Tablet 1 Tab PO DAILY Plavix (Clopidogrel Bisulfate) 75 Mg Tablet 75 Mg PO DAILY Gabapentin 800 Mg Tablet 800 Mg PO QID Metformin Hcl 1,000 Mg Tablet 1 Tab PO BID Do not resume until 10/07/15 evening dose Vitals/I & O Vital Sign - Last 24 Hours 03/06/17 03/06/17 03/06/17 03/06/17 11:26 12:02 13:16 13:30 Temp 98.9 98.6 98.8 98.9 98.6 98.8 Pulse 76 75 20 Resp 16 20 B/P (MAP) 105/46 (65) 105/60 107/58 Pulse Ox 96 96 O2 Delivery Nasal Cannula Nasal Cannula O2 Flow Rate 3.0 3.0 03/06/17 03/06/17 03/06/17 03/06/17 14:05 14:30 15:30 16:30 Temp 98.3 98.7 98.9 98.9 98.3 98.7 98.9 98.9 Pulse 70 75 75 75 Resp 19 20 20 22 B/P (MAP) 106/54 (71) 110/68 109/65 128/68 Pulse Ox 96 O2 Delivery Nasal Cannula O2 Flow Rate 3.0 03/06/17 03/06/17 03/06/17 03/06/17 16:31 16:55 17:15 18:15 Temp 98.8 98.9 98.9 98.8 98.9 98.9 Pulse 75 78 70 Resp 20 20 20 B/P (MAP) 135/60 135/65 145/65 Pulse Ox 96 O2 Delivery Nasal Cannula O2 Flow Rate 3.0 03/06/17 03/06/17 03/06/17 03/06/17 19:15 19:30 19:37 20:00 Temp 98.0 98.2 98.0 98.2 Pulse 77 75 Resp 20 20 B/P (MAP) 145/65 149/68 (95) Pulse Ox 96 97 O2 Delivery Nasal Cannula Nasal Cannula Nasal Cannula O2 Flow Rate 3.0 3.0 3.0 03/06/17 03/06/17 03/06/17 03/07/17 20:15 21:31 23:00 03:00 Temp 98.8 97.8 98.8 97.8 Pulse 80 75 79 66 Resp 18 20 B/P (MAP) 130/61 (84) 149/68 128/60 (82) Pulse Ox 95 98 O2 Delivery Nasal Cannula Nasal Cannula O2 Flow Rate 2.0 3.0 03/07/17 03/07/17 03/07/17 03/07/17 04:12 07:00 07:40 08:27 Temp 98.4 97.7 98.4 97.7 Pulse 76 65 65 Resp 20 20 B/P (MAP) 121/65 (83) 118/59 (78) 118/59 Pulse Ox 96 97 O2 Delivery Nasal Cannula Nasal Cannula O2 Flow Rate 3.0 3.0 03/07/17 03/07/17 08:29 08:52 Pulse 65 B/P (MAP) 118/59 Pulse Ox 98 O2 Delivery Nasal Cannula O2 Flow Rate 3.0 MAMTA SULLIVAN MD Mar 07, 2017 11:24
--- NOTE | 2017-03-07 12:40 | PDOC ---
PULMONARY PROGRESS NOTES Subjective PT feels better post diuresis/ steroids Vitals Vital Signs Date Time Temp Pulse Resp B/P (MAP) Pulse Ox O2 Delivery O2 Flow Rate FiO2 03/07/17 12:06 96 Nasal Cannula 2.0 03/07/17 11:00 98.0 61 20 103/62 (76) 98.0 ROS: No Nausea, No Chest Pain, No Abdominal Pain, No Increase Cough General: Alert, No acute distress Lungs: Crackles (bases persistent) Cardiovascular: S1, S2 Abdomen: Soft Neuro Exam: Alert Extremities: Other (1+edema) Skin: Warm Labs Laboratory Tests Test 03/05/17 17:12 03/05/17 20:52 03/06/17 04:30 03/06/17 07:50 Glucose (Fingerstick) 121 mg/dL (70-99) 158 mg/dL (70-99) 129 mg/dL (70-99) White Blood Count 9.8 x10^3/uL (4.0-11.0) Red Blood Count 2.46 x10^6/uL (4.30-5.70) Hemoglobin 7.4 g/dL (13.0-17.5) Hematocrit 21.4 % (39.0-53.0) Mean Corpuscular Volume 87 fL (79-100) Mean Corpuscular Hemoglobin 30 pg (25-35) Mean Corpuscular Hemoglobin Concent 35 g/dL (31-37) Red Cell Distribution Width 17.7 % (11.5-14.5) Platelet Count 484 x10^3/uL (140-400) Neutrophils (%) (Auto) 83 % (31-73) Lymphocytes (%) (Auto) 3 % (24-48) Monocytes (%) (Auto) 11 % (0-9) Eosinophils (%) (Auto) 1 % (0-3) Basophils (%) (Auto) 2 % (0-3) Neutrophils # (Auto) 8.1 x10^3uL (1.8-7.7) Lymphocytes # (Auto) 0.3 x10^3/uL (1.0-4.8) Monocytes # (Auto) 1.1 x10^3/uL (0.0-1.1) Eosinophils # (Auto) 0.1 x10^3/uL (0.0-0.7) Basophils # (Auto) 0.2 x10^3/uL (0.0-0.2) Sodium Level 139 mmol/L (136-145) Potassium Level 4.5 mmol/L (3.5-5.1) Chloride Level 105 mmol/L (98-107) Carbon Dioxide Level 27 mmol/L (21-32) Anion Gap 7 (6-14) Blood Urea Nitrogen 22 mg/dL (8-26) Creatinine 1.1 mg/dL (0.7-1.3) Estimated GFR (Cockcroft-Gault) 65.3 Glucose Level 135 mg/dL (70-99) Calcium Level 8.3 mg/dL (8.5-10.1) Test 03/06/17 10:00 03/06/17 11:07 03/06/17 16:37 03/06/17 20:37 Erythrocyte Sedimentation Rate 38 (0-15) Glucose (Fingerstick) 150 mg/dL (70-99) 117 mg/dL (70-99) 200 mg/dL (70-99) Test 03/07/17 03:50 03/07/17 08:01 03/07/17 11:57 White Blood Count 8.8 x10^3/uL (4.0-11.0) Red Blood Count 2.89 x10^6/uL (4.30-5.70) Hemoglobin 8.7 g/dL (13.0-17.5) Hematocrit 25.5 % (39.0-53.0) Mean Corpuscular Volume 88 fL (79-100) Mean Corpuscular Hemoglobin 30 pg (25-35) Mean Corpuscular Hemoglobin Concent 34 g/dL (31-37) Red Cell Distribution Width 16.5 % (11.5-14.5) Platelet Count 474 x10^3/uL (140-400) Neutrophils (%) (Auto) 94 % (31-73) Lymphocytes (%) (Auto) 3 % (24-48) Monocytes (%) (Auto) 2 % (0-9) Eosinophils (%) (Auto) 0 % (0-3) Basophils (%) (Auto) 1 % (0-3) Neutrophils # (Auto) 8.3 x10^3uL (1.8-7.7) Lymphocytes # (Auto) 0.3 x10^3/uL (1.0-4.8) Monocytes # (Auto) 0.2 x10^3/uL (0.0-1.1) Eosinophils # (Auto) 0.0 x10^3/uL (0.0-0.7) Basophils # (Auto) 0.0 x10^3/uL (0.0-0.2) Sodium Level 138 mmol/L (136-145) Potassium Level 5.3 mmol/L (3.5-5.1) Chloride Level 103 mmol/L (98-107) Carbon Dioxide Level 27 mmol/L (21-32) Anion Gap 8 (6-14) Blood Urea Nitrogen 24 mg/dL (8-26) Creatinine 1.3 mg/dL (0.7-1.3) Estimated GFR (Cockcroft-Gault) 53.8 Glucose Level 187 mg/dL (70-99) Calcium Level 8.4 mg/dL (8.5-10.1) Glucose (Fingerstick) 153 mg/dL (70-99) 151 mg/dL (70-99) Laboratory Tests Test 03/06/17 16:37 03/06/17 20:37 03/07/17 03:50 03/07/17 08:01 Glucose (Fingerstick) 117 mg/dL (70-99) 200 mg/dL (70-99) 153 mg/dL (70-99) White Blood Count 8.8 x10^3/uL (4.0-11.0) Red Blood Count 2.89 x10^6/uL (4.30-5.70) Hemoglobin 8.7 g/dL (13.0-17.5) Hematocrit 25.5 % (39.0-53.0) Mean Corpuscular Volume 88 fL (79-100) Mean Corpuscular Hemoglobin 30 pg (25-35) Mean Corpuscular Hemoglobin Concent 34 g/dL (31-37) Red Cell Distribution Width 16.5 % (11.5-14.5) Platelet Count 474 x10^3/uL (140-400) Neutrophils (%) (Auto) 94 % (31-73) Lymphocytes (%) (Auto) 3 % (24-48) Monocytes (%) (Auto) 2 % (0-9) Eosinophils (%) (Auto) 0 % (0-3) Basophils (%) (Auto) 1 % (0-3) Neutrophils # (Auto) 8.3 x10^3uL (1.8-7.7) Lymphocytes # (Auto) 0.3 x10^3/uL (1.0-4.8) Monocytes # (Auto) 0.2 x10^3/uL (0.0-1.1) Eosinophils # (Auto) 0.0 x10^3/uL (0.0-0.7) Basophils # (Auto) 0.0 x10^3/uL (0.0-0.2) Sodium Level 138 mmol/L (136-145) Potassium Level 5.3 mmol/L (3.5-5.1) Chloride Level 103 mmol/L (98-107) Carbon Dioxide Level 27 mmol/L (21-32) Anion Gap 8 (6-14) Blood Urea Nitrogen 24 mg/dL (8-26) Creatinine 1.3 mg/dL (0.7-1.3) Estimated GFR (Cockcroft-Gault) 53.8 Glucose Level 187 mg/dL (70-99) Calcium Level 8.4 mg/dL (8.5-10.1) Test 03/07/17 11:57 Glucose (Fingerstick) 151 mg/dL (70-99) Medications Active Scripts Medications Dose Route/Sig Max Daily Dose Days Date Category Dose Instructions Gleevec (Imatinib Mesylate) 400 Mg Tablet 400 Mg PO DAILY 03/02/17 Reported Ramipril 2.5 Mg Capsule 20 Mg PO DAILY 03/02/17 Reported Multaq (Dronedarone Hcl) 400 Mg Tablet 200 Mg PO BID 03/02/17 Reported Klor-Con M20 (Potassium Chloride) 20 Meq Tab.er.prt 1 Tab PO DAILY 01/16/17 Reported Lasix (Furosemide) 20 Mg Tablet 1 Tab PO DAILY 01/16/17 Reported Allopurinol 300 Mg Tablet 1 Tab PO DAILY 01/16/17 Reported Plavix (Clopidogrel Bisulfate) 75 Mg Tablet 75 Mg PO DAILY 10/05/15 Reported Gabapentin 800 Mg Tablet 800 Mg PO QID 01/19/15 Reported Nitrostat (Nitroglycerin) 0.4 Mg Tab.subl 0.4 Mg SL PRN Q5MIN PRN 09/09/14 Rx [Metoprolol Tartrate] 25 MG Tablet 12.5 Mg PO BID 09/09/14 Rx [Aspirin] 81 MG Tablet. 81 Mg PO [id number] 09/09/14 Rx Metformin Hcl 1,000 Mg Tablet 1 Tab PO BID 09/07/14 Reported Do not resume until 10/07/15 evening dose Impression . 1. Acute hypoxemic respiratory failure 2. Progressive dyspnea, worse since receiving Gleevec ,suspect dyspnea secondary to gleevec induced CHF/ rare cases of ILD ,underlying cardiomyopathy with ejection fraction of 30-35%,cannot exclude CML induced lung infiltrates/ right heart failure 3. Chronic kidney disease. 4. Elevated BNP. 5. Coronary artery disease. Recent Cath 03/04 no significant blockages but mildly elevated LVEDP 6. Leukocytosis, suspect reactive, doubt infectious. 7. No significant tobacco use 8. CML s/p chemo CARDIAC CATH . Right and left heart catheterization yesterday showed orally mild pulmonary hypertension, normal pulmonary capillary wedge pressure, no evidence of intracardiac shunt, nonobstructive RCA stenosis with patent previously placed stent. CT CHEST 1. Mild mediastinal and bilateral hilar lymphadenopathy similar to prior exam. 2. Diffuse coronary artery calcifications. 3. Faint ground-glass airspace opacities identified in the bilateral lungs with groundglass infiltrates or mild edema. 4. Mild bilateral bronchiectasis. 4. 6 mm pulmonary nodule identified in the right lower lobe of the lung. Follow-up CT in 3 months is recommended. 5. Few gallstones again identified. Plan . CLINICALLY IMPROVING CONTINUE STEROIDS WATCH RENAL FUNCTION WHILE ON LASIX CT CHEST REVIEWED/ MILD GG INFILTRATES AND A SMALL NODULE 6MM RIGHT LUNG. NEEDS REPEAT CT IN 3-4 MONTHS CRACKLES ON EXAM SEC TO ?EDEMA VS ILD (NO SIG. INCREASE PCWP BY CATH BUT LVEDP 17) SUSPECT DYSPNEA MULTIFACTORIAL IN NATURE/ RX FOR GLEEVEC INDUCED ILD FIRST CONTINUE 02 FOLLOW CARD INPUT 6 MIN WALK PRIOR TO D/C D/W MUKUL ORTIZ MD Mar 07, 2017 12:40
--- NOTE | 2017-03-07 14:39 | PDOC ---
MONY WADE INSURANCE SERVICE REPRESENTATIVE 03/07/17 1439: CARDIO Progress Notes Date and Time Date of Service 03/07/17 Time of Evaluation 1130 Subjective Subjective: No Chest Pain, No Palpitations, No Dizziness, Other (breathing improved today) Vitals Vitals Vital Signs Date Time Temp Pulse Resp B/P (MAP) Pulse Ox O2 Delivery O2 Flow Rate FiO2 03/07/17 12:06 96 Nasal Cannula 2.0 03/07/17 11:00 98.0 61 20 103/62 (76) 98.0 Weight Weight [ ] Laboratory Labs Laboratory Tests Test 03/06/17 16:37 03/06/17 20:37 03/07/17 03:50 03/07/17 08:01 Glucose (Fingerstick) 117 mg/dL (70-99) 200 mg/dL (70-99) 153 mg/dL (70-99) White Blood Count 8.8 x10^3/uL (4.0-11.0) Red Blood Count 2.89 x10^6/uL (4.30-5.70) Hemoglobin 8.7 g/dL (13.0-17.5) Hematocrit 25.5 % (39.0-53.0) Mean Corpuscular Volume 88 fL (79-100) Mean Corpuscular Hemoglobin 30 pg (25-35) Mean Corpuscular Hemoglobin Concent 34 g/dL (31-37) Red Cell Distribution Width 16.5 % (11.5-14.5) Platelet Count 474 x10^3/uL (140-400) Neutrophils (%) (Auto) 94 % (31-73) Lymphocytes (%) (Auto) 3 % (24-48) Monocytes (%) (Auto) 2 % (0-9) Eosinophils (%) (Auto) 0 % (0-3) Basophils (%) (Auto) 1 % (0-3) Neutrophils # (Auto) 8.3 x10^3uL (1.8-7.7) Lymphocytes # (Auto) 0.3 x10^3/uL (1.0-4.8) Monocytes # (Auto) 0.2 x10^3/uL (0.0-1.1) Eosinophils # (Auto) 0.0 x10^3/uL (0.0-0.7) Basophils # (Auto) 0.0 x10^3/uL (0.0-0.2) Sodium Level 138 mmol/L (136-145) Potassium Level 5.3 mmol/L (3.5-5.1) Chloride Level 103 mmol/L (98-107) Carbon Dioxide Level 27 mmol/L (21-32) Anion Gap 8 (6-14) Blood Urea Nitrogen 24 mg/dL (8-26) Creatinine 1.3 mg/dL (0.7-1.3) Estimated GFR (Cockcroft-Gault) 53.8 Glucose Level 187 mg/dL (70-99) Calcium Level 8.4 mg/dL (8.5-10.1) Test 03/07/17 11:57 Glucose (Fingerstick) 151 mg/dL (70-99) Physical Exam HEENT: Neck Supple W Full Motion Chest: Symmetric LUNGS: Other (bibasial crackles ) Heart: S1S2, RRR (intermittent paced) Abdomen: Soft N/T Extremities: Other (1+ bilateral LE pitting edema ) Neurology: alert, oriented, follow commands Assessment Assessment 1. Dyspnea: Multifactorial. No PE. V/Q low probability and recent CTA negative. Cath without obstructive disease. Improved with diuresis/prednisone. Consider outpatient referral to [facility]. 2. Mild acute on chronic systolic heart failure with ICM; LVEF 30-35%. better compensated. Fluid balance negative today. Lasix held this morning due to increasing Cr. Resume in am with close monitoring of renal function. 3. CML: Continue chemotherapy per oncology team 4. AICD/BiV in situ: recent device check with normal function 5. PAFIB/SSS: continue Multaq 6. CAD: PCI/CHARLI to RCA - stent patent per cardiac cath. Continue secondary prevention measures. 7. HTN: well-controlled 8. DM2/HLP - per IM 9. Anemia; s/p 2 units of PRBC's (refused IV Lasix between blood yesterday. Did get metolazone) MARISSA CABRERA MD 03/07/17 2971: CARDIO Progress Notes Assessment Assessment Patient seen and examined. Agree with PAYMENT PROCESSOR's assessment and plan. Dyspnea slightly improved after blood transfusions. Acute on chronic systolic heart failure better compensated. CAD status clinically stable. Plan for outpatient referral for [facility]. Continue PT/OT. MONY WADE APRN Mar 07, 2017 14:39 MARISSA CABRERA MD Mar 07, 2017 16:45
[2017-03-07] MEDS: LISINOPRIL 40 MG TABLET. PO SCH (14:51)
[2017-03-07 15:00] VITALS: BP 121/73
[2017-03-07 19:24] VITALS: BP 116/57
[2017-03-07 22:18] VITALS: BP 119/62
[2017-03-08 03:33] VITALS: BP 129/64
[2017-03-08 05:30] LABS: BASO # 0.1 x10^3/uL (0.0-0.2); BASO % 1 % (0-3); EOS % 0 % (0-3); HEMATOCRIT 25.2 % (39.0-53.0); HEMOGLOBIN 8.6 g/dL (13.0-17.5); LYMPH # 0.5 x10^3/uL (1.0-4.8); LYMPH % 6 % (24-48); MEAN CORPUSCULAR HEMOGLOBIN 30 pg (25-35); MEAN CORPUSCULAR HGB CONC 34 g/dL (31-37); MEAN CORPUSCULAR VOLUME 88 fL (79-100); MONO % 11 % (0-9); NEUT % 82 % (31-73); PLATELET COUNT 514 x10^3/uL (140-400); RED BLOOD COUNT 2.86 x10^6/uL (4.30-5.70); RED CELL DISTRIBUTION WIDTH 16.4 % (11.5-14.5); WHITE BLOOD COUNT 8.1 x10^3/uL (4.0-11.0)
[2017-03-08 05:45] LABS: CALCIUM 8.5 mg/dL (8.5-10.1); CREATININE 1.1 mg/dL (0.7-1.3); GFR 65.3; POTASSIUM 4.3 mmol/L (3.5-5.1)
[2017-03-08 07:20] VITALS: BP 132/64
[2017-03-08] MEDS: HEPARIN PF for SUB-Q USE 5,000 UNIT/0.5 ML VIAL. SQ SCH ×3 (07:33→21:51)
[2017-03-08] MEDS: INSULIN ASPART 300 UNITS/3 ML INSULN.PEN SQ SCH ×3 (08:00→17:18)
[2017-03-08] MEDS: FLUoxetine HCL 20 MG CAPSULE PO SCH (08:40)
[2017-03-08] MEDS: DOXYCYCLINE HYCLATE 100 MG TABLET PO SCH ×2 (08:40→20:45)
[2017-03-08] MEDS: DRONEDARONE HCL 400 MG TABLET PO SCH (08:42)
[2017-03-08] MEDS: GABAPENTIN 400 MG CAPSULE. PO SCH ×4 (08:43→20:46)
[2017-03-08] MEDS: CLOPIDOGREL BISULFATE 75 MG TABLET PO SCH (08:43)
[2017-03-08] MEDS: LISINOPRIL 40 MG TABLET. PO SCH (08:43)
[2017-03-08] MEDS: ASPIRIN ENTERIC COATED 81 MG TABLET.DR. PO SCH (08:44)
[2017-03-08] MEDS: ALLOPURINOL 300 MG TABLET. PO SCH (08:44)
[2017-03-08] MEDS: ACETAMINOPHEN 325 MG TABLET. PO SCH ×4 (08:44→20:45)
[2017-03-08] MEDS: predniSONE 10 MG TABLET PO SCH (08:45)
[2017-03-08] MEDS: METOPROLOL TART IMMED RELEASE 25 MG TABLET. PO SCH ×2 (08:45→20:46)
[2017-03-08] MEDS: NON FORMULARY ITEM (Imatinib Mesylate (Gleevec) 400 MG) PO SCH (08:46)
[2017-03-08] MEDS: FUROSEMIDE 40 MG/4 ML VIAL. IVP SCH (08:46)
--- NOTE | 2017-03-08 09:07 | PDOC ---
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 Multifactorial anemia - Hb worse at 7.3 on 03/06/17 s/p 1 unit PRBC and Hb improved to 8.7 on 03/07/17. 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 Hence d/c gleevec. Plan Tasigna as outpatient. Ischemic CM Comment Review of Relevant I have reviewed the following items ce (where applicable) has been applied. Labs Laboratory Tests Test 03/06/17 10:00 03/06/17 11:07 03/06/17 16:37 03/06/17 20:37 Erythrocyte Sedimentation Rate 38 (0-15) Glucose (Fingerstick) 150 mg/dL (70-99) 117 mg/dL (70-99) 200 mg/dL (70-99) Test 03/07/17 03:50 03/07/17 08:01 03/07/17 11:57 03/07/17 16:54 White Blood Count 8.8 x10^3/uL (4.0-11.0) Red Blood Count 2.89 x10^6/uL (4.30-5.70) Hemoglobin 8.7 g/dL (13.0-17.5) Hematocrit 25.5 % (39.0-53.0) Mean Corpuscular Volume 88 fL (79-100) Mean Corpuscular Hemoglobin 30 pg (25-35) Mean Corpuscular Hemoglobin Concent 34 g/dL (31-37) Red Cell Distribution Width 16.5 % (11.5-14.5) Platelet Count 474 x10^3/uL (140-400) Neutrophils (%) (Auto) 94 % (31-73) Lymphocytes (%) (Auto) 3 % (24-48) Monocytes (%) (Auto) 2 % (0-9) Eosinophils (%) (Auto) 0 % (0-3) Basophils (%) (Auto) 1 % (0-3) Neutrophils # (Auto) 8.3 x10^3uL (1.8-7.7) Lymphocytes # (Auto) 0.3 x10^3/uL (1.0-4.8) Monocytes # (Auto) 0.2 x10^3/uL (0.0-1.1) Eosinophils # (Auto) 0.0 x10^3/uL (0.0-0.7) Basophils # (Auto) 0.0 x10^3/uL (0.0-0.2) Sodium Level 138 mmol/L (136-145) Potassium Level 5.3 mmol/L (3.5-5.1) Chloride Level 103 mmol/L (98-107) Carbon Dioxide Level 27 mmol/L (21-32) Anion Gap 8 (6-14) Blood Urea Nitrogen 24 mg/dL (8-26) Creatinine 1.3 mg/dL (0.7-1.3) Estimated GFR (Cockcroft-Gault) 53.8 Glucose Level 187 mg/dL (70-99) Calcium Level 8.4 mg/dL (8.5-10.1) Glucose (Fingerstick) 153 mg/dL (70-99) 151 mg/dL (70-99) 186 mg/dL (70-99) Test 03/07/17 21:02 03/08/17 04:30 03/08/17 07:47 Glucose (Fingerstick) 211 mg/dL (70-99) 121 mg/dL (70-99) White Blood Count 8.1 x10^3/uL (4.0-11.0) Red Blood Count 2.86 x10^6/uL (4.30-5.70) Hemoglobin 8.6 g/dL (13.0-17.5) Hematocrit 25.2 % (39.0-53.0) Mean Corpuscular Volume 88 fL (79-100) Mean Corpuscular Hemoglobin 30 pg (25-35) Mean Corpuscular Hemoglobin Concent 34 g/dL (31-37) Red Cell Distribution Width 16.4 % (11.5-14.5) Platelet Count 514 x10^3/uL (140-400) Neutrophils (%) (Auto) 82 % (31-73) Lymphocytes (%) (Auto) 6 % (24-48) Monocytes (%) (Auto) 11 % (0-9) Eosinophils (%) (Auto) 0 % (0-3) Basophils (%) (Auto) 1 % (0-3) Neutrophils # (Auto) 6.6 x10^3uL (1.8-7.7) Lymphocytes # (Auto) 0.5 x10^3/uL (1.0-4.8) Monocytes # (Auto) 0.9 x10^3/uL (0.0-1.1) Eosinophils # (Auto) 0.0 x10^3/uL (0.0-0.7) Basophils # (Auto) 0.1 x10^3/uL (0.0-0.2) Sodium Level 139 mmol/L (136-145) Potassium Level 4.3 mmol/L (3.5-5.1) Chloride Level 104 mmol/L (98-107) Carbon Dioxide Level 30 mmol/L (21-32) Anion Gap 5 (6-14) Blood Urea Nitrogen 27 mg/dL (8-26) Creatinine 1.1 mg/dL (0.7-1.3) Estimated GFR (Cockcroft-Gault) 65.3 Glucose Level 135 mg/dL (70-99) Calcium Level 8.5 mg/dL (8.5-10.1) Laboratory Tests Test 03/07/17 11:57 03/07/17 16:54 03/07/17 21:02 03/08/17 04:30 Glucose (Fingerstick) 151 mg/dL (70-99) 186 mg/dL (70-99) 211 mg/dL (70-99) White Blood Count 8.1 x10^3/uL (4.0-11.0) Red Blood Count 2.86 x10^6/uL (4.30-5.70) Hemoglobin 8.6 g/dL (13.0-17.5) Hematocrit 25.2 % (39.0-53.0) Mean Corpuscular Volume 88 fL (79-100) Mean Corpuscular Hemoglobin 30 pg (25-35) Mean Corpuscular Hemoglobin Concent 34 g/dL (31-37) Red Cell Distribution Width 16.4 % (11.5-14.5) Platelet Count 514 x10^3/uL (140-400) Neutrophils (%) (Auto) 82 % (31-73) Lymphocytes (%) (Auto) 6 % (24-48) Monocytes (%) (Auto) 11 % (0-9) Eosinophils (%) (Auto) 0 % (0-3) Basophils (%) (Auto) 1 % (0-3) Neutrophils # (Auto) 6.6 x10^3uL (1.8-7.7) Lymphocytes # (Auto) 0.5 x10^3/uL (1.0-4.8) Monocytes # (Auto) 0.9 x10^3/uL (0.0-1.1) Eosinophils # (Auto) 0.0 x10^3/uL (0.0-0.7) Basophils # (Auto) 0.1 x10^3/uL (0.0-0.2) Sodium Level 139 mmol/L (136-145) Potassium Level 4.3 mmol/L (3.5-5.1) Chloride Level 104 mmol/L (98-107) Carbon Dioxide Level 30 mmol/L (21-32) Anion Gap 5 (6-14) Blood Urea Nitrogen 27 mg/dL (8-26) Creatinine 1.1 mg/dL (0.7-1.3) Estimated GFR (Cockcroft-Gault) 65.3 Glucose Level 135 mg/dL (70-99) Calcium Level 8.5 mg/dL (8.5-10.1) Test 03/08/17 07:47 Glucose (Fingerstick) 121 mg/dL (70-99) Medications Current Medications Albuterol/ Ipratropium (Duoneb) 3 ml 1X ONCE NEB Last administered on t 12:21; Start 03/02/17 at 12:00; Stop 03/02/17 at 12:01; Status DC Ondansetron HCl (Zofran) 4 mg PRN Q8HRS PRN IV NAUSEA/VOMITING; Start 03/02/17 at 13:15; Stop 03/03/17 at 13:14; Status DC Albuterol/ Ipratropium (Duoneb) 3 ml RTQID NEB Last administered on 03/03/17 13 :51; Start 03/02/17 at 16:00; Stop 03/03/17 at 15:59; Status DC Acetaminophen (Tylenol) 650 mg PRN Q6HRS PRN PO FEVER Last administered on 00:53; Start 03/02/17 at 14:15 Ondansetron HCl (Zofran) 4 mg PRN Q6HRS PRN IV NAUSEA/VOMITING; Start 03/02/17 at 14:15 Morphine Sulfate 2 mg PRN Q2HR PRN IV PAIN; Start 03/02/17 at 14:15; Stop at 17:04; Status DC Tramadol HCl (Ultram) 50 mg PRN Q6HRS PRN PO PAIN; Start 03/02/17 at 14:15 Hydralazine HCl (Apresoline) 10 mg PRN Q4HRS PRN IVP ELEVATED BP, SEE COMMENTS ; Start 03/02/17 at 14:15 Docusate Sodium (Colace) 100 mg PRN DAILY PRN PO CONSTIPATION; Start 03/02/17 at 14:15 Furosemide (Lasix) 40 mg 1X ONCE PO ; Start 03/02/17 at 14:15; Stop 03/02/17 at 14:18; Status DC Allopurinol (Zyloprim) 300 mg DAILY PO Last administered on 03/08/17 08:44; Start 03/03/17 at 09:00 Clopidogrel Bisulfate (Plavix) 75 mg DAILY PO Last administered on 03/08/17 08: 43; Start 03/03/17 at 09:00 Dronedarone (Multaq) 400 mg DAILY16 PO ; Start 03/02/17 at 16:00; Status Cancel Nitroglycerin (Nitrostat) 0.4 mg PRN Q5MIN PRN SL CHEST PAIN; Start 03/02/17 at 14:15; Stop 03/04/17 at 13:07; Status DC Potassium Chloride (Klor-Con) 20 meq DAILY PO Last administered on 03/06/17 08: 44; Start 03/03/17 at 09:00; Stop 03/07/17 at 07:25; Status DC Sacubitril/ Valsartan (Entresto 49 Mg-51 Mg) 1 tab BID PO ; Start 03/02/17 at 21: 00; Stop 03/02/17 at 21:00; Status DC Metoprolol Tartrate (Lopressor) 12.5 mg BID PO Last administered on 03/08/17 08 :45; Start 03/02/17 at 21:00 Furosemide (Lasix) 40 mg DAILY PO ; Start 03/03/17 at 09:00; Stop 03/03/17 at 09: 00; Status DC Furosemide (Lasix) 20 mg 1X ONCE IVP Last administered on 03/02/17 16:43; Start 03/02/17 at 15:30; Stop 03/02/17 at 15:31; Status DC Heparin Sodium (Porcine) (Heparin Sq) 5,000 unit Q8HRS SQ Last administered on 03/08/17 07:33; Start 03/02/17 at 22:00 Insulin Aspart (NovoLOG) 0-9 UNITS TIDWMEALS SQ Last administered on 03/04/17 17:40; Start 03/02/17 at 17:00 Dextrose (Dextrose 50%-Water Syringe) 12.5 gm PRN Q15MIN PRN IV SEE COMMENTS; Start 03/02/17 at 14:30 Furosemide (Lasix) 20 mg DAILY IVP Last administered on 03/06/17 08:48; Start 03/03/17 at 09:00; Stop 03/06/17 at 10:54; Status DC Aspirin (Ecotrin) 81 mg DAILYWBKFT PO Last administered on 03/08/17 08:44; Start 03/03/17 at 08:00 Dronedarone (Multaq) 200 mg BID PO ; Start 03/02/17 at 21:00; Status Cancel Lisinopril (Prinivil) 40 mg DAILY PO Last administered on 03/08/17 08:43; Start 03/03/17 at 09:00 Non-Formulary Medication 400 mg DAILY PO ; Start 03/03/17 at 09:00; Status UNV Dronedarone (Multaq) 400 mg DAILY PO Last administered on 03/08/17 08:42; Start 03/03/17 at 09:00 Gabapentin (Neurontin) 800 mg QID PO Last administered on 03/08/17 08:43; Start 03/03/17 at 10:00 Acetaminophen (Tylenol) 325 mg QID PO Last administered on 03/08/17 08:44; Start 03/03/17 at 09:45 Albuterol Sulfate (Ventolin Neb Soln) 2.5 mg RTQID NEB Last administered on 03/04 08:11; Start 03/04/17 at 08:00; Stop 03/04/17 at 08:24; Status DC Albuterol Sulfate (Ventolin Neb Soln) 2.5 mg PRN Q2HRS PRN NEB SHORTNESS OF BREATH; Start 03/04/17 at 08:00 Doxycycline Hyclate (Vibra-Tab) 100 mg BID PO Last administered on 03/08/17 08: 40; Start 03/04/17 at 09:00 Albuterol/ Ipratropium (Duoneb) 3 ml RTQID NEB Last administered on 03/07/17 19 :43; Start 03/04/17 at 12:00 Iohexol (Omnipaque 300 Mg/ml) 100 ml STK-MED ONCE .ROUTE ; Start 03/04/17 at 10: 05; Stop 03/04/17 at 10:06; Status DC Heparin Sodium/ Sodium Chloride 500 ml @ As Directed STK-MED ONCE .ROUTE ; Start 03/04/17 at 10:05; Stop 03/04/17 at 10:06; Status DC Lidocaine HCl 20 ml STK-MED ONCE .ROUTE ; Start 03/04/17 at 10:05; Stop 03/04/17 at 10:06; Status DC Heparin Sodium/ Sodium Chloride 1,000 unit 1X ONCE IART Last administered on 11:39; Start 03/04/17 at 10:45; Stop 03/04/17 at 10:58; Status DC Heparin Sodium/ Sodium Chloride 1,000 unit 1X ONCE IART Last administered on 11:39; Start 03/04/17 at 10:45; Stop 03/04/17 at 10:58; Status DC Midazolam HCl (Versed) 2 mg 1X ONCE IV Last administered on 03/04/17 11:40; Start 03/04/17 at 10:45; Stop 03/04/17 at 10:58; Status DC Fentanyl Citrate (Fentanyl 2ml Vial) 100 mcg 1X ONCE IV Last administered on 11:40; Start 03/04/17 at 10:45; Stop 03/04/17 at 10:58; Status DC Iohexol (Omnipaque 300 Mg/ml) 100 ml 1X ONCE IART Last administered on 11:39; Start 03/04/17 at 10:45; Stop 03/04/17 at 10:58; Status DC Lidocaine HCl 20 ml 1X ONCE IJ Last administered on 03/04/17 11:39; Start 03/04 at 10:45; Stop 03/04/17 at 10:58; Status DC Heparin Sodium (Porcine) (Heparin Sodium) 5,000 unit 1X ONCE IV Last administered on 03/04/17 11:54; Start 03/04/17 at 11:14; Stop 03/04/17 at 11:41; Status DC Adenosine 90 mg/ Sodium Chloride 120 ml @ 504 mls/hr 1X ONCE IV ; Start at 11:29; Stop 03/04/17 at 11:43; Status Cancel Adenosine 180 mg/ Sodium Chloride 90 ml @ 1,080 mls/hr 1X ONCE IV ; Start 03/04 at 12:00; Stop 03/04/17 at 12:04; Status Cancel Adenosine 180 mg/ Sodium Chloride 150 ml @ 504 mls/hr 1X ONCE IV Last administered on 03/04/17 11:53; Start 03/04/17 at 12:00; Stop 03/04/17 at 12:17; Status DC Nitroglycerin (Nitrostat) 0.4 mg PRN Q5MIN PRN SL CHEST PAIN; Start 03/04/17 at 13:00 Fluoxetine HCl (PROzac) 20 mg DAILY PO Last administered on 03/08/17 08:40; Start 03/04/17 at 17:00 Iohexol (Omnipaque 300 Mg/ml) 60 ml 1X ONCE IV Last administered on 03/05/17 08:00; Start 03/05/17 at 05:30; Stop 03/05/17 at 05:31; Status DC Info (Do NOT chart on this entry -- for MONITORING) 1 each PRN DAILY PRN MC SEE COMMENTS; Start 03/05/17 at 05:15; Stop 03/07/17 at 05:15; Status DC Promethazine HCl/ Codeine (Phenergan With Codeine) 10 ml QID PO Last administered on 03/05/17 13:49; Start 03/05/17 at 13:00; Stop 03/05/17 at 16:09; Status DC Promethazine HCl/ Codeine (Phenergan With Codeine) 10 ml PRN Q8HRS PRN PO COUGH ; Start 03/06/17 at 13:00 Furosemide (Lasix) 20 mg 1X ONCE IVP ; Start 03/06/17 at 09:15; Stop 03/06/17 at 09:16; Status DC Furosemide (Lasix) 40 mg DAILY IVP Last administered on 03/08/17 08:46; Start 03/06/17 at 11:00; Stop 03/10/17 at 09:00 Prednisone (Prednisone) 40 mg DAILY PO Last administered on 03/08/17 08:45; Start 03/06/17 at 12:00 Metolazone (Zaroxolyn) 2.5 mg 1X ONCE PO Last administered on 03/06/17 19:48; Start 03/06/17 at 19:30; Stop 03/06/17 at 19:31; Status DC Furosemide (Lasix) 40 mg 1X ONCE IVP ; Start 03/06/17 at 19:30; Stop 03/06/17 at 19:31; Status DC Active Scripts Active Nitrostat (Nitroglycerin) 0.4 Mg Tab.subl 0.4 Mg SL PRN Q5MIN PRN [Metoprolol Tartrate] 25 MG Tablet 12.5 Mg PO BID [Aspirin] 81 MG Tablet. 81 Mg PO DAILYWBKFT Reported Multaq (Dronedarone Hcl) 400 Mg Tablet 400 Mg PO Gleevec (Imatinib Mesylate) 400 Mg Tablet 400 Mg PO DAILY Ramipril 2.5 Mg Capsule 20 Mg PO DAILY Klor-Con M20 (Potassium Chloride) 20 Meq Tab.er.prt 1 Tab PO DAILY Lasix (Furosemide) 20 Mg Tablet 1 Tab PO DAILY Allopurinol 300 Mg Tablet 1 Tab PO DAILY Plavix (Clopidogrel Bisulfate) 75 Mg Tablet 75 Mg PO DAILY Gabapentin 800 Mg Tablet 800 Mg PO QID Metformin Hcl 1,000 Mg Tablet 1 Tab PO BID Do not resume until 10/07/15 evening dose Vitals/I & O Vital Sign - Last 24 Hours 03/07/17 03/07/17 03/07/17 03/07/17 11:00 12:06 14:51 15:00 Temp 98.0 97.9 98.0 97.9 Pulse 61 61 76 Resp 20 20 B/P (MAP) 103/62 (76) 103/62 121/73 (89) Pulse Ox 97 96 96 O2 Delivery Nasal Cannula O2 Flow Rate 2.0 03/07/17 03/07/17 03/07/17 03/07/17 15:43 19:24 19:47 20:00 Temp 98.6 98.6 Pulse 76 Resp 18 B/P (MAP) 116/57 (76) Pulse Ox 96 O2 Delivery Nasal Cannula Nasal Cannula Nasal Cannula Nasal Cannula O2 Flow Rate 3.0 3.0 3.0 3.0 03/07/17 03/07/17 03/08/17 03/08/17 21:30 22:18 03:33 07:20 Temp 98.5 98.5 97.7 98.5 98.5 97.7 Pulse 76 79 67 70 Resp 18 18 20 B/P (MAP) 116/57 119/62 (81) 129/64 (85) 132/64 (86) Pulse Ox 96 94 96 O2 Delivery Nasal Cannula Nasal Cannula Nasal Cannula O2 Flow Rate 3.0 3.0 3.0 03/08/17 03/08/17 03/08/17 08:42 08:43 08:45 Pulse 67 70 70 B/P (MAP) 129/64 132/64 132/64 OSCAR WILKERSON MD Mar 08, 2017 09:06
[2017-03-08] MEDS: IPRATRPIUM/ALBUTEROL 0.5/2.5MG 3 ML NEBU. NEB SCH ×4 (09:12→20:00)
--- NOTE | 2017-03-08 09:17 | RAD ---
Portable chest, 03/08/2017: History: Congestive heart failure Comparison is made to a study from 03/02/2017. A left-sided transvenous pacemaker is unchanged in position. The heart appears to be within normal limits in size. There is calcific plaquing of the aorta. The pulmonary vascularity is normal. No pulmonary consolidation is evident. No pleural fluid is detected. IMPRESSION: No acute cardiopulmonary abnormality is identified.
[2017-03-08] MEDS ORDERED: DOXY100C2 PO (09:20)
[2017-03-08 11:15] VITALS: BP 107/51
--- NOTE | 2017-03-08 12:06 | PDOC ---
PULMONARY PROGRESS NOTES Subjective PT feels better post diuresis/ steroids Vitals Vital Signs Date Time Temp Pulse Resp B/P (MAP) Pulse Ox O2 Delivery O2 Flow Rate FiO2 03/08/17 11:15 98.3 77 18 107/51 (69) 97 Nasal Cannula 3.0 98.3 ROS: No Nausea, No Chest Pain, No Abdominal Pain, No Increase Cough General: Alert, No acute distress Lungs: Crackles (bases persistent) Cardiovascular: S1, S2 Abdomen: Soft Neuro Exam: Alert Extremities: Other (1+edema) Skin: Warm Labs Laboratory Tests Test 03/06/17 16:37 03/06/17 20:37 03/07/17 03:50 03/07/17 08:01 Glucose (Fingerstick) 117 mg/dL (70-99) 200 mg/dL (70-99) 153 mg/dL (70-99) White Blood Count 8.8 x10^3/uL (4.0-11.0) Red Blood Count 2.89 x10^6/uL (4.30-5.70) Hemoglobin 8.7 g/dL (13.0-17.5) Hematocrit 25.5 % (39.0-53.0) Mean Corpuscular Volume 88 fL (79-100) Mean Corpuscular Hemoglobin 30 pg (25-35) Mean Corpuscular Hemoglobin Concent 34 g/dL (31-37) Red Cell Distribution Width 16.5 % (11.5-14.5) Platelet Count 474 x10^3/uL (140-400) Neutrophils (%) (Auto) 94 % (31-73) Lymphocytes (%) (Auto) 3 % (24-48) Monocytes (%) (Auto) 2 % (0-9) Eosinophils (%) (Auto) 0 % (0-3) Basophils (%) (Auto) 1 % (0-3) Neutrophils # (Auto) 8.3 x10^3uL (1.8-7.7) Lymphocytes # (Auto) 0.3 x10^3/uL (1.0-4.8) Monocytes # (Auto) 0.2 x10^3/uL (0.0-1.1) Eosinophils # (Auto) 0.0 x10^3/uL (0.0-0.7) Basophils # (Auto) 0.0 x10^3/uL (0.0-0.2) Sodium Level 138 mmol/L (136-145) Potassium Level 5.3 mmol/L (3.5-5.1) Chloride Level 103 mmol/L (98-107) Carbon Dioxide Level 27 mmol/L (21-32) Anion Gap 8 (6-14) Blood Urea Nitrogen 24 mg/dL (8-26) Creatinine 1.3 mg/dL (0.7-1.3) Estimated GFR (Cockcroft-Gault) 53.8 Glucose Level 187 mg/dL (70-99) Calcium Level 8.4 mg/dL (8.5-10.1) Test 03/07/17 11:57 03/07/17 16:54 03/07/17 21:02 03/08/17 04:30 Glucose (Fingerstick) 151 mg/dL (70-99) 186 mg/dL (70-99) 211 mg/dL (70-99) White Blood Count 8.1 x10^3/uL (4.0-11.0) Red Blood Count 2.86 x10^6/uL (4.30-5.70) Hemoglobin 8.6 g/dL (13.0-17.5) Hematocrit 25.2 % (39.0-53.0) Mean Corpuscular Volume 88 fL (79-100) Mean Corpuscular Hemoglobin 30 pg (25-35) Mean Corpuscular Hemoglobin Concent 34 g/dL (31-37) Red Cell Distribution Width 16.4 % (11.5-14.5) Platelet Count 514 x10^3/uL (140-400) Neutrophils (%) (Auto) 82 % (31-73) Lymphocytes (%) (Auto) 6 % (24-48) Monocytes (%) (Auto) 11 % (0-9) Eosinophils (%) (Auto) 0 % (0-3) Basophils (%) (Auto) 1 % (0-3) Neutrophils # (Auto) 6.6 x10^3uL (1.8-7.7) Lymphocytes # (Auto) 0.5 x10^3/uL (1.0-4.8) Monocytes # (Auto) 0.9 x10^3/uL (0.0-1.1) Eosinophils # (Auto) 0.0 x10^3/uL (0.0-0.7) Basophils # (Auto) 0.1 x10^3/uL (0.0-0.2) Sodium Level 139 mmol/L (136-145) Potassium Level 4.3 mmol/L (3.5-5.1) Chloride Level 104 mmol/L (98-107) Carbon Dioxide Level 30 mmol/L (21-32) Anion Gap 5 (6-14) Blood Urea Nitrogen 27 mg/dL (8-26) Creatinine 1.1 mg/dL (0.7-1.3) Estimated GFR (Cockcroft-Gault) 65.3 Glucose Level 135 mg/dL (70-99) Calcium Level 8.5 mg/dL (8.5-10.1) Test 03/08/17 07:47 03/08/17 11:32 Glucose (Fingerstick) 121 mg/dL (70-99) 146 mg/dL (70-99) Laboratory Tests Test 03/07/17 16:54 03/07/17 21:02 03/08/17 04:30 03/08/17 07:47 Glucose (Fingerstick) 186 mg/dL (70-99) 211 mg/dL (70-99) 121 mg/dL (70-99) White Blood Count 8.1 x10^3/uL (4.0-11.0) Red Blood Count 2.86 x10^6/uL (4.30-5.70) Hemoglobin 8.6 g/dL (13.0-17.5) Hematocrit 25.2 % (39.0-53.0) Mean Corpuscular Volume 88 fL (79-100) Mean Corpuscular Hemoglobin 30 pg (25-35) Mean Corpuscular Hemoglobin Concent 34 g/dL (31-37) Red Cell Distribution Width 16.4 % (11.5-14.5) Platelet Count 514 x10^3/uL (140-400) Neutrophils (%) (Auto) 82 % (31-73) Lymphocytes (%) (Auto) 6 % (24-48) Monocytes (%) (Auto) 11 % (0-9) Eosinophils (%) (Auto) 0 % (0-3) Basophils (%) (Auto) 1 % (0-3) Neutrophils # (Auto) 6.6 x10^3uL (1.8-7.7) Lymphocytes # (Auto) 0.5 x10^3/uL (1.0-4.8) Monocytes # (Auto) 0.9 x10^3/uL (0.0-1.1) Eosinophils # (Auto) 0.0 x10^3/uL (0.0-0.7) Basophils # (Auto) 0.1 x10^3/uL (0.0-0.2) Sodium Level 139 mmol/L (136-145) Potassium Level 4.3 mmol/L (3.5-5.1) Chloride Level 104 mmol/L (98-107) Carbon Dioxide Level 30 mmol/L (21-32) Anion Gap 5 (6-14) Blood Urea Nitrogen 27 mg/dL (8-26) Creatinine 1.1 mg/dL (0.7-1.3) Estimated GFR (Cockcroft-Gault) 65.3 Glucose Level 135 mg/dL (70-99) Calcium Level 8.5 mg/dL (8.5-10.1) Test 03/08/17 11:32 Glucose (Fingerstick) 146 mg/dL (70-99) Medications Active Scripts Medications Dose Route/Sig Max Daily Dose Days Date Category Dose Instructions Gleevec (Imatinib Mesylate) 400 Mg Tablet 400 Mg PO DAILY 03/02/17 Reported Ramipril 2.5 Mg Capsule 20 Mg PO DAILY 03/02/17 Reported Multaq (Dronedarone Hcl) 400 Mg Tablet 200 Mg PO BID 03/02/17 Reported Klor-Con M20 (Potassium Chloride) 20 Meq Tab.er.prt 1 Tab PO DAILY 01/16/17 Reported Lasix (Furosemide) 20 Mg Tablet 1 Tab PO DAILY 01/16/17 Reported Allopurinol 300 Mg Tablet 1 Tab PO DAILY 01/16/17 Reported Plavix (Clopidogrel Bisulfate) 75 Mg Tablet 75 Mg PO DAILY 10/05/15 Reported Gabapentin 800 Mg Tablet 800 Mg PO QID 01/19/15 Reported Nitrostat (Nitroglycerin) 0.4 Mg Tab.subl 0.4 Mg SL PRN Q5MIN PRN 09/09/14 Rx [Metoprolol Tartrate] 25 MG Tablet 12.5 Mg PO BID 09/09/14 Rx [Aspirin] 81 MG Tablet.dr 81 Mg PO DAILYWBKFT 3/11/15 Rx Metformin Hcl 1,000 Mg Tablet 1 Tab PO BID 09/07/14 Reported Do not resume until 10/07/15 evening dose Impression . 1. Acute hypoxemic respiratory failure 2. 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 Chronic kidney disease. 4. Elevated BNP. 5. Coronary artery disease. Recent Cath 03/04 no significant blockages but mildly elevated LVEDP 6. Leukocytosis, suspect reactive, doubt infectious. 7. No significant tobacco use 8. CML s/p chemo CARDIAC CATH . Right and left heart catheterization yesterday showed orally mild pulmonary hypertension, normal pulmonary capillary wedge pressure, no evidence of intracardiac shunt, nonobstructive RCA stenosis with patent previously placed stent. Plan . CLINICALLY IMPROVING CONTINUE STEROIDS WITH SLOW TAPER WATCH RENAL FUNCTION WHILE ON LASIX CT CHEST REVIEWED/ MILD GG INFILTRATES AND A SMALL NODULE 6MM RIGHT LUNG. NEEDS REPEAT CT IN 3-4 MONTHS CRACKLES ON EXAM SEC TO ILD (NO SIG. INCREASE PCWP BY CATH BUT LVEDP 17) SUSPECT DYSPNEA MULTIFACTORIAL IN NATURE/ BUT HIGHLY LIKELY GLEEVEC INDUCED ILD CONTINUE 02 FOLLOW CARD INPUT 6 MIN WALK PRIOR TO D/C D/W DR SULLIVAN follow up in office in apr with cxr before MUKUL LOFTON MD Mar 08, 2017 12:06
--- NOTE | 2017-03-08 13:59 | PDOC ---
CHAVA LE TRADE ANALYST 03/08/17 1359: CARDIO Progress Notes Date and Time Date of Service 03/08/2017 Time of Evaluation 1345 Subjective Subjective: No Chest Pain, No shortness of breath, No Palpitations, No Dizziness, Other (feels much better today) Vitals Vitals Vital Signs Date Time Temp Pulse Resp B/P (MAP) Pulse Ox O2 Delivery O2 Flow Rate FiO2 03/08/17 12:28 Nasal Cannula 3.0 03/08/17 11:15 98.3 77 18 107/51 (69) 97 98.3 Weight Weight [ ] Input and Output Intake and Output Intake and Output 03/09/17 07:00 # Voids 2 Laboratory Labs Laboratory Tests Test 03/07/17 16:54 03/07/17 21:02 03/08/17 04:30 03/08/17 07:47 Glucose (Fingerstick) 186 mg/dL (70-99) 211 mg/dL (70-99) 121 mg/dL (70-99) White Blood Count 8.1 x10^3/uL (4.0-11.0) Red Blood Count 2.86 x10^6/uL (4.30-5.70) Hemoglobin 8.6 g/dL (13.0-17.5) Hematocrit 25.2 % (39.0-53.0) Mean Corpuscular Volume 88 fL (79-100) Mean Corpuscular Hemoglobin 30 pg (25-35) Mean Corpuscular Hemoglobin Concent 34 g/dL (31-37) Red Cell Distribution Width 16.4 % (11.5-14.5) Platelet Count 514 x10^3/uL (140-400) Neutrophils (%) (Auto) 82 % (31-73) Lymphocytes (%) (Auto) 6 % (24-48) Monocytes (%) (Auto) 11 % (0-9) Eosinophils (%) (Auto) 0 % (0-3) Basophils (%) (Auto) 1 % (0-3) Neutrophils # (Auto) 6.6 x10^3uL (1.8-7.7) Lymphocytes # (Auto) 0.5 x10^3/uL (1.0-4.8) Monocytes # (Auto) 0.9 x10^3/uL (0.0-1.1) Eosinophils # (Auto) 0.0 x10^3/uL (0.0-0.7) Basophils # (Auto) 0.1 x10^3/uL (0.0-0.2) Sodium Level 139 mmol/L (136-145) Potassium Level 4.3 mmol/L (3.5-5.1) Chloride Level 104 mmol/L (98-107) Carbon Dioxide Level 30 mmol/L (21-32) Anion Gap 5 (6-14) Blood Urea Nitrogen 27 mg/dL (8-26) Creatinine 1.1 mg/dL (0.7-1.3) Estimated GFR (Cockcroft-Gault) 65.3 Glucose Level 135 mg/dL (70-99) Calcium Level 8.5 mg/dL (8.5-10.1) Test 03/08/17 11:32 Glucose (Fingerstick) 146 mg/dL (70-99) Physical Exam HEENT: Neck Supple W Full Motion Chest: Symmetric LUNGS: Other (bibasial crackles ) Heart: S1S2, RRR (intermittent paced) Abdomen: Soft N/T Extremities: Other (1+ bilateral LE pitting edema ) Neurology: alert, oriented, follow commands Assessment Assessment 1. Dyspnea: Multifactorial. Improved with prednisone and blood transfusion. Likely interstitial lung disease as main culprit 2. Mild acute on chronic systolic heart failure with ICM; LVEF 30-35%: Compensated 3. CML: Continue chemotherapy per oncology team 4. AICD/BiV in situ: recent device check with normal function 5. PAFIB/SSS: continue Multaq 6. CAD: PCI/CHARLI to RCA - stable with recent LHC patent stent 7. HTN: controlled 8. DM2/HLP - per IM 9. Anemia of chronic disease: s/p 2 units of PRBC's Recommendations 1. Outpt referral for EECP 2. Continue with PO diuretics and secondary prevention measures. DAPT 3. No statin, unable to tolerate in the past with significant myalgia 4. Follow up in office in 4 weeks. MARISSA CABRERA MD 03/08/17 4357: CARDIO Progress Notes Assessment Assessment Patient seen and examined. Agree with PICKING BELT OPERATOR's assessment and plan. Patient still needing O2 price with exertion Hypoxia multifactorial but predominantly from interstitial lung disease secondary to Gleevec Continue steroids - Pulm and onc following Recent RHC showed normal PCWP. CAD status stable. Possible [facility] CHAVA LE APRN Mar 08, 2017 13:59 MARISSA CABRERA MD Mar 08, 2017 18:39
--- NOTE | 2017-03-08 14:16 | PDOC3 ---
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, vasomotor PMH: h/o CAD with pci CHF HTN Type 2 DM morbid obesity Final Diagnosis Problems Medical Problems: (1) CHF (congestive heart failure) Status: Acute (2) Hypoxia Status: Acute (3) Shortness of breath Status: Acute Brief Hospital Course Allergies Allergies Coded Allergies Type Severity Reaction Last Updated Verified lisinopril Allergy Unknown coughing 03/06/17 Yes hydrocodone Adverse Reaction Intermediate altered mental status, hallucinations 03/02/17 Yes morphine Adverse Reaction Intermediate 03/02/17 Yes Vital Signs Vital Signs Date Time Temp Pulse Resp B/P (MAP) Pulse Ox O2 Delivery O2 Flow Rate FiO2 03/08/17 12:28 Nasal Cannula 3.0 03/08/17 11:15 98.3 77 18 107/51 (69) 97 98.3 Lab Results Laboratory Tests Test 03/06/17 16:37 03/06/17 20:37 03/07/17 03:50 03/07/17 08:01 Glucose (Fingerstick) 117 mg/dL (70-99) 200 mg/dL (70-99) 153 mg/dL (70-99) White Blood Count 8.8 x10^3/uL (4.0-11.0) Red Blood Count 2.89 x10^6/uL (4.30-5.70) Hemoglobin 8.7 g/dL (13.0-17.5) Hematocrit 25.5 % (39.0-53.0) Mean Corpuscular Volume 88 fL (79-100) Mean Corpuscular Hemoglobin 30 pg (25-35) Mean Corpuscular Hemoglobin Concent 34 g/dL (31-37) Red Cell Distribution Width 16.5 % (11.5-14.5) Platelet Count 474 x10^3/uL (140-400) Neutrophils (%) (Auto) 94 % (31-73) Lymphocytes (%) (Auto) 3 % (24-48) Monocytes (%) (Auto) 2 % (0-9) Eosinophils (%) (Auto) 0 % (0-3) Basophils (%) (Auto) 1 % (0-3) Neutrophils # (Auto) 8.3 x10^3uL (1.8-7.7) Lymphocytes # (Auto) 0.3 x10^3/uL (1.0-4.8) Monocytes # (Auto) 0.2 x10^3/uL (0.0-1.1) Eosinophils # (Auto) 0.0 x10^3/uL (0.0-0.7) Basophils # (Auto) 0.0 x10^3/uL (0.0-0.2) Sodium Level 138 mmol/L (136-145) Potassium Level 5.3 mmol/L (3.5-5.1) Chloride Level 103 mmol/L (98-107) Carbon Dioxide Level 27 mmol/L (21-32) Anion Gap 8 (6-14) Blood Urea Nitrogen 24 mg/dL (8-26) Creatinine 1.3 mg/dL (0.7-1.3) Estimated GFR (Cockcroft-Gault) 53.8 Glucose Level 187 mg/dL (70-99) Calcium Level 8.4 mg/dL (8.5-10.1) Test 03/07/17 11:57 03/07/17 16:54 03/07/17 21:02 03/08/17 04:30 Glucose (Fingerstick) 151 mg/dL (70-99) 186 mg/dL (70-99) 211 mg/dL (70-99) White Blood Count 8.1 x10^3/uL (4.0-11.0) Red Blood Count 2.86 x10^6/uL (4.30-5.70) Hemoglobin 8.6 g/dL (13.0-17.5) Hematocrit 25.2 % (39.0-53.0) Mean Corpuscular Volume 88 fL (79-100) Mean Corpuscular Hemoglobin 30 pg (25-35) Mean Corpuscular Hemoglobin Concent 34 g/dL (31-37) Red Cell Distribution Width 16.4 % (11.5-14.5) Platelet Count 514 x10^3/uL (140-400) Neutrophils (%) (Auto) 82 % (31-73) Lymphocytes (%) (Auto) 6 % (24-48) Monocytes (%) (Auto) 11 % (0-9) Eosinophils (%) (Auto) 0 % (0-3) Basophils (%) (Auto) 1 % (0-3) Neutrophils # (Auto) 6.6 x10^3uL (1.8-7.7) Lymphocytes # (Auto) 0.5 x10^3/uL (1.0-4.8) Monocytes # (Auto) 0.9 x10^3/uL (0.0-1.1) Eosinophils # (Auto) 0.0 x10^3/uL (0.0-0.7) Basophils # (Auto) 0.1 x10^3/uL (0.0-0.2) Sodium Level 139 mmol/L (136-145) Potassium Level 4.3 mmol/L (3.5-5.1) Chloride Level 104 mmol/L (98-107) Carbon Dioxide Level 30 mmol/L (21-32) Anion Gap 5 (6-14) Blood Urea Nitrogen 27 mg/dL (8-26) Creatinine 1.1 mg/dL (0.7-1.3) Estimated GFR (Cockcroft-Gault) 65.3 Glucose Level 135 mg/dL (70-99) Calcium Level 8.5 mg/dL (8.5-10.1) Test 03/08/17 07:47 03/08/17 11:32 Glucose (Fingerstick) 121 mg/dL (70-99) 146 mg/dL (70-99) Laboratory Tests Test 03/07/17 16:54 03/07/17 21:02 03/08/17 04:30 03/08/17 07:47 Glucose (Fingerstick) 186 mg/dL (70-99) 211 mg/dL (70-99) 121 mg/dL (70-99) White Blood Count 8.1 x10^3/uL (4.0-11.0) Red Blood Count 2.86 x10^6/uL (4.30-5.70) Hemoglobin 8.6 g/dL (13.0-17.5) Hematocrit 25.2 % (39.0-53.0) Mean Corpuscular Volume 88 fL (79-100) Mean Corpuscular Hemoglobin 30 pg (25-35) Mean Corpuscular Hemoglobin Concent 34 g/dL (31-37) Red Cell Distribution Width 16.4 % (11.5-14.5) Platelet Count 514 x10^3/uL (140-400) Neutrophils (%) (Auto) 82 % (31-73) Lymphocytes (%) (Auto) 6 % (24-48) Monocytes (%) (Auto) 11 % (0-9) Eosinophils (%) (Auto) 0 % (0-3) Basophils (%) (Auto) 1 % (0-3) Neutrophils # (Auto) 6.6 x10^3uL (1.8-7.7) Lymphocytes # (Auto) 0.5 x10^3/uL (1.0-4.8) Monocytes # (Auto) 0.9 x10^3/uL (0.0-1.1) Eosinophils # (Auto) 0.0 x10^3/uL (0.0-0.7) Basophils # (Auto) 0.1 x10^3/uL (0.0-0.2) Sodium Level 139 mmol/L (136-145) Potassium Level 4.3 mmol/L (3.5-5.1) Chloride Level 104 mmol/L (98-107) Carbon Dioxide Level 30 mmol/L (21-32) Anion Gap 5 (6-14) Blood Urea Nitrogen 27 mg/dL (8-26) Creatinine 1.1 mg/dL (0.7-1.3) Estimated GFR (Cockcroft-Gault) 65.3 Glucose Level 135 mg/dL (70-99) Calcium Level 8.5 mg/dL (8.5-10.1) Test 03/08/17 11:32 Glucose (Fingerstick) 146 mg/dL (70-99) Brief Hospital Course Mr. Telles is a 76 old very pleasant male, lives at home, recently dx with CML when he presented with WBC 300,000, BMA proved CMP and started on Glevec by our heme onc, WBC has come down to normal now, but went into CHF picture with us, co managed with cards, pulmo, heme onc, Echo poor EF low EF, better with diuresis, steroids, PO doxy, CT scan shows ground glass opacities seen in ILD. In my opinion got better with getting few days worth diuresis and Prednisone, Dc on both, rpt CXR OCT with ff up pulmo, Heme onc thinking of another tyrosine kinase inhibitor to give him that can not cause CHF. Dw pt, heme on c and pulmo, To HCR. Pt seen and examined MAR done CXR request for OCT given Discharge Information Condition at Discharge: Improved, Stable Disposition/Orders: Other (HCR) Scheduled Allopurinol (Allopurinol), 1 TAB PO DAILY, (Reported) Clopidogrel Bisulfate (Plavix), 75 MG PO DAILY, (Reported) Furosemide (Lasix), 1 TAB PO DAILY, (Reported) Gabapentin (Gabapentin), 800 MG PO QID, (Reported) Imatinib Mesylate (Gleevec), 400 MG PO DAILY, (Reported) Metformin Hcl (Metformin Hcl), 1 TAB PO BID, (Reported) Potassium Chloride (Klor-Con M20), 1 TAB PO DAILY, (Reported) Ramipril (Ramipril), 20 MG PO DAILY, (Reported) [Aspirin], 81 MG PO DAILYWBKFT [Metoprolol Tartrate], 12.5 MG PO BID Scheduled PRN Nitroglycerin (Nitrostat), 0.4 MG SL PRN Q5MIN PRN for CHEST PAIN Miscellaneous Medications Dronedarone Hcl (Multaq), 400 MG PO, (Reported) Discontinued Medications Dronedarone Hcl (Multaq), 400 MG PO DAILY16, (Reported) Dronedarone Hcl (Multaq), 200 MG PO BID, (Reported) Sacubitril/Valsartan (Entresto 49 mg-51 mg Tablet), 1 EACH PO BID, (Reported) MAMTA SULLIVAN MD Mar 08, 2017 14:16
[2017-03-08 15:20] VITALS: BP 115/52
[2017-03-08 19:37] VITALS: BP 112/49
[2017-03-08 23:26] VITALS: BP 121/56
[2017-03-09 03:48] VITALS: BP 119/54
[2017-03-09 05:52] LABS: BASO # 0.1 x10^3/uL (0.0-0.2); BASO % 1 % (0-3); EOS % 0 % (0-3); HEMATOCRIT 27.3 % (39.0-53.0); HEMOGLOBIN 9.3 g/dL (13.0-17.5); LYMPH # 0.8 x10^3/uL (1.0-4.8); LYMPH % 8 % (24-48); MEAN CORPUSCULAR HEMOGLOBIN 30 pg (25-35); MEAN CORPUSCULAR HGB CONC 34 g/dL (31-37); MEAN CORPUSCULAR VOLUME 87 fL (79-100); MONO % 11 % (0-9); NEUT % 81 % (31-73); PLATELET COUNT 565 x10^3/uL (140-400); RED BLOOD COUNT 3.12 x10^6/uL (4.30-5.70); RED CELL DISTRIBUTION WIDTH 16.7 % (11.5-14.5); WHITE BLOOD COUNT 10.4 x10^3/uL (4.0-11.0)
[2017-03-09] MEDS: HEPARIN PF for SUB-Q USE 5,000 UNIT/0.5 ML VIAL. SQ SCH (06:00)
[2017-03-09 06:12] LABS: CALCIUM 8.7 mg/dL (8.5-10.1); CREATININE 1.3 mg/dL (0.7-1.3); GFR 53.8; POTASSIUM 3.8 mmol/L (3.5-5.1)
[2017-03-09 07:00] VITALS: BP 125/61
[2017-03-09 07:37] LABS: ANISOCYTOSIS PRESENT; PLT ESTIMATE INCREASED (ADEQUATE)
[2017-03-09] MEDS: IPRATRPIUM/ALBUTEROL 0.5/2.5MG 3 ML NEBU. NEB SCH (07:55)
[2017-03-09] MEDS: INSULIN ASPART 300 UNITS/3 ML INSULN.PEN SQ SCH (08:00)
[2017-03-09] MEDS: ASPIRIN ENTERIC COATED 81 MG TABLET.DR. PO SCH (08:36)
[2017-03-09] MEDS: ALLOPURINOL 300 MG TABLET. PO SCH (08:36)
[2017-03-09] MEDS: DOXYCYCLINE HYCLATE 100 MG TABLET PO SCH (08:36)
[2017-03-09] MEDS: CLOPIDOGREL BISULFATE 75 MG TABLET PO SCH (08:36)
[2017-03-09] MEDS: DRONEDARONE HCL 400 MG TABLET PO SCH (08:36)
[2017-03-09] MEDS: ACETAMINOPHEN 325 MG TABLET. PO SCH (08:37)
[2017-03-09] MEDS: LISINOPRIL 40 MG TABLET. PO SCH (08:37)
[2017-03-09] MEDS: predniSONE 10 MG TABLET PO SCH (08:37)
[2017-03-09] MEDS: FLUoxetine HCL 20 MG CAPSULE PO SCH (08:37)
[2017-03-09] MEDS: GABAPENTIN 400 MG CAPSULE. PO SCH (08:37)
[2017-03-09 08:38] VITALS: BP 119/54
[2017-03-09] MEDS: METOPROLOL TART IMMED RELEASE 25 MG TABLET. PO SCH (08:38)
[2017-03-09] MEDS: NON FORMULARY ITEM (Imatinib Mesylate (Gleevec) 400 MG) PO SCH (08:40)
--- NOTE | 2017-03-09 08:47 | PDOC ---
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 f/u with me in 1 week. Multifactorial anemia - Hb worse at 7.3 on 03/06/17 s/p 1 unit PRBC and Hb improved to 8.7 on 03/07/17 and 9.3 on 03/09/17. 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 Hence d/c gleevec. Plan Tasigna as outpatient. Ischemic CM Comment Review of Relevant I have reviewed the following items ce (where applicable) has been applied. Labs Laboratory Tests Test 03/07/17 11:57 03/07/17 16:54 03/07/17 21:02 03/08/17 04:30 Glucose (Fingerstick) 151 mg/dL (70-99) 186 mg/dL (70-99) 211 mg/dL (70-99) White Blood Count 8.1 x10^3/uL (4.0-11.0) Red Blood Count 2.86 x10^6/uL (4.30-5.70) Hemoglobin 8.6 g/dL (13.0-17.5) Hematocrit 25.2 % (39.0-53.0) Mean Corpuscular Volume 88 fL (79-100) Mean Corpuscular Hemoglobin 30 pg (25-35) Mean Corpuscular Hemoglobin Concent 34 g/dL (31-37) Red Cell Distribution Width 16.4 % (11.5-14.5) Platelet Count 514 x10^3/uL (140-400) Neutrophils (%) (Auto) 82 % (31-73) Lymphocytes (%) (Auto) 6 % (24-48) Monocytes (%) (Auto) 11 % (0-9) Eosinophils (%) (Auto) 0 % (0-3) Basophils (%) (Auto) 1 % (0-3) Neutrophils # (Auto) 6.6 x10^3uL (1.8-7.7) Lymphocytes # (Auto) 0.5 x10^3/uL (1.0-4.8) Monocytes # (Auto) 0.9 x10^3/uL (0.0-1.1) Eosinophils # (Auto) 0.0 x10^3/uL (0.0-0.7) Basophils # (Auto) 0.1 x10^3/uL (0.0-0.2) Sodium Level 139 mmol/L (136-145) Potassium Level 4.3 mmol/L (3.5-5.1) Chloride Level 104 mmol/L (98-107) Carbon Dioxide Level 30 mmol/L (21-32) Anion Gap 5 (6-14) Blood Urea Nitrogen 27 mg/dL (8-26) Creatinine 1.1 mg/dL (0.7-1.3) Estimated GFR (Cockcroft-Gault) 65.3 Glucose Level 135 mg/dL (70-99) Calcium Level 8.5 mg/dL (8.5-10.1) Test 03/08/17 07:47 03/08/17 11:32 03/08/17 16:53 03/08/17 20:56 Glucose (Fingerstick) 121 mg/dL (70-99) 146 mg/dL (70-99) 239 mg/dL (70-99) 212 mg/dL (70-99) Test 03/09/17 04:30 03/09/17 07:48 White Blood Count 10.4 x10^3/uL (4.0-11.0) Red Blood Count 3.12 x10^6/uL (4.30-5.70) Hemoglobin 9.3 g/dL (13.0-17.5) Hematocrit 27.3 % (39.0-53.0) Mean Corpuscular Volume 87 fL (79-100) Mean Corpuscular Hemoglobin 30 pg (25-35) Mean Corpuscular Hemoglobin Concent 34 g/dL (31-37) Red Cell Distribution Width 16.7 % (11.5-14.5) Platelet Count 565 x10^3/uL (140-400) Neutrophils (%) (Auto) 81 % (31-73) Lymphocytes (%) (Auto) 8 % (24-48) Monocytes (%) (Auto) 11 % (0-9) Eosinophils (%) (Auto) 0 % (0-3) Basophils (%) (Auto) 1 % (0-3) Neutrophils # (Auto) 8.4 x10^3uL (1.8-7.7) Lymphocytes # (Auto) 0.8 x10^3/uL (1.0-4.8) Monocytes # (Auto) 1.1 x10^3/uL (0.0-1.1) Eosinophils # (Auto) 0.0 x10^3/uL (0.0-0.7) Basophils # (Auto) 0.1 x10^3/uL (0.0-0.2) Segmented Neutrophils % 81 % (35-66) Lymphocytes % 9 % (24-48) Monocytes % 10 % (0-10) Platelet Estimate Increased (ADEQUATE) Anisocytosis Present Sodium Level 138 mmol/L (136-145) Potassium Level 3.8 mmol/L (3.5-5.1) Chloride Level 101 mmol/L (98-107) Carbon Dioxide Level 29 mmol/L (21-32) Anion Gap 8 (6-14) Blood Urea Nitrogen 30 mg/dL (8-26) Creatinine 1.3 mg/dL (0.7-1.3) Estimated GFR (Cockcroft-Gault) 53.8 Glucose Level 157 mg/dL (70-99) Calcium Level 8.7 mg/dL (8.5-10.1) Glucose (Fingerstick) 119 mg/dL (70-99) Laboratory Tests Test 03/08/17 11:32 03/08/17 16:53 03/08/17 20:56 03/09/17 04:30 Glucose (Fingerstick) 146 mg/dL (70-99) 239 mg/dL (70-99) 212 mg/dL (70-99) White Blood Count 10.4 x10^3/uL (4.0-11.0) Red Blood Count 3.12 x10^6/uL (4.30-5.70) Hemoglobin 9.3 g/dL (13.0-17.5) Hematocrit 27.3 % (39.0-53.0) Mean Corpuscular Volume 87 fL (79-100) Mean Corpuscular Hemoglobin 30 pg (25-35) Mean Corpuscular Hemoglobin Concent 34 g/dL (31-37) Red Cell Distribution Width 16.7 % (11.5-14.5) Platelet Count 565 x10^3/uL (140-400) Neutrophils (%) (Auto) 81 % (31-73) Lymphocytes (%) (Auto) 8 % (24-48) Monocytes (%) (Auto) 11 % (0-9) Eosinophils (%) (Auto) 0 % (0-3) Basophils (%) (Auto) 1 % (0-3) Neutrophils # (Auto) 8.4 x10^3uL (1.8-7.7) Lymphocytes # (Auto) 0.8 x10^3/uL (1.0-4.8) Monocytes # (Auto) 1.1 x10^3/uL (0.0-1.1) Eosinophils # (Auto) 0.0 x10^3/uL (0.0-0.7) Basophils # (Auto) 0.1 x10^3/uL (0.0-0.2) Segmented Neutrophils % 81 % (35-66) Lymphocytes % 9 % (24-48) Monocytes % 10 % (0-10) Platelet Estimate Increased (ADEQUATE) Anisocytosis Present Sodium Level 138 mmol/L (136-145) Potassium Level 3.8 mmol/L (3.5-5.1) Chloride Level 101 mmol/L (98-107) Carbon Dioxide Level 29 mmol/L (21-32) Anion Gap 8 (6-14) Blood Urea Nitrogen 30 mg/dL (8-26) Creatinine 1.3 mg/dL (0.7-1.3) Estimated GFR (Cockcroft-Gault) 53.8 Glucose Level 157 mg/dL (70-99) Calcium Level 8.7 mg/dL (8.5-10.1) Test 03/09/17 07:48 Glucose (Fingerstick) 119 mg/dL (70-99) Medications Current Medications Albuterol/ Ipratropium (Duoneb) 3 ml 1X ONCE NEB Last administered on 12:21; Start 03/02/17 at 12:00; Stop 03/02/17 at 12:01; Status DC Ondansetron HCl (Zofran) 4 mg PRN Q8HRS PRN IV NAUSEA/VOMITING; Start 03/02/17 at 13:15; Stop 03/03/17 at 13:14; Status DC Albuterol/ Ipratropium (Duoneb) 3 ml RTQID NEB Last administered on 03/03/17 13 :51; Start 03/02/17 at 16:00; Stop 03/03/17 at 15:59; Status DC Acetaminophen (Tylenol) 650 mg PRN Q6HRS PRN PO FEVER Last administered on 00:53; Start 03/02/17 at 14:15 Ondansetron HCl (Zofran) 4 mg PRN Q6HRS PRN IV NAUSEA/VOMITING; Start 03/02/17 at 14:15 Morphine Sulfate 2 mg PRN Q2HR PRN IV PAIN; Start 03/02/17 at 14:15; Stop at 17:04; Status DC Tramadol HCl (Ultram) 50 mg PRN Q6HRS PRN PO PAIN; Start 03/02/17 at 14:15 Hydralazine HCl (Apresoline) 10 mg PRN Q4HRS PRN IVP ELEVATED BP, SEE COMMENTS ; Start 03/02/17 at 14:15 Docusate Sodium (Colace) 100 mg PRN DAILY PRN PO CONSTIPATION; Start 03/02/17 at 14:15 Furosemide (Lasix) 40 mg 1X ONCE PO ; Start 03/02/17 at 14:15; Stop 03/02/17 at 14:18; Status DC Allopurinol (Zyloprim) 300 mg DAILY PO Last administered on 03/09/17 08:36; Start 03/03/17 at 09:00 Clopidogrel Bisulfate (Plavix) 75 mg DAILY PO Last administered on 03/09/17 08: 36; Start 03/03/17 at 09:00 Dronedarone (Multaq) 400 mg DAILY16 PO ; Start 03/02/17 at 16:00; Status Cancel Nitroglycerin (Nitrostat) 0.4 mg PRN Q5MIN PRN SL CHEST PAIN; Start 03/02/17 at 14:15; Stop 03/04/17 at 13:07; Status DC Potassium Chloride (Klor-Con) 20 meq DAILY PO Last administered on 03/06/17 08: 44; Start 03/03/17 at 09:00; Stop 03/07/17 at 07:25; Status DC Sacubitril/ Valsartan (Entresto 49 Mg-51 Mg) 1 tab BID PO ; Start 03/02/17 at 21: 00; Stop 03/02/17 at 21:00; Status DC Metoprolol Tartrate (Lopressor) 12.5 mg BID PO Last administered on 03/09/17 08 :38; Start 03/02/17 at 21:00 Furosemide (Lasix) 40 mg DAILY PO ; Start 03/03/17 at 09:00; Stop 03/03/17 at 09: 00; Status DC Furosemide (Lasix) 20 mg 1X ONCE IVP Last administered on 03/02/17 16:43; Start 03/02/17 at 15:30; Stop 03/02/17 at 15:31; Status DC Heparin Sodium (Porcine) (Heparin Sq) 5,000 unit Q8HRS SQ Last administered on 03/08/17 21:51; Start 03/02/17 at 22:00 Insulin Aspart (NovoLOG) 0-9 UNITS TIDWMEALS SQ Last administered on 03/08/17 17:18; Start 03/02/17 at 17:00 Dextrose (Dextrose 50%-Water Syringe) 12.5 gm PRN Q15MIN PRN IV SEE COMMENTS; Start 03/02/17 at 14:30 Furosemide (Lasix) 20 mg DAILY IVP Last administered on 03/06/17 08:48; Start 03/03/17 at 09:00; Stop 03/06/17 at 10:54; Status DC Aspirin (Ecotrin) 81 mg DAILYWBKFT PO Last administered on 03/09/17 08:36; Start 03/03/17 at 08:00 Dronedarone (Multaq) 200 mg BID PO ; Start 03/02/17 at 21:00; Status Cancel Lisinopril (Prinivil) 40 mg DAILY PO Last administered on 03/08/17 08:43; Start 03/03/17 at 09:00 Non-Formulary Medication 400 mg DAILY PO ; Start 03/03/17 at 09:00; Status UNV Dronedarone (Multaq) 400 mg DAILY PO Last administered on 03/09/17 08:36; Start 03/03/17 at 09:00 Gabapentin (Neurontin) 800 mg QID PO Last administered on 03/09/17 08:37; Start 03/03/17 at 10:00 Acetaminophen (Tylenol) 325 mg QID PO Last administered on 03/09/17 08:37; Start 03/03/17 at 09:45 Albuterol Sulfate (Ventolin Neb Soln) 2.5 mg RTQID NEB Last administered on 03/04 08:11; Start 03/04/17 at 08:00; Stop 03/04/17 at 08:24; Status DC Albuterol Sulfate (Ventolin Neb Soln) 2.5 mg PRN Q2HRS PRN NEB SHORTNESS OF BREATH; Start 03/04/17 at 08:00 Doxycycline Hyclate (Vibra-Tab) 100 mg BID PO Last administered on 03/09/17 08: 36; Start 03/04/17 at 09:00 Albuterol/ Ipratropium (Duoneb) 3 ml RTQID NEB Last administered on 03/09/17 07 :55; Start 03/04/17 at 12:00 Iohexol (Omnipaque 300 Mg/ml) 100 ml STK-MED ONCE .ROUTE ; Start 03/04/17 at 10: 05; Stop 03/04/17 at 10:06; Status DC Heparin Sodium/ Sodium Chloride 500 ml @ As Directed STK-MED ONCE .ROUTE ; Start 03/04/17 at 10:05; Stop 03/04/17 at 10:06; Status DC Lidocaine HCl 20 ml STK-MED ONCE .ROUTE ; Start 03/04/17 at 10:05; Stop 03/04/17 at 10:06; Status DC Heparin Sodium/ Sodium Chloride 1,000 unit 1X ONCE IART Last administered on 11:39; Start 03/04/17 at 10:45; Stop 03/04/17 at 10:58; Status DC Heparin Sodium/ Sodium Chloride 1,000 unit 1X ONCE IART Last administered on 11:39; Start 03/04/17 at 10:45; Stop 03/04/17 at 10:58; Status DC Midazolam HCl (Versed) 2 mg 1X ONCE IV Last administered on 03/04/17 11:40; Start 03/04/17 at 10:45; Stop 03/04/17 at 10:58; Status DC Fentanyl Citrate (Fentanyl 2ml Vial) 100 mcg 1X ONCE IV Last administered on 11:40; Start 03/04/17 at 10:45; Stop 03/04/17 at 10:58; Status DC Iohexol (Omnipaque 300 Mg/ml) 100 ml 1X ONCE IART Last administered on 11:39; Start 03/04/17 at 10:45; Stop 03/04/17 at 10:58; Status DC Lidocaine HCl 20 ml 1X ONCE IJ Last administered on 03/04/17 11:39; Start 03/04 at 10:45; Stop 03/04/17 at 10:58; Status DC Heparin Sodium (Porcine) (Heparin Sodium) 5,000 unit 1X ONCE IV Last administered on 03/04/17 11:54; Start 03/04/17 at 11:14; Stop 03/04/17 at 11:41; Status DC Adenosine 90 mg/ Sodium Chloride 120 ml @ 504 mls/hr 1X ONCE IV ; Start at 11:29; Stop 03/04/17 at 11:43; Status Cancel Adenosine 180 mg/ Sodium Chloride 90 ml @ 1,080 mls/hr 1X ONCE IV ; Start 03/04 at 12:00; Stop 03/04/17 at 12:04; Status Cancel Adenosine 180 mg/ Sodium Chloride 150 ml @ 504 mls/hr 1X ONCE IV Last administered on 03/04/17 11:53; Start 03/04/17 at 12:00; Stop 03/04/17 at 12:17; Status DC Nitroglycerin (Nitrostat) 0.4 mg PRN Q5MIN PRN SL CHEST PAIN; Start 03/04/17 at 13:00 Fluoxetine HCl (PROzac) 20 mg DAILY PO Last administered on 03/09/17 08:37; Start 03/04/17 at 17:00 Iohexol (Omnipaque 300 Mg/ml) 60 ml 1X ONCE IV Last administered on 03/05/17 08:00; Start 03/05/17 at 05:30; Stop 03/05/17 at 05:31; Status DC Info (Do NOT chart on this entry -- for MONITORING) 1 each PRN DAILY PRN MC SEE COMMENTS; Start 03/05/17 at 05:15; Stop 03/07/17 at 05:15; Status DC Promethazine HCl/ Codeine (Phenergan With Codeine) 10 ml QID PO Last administered on 03/05/17 13:49; Start 03/05/17 at 13:00; Stop 03/05/17 at 16:09; Status DC Promethazine HCl/ Codeine (Phenergan With Codeine) 10 ml PRN Q8HRS PRN PO COUGH ; Start 03/06/17 at 13:00 Furosemide (Lasix) 20 mg 1X ONCE IVP ; Start 03/06/17 at 09:15; Stop 03/06/17 at 09:16; Status DC Furosemide (Lasix) 40 mg DAILY IVP Last administered on 03/08/17 08:46; Start 03/06/17 at 11:00; Stop 03/10/17 at 09:00 Prednisone (Prednisone) 40 mg DAILY PO Last administered on 03/09/17 08:37; Start 03/06/17 at 12:00 Metolazone (Zaroxolyn) 2.5 mg 1X ONCE PO Last administered on 03/06/17 19:48; Start 03/06/17 at 19:30; Stop 03/06/17 at 19:31; Status DC Furosemide (Lasix) 40 mg 1X ONCE IVP ; Start 03/06/17 at 19:30; Stop 03/06/17 at 19:31; Status DC Active Scripts Active Nitrostat (Nitroglycerin) 0.4 Mg Tab.subl 0.4 Mg SL PRN Q5MIN PRN [Metoprolol Tartrate] 25 MG Tablet 12.5 Mg PO BID [Aspirin] 81 MG Tablet.dr 81 Mg PO [id number] Reported Multaq (Dronedarone Hcl) 400 Mg Tablet 400 Mg PO Gleevec (Imatinib Mesylate) 400 Mg Tablet 400 Mg PO DAILY Ramipril 2.5 Mg Capsule 20 Mg PO DAILY Klor-Con M20 (Potassium Chloride) 20 Meq Tab.er.prt 1 Tab PO DAILY Lasix (Furosemide) 20 Mg Tablet 1 Tab PO DAILY Allopurinol 300 Mg Tablet 1 Tab PO DAILY Plavix (Clopidogrel Bisulfate) 75 Mg Tablet 75 Mg PO DAILY Gabapentin 800 Mg Tablet 800 Mg PO QID Metformin Hcl 1,000 Mg Tablet 1 Tab PO BID Do not resume until 10/07/15 evening dose Vitals/I & O Vital Sign - Last 24 Hours 03/08/17 03/08/17 03/08/17 03/08/17 09:15 11:15 12:28 15:20 Temp 98.3 97.3 98.3 97.3 Pulse 77 61 Resp 18 18 B/P (MAP) 107/51 (69) 115/52 (73) Pulse Ox 97 97 O2 Delivery Nasal Cannula Nasal Cannula Nasal Cannula Nasal Cannula O2 Flow Rate 3.0 3.0 3.0 3.0 03/08/17 03/08/17 03/08/17 03/08/17 16:05 19:37 20:00 20:00 Temp 97.4 97.4 Pulse 66 Resp 18 B/P (MAP) 112/49 (70) Pulse Ox 96 97 98 O2 Delivery Nasal Cannula Nasal Cannula Nasal Cannula Nasal Cannula O2 Flow Rate 3.0 3.0 3.0 3.0 03/08/17 03/08/17 03/09/17 03/09/17 20:46 23:26 03:48 07:55 Temp 97.8 97.5 97.8 97.5 Pulse 66 61 79 Resp 18 18 B/P (MAP) 112/49 121/56 (77) 119/54 (75) Pulse Ox 98 96 98 O2 Delivery Nasal Cannula Nasal Cannula Nasal Cannula O2 Flow Rate 3.0 2.0 3.0 03/09/17 03/09/17 08:36 08:38 Pulse 79 79 B/P (MAP) 119/54 119/54 OSCAR WILKERSON MD Mar 09, 2017 08:47
[2017-03-09] MEDS: FUROSEMIDE 40 MG/4 ML VIAL. IVP SCH (08:56)
--- NOTE | 2017-03-09 11:12 | PDOC ---
Provider Note Provider Note did not dc yesterday bec needed 1 more overnight as inpt NOw ready for dc to [facility] NO change in meds Dc summ and mar done Pt seen and examined Dw RN MAMTA Felder MD Mar 09, 2017 11:12
[2017-03-26] MEDS ORDERED: BOSU100T PO (17:51)
[2017-03-26] MEDS ORDERED: ACET325T9 PO (18:26)
[2017-03-28] MEDS ORDERED: FLUO20CA8 (14:30)
== END 2017-03-09 11:22 | DRG 286 ==
LOC: ER 11:34 → 6 SOUTH 13:07 → 2 SOUTH 03-03 13:04 → OBSVTOIN 03-06 09:39
PROVIDERS: ADMIT Internal Medicine; ATTEND Internal Medicine
PROC: 4A023N8 Measurement of Cardiac Sampling and Pressure, Bilateral, Percutaneous Approach (ICD-10-PCS; principal; 2017-03-04)
PROC: B2111ZZ Fluoroscopy of Multiple Coronary Arteries using Low Osmolar Contrast (ICD-10-PCS; 2017-03-04)
PROC: 4A033BC Measurement of Arterial Pressure, Coronary, Percutaneous Approach (ICD-10-PCS; 2017-03-04)
PROC: B2151ZZ Fluoroscopy of Left Heart using Low Osmolar Contrast (ICD-10-PCS; 2017-03-04)
PROC: 30233N1 Transfusion of Nonautologous Red Blood Cells into Peripheral Vein, Percutaneous Approach (ICD-10-PCS; 2017-03-06)
DX: I50.23 Acute on chronic systolic (congestive) heart failure (principal); N17.0 Acute kidney failure with tubular necrosis; J96.01 Acute respiratory failure with hypoxia; J84.9 Interstitial pulmonary disease, unspecified; C92.10 Chronic myeloid leukemia, BCR/ABL-positive, not having achieved remission; I13.0 Hypertensive heart and chronic kidney disease with heart failure and stage 1 through stage 4 chronic kidney disease, or unspecified chronic kidney disease; E44.1 Mild protein-calorie malnutrition; I25.110 Atherosclerotic heart disease of native coronary artery with unstable angina pectoris; E11.22 Type 2 diabetes mellitus with diabetic chronic kidney disease; E11.40 Type 2 diabetes mellitus with diabetic neuropathy, unspecified; I49.5 Sick sinus syndrome; I27.2 Other secondary pulmonary hypertension; E66.01 Morbid (severe) obesity due to excess calories; N18.3 Chronic kidney disease, stage 3 (moderate); D63.8 Anemia in other chronic diseases classified elsewhere; I25.5 Ischemic cardiomyopathy; I48.0 Paroxysmal atrial fibrillation; E78.5 Hyperlipidemia, unspecified; I25.2 Old myocardial infarction; Z95.5 Presence of coronary angioplasty implant and graft; Z88.5 Allergy status to narcotic agent; Z88.6 Allergy status to analgesic agent; Z68.35 Body mass index [BMI] 35.0-35.9, adult; Z95.810 Presence of automatic (implantable) cardiac defibrillator; Z87.442 Personal history of urinary calculi; Z92.21 Personal history of antineoplastic chemotherapy
CPT/HCPCS: 36415; 36600; 71010; 71260; 78582; 80048; 80061; 80076; 82805; 82962; 83690; 83735; 83880; 84443; 84484; 85007; 85025; 85651; 86850; 86900; 86901; 86920; 93005; 93453; 93571; 93970; 94250; 94620; 94640; 94660; 94760; 96374; 99152; 99153; A9540; A9558; C1713; C1769; C1771; C1773; C1892; G0269; G0378; G0379; J0153; J1644; J1815; J1940; J2250; J3010; J7512; J7613; J7620; P9016; Q9967; 97110; 97116; 97530; 97535; 99285-25; J2001

== ENCOUNTER → 2017-10-03 | Outpatient (CLI) | payer MEDICARE | END | disposition home or self-care (01) | LOC: RT 18:42 | DX: G47.33 Obstructive sleep apnea (adult) (pediatric) (principal); I12.9 Hypertensive chronic kidney disease with stage 1 through stage 4 chronic kidney disease, or unspecified chronic kidney disease; E11.22 Type 2 diabetes mellitus with diabetic chronic kidney disease; N18.3 Chronic kidney disease, stage 3 (moderate); E78.5 Hyperlipidemia, unspecified | CPT/HCPCS: 95811 ==

== ENCOUNTER → 2018-01-15 | Outpatient (CLI) | payer MEDICARE | END | disposition home or self-care (01) | LOC: CT 09:07 | DX: J47.9 Bronchiectasis, uncomplicated (principal); I31.3 Pericardial effusion (noninflammatory); K80.20 Calculus of gallbladder without cholecystitis without obstruction; I13.0 Hypertensive heart and chronic kidney disease with heart failure and stage 1 through stage 4 chronic kidney disease, or unspecified chronic kidney disease; E11.22 Type 2 diabetes mellitus with diabetic chronic kidney disease; I50.9 Heart failure, unspecified; N18.3 Chronic kidney disease, stage 3 (moderate); E78.5 Hyperlipidemia, unspecified; E66.9 Obesity, unspecified; R91.8 Other nonspecific abnormal finding of lung field | CPT/HCPCS: 71250 ==

== ENCOUNTER → 2018-02-06 | Outpatient (CLI) | payer MEDICARE | END | disposition home or self-care (01) | LOC: RAD 12:24 | DX: R09.89 Other specified symptoms and signs involving the circulatory and respiratory systems (principal); I13.0 Hypertensive heart and chronic kidney disease with heart failure and stage 1 through stage 4 chronic kidney disease, or unspecified chronic kidney disease; E11.22 Type 2 diabetes mellitus with diabetic chronic kidney disease; N18.3 Chronic kidney disease, stage 3 (moderate); I50.22 Chronic systolic (congestive) heart failure; E78.5 Hyperlipidemia, unspecified | CPT/HCPCS: 71046 ==

== ENCOUNTER → 2018-03-05 | Outpatient (CLI) | payer MEDICARE, OTHER ==
[2017-03-28 15:21] VITALS: BP 96/45
[~2018-03-05] MED LIST changes: +ACET325T9 PO; +BOSU100T PO; +DOXY100C2 PO; +FLUO20CA8; +GLEEVEC400 MG PO; -METF-620 PO; +METF10007 PO; -RAMI10CA PO; +RAMI10CA53 PO; +RAMI2.5C2 PO; -RAMI5CAP PO; +RAMI5CAP50 PO
--- NOTE | 2018-03-05 10:18 | EKG ---
[facility] [address] [place] [address] Test Date: 2018-03-05 Test Time: 10:12:47 Pat Name: ANDREW SANTOS Department: Room: Gender: M [employer] Professional: : 1940 Requested By: OSCAR WILKERSON Order Number: [id number] Reading MD: Alexy Pickering MD Measurements Intervals [place] Rate: 81 P: 90 OR: 144 QRS: -56 QRSD: 144 T: 73 QT: 408 QTc: 474 Interpretive Statements A-V PACING Electronically Signed On 03-05-2018 12:37:10 CDT by Alexy Pickering MD
== END | disposition home or self-care (01) ==
LOC: EKG 09:54
PROVIDERS: ATTEND Internal Medicine Hematology & Oncology
DX: C92.10 Chronic myeloid leukemia, BCR/ABL-positive, not having achieved remission (principal); I13.0 Hypertensive heart and chronic kidney disease with heart failure and stage 1 through stage 4 chronic kidney disease, or unspecified chronic kidney disease; E11.22 Type 2 diabetes mellitus with diabetic chronic kidney disease; I50.43 Acute on chronic combined systolic (congestive) and diastolic (congestive) heart failure; N18.3 Chronic kidney disease, stage 3 (moderate); I25.10 Atherosclerotic heart disease of native coronary artery without angina pectoris; E66.9 Obesity, unspecified; Z86.2 Personal history of diseases of the blood and blood-forming organs and certain disorders involving the immune mechanism; Z95.5 Presence of coronary angioplasty implant and graft; Z87.442 Personal history of urinary calculi; Z85.118 Personal history of other malignant neoplasm of bronchus and lung; Z92.21 Personal history of antineoplastic chemotherapy; Z68.35 Body mass index [BMI] 35.0-35.9, adult; Z88.8 Allergy status to other drugs, medicaments and biological substances; Z88.5 Allergy status to narcotic agent; Z88.6 Allergy status to analgesic agent; Z82.49 Family history of ischemic heart disease and other diseases of the circulatory system
CPT/HCPCS: 93005

== ENCOUNTER → 2018-03-14 | Outpatient (CLI) | payer MEDICARE, OTHER ==
[2017-03-28 15:21] VITALS: BP 96/45
--- NOTE | 2018-03-14 13:34 | EKG ---
[facility] [address] [place] [address] Test Date: 2018-03-14 Test Time: 13:29:56 Pat Name: ANDREW SANTOS Department: Room: Gender: M [employer]: : 1940 Requested By: OSCAR WILKERSON Order Number: [id number] Reading MD: Alexy Pickering MD Measurements Intervals [place] Rate: 67 P: 90 SC: 104 QRS: -45 QRSD: 140 T: -20 QT: 446 QTc: 474 Interpretive Statements V-PACED Electronically Signed On 03-14-2018 13:58:47 CDT by Alexy Pickering MD
== END | disposition home or self-care (01) ==
LOC: EKG 13:13
PROVIDERS: ATTEND Internal Medicine Hematology & Oncology
DX: C92.10 Chronic myeloid leukemia, BCR/ABL-positive, not having achieved remission (principal)
CPT/HCPCS: 93005